=== PATIENT | female | born 1945 | race Caucasian/White ===

== ENCOUNTER 2019-12-30 08:58 | Outpatient (CLI) | payer MEDICARE, OTHER, SELFPAY ==
--- NOTE | 2019-12-30 09:04 | CT_ITS ---
WS: [id number] CT CHEST WITH INTRAVENOUS CONTRAST HISTORY: HEMOPTYSIS TECHNIQUE: Contiguous 5 mm axial imaging performed on the thorax. Coronal and sagittal reformats are submitted. All CT scans at [facility] use at least one of these dose optimization techniq ues: automated exposure control; mA and/or kV adjustment per patient size (includes targeted exams wh ere dose is matched to clinical indication); or iterative reconstruction. CONTRAST: Omnipaque 300; 95 mL IV. DLP: 759.74 mGycm COMPARISON: 06/29/2013 Lungs and central airway: Moderate pulmonary hyperinflation from emphysema. There are a few scattered micronodules (less than 2 mm) throughout each lung. No suspicious mass. Coarse benign calcification in the LEFT lower lobe adjacent to the fissure is stable measuring 1.6 cm. No pneumonia. Pleura: Normal. No pleural effusion. Heart and pericardium: Normal size heart. No pericardial effusion. Mediastinum and hima: Small mediastinal and hilar lymph nodes. Some of these are indeterminate and so me are enlarged. Largest is precarinal measuring 13 mm in diameter. As compared to prior studies no s ignificant progression. Vessels: Normal size aortic and pulmonary artery. No coronary artery calcifications. Chest wall and lower neck: No soft tissue masses. Upper abdomen: Abnormal liver surface. Lobulated surface of the liver consistent with cirrhosis. Port al vein as visualized are remains patent. The entire portal vein is not imaged. There are multiple in tensely enhancing lesions present within the RIGHT lobe of the liver. Please note that a prior dedica bryant liver CT was performed on 12/15/2019 from [facility]. Pancreas although incomple tely visualized doesn't appear to be enlarged. There are numerous lymph nodes in the mesentery of the upper abdomen which have been described on prior studies. Osseous structures: Thoracic spondylosis. CT/CT chest w con* [id number] IMPRESSION: 1. Chronic emphysema and prior granulomatous disease. No pneumonia or endobron chial lesions are identified. 2. Long-term stability of indeterminate and numerous mediastinal and hilar lym ph nodes and upper abdominal lymph nodes. 3. Cirrhosis. Abnormal liver. Dedicated liver CT was performed at [facility] on 12/15/2019. Please refer to that report for complete evaluat ion of the liver lesions.
[2019-12-30] MEDS: iohexol 300 mg/mL 100 mL Btl IV (09:45)
== END 2019-12-30 08:59 | disposition home or self-care (01) ==
LOC: RADWPI 09:03
PROVIDERS: Family Provider Family Medicine; PCP Internal Medicine Cardiovascular Disease; Visit Provider Family Medicine
DX: J43.9 Emphysema, unspecified (principal); K74.60 Unspecified cirrhosis of liver; R04.2 Hemoptysis
CPT/HCPCS: 71260; Q9967

== ENCOUNTER 2020-01-19 08:47 | Outpatient (CLI) | payer MEDICARE, OTHER, SELFPAY ==
--- NOTE | 2020-01-19 09:00 | CT_ITS ---
WS: [id number] CT ANGIOGRAPHY ABDOMEN AORTA HISTORY: Abdominal aortic aneurysm. TECHNIQUE: CT angiogram is performed during IV injection. MIP images reviewed. Reformation images rev iewed. All CT scans at [facility] use at least one of these dose optimization techniques: automated exposure control; mA and/or kV adjustment per patient size (includes targeted exams where d ose is matched to clinical indication); or iterative reconstruction. CONTRAST: Omnipaque 350; 95 mL IV. DLP: 590.68 mGycm COMPARISON: 12/15/2019, 01/09/2019 Chronic emphysema at the lung bases. Large calcification in the lingula. Cardiac chamber size is norm al. No significant hiatal hernia. Nodular appearance of the liver from cirrhosis. Variable enhancement throughout the liver. Dedicated hepatic CT is been performed on 12/15/2019 which demonstrated multiple nodules. On today's examination there are multiple ill-defined areas of increased enhancement in the periphery of the liver suspiciou s for metastatic lesions. Patient provided a history of liver cancer. Spleen is top normal size at 11 .2 cm. Numerous lymph nodes present in the upper abdomen surrounding the celiac axis, aortocaval and regino hepatis. Largest lymph nodes measure 16 mm. These lymph nodes were present on the prior examina tions and not significantly changed in size. Prior cholecystectomy. Pancreas and adrenal glands are n egative. Small cortical cysts in the LEFT kidney. Splenic varices. Abdominal aorta: Extensive atherosclerosis and dilatation of the abdominal aorta. Aortic aneurysm ext ends over a length of 7.5 cm. Maximum transverse diameter 4.1 cm. The lumen is patent. Near circumfer ential thrombus surrounding the lumen. Thrombus diameter measures up to 1.4 cm. Heavy calcification a t the origin of the celiac axis. Mild narrowing proximal SMA. Single LEFT renal artery with mild sten osis proximally. Suspect at least moderate stenosis involving the main RIGHT renal artery. There is a n accessory renal artery extending towards the lower pole. Bifurcation of aorta is intact. Moderate c alcification in the common iliac arteries but no aneurysm. No periaortic hematoma or rupture. L4 anterolisthesis by 2 mm. Degenerative spondylitic changes in the lumbar spine. No osteoblastic or osteolytic disease. CT/CT angio abdomen [id number] IMPRESSION: 1. Abdominal aortic aneurysm extends over a length of 7.5 cm. Maximum transver se diameter 4.1 cm. Intraluminal thrombus with no significant stenosis of the p atent lumen. 2. Mild proximal LEFT and moderate proximal RIGHT renal artery stenosis. There is an additional accessory renal artery on the RIGHT extending towards the low er pole. 3. Marked cirrhosis. There is abnormal enhancement throughout the liver. Patie nt provided a history of liver cancer. Prior outside liver protocol CT was rece ntly obtained. 4. Mesenteric adenopathy has been present over multiple prior years. 5. Prior cholecystectomy.
[2020-01-19] MEDS: iohexol 350 mg/mL 100 mL Btl IV (09:41)
== END 2020-01-19 08:48 | disposition home or self-care (01) ==
LOC: RADWPI 08:50
PROVIDERS: Family Provider Family Medicine; PCP Family Medicine; Visit Provider Thoracic Surgery (Cardiothoracic Vascular Surgery)
DX: I71.4 Abdominal aortic aneurysm, without rupture (principal); I70.1 Atherosclerosis of renal artery; Z90.49 Acquired absence of other specified parts of digestive tract
CPT/HCPCS: 74175; Q9967

== ENCOUNTER 2020-02-01 18:12 | Inpatient (IN) | payer MEDICARE, OTHER, SELFPAY ==
[2020-02-01] VITALS (49 sets, daily range): BP systolic 92–205; BP diastolic 64–127; PULSE 88–127; RESP 13–44; TEMP 37; O2SAT 83–98; BMI 28.3
--- NOTE | 2020-02-01 18:14 | ED_ITS ---
Entered by Nora Campuzano, acting as scribe for Trung Chaudhry MD HPI - SOB/Dyspnea General: Chief Complaint: Shortness of Breath/Dyspnea Stated Complaint: RESP DISTRESS Time Seen by Provider: 02/01/20 18:14 Source: patient Mode of arrival: wheelchair History of Present Illness: HPI Narrative: 74 yo female presents with resp distress. pt came to the ED having severe shortness of breath. pt is unable to answer questions due to her symptoms. per family stated this started this morning, she got short of breath with any movement. Patient denies any chest pain but is in severe distress here. She is only able answer me the 1 word answers. She denied any fevers but has had a slight cough. 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 ) Context: recent illness Timing: constant and progressively worsening Severity: severe Exacerbating factors: movement and coughing Associated symptoms: Reports chest congestion and cough; Deny abdominal pain, chest pain, fever(s), nausea or vomiting Treatment prior to arrival: none Review of Systems General: Reports: ROS unobtainable due to medical condition Const: Denies: fever, chills, body aches or change in appetite Eyes: Denies: blurry vision or eye discomfort ENMT: Denies: throat pain or dental pain Card: Denies: chest pain Resp: Reports: shortness of breath and chest congestion GI: Denies: abdominal pain, nausea, vomiting or diarrhea : Denies: painful urination Musc: Denies: neck pain or back pain Skin/Breast: Denies: rash Neuro: Denies: headache Psych: Denies: depression Melvin/Lymph: Denies: easy bruising All/Imm: Denies: hives [facility] ED PFSH: Medical History (Updated 01/26/20 @ 10:06 by Shaka Pratt MD) Abdominal aortic aneurysm (AAA) Bilateral carotid artery stenosis Cirrhosis Coronary artery disease CVA (cerebral vascular accident) May of 2019 Diabetes GERD (gastroesophageal reflux disease) Hypertension Mixed hyperlipidemia Peripheral artery disease Thrombocythemia Surgical History History of biopsy History of liver biopsy Social History Smoking and tobacco status: unknown if ever smoked Alcohol intake: never Physical Exam Resp: EFFORT & INSPECTION: Yes able to speak in complete sentences, Yes abnormal respiratory pattern, Yes respiratory distress and Yes decreased respiratory effort Course Vital Signs: Vital signs: Vital Signs Temperature 98.6 F 02/01/20 18:52 Pulse Rate 120 H 02/01/20 20:27 Respiratory Rate 16 02/01/20 18:52 Blood Pressure 142/80 02/01/20 20:40 Pulse Oximetry 95 02/01/20 20:27 MDM - SOB/Dyspnea MDM Narrative: Medical decision making narrative: Patient presents here with right lower lobe pneumonia was in severe distress when she arrived. Patient was intubated is doing improved after intubation. Patient given IV antibiotics here. We will also test for coronavirus. Patient EKG has no signs of ST elevation. Patient admitted to the ICU. Lab Data: Labs: Lab Results 02/01/20 02/01/20 02/01/20 Range/Units 18:25 18:30 19:01 WBC 11.5 H (4.0-10.0) 10^3/ uL RBC 4.89 (4.1-5.3) 10^6/u L Hgb 14.9 (11.5-15.3) g/dL Hct 49.0 H (37.0-47.0) % MCV 100.2 H (81-99) fL MCH 30.5 (28.0-34.0) pg MCHC 30.4 (30.0-36.0) g/dL RDW 13.4 (12.1-15.1) % Plt Count 220 (130-400) 10^3/c mm MPV 13.2 H (7.4-10.4) fL Neut % (Auto) 41.8 % Lymph % (Auto) 46.7 % [place] % (Auto) 6.7 % Eos % (Auto) 1.8 % Baso % (Auto) 1.0 % Neut # (Auto) 4.8 (1.8-7.7) 10^3/u L Lymph # (Auto) 5.4 H (0.8-4.8) 10^3/u L [place] # (Auto) 0.8 (0.2-0.9) 10^3/u L Eos # (Auto) 0.2 (0.0-0.8) 10^3/u L Baso # (Auto) 0.1 (0.0-0.1) 10^3/u L Nucleated RBC % (a uto) 0 % Nucleated RBCs # 0.0 /100WBC Specimen Type Arterial Sample Site Rr ABG pH 7.02 L* (7.35-7.45) ABG pCO2 67.5 H* (35-45) mmHg ABG pO2 58.3 L (80.0-100.0) mmH g ABG HCO3 17.4 L (22-26) mmol/L ABG O2 Saturation 76.6 ABG Base Excess -14.6 L (-2.0-2.0) mmol/ L Gabo Test Pos Hematocrit 45.8 (37-47) % Hgb O2 Saturation 73.5 L (95-100) % Carboxyhemoglobin 3.1 (0.4-20.1) %THgb Methemoglobin 1.0 (0.4-1.5) % Total Hemoglobin 14.9 (12-16) g/dL Sodium 143.0 (131-143) mmol/L Potassium 4.9 (3.5-5.0) mmol/L Glucose 231.0 H (70-115) mg/dL Ionized Calcium 1.3 (1.1-1.4) mmol/L O2 Delivery Device Nc O2 Liters/Min 10.0 % Specimen Drawn By Adrian Book Publisher ID Jmn Chloride (98-107) mmol/L Carbon Dioxide (22-29) mmol/L Anion Gap (5-19) BUN (8-23) mg/dL Creatinine (0.5-0.9) mg/dL Calculated Osmolal ity (285-295) mOsm/k g Calcium (8.5-10.5) mg/dL Total Bilirubin (0.15-1.2) mg/dL AST (0-32) U/L ALT (0-33) U/L Alkaline Phosphata se (35-105) IU/L Troponin T Baselin e (0-10) ng/mL NT-Pro-B Natriuret Pep (0-125) pg/mL Total Protein (6.6-8.7) g/dL Albumin (3.5-5.2) g/dL Globulin (1.3-4.6) g/dL Urine Color Yellow (Yellow) Urine Appearance Clear (CLEAR) Urine pH 5.0 (5-7) Ur Specific Gravit y 1.025 (1.005-1.030) Urine Protein 2+ H (Negative) Urine Glucose (UA) Norm (Normal) Urine Ketones Negative (Negative) Urine Blood 2+ H (Negative) Urine Nitrate Negative (Negative) Urine Bilirubin Neg (NEGATIVE) Urine Urobilinogen Norm (Negative) mg/dL Ur Leukocyte Bernarda ase Negative (Negative) Urine RBC 0-4 H (0-2) /hpf Urine WBC 0-4 H (0-5) /hpf Ur Squamous Epith Cells 5-10 H (0-5) Urine Bacteria 2+ H (NONE) Urine Mucus Trace 02/01/20 02/01/20 02/01/20 Range/Units 19:01 19:01 19:01 WBC (4.0-10.0) 10^3/ uL RBC (4.1-5.3) 10^6/u L Hgb (11.5-15.3) g/dL Hct (37.0-47.0) % MCV (81-99) fL MCH (28.0-34.0) pg MCHC (30.0-36.0) g/dL RDW (12.1-15.1) % Plt Count (130-400) 10^3/c mm MPV (7.4-10.4) fL Neut % (Auto) % Lymph % (Auto) % [place] % (Auto) % Eos % (Auto) % Baso % (Auto) % Neut # (Auto) (1.8-7.7) 10^3/u L Lymph # (Auto) (0.8-4.8) 10^3/u L [place] # (Auto) (0.2-0.9) 10^3/u L Eos # (Auto) (0.0-0.8) 10^3/u L Baso # (Auto) (0.0-0.1) 10^3/u L Nucleated RBC % (a uto) % Nucleated RBCs # /100WBC Specimen Type Sample Site ABG pH (7.35-7.45) ABG pCO2 (35-45) mmHg ABG pO2 (80.0-100.0) mmH g ABG HCO3 (22-26) mmol/L ABG O2 Saturation ABG Base Excess (-2.0-2.0) mmol/ L Gabo Test Hematocrit (37-47) % Hgb O2 Saturation (95-100) % Carboxyhemoglobin (0.4-20.1) %THgb Methemoglobin (0.4-1.5) % Total Hemoglobin (12-16) g/dL Sodium 136 (131-143) mmol/L Potassium 4.4 (3.5-5.0) mmol/L Glucose 326 H (70-115) mg/dL Ionized Calcium (1.1-1.4) mmol/L O2 Delivery Device O2 Liters/Min % Specimen Drawn By Book Publisher ID Chloride 100 (98-107) mmol/L Carbon Dioxide 16 L (22-29) mmol/L Anion Gap 24.4 H (5-19) BUN 14 (8-23) mg/dL Creatinine 1.1 H (0.5-0.9) mg/dL Calculated Osmolal ity 291 (285-295) mOsm/k g Calcium 9.3 (8.5-10.5) mg/dL Total Bilirubin 0.3 (0.15-1.2) mg/dL AST 29 (0-32) U/L ALT 18 (0-33) U/L Alkaline Phosphata se 142 H (35-105) IU/L Troponin T Baselin e 43 H (0-10) ng/mL NT-Pro-B Natriuret Pep 337 H (0-125) pg/mL Total Protein 7.7 (6.6-8.7) g/dL Albumin 4.2 (3.5-5.2) g/dL Globulin 3.5 (1.3-4.6) g/dL Urine Color (Yellow) Urine Appearance (CLEAR) Urine pH (5-7) Ur Specific Gravit y (1.005-1.030) Urine Protein (Negative) Urine Glucose (UA) (Normal) Urine Ketones (Negative) Urine Blood (Negative) Urine Nitrate (Negative) Urine Bilirubin (NEGATIVE) Urine Urobilinogen (Negative) mg/dL Ur Leukocyte Bernarda ase (Negative) Urine RBC (0-2) /hpf Urine WBC (0-5) /hpf Ur Squamous Epith Cells (0-5) Urine Bacteria (NONE) Urine Mucus Imaging Data^: CXR: Attestation: I personally reviewed and interpreted this imaging study as follows: My impression: rll pneumonia EKG Data^: EKG 1: Attestation: I personally reviewed and interpreted this EKG as follows: EKG Interpretation Date: 02/01/20 EKG interpretation time: 18:54 Interpretation: sinus tach hr [address] elevation qrs 88 qtc 375 Critical Care Time Critical Care Time: Critical Care Time: Yes Total Critical Care Time: 35 Attestation: This case had a high probability of a clinically significant, sudden, or life threatening deterioration of this patient's condition which required my full and direct attention, intervention and personal management. Discharge Plan Discharge Prescriptions: No Action metoprolol tartrate 25 mg tablet 25 mg PO BID RF: 0 clopidogrel 75 mg tablet 75 mg PO DAILY RF: 0 pantoprazole 40 mg tablet,delayed release (DR/EC) 40 mg PO DAILY RF: 0 ranitidine HCl 300 mg capsule 300 mg PO BEDTIME RF: 0 nitroglycerin [Nitrostat] 0.4 mg tablet, sublingual 0.4 mg SUBLINGUAL Q5M PRN (Reason: Chest Pain) RF: 0 aspirin 325 mg tablet 325 mg PO DAILY PRN (Reason: headache) RF: 0 isosorbide mononitrate 60 mg tablet extended release 24 hr 60 mg PO BID RF: 0 Coding Level of Care Code ED Senior Control Systems Engineer for Chg Fwd Exam Problem Focused The documentation recorded by the Justen henry Bridget Annette, accurately reflects the service I personally performed and the decisions made by me, Trung Chaudhry MD Feb 01, 2020 18:12
--- NOTE | 2020-02-01 18:14 | XR_ITS ---
WS: [id number] Portable AP upright chest, 02/01/2020, 1833 hours Clinical Data: RESP DISTRESS Comparison: PA and lateral chest, 02/18/2018. Findings: The endotracheal tube is above the damon. The nasogastric tube appears to be within the es ophagus and entering the stomach. The pulmonary vascularity is increased. The heart is normal. The ao rtic arch and descending aorta show calcification and tortuosity. No pneumonia or pneumothorax is see n. Monitor leads are on the chest wall. XR/XR chest 1V portable [id number] Impression: 1. Endotracheal tube and nasogastric tube in good position. 2. Pulmonary vascular congestion.
--- NOTE | 2020-02-01 18:16 | ECG_ITS ---
Measurements Intervals [place] Rate: 116 P: 71 NC: 130 QRS: 4 QRSD: 88 T: 88 QT: 306 QTc: 426 SINUS TACHYCARDIA POSSIBLE LEFT ATRIAL ENLARGEMENT [-0.1mV P WAVE IN V1/V2] POSSIBLE RIGHT VENTRICULAR CONDUCTION DELAY [RSR (QR) IN V1/V2] SEPTAL MYOCARDIAL INFARCTION , OF INDETERMINATE AGE [40+ ms Q WAVE IN V1/V2] MODERATE T-WAVE ABNORMALITY, CONSIDER LATERAL ISCHEMIA Compared to ECG 05/29/2019 14:42:01 Myocardial infarct finding now present T-wave abnormality now present Possible ischemia now present Sinus rhythm no longer present Electronically Signed On 02-02-2020 10:26:01 CDT by Alida Alaniz M.D. [id number] dada
--- NOTE | 2020-02-01 18:23 | ECG_ITS ---
Measurements Intervals [place] Rate: 113 P: 64 WI: 120 QRS: 7 QRSD: 74 T: 74 QT: 294 QTc: [address] ELEVATION, CONSIDER ANTERIOR INJURY INTERPRETATION LIMITED BY ARTIFACT Compared to ECG 05/29/2019 14:42:01 ST (T wave) deviation now present Myocardial infarct finding now present Sinus rhythm no longer present Electronically Signed On 02-02-2020 10:28:33 CDT by Alida Alaniz M.D. [email or web address] f
[2020-02-01] MEDS: succinylcholine 20 mg/mL SDV 10mL 150 MG IVP (18:25)
[2020-02-01 18:28] LABS: ABG PCO2 67.5 mmHg (35-45); ABG PH Result 7.02 (7.35-7.45); HCO3 ABG 17.4 mmol/L (22-26); PO2 ABG 58.3 mmHg (80.0-100.0)
[2020-02-01 18:29] LABS: Base Excess ABG -14.6 mmol/L (-2.0-2.0); Blood Gas Sample Site RR; Oxygen Device NC; Oxygen Saturation ABG 76.6; Potassium Level - ABG 4.9 mmol/L (3.5-5.0)
[2020-02-01 18:30] LABS: Arterial Blood Gas Hematocrit 45.8 % (37-47); Carboxyhemoglobin 3.1 %THgb (0.4-20.1); Ionized Calcium Level - ABG 1.3 mmol/L (1.1-1.4)
[2020-02-01 18:31] LABS: HGB O2 Sat 73.5 % (95-100); Total Hemoglobin 14.9 g/dL (12-16)
[2020-02-01] MEDS: vecuronium 10 mg SDV IVP (18:35)
[2020-02-01 19:02] LABS: Add Urine Microscopic? YES; Bilirubin Urine Neg (NEGATIVE); Blood Urine 2+ (Negative); Glucose Urine UA Norm (Normal); Ketones Urine Negative (Negative); Leukocyte Esterase Urine Negative (Negative); Nitrate Urine Negative (Negative); Protein Urine 2+ (Negative); Specific Gravity, Urine 1.025 (1.005-1.030); Urine Appearance Clear (CLEAR); Urine Color Yellow (Yellow); Urobilinogen Urine Norm (Negative)
[2020-02-01 19:11] LABS: Basophils # 0.1 10^3/uL (0.0-0.1); Eosinophils # 0.2 10^3/uL (0.0-0.8); Eosinophils % 1.8 %; Hemoglobin 14.9 g/dL (11.5-15.3); Lymphocytes # 5.4 10^3/uL (0.8-4.8); Lymphocytes % 46.7 %; Mean Corpuscular HGB Conc 30.4 g/dL (30.0-36.0); Mean Corpuscular Hemoglobin 30.5 pg (28.0-34.0); Mean Corpuscular Volume 100.2 fL (81-99); Mean Platelet Volume 13.2 fL (7.4-10.4); Monocytes # 0.8 10^3/uL (0.2-0.9); Monocytes % 6.7 %; Neutrophils # 4.8 10^3/uL (1.8-7.7); Neutrophils % 41.8 %; Nucleated Red Blood Cells % 0 %; Platelet Count 220 10^3/cmm (130-400); Red Blood Count 4.89 10^6/uL (4.1-5.3); Red Cell Distribution Width 13.4 % (12.1-15.1); White Blood Count 11.5 10^3/uL (4.0-10.0)
[2020-02-01] MEDS: levofloxacin-dextrose 5 % 750 MG/150 ML PREMIX 150 MG IV (19:26)
[2020-02-01 19:31] LABS: Add Urine Culture? No; Bacteria Urine 2+; Mucus Urine TRACE; RBC Urine 0-4 /hpf (0-2); WBC Urine 0-4 /hpf (0-5)
--- NOTE | 2020-02-01 19:31 | PC.NURSE ---
Report received from TRAM Marie and care transferred to TRAM Rodriguez
[2020-02-01 19:32] LABS: Alanine Aminotransferase 18 U/L (0-33); Albumin Level 4.2 g/dL (3.5-5.2); Alkaline Phosphatase 142 IU/L (35-105); Anion Gap 24.4 (5-19); Blood Urea Nitrogen 14 mg/dL (8-23); Calcium 9.3 mg/dL (8.5-10.5); Carbon Dioxide 16 mmol/L (22-29); Chloride 100 mmol/L (98-107); Creatinine Clr Calc Pharmacy 46.0731; Globulin 3.5 g/dL (1.3-4.6); Glucose 326 mg/dL (65-115); Osmolality Calculated 291 mOsm/kg (285-295); Potassium 4.4 mmol/L (3.5-5.1); Sodium 136 mmol/L (136-145); Total Bilirubin 0.3 mg/dL (0.15-1.2); Total Protein 7.7 g/dL (6.6-8.7)
[2020-02-01 19:33] LABS: Troponin(5th) Baseline 43 ng/mL (0-10)
[2020-02-01 19:48] LABS: Aspartate Amino Transferase 29 U/L (0-32)
[2020-02-01 19:54] LABS: Slide Review Slide Review Perform
--- NOTE | 2020-02-01 19:56 | PC.PHAR ---
could not verify meds with pt-pt was intubated-put in meds that were filled recently-called [facility] to see if plavix was filled and they stated that they never filled this medication but it was in the system from some med list before
[2020-02-01 20:26] LABS: NT Pro B Type Natriuretic Pept 337 pg/mL (0-125)
[2020-02-01 21:01] LABS: Alveolar-Arterial Oxygen Gradi 9.3 mmHg (5-10); Blood Gas Allen Test Pos; Blood Gas Sample Type Arterial
--- NOTE | 2020-02-01 21:03 | CTR_ITS ---
PROCEDURE INFORMATION: Exam: CT Angiography Chest With Contrast Exam date and time: 02/01/2020 9:08 PM Age: 74 years old Clinical indication: Shortness of breath; Additional info: Dyspnea TECHNIQUE: Imaging protocol: Computed tomographic angiography of the chest with intravenous contrast. 3D rendering: MIP and/or 3D reconstructed images were created by the technologist. Total DLP: 571.86 mGy-cm Radiation optimization: All CT scans at this facility use at least one of these dose optimization techniques: automated exposure control; mA and/or kV adjustment per patient size (includes targeted exams where dose is matched to clinical indication); or iterative reconstruction. Contrast material: VISI 320; Contrast volume: 82 ml; Contrast route: IV; COMPARISON: CT chest w con* [id number] 12/30/2019 9:43 AM FINDINGS: Tubes, catheters and devices: The nasogastric tube is positioned in the stomach, well beyond the diaphragmatic hiatus. The tip is not imaged. The endotracheal tube tip lies 15 mm above the damon. Pulmonary arteries: The pulmonary arteries are adequately opacified for evaluation to the subsegmental level. There is no filling defect to suggest embolism. Aorta: There is moderate aortic atherosclerotic disease. Lungs: Dependent consolidation in both lower lobes and right upper lobe to a lesser extent. There is an 18 mm calcified granuloma or hamartoma in the left lower lobe. Pleural space: Small bilateral pleural effusions. Heart: Heart size is normal. There is no pericardial effusion. Liver: The liver has a nodular surface and there is relative hypertrophy of the left and caudate lobe consistent with cirrhosis. Adrenals: The adrenal glands are hypertrophic bilaterally. Lymph nodes: Calcified subcarinal and left hilar lymph nodes. Diffusely mildly prominent mediastinal nodes are stable since the prior chest CT. Bones/joints: Unremarkable. No acute fracture. Soft tissues: The extrathoracic soft tissues are unremarkable. CT/CT angio chest PE protcl [id number] IMPRESSION: 1. No pulmonary embolism. 2. Satisfactory position of the endotracheal and nasogastric tubes. 3. Small bilateral pleural effusions. 4. Dependent consolidation in both lungs. There is at least some component of atelectasis. Superimposed infection may be present. 5. Cirrhosis. Radiation Dose CTDIVOL = (mGy): DLP = 571.86 (mGy-cm)
[2020-02-01] MEDS: vancomycin 1,000 MG in sodium chloride 0.9% 250 ML 250 MG IV (21:10)
--- NOTE | 2020-02-01 21:11 | PM.HP ---
Providers/Chief Complaint Admitting Physician: Dr Nicholson Primary Care Provider: Mykel Welch MD Chief Complaint: RESP DISTRESS History of Present Illness Sanjuana Rasmussen is a 74 year old female who presented to the emergency room with acute difficulty breathing. History is obtained from patient's daughter, Tiarra Pickering, who works here at [facility] [place] When the patient presented she was only able to answer 1 word at a time and was intubated shortly after arrival. According to the patient's daughter, she has not been feeling well for quite a few weeks. She has had maybe 4 with family describes as transient ischemic attacks with speech abnormalities lasting 20 to 30 minutes at most over the last 4 to 5 weeks. This past Thursday she had an episode that did not go away quite like the others. While her speech improved back to normal she does did not seem to get back to herself. On Thursday she felt bad. The family noted that when she was walking her blood pressure would go up pretty high to 200s over 100s. She also had right arm pain and some chest discomfort. If she rested the pain would go away. Today she was more short of breath than usual. She got up to go to the bathroom which is only a short distance away and again had right arm pain and a significant heaviness in her chest. Her daughter told her to take some nitroglycerin and came over to get her. The symptoms seemed to resolve but on the way and she started gasping for air again. She had an episode of vomiting after taking the nitroglycerin and it was after that that she maybe felt a little bit better. No reported fever. Her and her family have been following social isolation recommendations and social distancing. Patient does have a history of intermittent hemoptysis lately that has been worked up in [place] with evaluations of her stomach and her lungs. She had not had any hemoptysis for a bit of time but had an episode of hemoptysis today during a coughing spell in the car. She has hepatocellular carcinoma. She was last seen at [facility] in [place] at the end of December. She did not receive any chemotherapy at that time and plan was for her to follow-up in March with another scan. According to the daughter there is no metastases associated with the malignancy. Patient has had no known contacts with anybody with COVID 19. Other than today she is not had significant cough. Speech today seemed okay per the daughter. Evaluation in the emergency room showed significant respiratory acidosis. She was subsequently intubated. Chest x-ray showed right lower lobe infiltrate. She was covered with broad-spectrum antibiotics and is being admitted for further care. Patient normally follows with Dr. Welch. Given the critical care nature of patient's current condition, he requested hospitalist admission. Patient has had testing for COVID 19 sent. Review of Systems General: Reports: ROS unobtainable due to endotracheal tube ( Review of systems is as noted per HPI are otherwise unknown) and ROS unobtainable due to medical condition Medications/Allergies Home Medications Medication Instructions Recorded Confirmed Last Taken Type isosorbide mononitrate 60 mg PO BID 02/01/20 02/01/20 Unknown History Allergies Allergy/AdvReac Type Severity Reaction Status Date / Time acetaminophen Allergy UNKNOWN Verified 11/16/19 10:31 [From Tylenol Cold Multi-Symptom Day] dextromethorphan Allergy UNKNOWN Verified 11/16/19 10:31 [From Tylenol Cold Multi-Symptom Day] phenylephrine Allergy UNKNOWN Verified 11/16/19 10:31 [From Tylenol Cold Multi-Symptom Day] Additional Medication Information Additional Medication Information: Home Medications Medication Instructions Recorded Confirmed Type clopidogrel 75 mg tablet 75 mg PO DAILY tab 11/16/19 02/01/20 History metoprolol tartrate 25 mg tablet 25 mg PO BID 11/16/19 02/01/20 History nitroglycerin 0.4 mg sublingual 0.4 mg SUBLINGUAL Q5M PRN 11/16/19 02/01/20 History tablet pantoprazole 40 mg tablet,delayed 40 mg PO DAILY tab 11/16/19 02/01/20 History release ranitidine HCl 300 mg capsule 300 mg PO BEDTIME cap 11/16/19 02/01/20 History aspirin 325 mg tablet 325 mg PO DAILY PRN 01/26/20 02/01/20 History isosorbide mononitrate 60 mg PO BID 02/01/20 02/01/20 History PFSH Acute PFSH: Medical History (Updated 02/02/20 @ 00:34 by Pari Nicholson MD) Abdominal aortic aneurysm (AAA) stable at 4.1 cm on evaluation in 01/2020 Bilateral carotid artery stenosis Cholinesterase deficiency Cirrhosis Coronary artery disease asa, plavix, isosorbide, metoprolol; last cath appears to have been in 2015 with distal LAD and circ stents placed CVA (cerebral vascular accident) May of 2019. Several TIAs in 2020 with primarily speech deficit reported. Diabetes borderline, diet control, recently felt to no longer be diabetic per family GERD (gastroesophageal reflux disease) on protonix and ranitidine, follows with specialist in [place], vomits if does not get meds Hepatocellular carcinoma followed at [place], last visit end of December 2019, no chemo then Hypertension Mixed hyperlipidemia no statin due to liver disease Peripheral artery disease stent r leg Thrombocythemia Surgical History (Updated 02/01/20 @ 22:15 by Pari Nicholson MD) History of biopsy lung, throat - negative History of coronary artery stent placement mid and distal LAD, distal circ in 2013 and 2015. History of liver biopsy hepatocellular carcinoma History of surgery of liver 2 ablations to the liver mass reported by family S/P cholecystectomy S/P hysterectomy Status post arterial stent right SFA stents x 2 placed in 2017 Family History (Updated 02/01/20 @ 21:34 by Pari Nicholson MD) Brother CAD (coronary artery disease) Sister CAD (coronary artery disease) Father CAD (coronary artery disease) Daughter CAD (coronary artery disease) Social History (Updated 02/01/20 @ 22:02 by Pari Nicholson MD) Smoking and tobacco status: current every day smoker cigarettes [ Other cigarette details: still smoking as of cliinic visits in November and January ] Alcohol intake: never Lives independently: Yes Household members: other Details: family nearby and frequesntly stop by during day Female Reproductive History: : 3 Para: 4 Vitals/I&O/Wt Last Vital Signs Temp 98.6 F 02/01/20 18:52 Pulse 120 H 02/01/20 20:27 Resp 16 02/01/20 18:52 BP 142/80 02/01/20 20:40 Pulse Ox 95 02/01/20 20:27 02/01/20 02/01/20 02/01/20 06:59 14:59 22:59 Intake Total 150 / 150 Balance 150 / 150 Weight last 48 hrs Weight 77.111 kg Physical Exam Const: OTHER: intubated, paralyzed at moment HENMT: COMMON NORMALS: normocephalic and moist oral mucous membranes NOSE: nasal mucous membranes and turbinates normal; no nasal discharge OTHER: diaphoretic scalp Eye: COMMON NORMALS: conjunctivae normal and no scleral icterus OTHER: pupils nonreactive due to paralytic Neck/C-Spine: COMMON NORMALS: supple Resp: AUSCULTATION: wheezes right lower and right upper and other (clear left) OTHER: breathing at set vent rate Cardio: COMMON NORMALS: no gallops and no murmurs RATE: tachycardic RHYTHM: regular rhythm OTHER: 2+ radial pulses bilaterally, unable to palpate DP or PT, cap refill at toes 3 seconds GI: AUSCULTATION: Yes absent bowel sounds PALPATION: Yes soft and Yes pulsatile mass (just above and to left of umbilicus) OTHER: prominent liver on palpation but not necessarily enlarged, spleen does not appear enlarged. no ascites noted : BLADDER/KIDNEY EXAM: Yes catheter in place Catheter type (Female): urethral EXTERNAL FEMALE EXAM: Yes normal appearance of the urethra Extremity: NARRATIVE EXTREMITY EXAM: trace ankle edema, feet mottled and cool to touch, no mottling above the ankles, chronic hair loss noted, scattered vericose veins Neuro: OTHER: currently paralyzed Skin: NARRATIVE SKIN EXAM: no sores noted, no large ecchymoses Urinary Catheter Management^: Servin: Cath Placed During This Visit: yes Urethral Indwelling: Yes Reason for Continuing Indwelling Catheter: Accurate Measurement of Urinary Output in Critically Ill Patients Urinary Catheter Date of Insertion: 02/01/20 Urinary Catheter Time of Insertion: 18:35 Data : 02/01/20 19:01 02/01/20 19:01 Other Labs: Laboratory studies reviewed. ABG showed 7.0 2/67/58/17, 42% neutrophils and 46% lymphocytes, total bilirubin 0.3, AST 29, ALT 18, alkaline phosphatase 142, initial troponin 43 with second troponin at 300 for a delta of 257, proBNP was 337 on admission, albumin was 4.2, urine had 2+ protein and negative leukocyte esterase and nitrates, both influenza a and B were negative A&P Assessment and plan (1) Acute respiratory failure with hypoxia and hypercarbia: In a known smoker with some right lower lobe opacities on chest x-ray. She does not carry a diagnosis of COPD but certainly could have a component of this given longstanding tobacco use. With the elevation in cardiac enzymes acute cardio or other vascular event is also within the differential here. No known exposure to coronavirus and has been maintaining social distancing. No reported fevers. Nevertheless COVID 19 is a definitive consideration, and if that is what this ends up being the elevated cardiac markers are poor prognostic indicator. CTA of the chest has been ordered and is still pending. Status: Acute Code(s): J96.01 - Acute respiratory failure with hypoxia; J96.02 - Acute respiratory failure with hypercapnia (2) Right lower lobe pneumonia: Presumptive diagnosis on admission. Patient did have some vomiting earlier so could be due to aspiration. Cannot rule out a bacterial or viral pneumonia currently. Blood cultures and COVID testing have been sent, as well as sputum. Influenza negative. Status: Acute Qualifiers: Pneumonia type: due to unspecified organism Qualified Code(s): J18.9 - Pneumonia, unspecified organism Code(s): J18.9 - Pneumonia, unspecified organism (3) Non-ST elevation [place] (NSTEMI): May be a type II process secondary to respiratory distress but has significant risk factors for type I and recent history concerning for primary cardiac etiology. Status: Acute Code(s): I21.4 - Non-ST elevation (NSTEMI) myocardial infarction (4) Hepatocellular carcinoma: Has had 2 ablations according to the daughter. Last appointment was in December. Records were requested from the ED that we have not received anything yet. Patient did not receive any chemo in December according to the daughter. Plan was for her to be reevaluated in March with repeat imaging. The mass has been growing but there is been no evidence of metastatic disease. Status: Chronic Code(s): C22.0 - Liver cell carcinoma (5) Coronary artery disease: With several stents, last invasive evaluation was in 2015. Follows with Dr. Augustin douglas. Normally on aspirin, Plavix, nitrates and beta-blockers. Not on statin due to liver disease. Status: Chronic Qualifiers: Coronary Disease-Associated Artery/Lesion type: [place] artery [place] vs. transplanted heart: [place] heart Associated angina: with unspecified angina Qualified Code(s): I25.119 - Atherosclerotic heart disease of [place] coronary artery with unspecified angina pectoris Code(s): I25.10 - Atherosclerotic heart disease of [place] coronary artery without angina pectoris (6) Diabetes: Currently with significant hyperglycemia which may be secondary to acute situation. Had recently been told that she no longer had issues with diabetes Status: Chronic Qualifiers: Diabetes mellitus type: type 2 Diabetes mellitus residential insulin use: without intermission coordinator use Diabetes mellitus complication status: with hyperglycemia Qualified Code(s): E11.65 - Type 2 diabetes mellitus with hyperglycemia Code(s): E11.9 - Type 2 diabetes mellitus without complications (7) GERD (gastroesophageal reflux disease): Chronic issue on both H2 chase and PPI. Daughter reports that she vomits if she does not get her medications regularly. Status: Chronic Qualifiers: Esophagitis presence: esophagitis presence not specified Qualified Code(s): K21.9 - Gastro-esophageal reflux disease without esophagitis Code(s): K21.9 - Gastro-esophageal reflux disease without esophagitis (8) Cirrhosis: Imaging studies I have indicated some borderline splenomegaly, splenic varices. Daughter says there is not been any bleeding evidence that she knows of on stomach evaluations that have been done. Status: Chronic Qualifiers: Hepatic cirrhosis type: unspecified hepatic cirrhosis Ascites presence: unspecified Qualified Code(s): K74.60 - Unspecified cirrhosis of liver Code(s): K74.60 - Unspecified cirrhosis of liver (9) Nicotine dependence, cigarettes, with other nicotine-induced disorders: Has not expressed significant interest in quitting according to the daughter Status: Acute Code(s): F17.218 - Nicotine dependence, cigarettes, with other nicotine-induced disorders Additional A&P Information Inpatient admission ICU care Respiratory support Broad-spectrum antibiotics Follow-up CTA that has been ordered Follow-up pending blood culture Follow-up pending COVID testing Isolation in the interim Continue aspirin, Plavix, beta-blockade and add treatment dose Lovenox Low volume IV fluids, monitoring renal function closely I have held nitrates currently until we see what her blood pressure does Sliding scale insulin for diabetes Serial neuro exams I have ordered lactic acid, procalcitonin, LDH and coagulation studies Continue PPI and H2 chase for GI management Hold initiation of tube feeds as patient had large volume output from NG tube placement Treatment dose Lovenox will provide appropriate VTE prophylaxis, SCDs ordered Supportive care otherwise I reviewed current findings and plans of care with patient's daughter. This included the fact that with liver disease, medications may stick around a bit longer, plans for treatment of both potential primary cardiac etiology and pneumonia, including viral, testing for COVID and critical nature of current condition. Tiarra Pickering may be reached at [phone] (cell phone) or at extension [phone] when she is at work. Patient's other daughter Lena Ramirez can be reached at [phone]. I reviewed with Tiarra the current visitation policy. CODE STATUS was reviewed with patient's daughter Tiarra Pickering and they do desire full code Attestations Medical Necessity Statement*: Patient is currently in critical condition and will require greater than a two midnight stay Coding Level of Care Code Acute Principal Accounts Clerk for [facility] Fwd Exam Detailed Diagnoses Acute respiratory failure with hypoxia and hypercarbia J96.01; J96.02 Right lower lobe pneumonia J18.9 Pneumonia type: due to unspecified organism Non-ST elevation [place] (NSTEMI) I21.4 Hepatocellular carcinoma C22.0 Coronary artery disease I25.119 Coronary Disease-Associated Artery/Lesion type: [place] artery [place] vs. transplanted heart: [place] heart Associated angina: with unspecified angina Diabetes E11.65 Diabetes mellitus type: type 2 Diabetes mellitus residential insulin use: without intermission coordinator use Diabetes mellitus complication status: with hyperglycemia GERD (gastroesophageal reflux disease) K21.9 Esophagitis presence: esophagitis presence not specified Cirrhosis K74.60 Hepatic cirrhosis type: unspecified hepatic cirrhosis Ascites presence: unspecified Nicotine dependence, cigarettes, with other nicotine-induced disorders F17.218
[2020-02-01 21:14] LABS: Troponin 5 2HR 300.5 ng/mL (0-10)
[2020-02-01 21:15] LABS: Influenza A by IFA Negative (Negative); Influenza B by IFA Negative (Negative)
[2020-02-01 21:15] LABS: Troponin 5 2HR Delta 257.5 ABS# (0-10)
[2020-02-01] MEDS: vecuronium 10 mg SDV 8 MG IVP (21:27)
--- NOTE | 2020-02-01 21:46 | PC.NURSE ---
hospitalist in room wtih patient
[2020-02-01] MEDS: iodixanol 320 mg/mL 100mL Btl IV (22:17)
[2020-02-01] MEDS: piperacillin-tazobactam 4.5 GM in sodium chloride 0.9% (plus) 50 ML IV (22:57)
[2020-02-01] MEDS: propofol 1,000 MG/100 ML INJ 6.9 MG IV (23:17)
--- NOTE | 2020-02-01 23:18 | XR_ITS ---
WS: [id number] Portable AP supine chest, 02/01/2020, 2335 hours Clinical Data: intubated Comparison: Portable chest, 02/01/2020, 1833 hours. Findings: The endotracheal tube remains above the damon. The nasogastric tube is in the esophagus an d points toward the stomach. The pulmonary vascular congestion has improved. Monitor leads are on the chest wall. The heart is normal. XR/XR chest 1V portable [id number] Impression: 1. Improvement in pulmonary vascular congestion. 2. Satisfactory position of endotracheal tube and nasogastric tube.
[2020-02-01] MEDS: midazolam 1 mg/mL INJ 2 mL IVP (23:50)
[2020-02-02] VITALS (133 sets, daily range): BP systolic 67–128; BP diastolic 50–87; PULSE 46–125; RESP 13–32; TEMP 37.7–38.2; O2SAT 82–100; BMI 28.3
--- NOTE | 2020-02-02 00:16 | ECG_ITS ---
Measurements Intervals [place] Rate: 108 P: 70 IL: 126 QRS: 44 QRSD: 93 T: 85 QT: 329 QTc: 442 SINUS TACHYCARDIA SEPTAL MYOCARDIAL INFARCTION [40+ ms Q WAVE IN V1/V2], OF INDETERMINATE AGE Compared to ECG 05/29/2019 14:42:01 Myocardial infarct finding now present Sinus rhythm no longer present Electronically Signed On 02-02-2020 10:27:24 CDT by Alida Alaniz M.D. [email or web address]
[2020-02-02] MEDS: sodium chloride 0.9% 1,000 ML 75 ML IV ×3 (00:23→20:16)
[2020-02-02] MEDS: enoxaparin 100 mg/mL Syringe 80 MG SUBCUT ×2 (00:43→13:11)
[2020-02-02] MEDS: sodium chloride 0.9% 500 ML IV (01:10)
[2020-02-02 01:22] LABS: Lactic Sepsis W/Reflex 2.7 mmol/L (0.5-2.2)
[2020-02-02 01:27] LABS: Lactate Dehydrogenase 351 U/L (135-214)
[2020-02-02 01:30] LABS: Troponin 5 6HR 952.9 ng/mL (0-10); Troponin 5 6HR Delta 909.9 ng/L (0-12)
[2020-02-02 01:33] LABS: INR 1.04 (0.8-1.2); Partial Thromboplastin Time 26.7 SECONDS (23.9-36.7)
[2020-02-02 01:56] LABS: ABG PCO2 47.6 mmHg (35-45); ABG PH Result 7.26 (7.35-7.45); Arterial Blood Gas Hematocrit 44.6 % (37-47); Blood Gas Sample Site Brachial, right; Blood Gas Sample Type Arterial; Blood Gas Tidal Volume 0.5; HCO3 ABG 21.3 mmol/L (22-26); Oxygen Device VENT
--- NOTE | 2020-02-02 02:17 | PC.NURSE ---
2315 rcvd pt via bed from ed. pt intubated size 8 et tube secured 24 @ lip cmv 13/500/60/8.0 . soft wrist restraints placed at this time. vss per cm. diprivan started @ 10 mcg/min at this time. ns @ 75 . appiah to csd c cloudy yellow urine, pt skin intact, bilat feet noted to be purple, cool to touch > 5 sec cap refil and only pulse found with doppler is left posterior tibial . dr timmons aware. 0011 pt bp 67/[address] timmons order rcvd for levophed at this time, verified ok to give despite phenylephrine allergy. [address] at this time. dr. timmons in icu. Gi gerard.
--- NOTE | 2020-02-02 02:46 | PC.PHAR ---
RENAL DOSING FOR LEVAQUIN 750MG CHANGED TO Q48H DUE TO CRCL OF 46
[2020-02-02 02:53] LABS: Reflex Lactate Order REFLEX LACTIC ORDERD
[2020-02-02] MEDS: ipratropium-albuterol 3 mL Neb INHALATION ×4 (03:00→20:04)
[2020-02-02 03:33] LABS: Procalcitonin 1.19 ng/mL (0-0.5)
[2020-02-02 04:57] LABS: Lactic Acid level (Lactate) 3.3 mmol/L (0.5-2.2)
[2020-02-02 05:12] LABS: Alanine Aminotransferase 37 U/L (0-33); Albumin Level 3.7 g/dL (3.5-5.2); Alkaline Phosphatase 111 IU/L (35-105); Anion Gap 21.8 (5-19); Aspartate Amino Transferase 89 U/L (0-32); Blood Urea Nitrogen 20 mg/dL (8-23); Calcium 8.9 mg/dL (8.5-10.5); Carbon Dioxide 19 mmol/L (22-29); Chloride 105 mmol/L (98-107); Globulin 2.6 g/dL (1.3-4.6); Glucose 221 mg/dL (65-115); Osmolality Calculated 295 mOsm/kg (285-295); Phosphorus 6.1 mg/dL (2.5-4.5); Potassium 4.8 mmol/L (3.5-5.1); Sodium 141 mmol/L (136-145); Total Bilirubin 0.4 mg/dL (0.15-1.2); Total Protein 6.3 g/dL (6.6-8.7)
[2020-02-02 05:23] LABS: ABG PCO2 42.8 mmHg (35-45); ABG PH Result 7.29 (7.35-7.45); Arterial Blood Gas Hematocrit 41.4 % (37-47); Blood Gas Sample Site Brachial, right; Blood Gas Sample Type Arterial; Blood Gas Tidal Volume 0.5; HCO3 ABG 20.4 mmol/L (22-26); Oxygen Device VENT
[2020-02-02 05:27] LABS: Basophils # 0.1 10^3/uL (0.0-0.1); Basophils % 0.4 %; Hematocrit 61.4 % (37.0-47.0); Lymphocytes # 0.8 10^3/uL (0.8-4.8); Lymphocytes % 6.2 %; Mean Corpuscular HGB Conc 30.9 g/dL (30.0-36.0); Mean Corpuscular Hemoglobin 29.4 pg (28.0-34.0); Mean Platelet Volume 13.7 fL (7.4-10.4); Monocytes # 0.8 10^3/uL (0.2-0.9); Monocytes % 6.2 %; Neutrophils # 11.1 10^3/uL (1.8-7.7); Neutrophils % 86.7 %; Nucleated Red Blood Cells % 0 %; Platelet Count 78 10^3/cmm (130-400); Red Blood Count 6.46 10^6/uL (4.1-5.3); Red Cell Distribution Width 13.6 % (12.1-15.1); White Blood Count 12.8 10^3/uL (4.0-10.0)
[2020-02-02 05:33] LABS: Chol HDL Ratio 5.14 mg/dL (0.0-4.40); Cholesterol 185 mg/dL (0-200); HDL Cholesterol 36 mg/dL (60-100); LDL Cholesterol Calculated 115 mg/dL (50-129); LDL HDL Ratio 3.19 RATIO (0.00-3.22); Triglycerides 171 mg/dL (0-150)
[2020-02-02 05:51] LABS: Slide Review Slide Review Perform
--- NOTE | 2020-02-02 06:00 | XR_ITS ---
WS: [id number] Portable AP upright chest, 02/02/2020, 0437 hours. Clinical Data: PNEUMONIA Comparison: Portable chest, 02/01/2020, 2335 hours. Findings: The pulmonary vascular congestion shows only a small residual. The endotracheal tube and na sogastric tube remain in the same position. The aortic arch is again shows tortuosity with calcificat ion. Monitor leads on the chest wall. There is now patchy atelectasis in both lower lobes. XR/XR chest 1V portable [id number] Impression: 1. Almost total clearing of pulmonary vascular congestion. 2. Satisfactory position of nasogastric tube and endotracheal tube. 3. Mild patchy atelectasis at both lower lobes.
--- NOTE | 2020-02-02 06:00 | USCV_ITS ---
Sanjuana Rasmussen Age: 74 Gender: F : 1945 Exam Date: 02/02/2020 06:15 Ordering Phys: Pari Nicholson MD Technologist: Marlena Garnica Exam Location: [facility] [place] Indication: NSTEMI BP: 102 / 69 HR: Rhythm: Sinus Technical Quality: Adequate MEASUREMENTS (Male / Female) Normal Values 2D ECHO LV Diastolic Diameter PLAX 4.8 cm 4.2 - 5.9 / 3.9 - 5.3 cm LV Systolic Diameter PLAX 4.2 cm IVS Diastolic Thickness 1.1 cm 0.6 - 1.0 / 0.6 - 0.9 cm IVS Systolic Thickness 1.1 cm LVPW Diastolic Thickness 1.0 cm 0.6 - 1.0 / 0.6 - 0.9 cm LVPW Systolic Thickness 1.1 cm LVOT Diameter 2.0 cm LV Ejection Fraction 2D Teich 28.5 % LV Ejection Fraction MOD 2C 24.1 % LV Ejection Fraction 2C AL 25.2 % LA Diameter 3.4 cm LA Width 3.0 cm LA Height 4.6 cm RA Width 3.1 cm RA Height 3.9 cm Aorta at Sinotubular Diameter 2.6 cm M-MODE Aortic Annulus Diameter 2.9 cm LA Ao Ratio MM 1.2 MV E Point Septal Separation 0.4 cm DOPPLER AV Peak Velocity 171.0 cm/s LVOT Peak Velocity 89.0 cm/s AV Area Cont Eq vti 1.7 cm squared AV Area Cont Eq pk 1.7 cm squared MV Area PHT 4.6 cm squared Mitral E to A Ratio 0.7 MV E' Velocity 8.0 cm/s Mitral E to MV E' Ratio 11.5 Mitral E to LV E' Lateral Ratio 9.7 Mitral E to LV E' Septal Ratio 14.2 TR Peak Velocity 269.2 cm/s TR Peak Gradient 29.0 mmHg TR Mean Velocity 209.7 cm/s TR Mean Gradient 18.4 mmHg TR Velocity Time Integral 64.7 cm TV Peak E Velocity 40.0 cm/s Right Atrial Pressure 15.0 mmHg Pulmonary Artery Systolic Pressu 44.0 mmHg PV Peak Velocity 64.0 cm/s RV Acceleration Time 0.1 s RV Ejection Time 0.3 s RV AcT/ET 0.4 FINDINGS Left Ventricle Normal left ventricular cavity size. Severely decreased left ventricular systolic function. Left ventricular ejection fraction is estimated at 28 %. Global left ventricular hypokinesis. Grade I/IV diastolic dysfunction (abnormal relaxation filling pattern), normal to mildly elevated filling pressures. Right Ventricle The right ventricle is normal in size and function. Moderate pulmonary hypertension, RVSP 44 mmHg. Right Atrium The right atrium is normal in size. Left Atrium The left atrium is normal in size. Mitral Valve Mildly thickened mitral valve. No mitral valve stenosis. Mild mitral valve regurgitation. Aortic Valve Moderate aortic valve calcification. Moderate aortic valve stenosis, mean gradient 6.7 mmHg, SADIA 1.7 cm squared. Mild aortic valve regurgitation. Tricuspid Valve Moderate tricuspid valve regurgitation. Pulmonic Valve Mild pulmonary valve regurgitation. Pericardium Normal pericardium without effusion. Aorta Normal ascending aorta dimension. CONCLUSIONS 1-Normal left ventricular cavity size. Severely decreased left ventricular systolic function. Left ventricular ejection fraction is estimated at 28 %. Global left ventricular hypokinesis. Grade I/IV diastolic dysfunction (abnormal relaxation filling pattern), normal to mildly elevated filling pressures. 2-Moderate aortic valve calcification. Moderate aortic valve stenosis, mean gradient 6.7 mmHg, SADIA 1.7 cm squared. Mild aortic valve regurgitation. 3-Moderate tricuspid valve regurgitation. 4-The right ventricle is normal in size and function. Moderate pulmonary hypertension, RVSP 44 mmHg. 5-There is no pericardial effusion. 6-Right atrial pressure is around 10 mm of mercury. 7-when compared to the prior echocardiogram dated 06/28 there is worsening of left ventricular function from normal 65% to severely depressed 28 % now, There is moderate tricuspid and mild aortic valve regurgitation. There is moderate pulmonary hypertension Monica Olson MD (Electronically Signed) Final Date: 02 February 2020 20:20 S
[2020-02-02] MEDS: piperacillin-tazobactam 3.375 GM in sodium chloride 0.9% (plus) 50 ML IV ×2 (06:13→19:16)
--- NOTE | 2020-02-02 07:07 | P.CONIM_ITS ---
Providers/Reason For Consult Consulting Physican/Specialty*: Dr. Alaniz, Cardiology Reason for Consult*: NSTEMI Attending Physician: Pari Nicholson MD Primary Care Provider: Mykel Welch MD History of Present Illness History of Present Illness Sanjuana Rasmussen is a 74 year old female with past medical history of coronary artery disease with multiple prior stents, peripheral arterial disease, hypertension, hyperlipidemia, stable abdominal aortic aneurysm, chronic active smoker, history of hepatocellular carcinoma, history of CVA May 2019, diabetes mellitus and multiple other medical problems. She usually follows up with Dr. Ruffin and last saw him in November 2018. She presented to the ER with her daughter with acute onset difficulty breathing. The history was mostly obtained from the chart. She was intubated shortly after arrival to the ER given respiratory distress. It seems like for the last few weeks she has been having intermittent episodes of chest discomfort requiring nitroglycerin as well as significantly elevated blood pressure. Prior to arrival she was short of breath getting to the bathroom and had chest and right arm pain for which she received nitroglycerin but soon after started gasping for air. She also had an episode of vomiting. No reported fever. Chest x-ray showed right lower lobe infiltrate and CTA of chest showed no pulmonary embolism but bilateral atelectasis and possible infection. COVID 19 testing was sent out and I have been asked to evaluate the patient given elevated troponin with baseline troponin T as high as 300. EKG on arrival had a lot of artifact and there was concern for ST elevation in anterior leads. Follow-up EKG showed sinus tachycardia, possible left atrial enlargement. Possible septal LA of indeterminate age. Overnight urine output of 200 mL and FiO2 requirement has decreased to 35%. Frequent PVCs noted on telemetry. Review of Systems General: Reports: ROS unobtainable due to endotracheal tube Meds/Allergies Home Medications and Allergies Home Medications Medication Instructions Recorded Confirmed Type clopidogrel 75 mg tablet 75 mg PO DAILY tab 11/16/19 02/01/20 History metoprolol tartrate 25 mg tablet 25 mg PO BID 11/16/19 02/01/20 History nitroglycerin 0.4 mg sublingual 0.4 mg SUBLINGUAL Q5M PRN 11/16/19 02/01/20 History tablet pantoprazole 40 mg tablet,delayed 40 mg PO DAILY tab 11/16/19 02/01/20 History release ranitidine HCl 300 mg capsule 300 mg PO BEDTIME cap 11/16/19 02/01/20 History aspirin 325 mg tablet 325 mg PO DAILY PRN 01/26/20 02/01/20 History isosorbide mononitrate 60 mg PO BID 02/01/20 02/01/20 History Allergies Allergy/AdvReac Type Severity Reaction Status Date / Time acetaminophen Allergy UNKNOWN Verified 11/16/19 10:31 [From Tylenol Cold Multi-Symptom Day] dextromethorphan Allergy UNKNOWN Verified 11/16/19 10:31 [From Tylenol Cold Multi-Symptom Day] phenylephrine Allergy UNKNOWN Verified 11/16/19 10:31 [From Tylenol Cold Multi-Symptom Day] Current Medications Current Medications Generic Name Dose Route Start Last Admin Trade Name Freq PRN Reason Stop Dose Admin Albuterol/Ipratropium 3 ml 02/02/20 03:00 02/02/20 03:00 Duoneb INHALATION 3 ml Q6H.RESPIRATORY DIANE Administration Enoxaparin Sodium 80 mg 02/02/20 00:20 02/02/20 00:43 Lovenox 1 mg/kg (80 mg) 80 mg SUBCUT Administration Q12H DIANE Propofol 1,000 mg in 100 mls @ 0 mls/hr 02/01/20 22:45 02/01/20 23:17 Diprivan IV 15 mcg/kg/min .Q0M DIANE 6.9 mls/hr Administration Protocol Per Protocol Piperacillin Sod/Tazobactam 50 mls @ 12.5 mls/hr 02/02/20 07:00 02/02/20 06:13 Sod 3.375 gm/ Sodium Chloride IV 12.5 mls/hr Q8H DIANE Administration Protocol Norepinephrine Bitartrate 4 mg 254 mls @ 0 mls/hr 02/02/20 00:30 02/02/20 00:45 / Dextrose IV 2 mcg/min .Q0M DIANE 7.6 mls/hr Administration Protocol Per Protocol Sodium Chloride 1,000 mls @ 75 mls/hr 02/02/20 00:20 02/02/20 06:11 Sodium Chloride 0.9% IV 75 mls/hr .[id number] DIANE Administration Insulin Aspart 0 unit 02/02/20 00:20 02/02/20 00:43 Novolog SUBCUT 3 unit BEDTIME DIANE Administration Protocol Midazolam HCl 1 mg 02/01/20 22:34 02/01/20 23:50 Versed IVP 1 mg Q6H PRN Administration vaughn 3 Ranitidine HCl 300 mg 02/02/20 00:39 02/02/20 01:31 Zantac Syrup PO 300 mg BEDTIME DIANE Administration PFSH Acute PFSH: Medical History Abdominal aortic aneurysm (AAA) stable at 4.1 cm on evaluation in 01/2020 Bilateral carotid artery stenosis Cholinesterase deficiency Cirrhosis Coronary artery disease asa, plavix, isosorbide, metoprolol; last cath appears to have been in 2015 with distal LAD and circ stents placed CVA (cerebral vascular accident) May of 2019. Several TIAs in 2019 with primarily speech deficit reported. Diabetes borderline, diet control, recently felt to no longer be diabetic per family GERD (gastroesophageal reflux disease) on protonix and ranitidine, follows with specialist in [place], vomits if does not get meds Hepatocellular carcinoma followed at [place], last visit end of December 2019, no chemo then Hypertension Mixed hyperlipidemia no statin due to liver disease Peripheral artery disease stent r leg Thrombocythemia Surgical History History of biopsy lung, throat - negative History of coronary artery stent placement mid and distal LAD, distal circ in 2013 and 2015. History of liver biopsy hepatocellular carcinoma History of surgery of liver 2 ablations to the liver mass reported by family S/P cholecystectomy S/P hysterectomy Status post arterial stent right SFA stents x 2 placed in 2018 Family History (Updated 02/01/20 @ 21:34 by Pari Nicholson MD) Brother CAD (coronary artery disease) Sister CAD (coronary artery disease) Father CAD (coronary artery disease) Daughter CAD (coronary artery disease) Social History (Updated 02/01/20 @ 22:02 by Pari Nicholson MD) Smoking and tobacco status: current every day smoker cigarettes [ Other cigarette details: still smoking as of cliinic visits in November and January ] Alcohol intake: never Lives independently: Yes Household members: other Details: family nearby and frequesntly stop by during day Female Reproductive History: : 3 Para: 4 Vitals/I&O/Wt Last Vital Signs Temp 98.6 F 02/01/20 18:52 Pulse 110 H 03/26/20 05:00 Resp 17 02/02/20 05:50 BP 102/69 02/02/20 05:00 Pulse Ox 100 02/02/20 04:55 02/01/20 02/02/20 02/02/20 22:59 06:59 14:59 Intake Total 400 / 400 435 / 835 Output Total 200 / 200 Balance 400 / 400 235 / 635 Weight last 48 hrs Weight 170 lb Weight 170 lb Physical Exam Narrative: EXAM NARRATIVE: Physical exam not done. This was physician to physician consult, given suspected COVID-19 infection. Urinary Catheter Management^: Servin: Cath Placed During This Visit: yes Urethral Indwelling: Yes Reason for Continuing Indwelling Catheter: Accurate Measurement of Urinary Output in Critically Ill Patients Urinary Catheter Date of Insertion: 02/01/20 Urinary Catheter Time of Insertion: 18:35 Data Labs: Other Labs: Laboratory Tests 02/01/20 02/01/20 02/01/20 19:01 19:01 20:50 WBC Hgb Plt Count ABG pH ABG pCO2 ABG pO2 FiO2 PEEP Potassium Carbon Dioxide BUN Creatinine Magnesium AST ALT Alkaline Phosphata se Troponin I 6 Hour Troponin I Hi Sens Del Troponin T Baselin e 43 H Troponin T 120 Min [place] 300.5 H NT-Pro-B Natriuret Pep 337 H Triglycerides Cholesterol LDL Cholesterol, C alc HDL Cholesterol 02/02/20 02/02/20 02/02/20 01:00 04:15 04:15 WBC Hgb Plt Count ABG pH ABG pCO2 ABG pO2 FiO2 PEEP Potassium 4.8 Carbon Dioxide 19 L BUN 20 Creatinine 1.4 H Magnesium 2.0 AST 89 H ALT 37 H Alkaline Phosphata se 111 H Troponin I 6 Hour 952.9 H Troponin I Hi Sens Del 909.9 H* Troponin T Baselin e Troponin T 120 Min [place] NT-Pro-B Natriuret Pep Triglycerides 171 H Cholesterol 185 LDL Cholesterol, C alc 115 HDL Cholesterol 36 L 02/02/20 02/02/20 04:40 10:23 WBC 12.8 H Hgb 12.5 D Plt Count 134 ABG pH 7.29 L ABG pCO2 42.8 ABG pO2 175.0 H* FiO2 50.0 PEEP 8.0 Potassium Carbon Dioxide BUN Creatinine Magnesium AST ALT Alkaline Phosphata se Troponin I 6 Hour Troponin I Hi Sens Del Troponin T Baselin e Troponin T 120 Min [place] NT-Pro-B Natriuret Pep Triglycerides Cholesterol LDL Cholesterol, C alc HDL Cholesterol Micro: Micro: Microbiology 02/01/20 18:40 Gram Stain - Final Sputum - Endotrac heal Wash Imaging^: Coronary angiogram (03/2018): Radiologist's impression: Angiographic Findings Procedure Summary The procedure was performed from the left common femoral artery. First coronary angiography was performed. This revealed a ostial right coronary artery lesion that is at least 50-60% which caused dampening of the pressure waveform and poor flow into the aorta upon injection of the artery. The circumflex is a tiny vessel which contains a 99% stenosis in its midportion. There is a large ramus intermedius artery which contains a 90% in-stent restenosis at the distal and of the previously placed stent. LAD contains mild diffuse disease. 2 previously placed LAD stents are patent. The more distal one contains mild to moderate in-stent restenosis. Left main coronary artery is normal. No left ventriculogram was done due to the contrast material used. There is a saccular aneurysm noted in the distal aorta. The iliac and more proximal femoral arteries contain mild diffuse disease. On the right, superficial femoral artery was occluded area and it underwent angioplasty and stenting with a good result. The popliteal artery on the right is patent. There is three-vessel runoff below the right knee though the vessels below the knee are moderately to severely diffusely diseased. On the left, the pelvic and femoral vessels contain mild diffuse disease. The superficial femoral artery contains several lesions up to 40-50% stenosis. The popliteal is patent. There is two-vessel runoff below the left knee, the peroneal being chronically occluded. Recommendations For now medical treatment is appropriate. I chose not to intervene in the coronary circulation due to the contrast material used. If she remains symptomatic then the ramus intermedius artery would be the most likely culprit followed by the ostial right coronary artery and finally the small very tiny circumflex AV groove branch. Cardiac Arteries and Lesion Findings LMCA: Normal. LAD: Diffuse irregularity.Mild to moderate diffuse irregularity with no significant stenoses. Previously placed stent in the distal LAD contains a 40% in-stent restenosis. A previously placed stent in the proximal to mid LAD is widely patent. LCx: Single stenosis.Circumflex is a tiny AV groove branch which gives off even smaller marginal branches. In the midportion there is a 99% stenosis. RCA: Diffuse irregularity and Single stenosis.This is the dominant vessel contains no significant stenoses other than diffuse luminal irregularities along its course, however the pressure waveform dampens upon insertion of the 5 Dutch catheter with minimal flow into the aorta upon injection of the vessel. This probably represents a significant ostial right coronary artery lesion Ramus: Diffuse irregularity and Single stenosis.The previously placed stent in the distal ramus contains a 99% in-stent restenosis which extends just barely beyond the distal end of the stent. Echo: I personally reviewed and interpreted this imaging study as follows: My impression: (06/28/2019) CONCLUSIONS 1. Normal left ventricular cavity size, wall thickness and systolic function. Left ventricular ejection fraction is estimated at 79 %. No regional wall motion abnormalities. Normal diastolic function. 2. Normal right ventricular size and systolic function. 3. Normal pulmonary artery pressure estimated at 30 mmHg. 4. No left ventricular apical thrombus based on this study. However, left atrium and left atrial appendage not adequately visualized on this study. MARCUS is recommended if clinically indicated. 5. No significant change when compared to previous study dated 08/10/2014. Other Data: Other data: 08/29/2019 Carotid duplex results Atherosclerotic plaque causing:. 16 to 40% stenosis of the right internal carotid artery. 16 to 40% stenosis of the left internal carotid artery. LEFT HEARTH CATHETERIZATION (36462) 01/04/16 High-grade lesion in the distal LAD, around the LV apex 30% ostial narrowing in the left main 50% proximal was RCA lesion Patent stented segments in the LAD and obtuse marginal artery Mild diffuse disease in the other vessels Normal LV size and ejection fraction Normal LVEDP Distal LAD stented without incident. STRESS ECHO-EXERCISE (85982) 02/25/2018 Nonspecific EKG changes with the treadmill exercise 2. No exercise-induced chest pain or cardiac arrhythmia. Exercise-induced of bilateral calf pain and shortness of breath 3. Impaired exercise tolerance, attained a maximum of 4.6 METs Normal echocardiographic response to treadmill exercise. No significant coronary ischemia, based on the above findings CT angiogram of chest (02/01/20) IMPRESSION: 1. No pulmonary embolism. 2. Satisfactory position of the endotracheal and nasogastric tubes. 3. Small bilateral pleural effusions. 4. Dependent consolidation in both lungs. There is at least some component of atelectasis. Superimposed infection may be present. 5. Cirrhosis. Chest x-ray 02 February 2020: Improved pulmonary vascular congestion and mild patchy atelectasis at both lower lobes. A&P Assessment and plan (1) Coronary artery disease: Status: Chronic Qualifiers: Coronary Disease-Associated Artery/Lesion type: [place] artery [place] vs. transplanted heart: [place] heart Associated angina: with unspecified angina Qualified Code(s): I25.119 - Atherosclerotic heart disease of [place] coronary artery with unspecified angina pectoris Code(s): I25.10 - Atherosclerotic heart disease of [place] coronary artery without angina pectoris (2) Acute respiratory failure with hypoxia and hypercarbia: Improved oxygenation on ABG this morning and FiO2 requirement has decreased to 35%. Remains on PEEP of 8. Status: Acute Code(s): J96.01 - Acute respiratory failure with hypoxia; J96.02 - Acute respiratory failure with hypercapnia (3) Non-ST elevation LA (NSTEMI): She has known prior CAD with last LHC in 03/2018. It showed ostial right coronary artery lesion that is at least 50-60% which caused dampening of the waveform and poor flow into the aorta upon injection of the artery. The circumflex is a tiny vessel which contains a 99% stenosis in its midportion. There is a large ramus intermedius artery which contains a 90% in-stent restenosis at the distal and of the previously placed stent. LAD contains mild diffuse disease. 2 previously placed LAD stents are patent. The more distal one contains mild to moderate in-stent restenosis. Left main coronary artery is normal. -continue ASA, plavix and therapeutic lovenox. EKG showing possible anteroseptal infarct of indeterminate age and T wave inversion in lateral leads. -Echo showing severely decreased LV function with hypokinesis in , IS, inferior and apical [place]. -Renal function showing creatinine increase from 1.1 to 1.4 and CTA for PE protocol yesterday. -UO has been low overnight. Patient is hypotensive presently requiring pressors. It could be a mix of cardiogenic/septic shock. -Continue to treat medically for now. Once patient is more stable, will make the decision for coronary angiogram. Status: Acute Code(s): I21.4 - Non-ST elevation (NSTEMI) myocardial infarction (4) Right lower lobe pneumonia: There is was concern of aspiration given history of vomiting however she currently remains on broad-spectrum antibiotics. Status: Acute Qualifiers: Pneumonia type: due to unspecified organism Qualified Code(s): J18.9 - Pneumonia, unspecified organism Code(s): J18.9 - Pneumonia, unspecified organism (5) Peripheral artery disease: s/p right superficial femoral artery angioplasty and stenting in 03/2018. Status: Chronic Code(s): I73.9 - Peripheral vascular disease, unspecified (6) Hypertension: Patient has history of hypertension however currently is hypotensive post intubation and sedation Status: Chronic Qualifiers: Hypertension type: essential hypertension Qualified Code(s): I10 - Essential (primary) hypertension Code(s): I10 - Essential (primary) hypertension (7) Diabetes: Status: Chronic Qualifiers: Diabetes mellitus type: type 2 Diabetes mellitus group home insulin use: without rat exterminator use Diabetes mellitus complication status: with hyperglycemia Qualified Code(s): E11.65 - Type 2 diabetes mellitus with hyperglycemia Code(s): E11.9 - Type 2 diabetes mellitus without complications (8) Mixed hyperlipidemia: Status: Chronic Code(s): E78.2 - Mixed hyperlipidemia Additional A&P Information Chronic active smoker Bilateral carotid artery stenosis Stable infrarenal abdominal aortic aneurysm Gastroesophageal reflux disease History of liver cirrhosis History of thrombocytopenia Hepatocellular carcinoma being followed at [facility] Thank you for allowing me to participate in patient's care. Please feel free to call with questions or concerns. Consult Attestations Medical Necessity Statement: Patient remains critically ill. 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 transplanted heart: [place] heart Associated angina: with unspecified angina Acute respiratory failure with hypoxia and hypercarbia J96.01; J96.02 Non-ST elevation LA (NSTEMI) I21.4 Right lower lobe pneumonia J18.9 Pneumonia type: due to unspecified organism Peripheral artery disease I73.9 Hypertension I10 Hypertension type: essential hypertension Diabetes E11.65 Diabetes mellitus type: type 2 Diabetes mellitus group home insulin use: without rat exterminator use Diabetes mellitus complication status: with hyperglycemia Mixed hyperlipidemia E78.2
--- NOTE | 2020-02-02 08:52 | P.PN_ITS ---
Subjective Subjective: Interval history: Chart reviewed, discussed with Dr. Nicholson earlier this AM. Patient is intubated and on vent, repeat imaging looks improved particularly in terms of pulmonary vascular congestion. She is on FiO2-50%, improved respiratory acidosis and resolved hypoxia on ABG. AM labs noted, CBC seems quite different compared to previous labs so will repeat for accuracy; ani on gap closing, renal impairment persists. So far has had 200 mL urine output. Continues to require pressor support, currently on Levophed at 6 mcg/min, and on sedation with propofol at 35 mcg/kg/min. initially seen earlier this morning and midafternoon. COVID-19 testing negative, will discontinue isolation precautions. Medications: Reviewed: Yes Medication Review Details: Active Medications Generic Name Dose Route Start Last Admin Trade Name Freq PRN Reason Stop Dose Admin Acetaminophen 650 mg 02/02/20 00:20 Tylenol PO Q8H PRN temp > 101 Albuterol/Ipratrop ium 3 ml 02/02/20 03:00 02/02/20 08:56 Duoneb INHALATION 3 ml Q6H.RESPIRATORY S CH Administration Aspirin 325 mg 02/02/20 09:00 Aspirin NG-TUBE DAILY DIANE Clopidogrel Bisulf ate 75 mg 02/02/20 09:00 Plavix NG-TUBE DAILY [facility] Dextrose 25 ml 02/02/20 00:20 D50w IVP ONCE PRN hypoglycemia prot ocol Protocol Dextrose 50 ml 02/02/20 00:20 D50w IVP PRN PRN hypoglycemia prot ocol Protocol Enoxaparin Sodium 80 mg 02/02/20 00:20 02/02/20 00:43 Lovenox 1 mg/kg (80 mg) 80 mg SUBCUT Administration Q12H [facility] Glucagon 1 mg 02/02/20 00:20 Glucagen IM ONCE PRN Adult Acute Hypog lycemia Prot. Protocol Propofol 1,000 mg in 100 m ls @ 0 mls/hr 02/01/20 22:45 02/01/20 23:17 Diprivan IV 15 mcg/kg/min .Q0M DIANE 6.9 mls/hr Administration Protocol Per Protocol Piperacillin Sod/T azobactam 50 mls @ 12.5 mls /hr 02/02/20 07:00 02/02/20 06:13 Sod 3.375 gm/ So dium Chloride IV 12.5 mls/hr Q8H DIANE Administration Protocol Vancomycin HCl 1,2 50 mg/ 250 mls @ 250 mls /hr 02/02/20 21:00 Sodium Chloride IV Q24H DIANE Norepinephrine Bit artrate 4 mg 254 mls @ 0 mls/h r 02/02/20 00:30 02/02/20 00:45 / Dextrose IV 2 mcg/min .Q0M DIANE 7.6 mls/hr Administration Protocol Per Protocol Sodium Chloride 1,000 mls @ 75 ml s/hr 02/02/20 00:20 02/02/20 06:11 Sodium Chloride 0.9% IV 75 mls/hr .[id number] DIANE Administration Dextrose 500 mls @ 100 mls /hr 02/02/20 00:20 D5w IV ONCE PRN Adult Acute Hypog lycemia Prot Protocol Levofloxacin/Dextr ose 750 mg in 150 mls @ 150 mls/hr 02/03/20 20:00 Levaquin-D5w IV Q48H [facility] Protocol Insulin Aspart 0 unit 02/02/20 00:20 02/02/20 00:43 Novolog SUBCUT 3 unit BEDTIME DIANE Administration Protocol Insulin Aspart 0 unit 02/02/20 08:00 Novolog SUBCUT TIDWM [facility] Protocol Metoprolol Tartrat e 12.5 mg 02/02/20 09:00 Lopressor NG-TUBE BID DIANE Midazolam HCl 1 mg 02/01/20 22:34 02/01/20 23:50 Versed IVP 1 mg Q6H PRN Administration vaughn 3 Morphine Sulfate 4 mg 02/01/20 22:34 Morphine IVP Q4H PRN SEVERE PAIN Ondansetron HCl 4 mg 02/02/20 00:20 Zofran IVP Q12H PRN vomiting, or N/V if npo Pantoprazole Sodiu m 40 mg 02/02/20 09:00 Protonix IVP DAILY [facility] Ranitidine HCl 300 mg 02/02/20 00:39 02/02/20 01:31 Zantac Syrup PO 300 mg BEDTIME DIANE Administration acetaminophen [From Tylenol Cold Multi-Symptom Day] Allergy (Verified 11/16/19 10:31) UNKNOWN dextromethorphan [From Tylenol Cold Multi-Symptom Day] Allergy (Verified 11/16/19 10:31) UNKNOWN phenylephrine [From Tylenol Cold Multi-Symptom Day] Allergy (Verified 11/16/19 10:31) UNKNOWN Vitals/I&O/Wt Last Vital Signs Temp 98.6 F 02/01/20 18:52 Pulse 110 H 02/02/20 05:00 Resp 17 02/02/20 05:50 BP 102/69 02/02/20 05:00 Pulse Ox 100 02/02/20 04:55 02/01/20 02/02/20 02/02/20 22:59 06:59 14:59 Intake Total 400 / 400 435 / 835 Output Total 200 / 200 Balance 400 / 400 235 / 635 Weight last 48 hrs Weight 77.111 kg Weight 77.111 kg Physical Exam Const: COMMON NORMALS: no apparent distress GENERAL APPEARANCE: patient mechanically ventilated ORIENTATION/CONSCIOUSNESS: Yes other (sedated (Propofol @ 35 mcg/kg/min)) HENMT: COMMON NORMALS: normocephalic and head/scalp atraumatic HEAD & SCALP: normocephalic and atraumatic OTHER: -orally intubated, ETT-23 cm at lip Eye: COMMON NORMALS: PERRL, EOMs intact bilaterally and conjunctivae normal CONJUNCTIVA: Yes conjunctivae normal PUPIL: Yes PERRL Neck/C-Spine: COMMON NORMALS: full ROM GENERAL: Yes normal visual i nspection and Yes trachea midline Resp: COMMON NORMALS: normal respiratory effort, no retractions and no use of accessory muscles EFFORT & INSPECTION: Yes symmetric chest movement and No tachypneic AUSCULTATION: diminished lung sounds bilateral OTHER: -on mechanical ventilation (35%/500/8) Cardio: COMMON NORMALS: regular rhythm, S1 normal heart sound, S2 normal heart sound and no murmurs RATE: tachycardic RHYTHM: regular rhythm HEART SOUNDS: S1 normal and S2 normal GI: COMMON NORMALS: normal to inspection, nondistended, normoactive bowel sounds and soft to palpation PALPATION: Yes soft : BLADDER/KIDNEY EXAM: Yes catheter in place Catheter type (Female): urethral Extremity: COMMON NORMALS: normal to inspection, full ROM and no clubbing, cyanosis or edema; negative for no pedal edema Neuro: OTHER: -unable to assess as on mechanical ventilation and sedated Psych: OTHER: -Unable to assess as on mechanical ventilation and sedated Skin: COMMON NORMALS: no rashes or lesions noted, no jaundice, no petechiae and no mottling GENERAL SKIN EXAM: no rashes or lesions noted Urinary Catheter Management^: Servin: Cath Placed During This Visit: yes Urethral Indwelling: Yes Reason for Continuing Indwelling Catheter: Accurate Measurement of Urinary Output in Critically Ill Patients Urinary Catheter Date of Insertion: 02/01/20 Urinary Catheter Time of Insertion: 18:35 Data : 02/02/20 10:23 02/02/20 04:15 Micro: Microbiology 02/01/20 18:40 Gram Stain - Final Sputum - Endotracheal Wash A&P Assessment and plan (1) Acute respiratory failure with hypoxia and hypercarbia: -Patient arrived in significant respiratory distress and was intubated in the ER -Noted to have significant respiratory acidosis on initial ABG with pH of 7.02, significant hypercapnia with PCO2 of 67.5 and hypoxia with a PO2 of 58.3 -ABG this morning shows improvement following mechanical ventilation, she is down to FiO2 of 35% -Noted hypotension following sedation, on pressor support with Levophed to maintain MAP >65, wean off as tolerated -Continue to monitor respiratory status closely; noted tachypnea -Imaging shows significant improvement in pulmonary vascular congestion -Sedation while on vent, weaning as tolerated -Continued monitoring of hemodynamic status -Negative for PE on CTA Status: Acute Code(s): J96.01 - Acute respiratory failure with hypoxia; J96.02 - Acute respiratory failure with hypercapnia (2) Non-ST elevation [place] (NSTEMI): -found to have recurrent troponin elevation with delta of 900 -Has known history of CAD with prior stenting; last cardiac work-up done in 2019 with echo showing EF of 79%, cath done in 2018 -Continue therapeutic Lovenox, aspirin, Plavix, metoprolol; no statins due to history of hepatocellular carcinoma -Cardiology consult by Dr. Alaniz appreciated -f/u repeat Echo Status: Acute Code(s): I21.4 - Non-ST elevation (NSTEMI) myocardial infarction (3) Right lower lobe pneumonia: -reported episode of vomiting following intake of nitroglycerin as well as hemoptysis we will cannot exclude element of aspiration -Imaging reviewed as noted above, atelectasis in bilateral lower lobes -Noted leukocytosis with neutrophilic predominance, continue to trend WBC -Currently requiring mechanical ventilation secondary to significant respiratory distress, significant hypercapnia and hypoxia on presentation -On broad-spectrum IV antibiotics (Zosyn/Levaquin/Vanc) -negative for influenza; screening for COVID-19 -f/u blood cx, sputum cx, gram stain negative Status: Acute Qualifiers: Pneumonia type: due to unspecified organism Qualified Code(s): J18.9 - Pneumonia, unspecified organism Code(s): J18.9 - Pneumonia, unspecified organism (4) Hepatocellular carcinoma: -has known hepatocellular carcinoma, no known metastatic disease -f/u at [facility] -noted LFTs Status: Chronic Code(s): C22.0 - Liver cell carcinoma (5) Hypertension: -BP stable, currently requiring pressor support -hold antihypertensives other than BB -continue to monitor hemodynamic status Status: Chronic Qualifiers: Hypertension type: essential hypertension Qualified Code(s): I10 - Essential (primary) hypertension Code(s): I10 - Essential (primary) hypertension Additional A&P Information -PVD, s/p RLE stenting -Chronic smoker -NIDDM type II; accucheks, ISS, hypoglycemia precautions -bilateral carotid artery stenosis -known infrarenal AAA; stable per imaging (last done in 01/2020), follows up with Dr. Pratt -Chronic thrombocytopenia, likely secondary to liver pathology, continue to monitor platelet count -GERD, on PPI and H2 chase -Liver cirrhosis, secondary to non-alcoholic steatosis; spleen is upper level of normal size, mesenteric adenopathy (stable per last imaging) -GI ppx with PPI -DVT ppx not needed as on therapeutic lovenox -Dispo: pending clinical improvement -Code status: FULL code -continue ICU care due to vent and pressor support Attestations Medical Necessity Statement*: Patient requires hospitalization for continued management of acute respiratory failure on vent and pressor support, NSTEMI, currently on medical management, pending COVID-19 test results. Time Spent in Patient Care: Greater than 35 minutes (>than 50% of time spent in counselling and/or direct pt care on unit) . Critical Care Time: The high probability of a clinically significant, sudden or life threatening deterioration of the patient's [cardiovascular, respiratory] system(s) required my full and direct attention, intervention and personal management. The critical care time is as shown. This time is in addition to time spent performing any reported procedures but includes the following: [x] Data and vital sign review and interpretation [x] Patient assessment, examination and intervention [x] Documentation [x] Medication orders and management Critical Care Time (min): 25 Coding Level of Care Code Acute Leadership Development Consultant for g [facility] Exam Comprehensive Diagnoses Acute respiratory failure with hypoxia and hypercarbia J96.01; J96.02 Non-ST elevation [place] (NSTEMI) I21.4 Right lower lobe pneumonia J18.9 Pneumonia type: due to unspecified organism Hepatocellular carcinoma C22.0 Hypertension I10 Hypertension type: essential hypertension
[2020-02-02] MEDS: clopidogrel 75 mg Tablet NG-TUBE (09:47)
[2020-02-02] MEDS: aspirin 325 mg Tablet NG-TUBE (09:47)
[2020-02-02] MEDS: metoprolol tartrate 25 mg Tablet 12.5 MG NG-TUBE ×2 (09:47→19:21)
[2020-02-02] MEDS: pantoprazole 40 mg SDV IVP (09:48)
[2020-02-02 10:51] LABS: Basophils % 0.2 %; Hematocrit 40.2 % (37.0-47.0); Hemoglobin 12.5 g/dL (11.5-15.3); Lymphocytes # 0.9 10^3/uL (0.8-4.8); Lymphocytes % 6.8 %; Mean Corpuscular HGB Conc 31.1 g/dL (30.0-36.0); Mean Corpuscular Volume 96.6 fL (81-99); Mean Platelet Volume 13.4 fL (7.4-10.4); Monocytes # 1.1 10^3/uL (0.2-0.9); Monocytes % 8.9 %; Neutrophils # 10.6 10^3/uL (1.8-7.7); Neutrophils % 83.4 %; Nucleated Red Blood Cells % 0 %; Platelet Count 134 10^3/cmm (130-400); Red Blood Count 4.16 10^6/uL (4.1-5.3); Red Cell Distribution Width 13.9 % (12.1-15.1); White Blood Count 12.8 10^3/uL (4.0-10.0)
[2020-02-02] MEDS: propofol 1,000 MG/100 ML INJ 6.9 MG IV (11:00)
--- NOTE | 2020-02-02 11:37 | PC.RESP ---
Patient placed on Smoking Cessation Class notification for Summer 2019.
[2020-02-02 16:13] LABS: Coronavirus Lab Test PTC NOT DETECTED
[2020-02-02 21:43] LABS: Glucose Point of Care 218 mg/dL (70-110)
[2020-02-02 21:43] LABS: Glucose Point of Care 182 mg/dL (70-110)
[2020-02-02 21:43] LABS: Glucose Point of Care 217 mg/dL (70-110)
[2020-02-02 21:43] LABS: Glucose Point of Care 211 mg/dL (70-110)
[2020-02-02 21:43] LABS: Glucose Point of Care 228 mg/dL (70-110)
[2020-02-02] MEDS: propofol 1,000 MG/100 ML INJ 18.5 MG IV (21:49)
[2020-02-03] VITALS (147 sets, daily range): BP systolic 89–126; BP diastolic 48–84; PULSE 43–123; RESP 8–45; TEMP 36.8–38.2; O2SAT 86–100; BMI 28.3
[2020-02-03] MEDS: enoxaparin 100 mg/mL Syringe 80 MG SUBCUT ×2 (01:33→11:40)
[2020-02-03] MEDS: piperacillin-tazobactam 3.375 GM in sodium chloride 0.9% (plus) 50 ML IV ×3 (01:37→15:08)
[2020-02-03] MEDS: ipratropium-albuterol 3 mL Neb INHALATION ×4 (03:14→20:38)
[2020-02-03] MEDS: propofol 1,000 MG/100 ML INJ 18.5 MG IV ×2 (03:28→09:12)
--- NOTE | 2020-02-03 05:21 | PC.NURSE ---
update provided to pt family bradley gerard.
[2020-02-03 05:22] LABS: Basophils % 0.2 %; Hematocrit 36.9 % (37.0-47.0); Hemoglobin 11.5 g/dL (11.5-15.3); Lymphocytes # 1.8 10^3/uL (0.8-4.8); Lymphocytes % 17.4 %; Mean Corpuscular HGB Conc 31.2 g/dL (30.0-36.0); Mean Corpuscular Hemoglobin 30.3 pg (28.0-34.0); Mean Corpuscular Volume 97.1 fL (81-99); Mean Platelet Volume 13.2 fL (7.4-10.4); Monocytes # 1.3 10^3/uL (0.2-0.9); Monocytes % 12.8 %; Neutrophils # 7.1 10^3/uL (1.8-7.7); Neutrophils % 69.1 %; Nucleated Red Blood Cells % 0 %; Platelet Count 117 10^3/cmm (130-400); Red Cell Distribution Width 14.3 % (12.1-15.1); White Blood Count 10.3 10^3/uL (4.0-10.0)
[2020-02-03 05:37] LABS: Alanine Aminotransferase 68 U/L (0-33); Albumin Level 3.1 g/dL (3.5-5.2); Alkaline Phosphatase 80 IU/L (35-105); Anion Gap 15.9 (5-19); Aspartate Amino Transferase 99 U/L (0-32); Blood Urea Nitrogen 20 mg/dL (8-23); Calcium 9.2 mg/dL (8.5-10.5); Carbon Dioxide 21 mmol/L (22-29); Chloride 108 mmol/L (98-107); Globulin 3.2 g/dL (1.3-4.6); Glucose 178 mg/dL (65-115); Osmolality Calculated 293 mOsm/kg (285-295); Potassium 3.9 mmol/L (3.5-5.1); Sodium 141 mmol/L (136-145); Total Bilirubin 0.5 mg/dL (0.15-1.2); Total Protein 6.3 g/dL (6.6-8.7)
--- NOTE | 2020-02-03 06:00 | XR_ITS ---
WS: [id number] Portable AP supine chest, 02/03/2020 Clinical Data: on mechanical ventilation Comparison: Portable chest, 02/02/2020 Findings: The endotracheal tube is above the damon. The end of the nasogastric tube appears to end i n the mid esophagus. The pulmonary vascularity is normal. There is a calcified granuloma over the helga face of the left diaphragm. No pneumonia or pneumothorax is seen. Monitor leads are chest wall. XR/XR chest 1V portable [id number] Impression: 1. Endotracheal tube in good position. 2. Nasogastric tube appears to and in mid esophagus. 3. Pulmonary vascularity is normal.
[2020-02-03 06:04] LABS: ABG PCO2 36.1 mmHg (35-45); ABG PH Result 7.39 (7.35-7.45); Arterial Blood Gas Hematocrit 39.2 % (37-47); Base Excess ABG -2.7 mmol/L (-2.0-2.0); Blood Gas Allen Test Pos; Blood Gas Sample Site Brachial, right; Blood Gas Sample Type Arterial; Blood Gas Tidal Volume 0.5; HCO3 ABG 21.8 mmol/L (22-26); Oxygen Device VENT
[2020-02-03 07:38] LABS: Glucose Point of Care 174 mg/dL (70-110)
[2020-02-03] MEDS: clopidogrel 75 mg Tablet NG-TUBE (08:14)
[2020-02-03] MEDS: pantoprazole 40 mg SDV IVP (08:14)
[2020-02-03] MEDS: aspirin 325 mg Tablet NG-TUBE (08:15)
[2020-02-03] MEDS: metoprolol tartrate 25 mg Tablet 12.5 MG NG-TUBE (08:15)
--- NOTE | 2020-02-03 08:23 | PM.PN ---
Subjective Subjective: Interval history: Patient seen and examined earlier this morning, remains intubated and on vent with FiO2 of 35%. Also remains on pressor support with Levophed at 6 mcg/min and on sedation with propofol at 40 mcg/kg/hr. No documented overnight urine output but per nursing report she did have some. AM labs noted, with decreased leukocytosis. Noted mottling of both feet, cool to touch, unable to palpate peripheral pulses. CXR unremarkable per my review but pending report. Interestingly, has vital signs charted every 5 min. Febrile this AM with Tmax-100.8 F. Medications: Reviewed: Yes Medication Review Details: Active Medications Generic Name Dose Route Start Last Admin Trade Name Freq PRN Reason Stop Dose Admin Acetaminophen 650 mg 02/02/20 00:20 Tylenol PO Q8H PRN temp > 101 Albuterol/Ipratrop ium 3 ml 02/02/20 03:00 02/03/20 08:27 Duoneb INHALATION 3 ml Q6H.RESPIRATORY S CH Administration Aspirin 325 mg 02/02/20 09:00 02/03/20 08:15 Aspirin NG-TUBE 325 mg DAILY DIANE Administration Clopidogrel Bisulf ate 75 mg 02/02/20 09:00 02/03/20 08:14 Plavix NG-TUBE 75 mg DAILY DIANE Administration Dextrose 25 ml 02/02/20 00:20 D50w IVP ONCE PRN hypoglycemia prot ocol Protocol Dextrose 50 ml 02/02/20 00:20 D50w IVP PRN PRN hypoglycemia prot ocol Protocol Enoxaparin Sodium 80 mg 02/02/20 00:20 02/03/20 01:33 Lovenox 1 mg/kg (80 mg) 80 mg SUBCUT Administration Q12H DIANE Glucagon 1 mg 02/02/20 00:20 Glucagen IM ONCE PRN Adult Acute Hypog lycemia Prot. Protocol Propofol 1,000 mg in 100 m ls @ 0 mls/hr 02/01/20 22:45 02/03/20 03:28 Diprivan IV 40 mcg/kg/min .Q0M DIANE 18.5 mls/hr Administration Protocol Per Protocol Piperacillin Sod/T azobactam 50 mls @ 12.5 mls /hr 02/02/20 07:00 02/03/20 01:37 Sod 3.375 gm/ So dium Chloride IV 12.5 mls/hr Q8H DIANE Administration Protocol Vancomycin HCl 1,2 50 mg/ 250 mls @ 166.667 mls/hr 02/02/20 21:00 02/02/20 21:51 Sodium Chloride IV 166.7 mls/hr Q24H DIANE Administration Norepinephrine Bit artrate 4 mg 254 mls @ 0 mls/h r 02/02/20 00:30 02/02/20 22:49 / Dextrose IV 6 mcg/min .Q0M DIANE 22.9 mls/hr Administration Protocol Per Protocol Sodium Chloride 1,000 mls @ 75 ml s/hr 02/02/20 00:20 02/02/20 20:16 Sodium Chloride 0.9% IV 75 mls/hr .[id number] DIANE Administration Dextrose 500 mls @ 100 mls /hr 02/02/20 00:20 D5w IV ONCE PRN Adult Acute Hypog lycemia Prot Protocol Levofloxacin/Dextr ose 750 mg in 150 mls @ 150 mls/hr 02/03/20 20:00 Levaquin-D5w IV Q48H DIANE Protocol Insulin Aspart 0 unit 02/02/20 00:20 02/02/20 19:21 Novolog SUBCUT 4 unit BEDTIME DIANE Administration Protocol Insulin Aspart 0 unit 02/02/20 08:00 02/03/20 07:51 Novolog SUBCUT 1 unit TIDWM DIANE Administration Protocol Metoprolol Tartrat e 12.5 mg 02/02/20 09:00 02/03/20 08:15 Lopressor NG-TUBE 12.5 mg BID DIANE Administration Midazolam HCl 1 mg 02/01/20 22:34 02/01/20 23:50 Versed IVP 1 mg Q6H PRN Administration vaughn 3 Morphine Sulfate 4 mg 02/01/20 22:34 Morphine IVP Q4H PRN SEVERE PAIN Ondansetron HCl 4 mg 02/02/20 00:20 Zofran IVP Q12H PRN vomiting, or N/V if npo Pantoprazole Sodiu m 40 mg 02/02/20 09:00 02/03/20 08:14 Protonix IVP 40 mg DAILY DIANE Administration Ranitidine HCl 300 mg 02/02/20 00:39 02/02/20 21:53 Zantac Syrup PO 300 mg BEDTIME DIANE Administration acetaminophen [From Tylenol Cold Multi-Symptom Day] Allergy (Verified 11/16/19 10:31) UNKNOWN dextromethorphan [From Tylenol Cold Multi-Symptom Day] Allergy (Verified 11/16/19 10:31) UNKNOWN phenylephrine [From Tylenol Cold Multi-Symptom Day] Allergy (Verified 11/16/19 10:31) UNKNOWN Vitals/I&O/Wt Last Vital Signs Temp 100.3 F H 02/03/20 00:10 Pulse 94 02/03/20 08:00 Resp 25 H 02/03/20 08:00 BP 111/63 02/03/20 08:00 Pulse Ox 99 02/03/20 08:00 02/02/20 02/03/20 02/03/20 22:59 06:59 14:59 Intake Total 1338.495 / 1562.998 750 / 2312.998 Output Total 500 / 500 Balance 838.495 / 1062.998 750 / 1812.998 Weight last 48 hrs Weight 77.111 kg Weight 77.111 kg Weight 77.111 kg Physical Exam Const: COMMON NORMALS: no apparent distress GENERAL APPEARANCE: patient mechanically ventilated ORIENTATION/CONSCIOUSNESS: Yes other (sedated (Propofol @ 35 mcg/kg/min)) HENMT: COMMON NORMALS: normocephalic and head/scalp atraumatic HEAD & SCALP: normocephalic and atraumatic OTHER: -orally intubated, ETT-23 cm at lip Eye: COMMON NORMALS: PERRL, EOMs intact bilaterally and conjunctivae normal CONJUNCTIVA: Yes conjunctivae normal PUPIL: Yes PERRL Neck/C-Spine: COMMON NORMALS: full ROM GENERAL: Yes normal visual inspection and Yes trachea midline Resp: COMMON NORMALS: normal respiratory effort, no retractions and no use of accessory muscles EFFORT & INSPECTION: Yes symmetric chest movement and No tachypneic AUSCULTATION: diminished lung sounds bilateral OTHER: -on mechanical ventilation (35%/500/8) Cardio: COMMON NORMALS: regular rhythm, S1 normal heart sound, S2 normal heart sound and no murmurs RATE: bradycardic (intermittently, down to HR 40s) RHYTHM: regular rhythm HEART SOUNDS: S1 normal and S2 normal GI: COMMON NORMALS: normal to inspection, nondistended, normoactive bowel sounds and soft to palpation PALPATION: Yes soft : BLADDER/KIDNEY EXAM: Yes catheter in place Catheter type (Female): urethral Extremity: COMMON NORMALS: normal to inspection, full ROM and no clubbing, cyanosis or edema; negative for no pedal edema Neuro: OTHER: -unable to assess as on mechanical ventilation and sedated Psych: OTHER: -Unable to assess as on mechanical ventilation and sedated Skin: COMMON NORMALS: no rashes or lesions noted, no jaundice and no petechiae GENERAL SKIN EXAM: no rashes or lesions noted and mottling (of bilateral feet, cool to touch; scattered varicosities) Urinary Catheter Management^: Servin: Cath Placed During This Visit: yes Urethral Indwelling: Yes Reason for Continuing Indwelling Catheter: Accurate Measurement of Urinary Output in Critically Ill Patients Urinary Catheter Date of Insertion: 02/01/20 Urinary Catheter Time of Insertion: 18:35 Data : 02/03/20 04:48 02/03/20 04:48 Micro: Microbiology 02/02/20 10:29 Blood Culture - Preliminary Blood SPECIMEN COLLECTED 02/02/20 10:23 Blood Culture - Preliminary Blood SPECIMEN COLLECTED A&P Assessment and plan (1) Acute respiratory failure with hypoxia and hypercarbia: -Patient arrived in significant respiratory distress and was intubated in the ER -Noted to have significant respiratory acidosis on initial ABG with pH of 7.02, significant hypercapnia with PCO2 of 67.5 and hypoxia with a PO2 of 58.3 -daily ABGs while on vent, normal -remains on mechanical ventilation, she is down to FiO2 of 35%; weaning trial today -Noted hypotension following sedation, on pressor support with Levophed to maintain MAP >65, wean off as tolerated -Continue to monitor respiratory status closely; noted tachypnea -Imaging shows significant improvement in pulmonary vascular congestion -Sedation while on vent -Continued monitoring of hemodynamic status -Negative for PE on CTA Status: Acute Code(s): J96.01 - Acute respiratory failure with hypoxia; J96.02 - Acute respiratory failure with hypercapnia (2) Non-ST elevation [place] (NSTEMI): -found to have recurrent troponin elevation with delta of 900 -Has known history of CAD with prior stenting; last cardiac work-up done in 2019 with echo showing EF of 79%, cath done in 2018 -Continue therapeutic Lovenox, aspirin, Plavix, metoprolol; no statins due to history of hepatocellular carcinoma -Cardiology consult by Dr. Katty vaughan -repeat Echo: EF=28%, global LV hypokinesis, G1DD, moderate pulmonary HTN (44), mild MR, moderate , mild AR, moderate TR, mild NM Status: Acute Code(s): I21.4 - Non-ST elevation (NSTEMI) myocardial infarction (3) Right lower lobe pneumonia: -reported episode of vomiting following intake of nitroglycerin as well as hemoptysis we will cannot exclude element of aspiration -Imaging reviewed as noted above, atelectasis in bilateral lower lobes -Noted leukocytosis with neutrophilic predominance, decreasing, continue to trend WBC -Currently requiring mechanical ventilation secondary to significant respiratory distress, significant hypercapnia and hypoxia on presentation which has resolved -On broad-spectrum IV antibiotics (Zosyn/Levaquin/Vanc); will de-escalate abx today, continue Zosyn, d/c Levaquin and Vanc -negative for influenza; screening for COVID-19 negative -f/u blood cx -sputum cx-prelim mixed cheng, gram stain negative Status: Acute Qualifiers: Pneumonia type: due to unspecified organism Qualified Code(s): J18.9 - Pneumonia, unspecified organism Code(s): J18.9 - Pneumonia, unspecified organism (4) Hepatocellular carcinoma: -has known hepatocellular carcinoma, no known metastatic disease -f/u at [facility] -noted LFTs, coags Status: Chronic Code(s): C22.0 - Liver cell carcinoma (5) Hypertension: -BP stable, currently requiring pressor support -hold antihypertensives other than BB -continue to monitor hemodynamic status Status: Chronic Qualifiers: Hypertension type: essential hypertension Qualified Code(s): I10 - Essential (primary) hypertension Code(s): I10 - Essential (primary) hypertension Additional A&P Information -PVD, s/p RLE stenting -Chronic smoker -NIDDM type II; accucheks, ISS, hypoglycemia precautions -bilateral carotid artery stenosis -known infrarenal AAA; stable per imaging (last done in 01/2020), follows up with Dr. Pratt -Chronic thrombocytopenia, likely secondary to liver pathology, continue to monitor platelet count -GERD, on PPI and H2 chase -Liver cirrhosis, secondary to non-alcoholic steatosis; spleen is upper level of normal size, mesenteric adenopathy (stable per last imaging) -GI ppx with PPI -DVT ppx not needed as on therapeutic lovenox -Dispo: pending clinical improvement -Code status: FULL code -continue ICU care due to vent and pressor support Attestations Medical Necessity Statement*: Patient requires hospitalization for continued treatment of pneumonia, acute respiratory failure on vent support, and management of NSTEMI. Time Spent in Patient Care: Greater than 35 minutes (>than 50% of time spent in counselling and/or direct pt care on unit). Critical Care Time: The high probability of a clinically significant, sudden or life threatening deterioration of the patient's [respiratory] system(s) required my full and direct attention, intervention and personal management. The critical care time is as shown. This time is in addition to time spent performing any reported procedures but includes the following: [x] Data and vital sign review and interpretation [x] Patient assessment, examination and intervention [x] Documentation [x] Medication orders and management Critical Care Time (min): 20 Coding Level of Care Code Acute Invasive Cardiovascular Technologist for [facility] Diagnoses Acute respiratory failure with hypoxia and hypercarbia J96.01; J96.02 Non-ST elevation [place] (NSTEMI) I21.4 Right lower lobe pneumonia J18.9 Pneumonia type: due to unspecified organism Hepatocellular carcinoma C22.0 Hypertension I10 Hypertension type: essential hypertension
--- NOTE | 2020-02-03 09:06 | PC.NURSE ---
weaning off levophed at this time
[2020-02-03] MEDS: sodium chloride 0.9% 1,000 ML 75 ML IV (09:09)
[2020-02-03 11:38] LABS: Glucose Point of Care 175 mg/dL (70-110)
--- NOTE | 2020-02-03 11:57 | PC.NURSE ---
extubated placed on nc
[2020-02-03] MEDS: morphine 4 mg/mL SDV 1 mL IVP ×2 (14:20→23:03)
[2020-02-03] MEDS: ALPRAZolam 0.5 mg Tablet PO (16:15)
[2020-02-03] MEDS: FUROsemide 10 mg/mL SDV 4mL 40 MG IVP (17:16)
--- NOTE | 2020-02-03 17:33 | P.PN_ITS ---
Subjective Subjective: Interval history: Patient was seen this morning. She was still intubated and on low dose levophed. Telemetry showing frequent PVC's and supraventricular tachycardia. Medications: Reviewed: Yes Vitals/I&O/Wt Last Vital Signs Temp 100.3 F H 02/03/20 00:10 Pulse 108 H 02/03/20 17:19 Resp 24 H 02/03/20 16:00 BP 104/62 02/03/20 16:00 Pulse Ox 94 02/03/20 17:19 02/03/20 02/03/20 02/03/20 06:59 14:59 22:59 Intake Total 800 / 2362.998 1716.25 / 1716.25 Output Total 500 / 500 Balance 800 / 6125.632 4975.25 / 1216.25 Weight last 48 hrs Weight 170 lb Weight 170 lb Weight 170 lb Physical Exam Narrative: EXAM NARRATIVE: Const COMMON NORMALS: no apparent distress GENERAL APPEARANCE: patient mechanically ventilated ORIENTATION/CONSCIOUSNESS: sedated HENMT COMMON NORMALS: normocephalic and head/scalp atraumatic HEAD & SCALP: normocephalic and atraumatic Eye COMMON NORMALS: PERRL, EOMs intact bilaterally and conjunctivae normal CONJUNCTIVA: Yes conjunctivae normal PUPIL: Yes PERRL Resp EFFORT & INSPECTION: Yes symmetric chest movement and No tachypneic AUSCULTATION: diminished lung sounds bilateral OTHER: -on mechanical ventilation (35%/500/8) Cardio COMMON NORMALS: tachycardia+, S1 normal heart sound, S2 normal heart sound and no murmurs RATE: tachycardic RHYTHM: regular rhythm HEART SOUNDS: S1 normal and S2 normal GI COMMON NORMALS: normal to inspection, nondistended, normoactive bowel sounds and soft to palpation PALPATION: Yes soft Extremity COMMON NORMALS: normal to inspection, full ROM and no clubbing, cyanosis or edema; negative for no pedal edema Neuro mechanical ventilation and sedated Urinary Catheter Management^: Servin: Cath Placed During This Visit: yes Urethral Indwelling: Yes Reason for Continuing Indwelling Catheter: Accurate Measurement of Urinary Output in Critically Ill Patients Urinary Catheter Date of Insertion: 02/01/20 Urinary Catheter Time of Insertion: 18:35 Data : 02/03/20 04:48 02/03/20 04:48 Micro: Microbiology 02/02/20 10:29 Blood Culture - Preliminary Blood NEGATIVE TO DATE 02/02/20 10:23 Blood Culture - Preliminary Blood NEGATIVE TO DATE 02/01/20 18:40 Gram Stain - Final Sputum - Endotracheal Wash Sputum Culture - Preliminary A&P Assessment and plan (1) Acute respiratory failure with hypoxia and hypercarbia: Improved oxygenation on ABG this morning and FiO2 requirement has decreased to 35%. Remains on PEEP of 8. -Plan to extubate later today Status: Acute Code(s): J96.01 - Acute respiratory failure with hypoxia; J96.02 - Acute respiratory failure with hypercapnia (2) Non-ST elevation ME (NSTEMI): She has known prior CAD with last LHC in 03/2018. It showed ostial right coronary artery lesion that is at least 50-60% which caused dampening of the waveform and poor flow into the aorta upon injection of the artery. The circumflex is a tiny vessel which contains a 99% stenosis in its midportion. There is a large ramus intermedius artery which contains a 90% in-stent restenosis at the distal and of the previously placed stent. LAD contains mild d iffuse disease. 2 previously placed LAD stents are patent. The more distal one contains mild to moderate in-stent restenosis. Left main coronary artery is normal. -continue ASA, plavix and therapeutic lovenox. EKG showing possible anteroseptal infarct of indeterminate age and T wave inversion in lateral leads. -Echo showing severely decreased LV function with hypokinesis in , IS, inferior and apical huerta. -Renal function showing improved creatinine and CTA for PE protocol normal. -Continue to treat medically for now. Once patient is more stable, will make the decision for coronary angiogram. Status: Acute Code(s): I21.4 - Non-ST elevation (NSTEMI) myocardial infarction (3) Coronary artery disease: Status: Chronic Qualifiers: Coronary Disease-Associated Artery/Lesion type: [place] artery [place] vs. transplanted heart: [place] heart Associated angina: with unspecified angina Qualified Code(s): I25.119 - Atherosclerotic heart disease of [place] coronary artery with unspecified angina pectoris Code(s): I25.10 - Atherosclerotic heart disease of [place] coronary artery without angina pectoris (4) Right lower lobe pneumonia: There is was concern of aspiration given history of vomiting however she currently remains on broad-spectrum antibiotics. Status: Acute Qualifiers: Pneumonia type: due to unspecified organism Qualified Code(s): J18.9 - Pneumonia, unspecified organism Code(s): J18.9 - Pneumonia, unspecified organism (5) Peripheral artery disease: s/p right superficial femoral artery angioplasty and stenting in 03/2018. Status: Chronic Code(s): I73.9 - Peripheral vascular disease, unspecified (6) Hypertension: Patient has history of hypertension however currently is hypotensive post intubation and sedation Status: Chronic Qualifiers: Hypertension type: essential hypertension Qualified Code(s): I10 - Essential (primary) hypertension Code(s): I10 - Essential (primary) hypertension (7) Diabetes: Status: Chronic Qualifiers: Diabetes mellitus type: type 2 Diabetes mellitus intermediate designer insulin use: without intermediate designer use Diabetes mellitus complication status: with hyperglycemia Qualified Code(s): E11.65 - Type 2 diabetes mellitus with hyperglycemia Code(s): E11.9 - Type 2 diabetes mellitus without complications (8) Mixed hyperlipidemia: Status: Chronic Code(s): E78.2 - Mixed hyperlipidemia Additional A&P Information Chronic active smoker Bilateral carotid artery stenosis Stable infrarenal abdominal aortic aneurysm Gastroesophageal reflux disease History of liver cirrhosis History of thrombocytopenia Hepatocellular carcinoma being followed at [facility] Thank you for allowing me to participate in patient's care. Please feel free to call with questions or concerns. Attestations Medical Necessity Statement*: Remains in ICU. 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 transplanted heart: [place] heart Associated angina: with unspecified angina Right lower lobe pneumonia J18.9 Pneumonia type: due to unspecified organism Peripheral artery disease I73.9 Hypertension I10 Hypertension type: essential hypertension Diabetes E11.65 Diabetes mellitus type: type 2 Diabetes mellitus intermediate designer insulin use: without intermediate designer use Diabetes mellitus complication status: with hyperglycemia Mixed hyperlipidemia E78.2
[2020-02-03 20:40] LABS: Glucose Point of Care 187 mg/dL (70-110)
[2020-02-03] MEDS: metoprolol tartrate 1 mg/1 mL SDV 5 mL 5 MG IV (23:51)
[2020-02-03] MEDS: LORazepam 2 mg/mL INJ 1 mL 0.5 MG IVP (23:51)
--- NOTE | 2020-02-03 23:58 | XRR_ITS ---
PROCEDURE INFORMATION: Exam: XR Chest, 1 View Exam date and time: 02/04/2020 12:03 AM Age: 74 years old Clinical indication: Tachypnea; Additional info: Tachycardia after extubation TECHNIQUE: Imaging protocol: XR of the chest Views: 1 view. COMPARISON: CR XR chest 1V portable [id number] 02/03/2020 4:51 AM FINDINGS: Tubes, catheters and devices: Endotracheal tube and esophageal tube have been removed. Lungs: New bibasilar pulmonary opacities are suspected to represent combination of pleural fluid and basilar parenchymal abnormalities. Pulmonary vasculature has increased in caliber and is congested. Pulmonary interstitial edema noted. Pleural space: No pneumothorax. Heart/Mediastinum: Heart borderline prominent and slightly increased. Bones/joints: No acute findings. XR/XR chest 1V portable [id number] IMPRESSION: Findings most suspicious for congestive heart failure or volume loading.
[2020-02-04] VITALS (54 sets, daily range): BP systolic 83–116; BP diastolic 42–83; PULSE 76–168; RESP 16–31; TEMP 36.9; O2SAT 84–100
[2020-02-04 00:15] LABS: ABG PCO2 34.8 mmHg (35-45); ABG PH Result 7.38 (7.35-7.45); Arterial Blood Gas Hematocrit 33.5 % (37-47); Base Excess ABG -3.9 mmol/L (-2.0-2.0); Blood Gas Sample Site Brachial, right; Blood Gas Sample Type Arterial; HCO3 ABG 20.6 mmol/L (22-26); Oxygen Device NC; PO2 ABG 55.2 mmHg (80.0-100.0)
[2020-02-04] MEDS: enoxaparin 100 mg/mL Syringe 80 MG SUBCUT ×3 (00:29→22:56)
--- NOTE | 2020-02-04 00:39 | P.EN_ITS ---
Event Note Event Note: Called with patient becoming much more tachycardic. She has been running 100s to 120s but had an episode in which her heart rate went up to 160s. I gave an order at that moment in time for 5 of IV metoprolol as well as 0.5 of IV Ativan. Patient was quite restless and was not keeping her BiPAP on consistently. Frequently waking up after a short period of time of resting. Remains confused. Within 5 to 10 minutes, patient's heart rate went as high as 200s. Systolic pressure registered as 70s at the time. I arrived emergently at bedside. Patient's heart rate was quite variable with intermittent runs of beats that would correlate with a heart rate around 200. It was generally ranging 140s to 160s and irregular. Patient received small bolus of fluids and an ABG and chest x-ray were done. ABG showed 7.38/30 4/55 on 6 L by nasal cannula. Chest x-ray showed effusion in the right base and some atelectasis. I gave patient 40 mg of IV Lasix and stopped IV fluids. She remained quite tachycardic with an irregular rhythm. Eventually I gave her a dose of 250 mcg of digoxin. She received a second dose of digoxin an hour later for a total of 500 mcg dose this evening. Additionally I have given her another 2.5 mg of IV metoprolol. Intermittently she has had low blood pressures but most of the time if we simply recheck the blood pressures it will come back up to 90-100 systolic. Morning labs were drawn early. Potassium was 4.0 and magnesium was 2.0. BUN and creatinine were about the same as yesterday. She has had about 500 cc of urine output from the Lasix that was administered. She has been much more calm with the Ativan. We were able to place her back on BiPAP. Right at 5:00 this morning, she converted back to sinus rhythm. I have not ordered for further oral digoxin as I think this acute event was probably in part from missing metoprolol but also due to re spiratory issues after coming off of the vent yesterday. If we do not have to add another medicine long-term I think that would probably be in her best interest. I did order for a one-time extra dose of 1 mg of IV magnesium and 25 mg of potassium citrate (this was chosen as something that patient would take by mouth more easily rather than oral potassium chloride). Intention was to try to push m agnesium to 2.5 and potassium to 4.5 in the setting of persistent arrhythmia. Printed out strips of various rhythms to the night will be in patient's paper chart until such time as they can be scanned into the medical record.
[2020-02-04] MEDS: FUROsemide 10 mg/mL SDV 4mL 40 MG IVP (00:43)
[2020-02-04] MEDS: digoxin 250 mcg/ml INJ 2 mL IVP ×2 (00:43→02:00)
--- NOTE | 2020-02-04 01:28 | PC.NURSE ---
2338 patient heart rate noted to be 177bpm. patient noted to be in afib with RVR. bipap taken off patient and placed on NC at 6L/min by RT. vagal maneuvers attempted with no success. called and informed of patient condition. verbal order for 0.5 ativan IV once and 5mg metoprolol IV once given. 2345 medications were given at this time. patient states that she is having pain in her shoulder that radiates to her back. patient is noted to be very diaphoretic at this time. EKG performed at bedside by RT. 2349 attempted to call x2 with no answer. patient continued to have shoulder and back pain. diaphoretic at this time. blood pressure 70/42 at this time. attempted to call dr again with answer. in room assessing patient. order for ABG and stat chest XRAY obtained. orders for 40mg lasix IV and 250mcg Digoxin ordered and given by this nurse. patient is currently resting with bipap. current vital signs HR:158 o2:100% RR:22 BP: 111/67. continuing to monitor at this time.
[2020-02-04] MEDS: piperacillin-tazobactam 3.375 GM in sodium chloride 0.9% (plus) 50 ML IV ×3 (01:56→18:27)
[2020-02-04 02:53] LABS: Basophils % 0.4 %; Hematocrit 35.8 % (37.0-47.0); Lymphocytes # 1.1 10^3/uL (0.8-4.8); Lymphocytes % 16.4 %; Mean Corpuscular HGB Conc 30.7 g/dL (30.0-36.0); Mean Corpuscular Hemoglobin 30.1 pg (28.0-34.0); Mean Corpuscular Volume 97.8 fL (81-99); Mean Platelet Volume 12.5 fL (7.4-10.4); Monocytes # 0.5 10^3/uL (0.2-0.9); Monocytes % 7.2 %; Neutrophils # 5.2 10^3/uL (1.8-7.7); Neutrophils % 75.7 %; Nucleated Red Blood Cells % 0 %; Platelet Count 90 10^3/cmm (130-400); Red Blood Count 3.66 10^6/uL (4.1-5.3); Red Cell Distribution Width 14.3 % (12.1-15.1); White Blood Count 6.8 10^3/uL (4.0-10.0)
[2020-02-04] MEDS: metoprolol tartrate 1 mg/1 mL SDV 5 mL 2.5 MG IV (02:53)
[2020-02-04] MEDS: ipratropium-albuterol 3 mL Neb INHALATION ×4 (03:19→20:14)
[2020-02-04] MEDS: ALPRAZolam 0.5 mg Tablet PO ×2 (03:22→22:56)
[2020-02-04 03:32] LABS: Alanine Aminotransferase 97 U/L (0-33); Alkaline Phosphatase 92 IU/L (35-105); Aspartate Amino Transferase 105 U/L (0-32); Blood Urea Nitrogen 18 mg/dL (8-23); Calcium 9.4 mg/dL (8.5-10.5); Carbon Dioxide 24 mmol/L (22-29); Chloride 104 mmol/L (98-107); Creatinine Clr Calc Pharmacy 46.0731; Globulin 2.8 g/dL (1.3-4.6); Glucose 175 mg/dL (65-115); Osmolality Calculated 293 mOsm/kg (285-295); Sodium 141 mmol/L (136-145); Total Bilirubin 0.9 mg/dL (0.15-1.2); Total Protein 6.8 g/dL (6.6-8.7)
[2020-02-04 03:33] LABS: Lactic Acid level (Lactate) 1.8 mmol/L (0.5-2.2); Magnesium 2.1 mg/dL (1.7-2.3)
[2020-02-04] MEDS: potassium bicarb 25 mEq Tablet PO (04:35)
--- NOTE | 2020-02-04 07:07 | PC.NURSE ---
late entry: Dr Nettles was asked yesterday when pt Metoprolol was due to change her medications to tablets as the route at that time was NG and liquid medication. She stated to hold all medications for the evening and let her rest.
--- NOTE | 2020-02-04 08:23 | PM.PN ---
Subjective Subjective: Interval history: Overnight patient was noted to have tachycardia with associated arrhythmia, received a total of 500 mcg of digoxin and 7.5 mg of IV metoprolol as well as 40 mg of IV Lasix. Currently in normal sinus rhythm. Remains on BiPAP with repeat ABG done this morning, looks appropriate. Repeat imaging showing evidence of fluid overload. Had a total of 1050 mL urine output overnight. Morning labs noted. Required additional Ativan 0.5 mg IV secondary to restlessness and inability to keep BiPAP mask on. Seen earlier this AM, sitting in chair by bedside, on 4 L NC, seems to be in better spirits, breathing easier, able to drink better. Medications: Reviewed: Yes Medication Review Details: Active Medications Generic Name Dose Route Start Last Admin Trade Name Freq PRN Reason Stop Dose Admin Acetaminophen 650 mg 02/02/20 00:20 Tylenol PO Q8H PRN temp > 101 Albuterol/Ipratrop ium 3 ml 02/02/20 03:00 02/04/20 03:19 Duoneb INHALATION 3 ml Q6H.RESPIRATORY S CH Administration Alprazolam 0.5 mg 02/03/20 15:57 02/04/20 03:22 Xanax PO 0.5 mg TID PRN Administration ANXIETY Aspirin 325 mg 02/02/20 09:00 02/03/20 08:15 Aspirin NG-TUBE 325 mg DAILY DIANE Administration Clopidogrel Bisulf ate 75 mg 02/02/20 09:00 02/03/20 08:14 Plavix NG-TUBE 75 mg DAILY DIANE Administration Dextrose 25 ml 02/02/20 00:20 D50w IVP ONCE PRN hypoglycemia prot ocol Protocol Dextrose 50 ml 02/02/20 00:20 D50w IVP PRN PRN hypoglycemia prot ocol Protocol Enoxaparin Sodium 80 mg 02/02/20 00:20 02/04/20 00:29 Lovenox 1 mg/kg (80 mg) 80 mg SUBCUT Administration Q12H DIANE Glucagon 1 mg 02/02/20 00:20 Glucagen IM ONCE PRN Adult Acute Hypog lycemia Prot. Protocol Piperacillin Sod/T azobactam 50 mls @ 12.5 mls /hr 02/02/20 07:00 02/04/20 06:16 Sod 3.375 gm/ So dium Chloride IV Infused Q8H DIANE Infusion Protocol Norepinephrine Bit artrate 4 mg 254 mls @ 0 mls/h r 02/02/20 00:30 02/02/20 22:49 / Dextrose IV 6 mcg/min .Q0M DIANE 22.9 mls/hr Administration Protocol Per Protocol Dextrose 500 mls @ 100 mls /hr 02/02/20 00:20 D5w IV ONCE PRN Adult Acute Hypog lycemia Prot Protocol Insulin Aspart 0 unit 02/02/20 00:20 02/03/20 21:34 Novolog SUBCUT 2 unit BEDTIME DIANE Administration Protocol Insulin Aspart 0 unit 02/02/20 08:00 02/03/20 18:42 Novolog SUBCUT 4 unit TIDWM DIANE Administration Protocol Metoprolol Tartrat e 12.5 mg 02/02/20 09:00 02/03/20 18:02 Lopressor NG-TUBE Not Given BID DIANE Midazolam HCl 1 mg 02/01/20 22:34 02/01/20 23:50 Versed IVP 1 mg Q6H PRN Administration vaughn 3 Morphine Sulfate 4 mg 02/01/20 22:34 02/03/20 23:03 Morphine IVP 4 mg Q4H PRN Administration SEVERE PAIN Ondansetron HCl 4 mg 02/02/20 00:20 Zofran IVP Q12H PRN vomiting, or N/V if npo Pantoprazole Sodiu m 40 mg 02/02/20 09:00 02/03/20 08:14 Protonix IVP 40 mg DAILY DIANE Administration Ranitidine HCl 300 mg 02/02/20 00:39 02/03/20 21:34 Zantac Syrup PO 300 mg BEDTIME DIANE Administration acetaminophen [From Tylenol Cold Multi-Symptom Day] Allergy (Verified 11/16/19 10:31) UNKNOWN dextromethorphan [From Tylenol Cold Multi-Symptom Day] Allergy (Verified 11/16/19 10:31) UNKNOWN phenylephrine [From Tylenol Cold Multi-Symptom Day] Allergy (Verified 11/16/19 10:31) UNKNOWN Vitals/I&O/Wt Last Vital Signs Temp 98.2 F 02/03/20 20:00 Pulse 86 02/04/20 07:41 Resp 22 H 02/04/20 04:00 BP 92/71 02/04/20 04:00 Pulse Ox 98 02/04/20 07:41 02/03/20 02/04/20 02/04/20 22:59 06:59 14:59 Intake Total 250 / 1965.25 50 2015. Output Total 1500 / 1999 500 / 2500 Balance -1250 / -33.75 -450 / -483.75 Weight last 48 hrs Weight 73.255 kg Weight 77.111 kg Physical Exam Const: COMMON NORMALS: no apparent distress, oriented x3 and alert ORIENTATION/CONSCIOUSNESS: Yes awake HENMT: COMMON NORMALS: normocephalic and head/scalp atraumatic HEAD & SCALP: normocephalic and atraumatic Eye: COMMON NORMALS: PERRL, EOMs intact bilaterally and conjunctivae normal CONJUNCTIVA: Yes conjunctivae normal PUPIL: Yes PERRL Neck/C-Spine: COMMON NORMALS: full ROM GENERAL: Yes normal visual inspection and Yes trachea midline Chest: COMMONS NORMALS: inspection of chest normal Resp: COMMON NORMALS: normal respiratory effort, no retractions and no use of accessory muscles EFFORT & INSPECTION: Yes symmetric chest movement and Yes tachypneic AUSCULTATION: crackles and diminished lung sounds bilateral OTHER: -on 4 L NC Cardio: COMMON NORMALS: regular rate, regular rhythm, S1 normal heart sound and S2 normal heart sound RATE: regular rate RHYTHM: regular rhythm HEART SOUNDS: S1 normal, S2 normal and murmur systolic GI: COMMON NORMALS: normal to inspection, nondistended, normoactive bowel sounds and soft to palpation PALPATION: Yes soft : BLADDER/KIDNEY EXAM: Yes catheter in place Catheter type (Female): urethral Extremity: COMMON NORMALS: normal to inspection, full ROM and no clubbing, cyanosis or edema; negative for no pedal edema Neuro: COMMON NORMALS: oriented x3, moves all extremities, no focal motor deficits and no sensory deficits noted SENSORIUM/ORIENTATION: Yes alert Psych: COMMON NORMALS: mental status grossly normal, thought process normal, cooperative, affect normal and speech normal SPEECH: Yes normal speech THOUGHT PROCESS: normal thought process Skin: COMMON NORMALS: no rashes or lesions noted, no jaundice and no petechiae GENERAL SKIN EXAM: no rashes or lesions noted OTHER: -scattered varicosities Urinary Catheter Management^: Servin: Cath Placed During This Visit: yes Urethral Indwelling: Yes Reason for Continuing Indwelling Catheter: Accurate Measurement of Urinary Output in Critically Ill Patients Urinary Catheter Date of Insertion: 02/01/20 Urinary Catheter Time of Insertion: 18:35 Data : 02/04/20 02:47 02/04/20 02:47 Micro: Microbiology 02/02/20 10:29 Blood Culture - Preliminary Blood NEGATIVE TO DATE 02/02/20 10:23 Blood Culture - Preliminary Blood NEGATIVE TO DATE 02/01/20 18:40 Gram Stain - Final Sputum - Endotracheal Wash Sputum Culture - Preliminary A&P Assessment and plan (1) Acute respiratory failure with hypoxia and hypercarbia: -Patient arrived in significant respiratory distress and was intubated in the ER; extubated on 02/02 -now on BiPAP -Continue to monitor respiratory status closely; noted tachypnea -repeat imaging shows evidence of fluid overload -AM ABG noted, appropriate -Continued monitoring of hemodynamic status -Negative for PE on CTA Status: Acute Code(s): J96.01 - Acute respiratory failure with hypoxia; J96.02 - Acute respiratory failure with hypercapnia (2) Non-ST elevation ME (NSTEMI): -found to have recurrent troponin elevation with delta of 900 -Has known history of CAD with prior stenting; last cardiac work-up done in 2019 with echo showing EF of 79%, cath done in 2018 -Continue therapeutic Lovenox, aspirin, Plavix, metoprolol; no statins due to history of hepatocellular carcinoma -Cardiology consult by Dr. Alaniz appreciated; once medically stable, will decide on cath -repeat Echo: EF=28%, global LV hypokinesis, G1DD, moderate pulmonary HTN (44), mild MR, moderate , mild AR, moderate TR, mild KS Status: Acute Code(s): I21.4 - Non-ST elevation (NSTEMI) myocardial infarction (3) Right lower lobe pneumonia: -reported episode of vomiting following intake of nitroglycerin as well as hemoptysis we will cannot exclude element of aspiration -Noted leukocytosis with neutrophilic predominance, now resolved -off vent support -On broad-spectrum IV antibiotics (Zosyn/Levaquin/Vanc); continue Zosyn, d/c Levaquin and Vanc -negative for influenza; screening for COVID-19 negative -blood cx: prelim negative -sputum cx-prelim mixed cheng, gram stain negative Status: Suspected Qualifiers: Pneumonia type: due to unspecified organism Qualified Code(s): J18.9 - Pneumonia, unspecified organism Code(s): J18.9 - Pneumonia, unspecified organism (4) Hepatocellular carcinoma: -has known hepatocellular carcinoma, no known metastatic disease -f/u at [facility] -noted LFTs, coags Status: Chronic Code(s): C22.0 - Liver cell carcinoma (5) Hypertension: -BP stable, off pressor support -hold antihypertensives other than BB -continue to monitor hemodynamic status Status: Chronic Qualifiers: Hypertension type: essential hypertension Qualified Code(s): I10 - Essential (primary) hypertension Code(s): I10 - Essential (primary) hypertension Additional A&P Information -PVD, s/p RLE stenting -Chronic smoker -NIDDM type II; accucheks, ISS, hypoglycemia precautions -bilateral carotid artery stenosis -known infrarenal AAA; stable per imaging (last done in 01/2020), follows up with Dr. Pratt -Chronic thrombocytopenia, likely secondary to liver pathology, continue to monitor platelet count -GERD, on PPI and H2 chase -Liver cirrhosis, secondary to non-alcoholic steatosis; spleen is upper level of normal size, mesenteric adenopathy (stable per last imaging) -GI ppx with PPI -DVT ppx not needed as on therapeutic lovenox -has Servin catheter in place, assess daily for removal -Dispo: pending clinical improvement -Code status: FULL code -continue ICU care due to low threshold for decompensation Attestations Medical Necessity Statement*: Patient requires hospitalization for continued management of acute respiratory failure, off vent support but requiring continuous BiPAP and close monitoring of hemodynamic and respiratory status. Time Spent in Patient Care: Greater than 35 minutes (>than 50% of time spent in counselling and/or direct pt care on unit). 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
--- NOTE | 2020-02-04 09:24 | PC.SOCIAL ---
IM explained, pt put an x unable to sign due to weakness. She verbalized understanding with no questions. Copy provided.
[2020-02-04] MEDS: aspirin 325 mg Tablet NG-TUBE (11:08)
[2020-02-04] MEDS: clopidogrel 75 mg Tablet NG-TUBE (11:09)
[2020-02-04] MEDS: pantoprazole 40 mg SDV IVP (11:09)
[2020-02-04] MEDS: metoprolol tartrate 25 mg Tablet 12.5 MG NG-TUBE ×2 (11:09→18:27)
--- NOTE | 2020-02-04 13:56 | PM.PN ---
Subjective Subjective: Interval history: She was seen sitting in chair. Overnight she went into atrial fibrillation with RVR with intermittent rate related BBB. She received digoxin and IV lopressor. She also remained anxious on BiPaP and received ativan. CXR showed fluid overload and IV fluids stopped. -Currently, she is in NSR. She denies any CP and is currently on NC. Medications: Reviewed: Yes Medication Review Details: Current Medications Acetaminophen (Tylenol) 650 mg PO Q8H PRN PRN Reason: temp > 101 Albuterol/Ipratropium (Duoneb) 3 ml INHALATION Q6H.RESPIRATORY DIANE Last Admin: 02/04/20 14:02 Dose: 3 ml Documented by: Alprazolam (Xanax) 0.5 mg PO TID PRN PRN Reason: ANXIETY Last Admin: 02/04/20 03:22 Dose: 0.5 mg Documented by: Aspirin (Aspirin) 325 mg NG-TUBE DAILY DIANE Last Admin: 02/04/20 11:08 Dose: 325 mg Documented by: Clopidogrel Bisulfate (Plavix) 75 mg NG-TUBE DAILY DIANE Last Admin: 02/04/20 11:09 Dose: 75 mg Documented by: Dextrose (D50w) 25 ml IVP ONCE PRN; Protocol PRN Reason: hypoglycemia protocol Dextrose (D50w) 50 ml IVP PRN PRN; Protocol PRN Reason: hypoglycemia protocol Enoxaparin Sodium (Lovenox) 80 mg 1 mg/kg (80 mg) SUBCUT Q12H DIANE Last Admin: 02/04/20 11:25 Dose: 80 mg Documented by: Glucagon (Glucagen) 1 mg IM ONCE PRN; Protocol PRN Reason: Adult Acute Hypoglycemia Prot. Piperacillin Sod/Tazobactam (Sod 3.375 gm/ Sodium Chloride) 50 mls @ 12.5 mls/hr IV Q8H DIANE; Protocol Last Admin: 02/04/20 11:25 Dose: 12.5 mls/hr Documented by: Norepinephrine Bitartrate 4 mg (/ Dextrose) 254 mls @ 0 mls/hr IV .Q0M DIANE; Protocol Last Admin: 02/02/20 22:49 Dose: 6 mcg/min, 22.9 mls/hr Documented by: Dextrose (D5w) 500 mls @ 100 mls/hr IV ONCE PRN; Protocol PRN Reason: Adult Acute Hypoglycemia Prot Insulin Aspart (Novolog) 0 unit SUBCUT BEDTIME [facility]; Protocol Last Admin: 02/03/20 21:34 Dose: 2 unit Documented by: Insulin Aspart (Novolog) 0 unit SUBCUT TIDWM [facility]; Protocol Last Admin: 02/04/20 11:09 Dose: 1 unit Documented by: Metoprolol Tartrate (Lopressor) 12.5 mg NG-TUBE BID [facility] Last Admin: 02/04/20 11:09 Dose: 12.5 mg Documented by: Midazolam HCl (Versed) 1 mg IVP Q6H PRN PRN Reason: vaughn 3 Last Admin: 02/01/20 23:50 Dose: 1 mg Documented by: Morphine Sulfate (Morphine) 4 mg IVP Q4H PRN PRN Reason: SEVERE PAIN Last Admin: 02/03/20 23:03 Dose: 4 mg Documented by: Ondansetron HCl (Zofran) 4 mg IVP Q12H PRN PRN Reason: vomiting, or N/V if npo Pantoprazole Sodium (Protonix) 40 mg IVP DAILY [facility] Last Admin: 02/04/20 11:09 Dose: 40 mg Documented by: Ranitidine HCl (Zantac Syrup) 300 mg PO BEDTIME [facility] Last Admin: 02/03/20 21:34 Dose: 300 mg Documented by: Vitals/I&O/Wt Last Vital Signs Temp 98.4 F 02/04/20 06:00 Pulse 90 02/04/20 13:30 Resp 19 H 02/04/20 13:30 BP 96/58 02/04/20 13:30 Pulse Ox 100 02/04/20 13:30 02/03/20 02/04/20 02/04/20 22:59 06:59 14:59 Intake Total 250 / 1966.25 50 2015. 420 / 420 Output Total 1500 / 2000 500 / 2500 Balance -1250 / -33.75 -450 / -483.75 420 / 420 Weight last 48 hrs Weight 161 lb 8 oz Weight 170 lb Physical Exam Narrative: EXAM NARRATIVE: Gen: NAD, sitting in chair. HEENT:PERRL, No pallor or icterus RS: Decreased bilateral breath sounds in mid to basal lung verdugo. CVS: S1,S2, regular; No murmur, rub or gallop. SALESPERSON SHOES: AAOx 3 Ext: No edema or cyanosis. Urinary Catheter Management^: Servin: Cath Placed During This Visit: yes Urethral Indwelling: Yes Reason for Continuing Indwelling Catheter: Accurate Measurement of Urinary Output in Critically Ill Patients Urinary Catheter Date of Insertion: 02/01/20 Urinary Catheter Time of Insertion: 18:35 Data : 02/04/20 02:47 02/04/20 02:47 Micro: Microbiology 02/01/20 18:40 Gram Stain - Final Sputum - Endotracheal Wash Sputum Culture - Final 02/02/20 10:29 Blood Culture - Preliminary Blood NEGATIVE TO DATE 02/02/20 10:23 Blood Culture - Preliminary Blood NEGATIVE TO DATE A&P Assessment and plan (1) Acute respiratory failure with hypoxia and hypercarbia: She was extubated yesterday. received lasix 40 mg IV x 1 and has UO of 2000 ml. Status: Acute Code(s): J96.01 - Acute respiratory failure with hypoxia; J96.02 - Acute respiratory failure with hypercapnia (2) Non-ST elevation NE (NSTEMI): She has known prior CAD with last LHC in 03/2018. It showed ostial right coronary artery lesion that is at least 50-60% which caused dampening of the waveform and poor flow into the aorta upon injection of the artery. The circumflex is a tiny vessel which contains a 99% stenosis in its midportion. There is a large ramus intermedius artery which contains a 90% in-stent restenosis at the distal and of the previously placed stent. LAD contains mild diffuse disease. 2 previously placed LAD stents are patent. The more distal one contains mild to moderate in-stent restenosis. Left main coronary artery is normal. -continue ASA, plavix and therapeutic lovenox. EKG showing possible anteroseptal infarct of indeterminate age and T wave inversion in lateral leads. -Echo showing severely decreased LV function with hypokinesis in , IS, inferior and apical huerta. -Renal function showing improved creatinine and CTA for PE protocol normal. -Continue to treat medically for now. Once patient is more stable, will make the decision for coronary angiogram. Status: Acute Code(s): I21.4 - Non-ST elevation (NSTEMI) myocardial infarction (3) Right lower lobe pneumonia: -currently on zosyn. -Blood Cx negative. Status: Suspected Qualifiers: Pneumonia type: due to unspecified organism Qualified Code(s): J18.9 - Pneumonia, unspecified organism Code(s): J18.9 - Pneumonia, unspecified organism (4) Coronary artery disease: Status: Chronic Qualifiers: Coronary Disease-Associated Artery/Lesion type: [place] artery [place] vs. transplanted heart: [place] heart Associated angina: with unspecified angina Qualified Code(s): I25.119 - Atherosclerotic heart disease of [place] coronary artery with unspecified angina pectoris Code(s): I25.10 - Atherosclerotic heart disease of [place] coronary artery without angina pectoris (5) Peripheral artery disease: s/p right superficial femoral artery angioplasty and stenting in 03/2018. Status: Chronic Code(s): I73.9 - Peripheral vascular disease, unspecified (6) Mixed hyperlipidemia: Status: Chronic Code(s): E78.2 - Mixed hyperlipidemia (7) Diabetes: Status: Chronic Qualifiers: Diabetes mellitus type: type 2 Diabetes mellitus snf insulin use: without snf use Diabetes mellitus complication status: with hyperglycemia Qualified Code(s): E11.65 - Type 2 diabetes mellitus with hyperglycemia Code(s): E11.9 - Type 2 diabetes mellitus without complications Additional A&P Information SVT/ Frequent PVC's Atrial fibrillation: Now back in SR, currently on lovenox and low dose metoprolol. Bilateral carotid artery stenosis Stable infrarenal abdominal aortic aneurysm Normocytic Anemia Chronic active smoker Gastroesophageal reflux disease History of liver cirrhosis History of thrombocytopenia Hepatocellular carcinoma being followed at [facility] Thank you for allowing me to participate in patient's care. Please feel free to call with questions or concerns. Attestations Medical Necessity Statement*: remains in ICU. Coding Level of Care Code Acute Machine Erector for [facility] Diagnoses Acute respiratory failure with hypoxia and hypercarbia J96.01; J96.02 Non-ST elevation NE (NSTEMI) I21.4 Right lower lobe pneumonia J18.9 Pneumonia type: due to unspecified organism Coronary artery disease I25.119 Coronary Disease-Associated Artery/Lesion type: [place] artery [place] vs. transplanted heart: [place] heart Associated angina: with unspecified angina Peripheral artery disease I73.9 Mixed hyperlipidemia E78.2 Diabetes E11.65 Diabetes mellitus type: type 2 Diabetes mellitus snf insulin use: without terminal make up operator use Diabetes mellitus complication status: with hyperglycemia
--- NOTE | 2020-02-04 17:01 | PC.NURSE ---
Called Dr. Nettles regarding pt heart rate dropping down to 40's with frequent PVC's. No new orders, states that she aware of the medications given last night and to continue to monitor.
[2020-02-04 18:15] LABS: Glucose Point of Care 130 mg/dL (70-110)
[2020-02-04] MEDS: morphine 4 mg/mL SDV 1 mL IVP ×2 (19:38→22:59)
[2020-02-04 20:59] LABS: Glucose Point of Care 155 mg/dL (70-110)
[2020-02-05] VITALS (31 sets, daily range): BP systolic 86–121; BP diastolic 40–71; PULSE 43–99; RESP 12–34; TEMP 36.7; O2SAT 88–100; BMI 27.9
[2020-02-05] MEDS: piperacillin-tazobactam 3.375 GM in sodium chloride 0.9% (plus) 50 ML IV ×2 (01:53→08:48)
[2020-02-05] MEDS: ipratropium-albuterol 3 mL Neb INHALATION ×4 (02:09→20:51)
--- NOTE | 2020-02-05 03:36 | PC.NURSE ---
Pt continues to c/o pain. She is grimacing even while sleeping. I asked where her pain was and she said, All over. Pt was unable to rate her pain on 0-10 scale; however, she is oriented to person, place, and date. Pt was offered more morphine. She said she would consider it. I will go check again in a bit.
[2020-02-05] MEDS: morphine 4 mg/mL SDV 1 mL IVP (04:11)
[2020-02-05 04:59] LABS: Basophils % 0.4 %; Eosinophils % 0.4 %; Hematocrit 32.4 % (37.0-47.0); Hemoglobin 9.8 g/dL (11.5-15.3); Lymphocytes # 1.2 10^3/uL (0.8-4.8); Lymphocytes % 24.6 %; Mean Corpuscular HGB Conc 30.2 g/dL (30.0-36.0); Mean Corpuscular Hemoglobin 29.8 pg (28.0-34.0); Mean Corpuscular Volume 98.5 fL (81-99); Mean Platelet Volume 13.3 fL (7.4-10.4); Monocytes # 0.5 10^3/uL (0.2-0.9); Monocytes % 9.6 %; Neutrophils % 64.6 %; Nucleated Red Blood Cells % 0 %; Platelet Count 83 10^3/cmm (130-400); Red Blood Count 3.29 10^6/uL (4.1-5.3); Red Cell Distribution Width 13.9 % (12.1-15.1); White Blood Count 4.7 10^3/uL (4.0-10.0)
[2020-02-05 05:05] LABS: Alanine Aminotransferase 60 U/L (0-33); Albumin Level 3.3 g/dL (3.5-5.2); Alkaline Phosphatase 70 IU/L (35-105); Anion Gap 14.8 (5-19); Aspartate Amino Transferase 58 U/L (0-32); Blood Urea Nitrogen 25 mg/dL (8-23); Carbon Dioxide 25 mmol/L (22-29); Chloride 102 mmol/L (98-107); Creatinine Clr Calc Pharmacy 54.9763; Globulin 3.3 g/dL (1.3-4.6); Glucose 139 mg/dL (65-115); Osmolality Calculated 285 mOsm/kg (285-295); Potassium 3.8 mmol/L (3.5-5.1); Sodium 138 mmol/L (136-145); Total Bilirubin 0.8 mg/dL (0.15-1.2); Total Protein 6.6 g/dL (6.6-8.7)
[2020-02-05] MEDS: pantoprazole 40 mg SDV IVP (08:46)
[2020-02-05] MEDS: aspirin 325 mg Tablet NG-TUBE (08:46)
[2020-02-05] MEDS: clopidogrel 75 mg Tablet NG-TUBE (08:46)
[2020-02-05] MEDS: metoprolol tartrate 25 mg Tablet 12.5 MG NG-TUBE (08:47)
[2020-02-05 08:52] LABS: Glucose Point of Care 146 mg/dL (70-110)
--- NOTE | 2020-02-05 09:13 | P.PN_ITS ---
Subjective Subjective: Interval history: Noted to have brief periods of intermittent bradycardia, not sustained, HR in the 40s during these epsiodes. Hemodynamically stable, on 5 L NC. Had 250 mL urine output overnight. AM labs noted, increased BUN but normal Cr. Hg dropped to 9.8 from 11, platelet count stable (83). Complained of pain overnight, primarily back pain and received a total of 12 mg IV morphine. She seems slow to respond this AM, laying in bed, noted increased oxygen requirement. Case discussed with Dr. Alaniz, will give oral Lasix and prep for cath tomorrow. Will transfer to CSU. Medications: Reviewed: Yes Medication Review Details: Active Medications Generic Name Dose Route Start Last Admin Trade Name Freq PRN Reason Stop Dose Admin Acetaminophen 650 mg 02/02/20 00:20 Tylenol PO Q8H PRN temp > 101 Albuterol/Ipratrop ium 3 ml 02/02/20 03:00 02/05/20 08:09 Duoneb INHALATION 3 ml Q6H.RESPIRATORY S CH Administration Alprazolam 0.5 mg 02/03/20 15:57 02/04/20 22:56 Xanax PO 0.5 mg TID PRN Administration ANXIETY Aspirin 325 mg 02/02/20 09:00 02/05/20 08:46 Aspirin NG-TUBE 325 mg DAILY DIANE Administration Clopidogrel Bisulf ate 75 mg 02/02/20 09:00 02/05/20 08:46 Plavix NG-TUBE 75 mg DAILY DIANE Administration Dextrose 25 ml 02/02/20 00:20 D50w IVP ONCE PRN hypoglycemia prot ocol Protocol Dextrose 50 ml 02/02/20 00:20 D50w IVP PRN PRN hypoglycemia prot ocol Protocol Enoxaparin Sodium 80 mg 02/02/20 00:20 02/04/20 22:56 Lovenox 1 mg/kg (80 mg) 80 mg SUBCUT Administration Q12H DIANE Glucagon 1 mg 02/02/20 00:20 Glucagen IM ONCE PRN Adult Acute Hypog lycemia Prot. Protocol Piperacillin Sod/T azobactam 50 mls @ 12.5 mls /hr 02/02/20 07:00 02/05/20 08:48 Sod 3.375 gm/ So dium Chloride IV 12.5 mls/hr Q8H DIANE Administration Protocol Norepinephrine Bit artrate 4 mg 254 mls @ 0 mls/h r 02/02/20 00:30 02/04/20 19:39 / Dextrose IV Infused .Q0M DIANE Titration Protocol Per Protocol Dextrose 500 mls @ 100 mls /hr 02/02/20 00:20 D5w IV ONCE PRN Adult Acute Hypog lycemia Prot Protocol Insulin Aspart 0 unit 02/02/20 00:20 02/04/20 20:58 Novolog SUBCUT 1 unit BEDTIME DIANE Administration Protocol Insulin Aspart 0 unit 02/02/20 08:00 02/05/20 08:47 Novolog SUBCUT 2 unit TIDWM DIANE Administration Protocol Metoprolol Tartrat e 12.5 mg 02/02/20 09:00 02/05/20 08:47 Lopressor NG-TUBE 12.5 mg BID DIANE Administration Midazolam HCl 1 mg 02/01/20 22:34 02/01/20 23:50 Versed IVP 1 mg Q6H PRN Administration vaughn 3 Morphine Sulfate 4 mg 02/01/20 22:34 02/05/20 04:11 Morphine IVP 4 mg Q4H PRN Administration SEVERE PAIN Ondansetron HCl 4 mg 02/02/20 00:20 Zofran IVP Q12H PRN vomiting, or N/V if npo Pantoprazole Sodiu m 40 mg 02/02/20 09:00 02/05/20 08:46 Protonix IVP 40 mg DAILY DIANE Administration Ranitidine HCl 300 mg 02/02/20 00:39 02/04/20 21:34 Zantac Syrup PO 300 mg BEDTIME DIANE Administration acetaminophen [From Tylenol Cold Multi-Symptom Day] Allergy (Verified 11/16/19 10:31) UNKNOWN dextromethorphan [From Tylenol Cold Multi-Symptom Day] Allergy (Verified 11/16/19 10:31) UNKNOWN phenylephrine [From Tylenol Cold Multi-Symptom Day] Allergy (Verified 11/16/19 10:31) UNKNOWN Vitals/I&O/Wt Last Vital Signs Temp 98.4 F 02/04/20 06:00 Pulse 91 02/05/20 08:14 Resp 20 H 02/05/20 08:13 BP 110/71 02/05/20 08:00 Pulse Ox 94 02/05/20 08:13 02/04/20 02/05/20 02/05/20 22:59 06:59 14:59 Intake Total 2055 / 6 272 / 2748 100 / 100 Output Total 460 / 460 250 / 710 Balance 1595 100 / 100 Weight last 48 hrs Weight 76.249 kg Weight 73.255 kg Physical Exam Const: COMMON NORMALS: no apparent distress, oriented x3 and alert ORIENTATION/CONSCIOUSNESS: Yes awake OTHER: -slow to respond but does answer questions appropriately HENMT: COMMON NORMALS: normocephalic and head/scalp atraumatic HEAD & SCALP: normocephalic and atraumatic Eye: COMMON NORMALS: PERRL, EOMs intact bilaterally and conjunctivae normal CONJUNCTIVA: Yes conjunctivae normal PUPIL: Yes PERRL Neck/C-Spine: COMMON NORMALS: full ROM GENERAL: Yes normal visual inspection and Yes trachea midline Chest: COMMONS NORMALS: inspection of chest normal Resp: COMMON NORMALS: normal respiratory effort, no retractions and no use of accessory muscles EFFORT & INSPECTION: Yes symmetric chest movement AU SCULTATION: crackles and diminished lung sounds bilateral OTHER: -on 5 L NC Cardio: COMMON NORMALS: regular rate, regular rhythm, S1 normal heart sound and S2 normal heart sound RATE: regular rate RHYTHM: regular rhythm HEART SOUNDS: S1 normal, S2 normal and murmur systolic GI: COMMON NORMALS: normal to inspection, nondistended, normoactive bowel s ounds and soft to palpation PALPATION: Yes soft Extremity: COMMON NORMALS: normal to inspection, full ROM and no clubbing, cyanosis or edema; negative for no pedal edema Neuro: COMMON NORMALS: oriented x3, moves all extremities, no focal motor deficits and no sensory deficits noted SENSORIUM/ORIENTATION: Yes alert Psych: COMMON NORMALS: mental status grossly normal, thought process normal, cooperative, affect normal and speech normal SPEECH: Yes normal speech THOUGHT PROCESS: normal thought process Skin: COMMON NORMALS: no rashes or lesions noted, no jaundice and no petechiae GENERAL SKIN EXAM: no rashes or lesions noted OTHER: -scattered varicosities, bilateral feet appear mottled and are cool to touch Urinary Catheter Management^: Servin: Cath Placed During This Visit: yes Urethral Indwelling: Yes Reason for Continuing Indwelling Catheter: Accurate Measurement of Urinary Output in Critically Ill Patients Urinary Catheter Date of Insertion: 02/01/20 Urinary Catheter Time of Insertion: 18:35 Data : 02/05/20 04:25 02/05/20 04:25 Micro: Microbiology 02/01/20 18:40 Gram Stain - Final Sputum - Endotracheal Wash Sputum Culture - Final A&P Assessment and plan (1) Acute respiratory failure with hypoxia and hypercarbia: -Patient arrived in significant respiratory distress and was intubated in the ER; extubated on 02/02 -on BiPAP vs. NC; noted increased oxygen requirement today -Continue to monitor respiratory status closely; noted tachypnea -repeat imaging shows evidence of fluid overload, improved today -AM ABG noted, appropriate -Continued monitoring of hemodynamic status -Negative for PE on CTA -dose of 20 mg oral Lasix today Status: Acute Code(s): J96.01 - Acute respiratory failure with hypoxia; J96.02 - Acute respiratory failure with hypercapnia (2) Non-ST elevation LA (NSTEMI): -found to have recurrent troponin elevation with delta of 900 -Has known history of CAD with prior stenting; last cardiac work-up done in 2019 with echo showing EF of 79%, cath done in 2018 -Continue therapeutic Lovenox, aspirin, Plavix, metoprolol; no statins due to history of hepatocellular carcinoma -Cardiology consult by Dr. Alaniz appreciated; plan for cath tomorrow -repeat Echo: EF=28%, global LV hypokinesis, G1DD, moderate pulmonary HTN (44), mild MR, moderate , mild AR, moderate TR, mild MI Status: Acute Code(s): I21.4 - Non-ST elevation (NSTEMI) myocardial infarction (3) Right lower lobe pneumonia: -reported episode of vomiting following intake of nitroglycerin as well as hemoptysis we will cannot exclude element of aspiration -Noted leukocytosis with neutrophilic predominance, now resolved -off vent support -On broad-spectrum IV antibiotics (Zosyn/Levaquin/Vanc); will d/c as no leukoc ytosis, afebrile x > 48 hrs -negative for influenza; screening for COVID-19 negative -blood cx: negative -sputum cx-prelim mixed cheng, gram stain negative Status: Suspected Qualifiers: Pneumonia type: due to unspecified organism Qualified Code(s): J18.9 - Pneumonia, unspecified organism Code(s): J18.9 - Pneumonia, unspecified organism (4) Hepatocellular carcinoma: -has known hepatocellular carcinoma, no known metastatic disease -f/u at [facility] -noted LFTs which are decreasing, coags Status: Chronic Code(s): C22.0 - Liver cell carcinoma (5) Hypertension: -BP stable, off pressor support -hold antihypertensives other than BB -continue to monitor hemodynamic status Status: Chronic Qualifiers: Hypertension type: essential hypertension Qualified Code(s): I10 - E ssential (primary) hypertension Code(s): I10 - Essential (primary) hypertension Additional A&P Information -PVD, s/p RLE stenting -Chronic smoker -NIDDM type II; accucheks, ISS, hypoglycemia precautions -bilateral carotid artery stenosis -known infrarenal AAA; stable per imaging (last done in 01/2020), follows up with Dr. Pratt -Chronic thrombocytopenia, likely secondary to liver pathology, continue to monitor platelet count; baseline is around 80-100 -GERD, on PPI and H2 chase -Liver cirrhosis, secondary to non-alcoholic steatosis; spleen is upper level of normal size, mesenteric adenopathy (stable per last imaging) -Normocytic anemia; appears to be intermittent as baseline Hg wnl; continue to monitor H/H, has been gradually trending down -GI ppx with PPI -DVT ppx not needed as on therapeutic lovenox -has Servin catheter in place, d/c today -PT/OT evaluations -decrease pain med doses as likely contributing to lethargy particularly in combination with anxiolytics -Dispo: was living at home independently; may need HH vs. SNF -Code status: FULL code -transfer to CSU for continued care Attestations Medical Necessity Statement*: Patient requires hospitalization for continued management of NSTEMI, acute respiratory failure pending optimization for coronary angiogram. Time Spent in Patient Care: 16 - 35 minutes (>than 50% of time spent in counselling and/or direct pt care on unit) . Coding Level of Care Code Acute Health Care Analyst for [facility] Fwd Exam Comprehensive Diagnoses Acute respiratory failure with hypoxia and hypercarbia J96.01; J96.02 Non-ST elevation LA (NSTEMI) I21.4 Right lower lobe pneumonia J18.9 Pneumonia type: due to unspecified organism Hepatocellular carcinoma C22.0 Hypertension I10 Hypertension type: essential hypertension
--- NOTE | 2020-02-05 10:59 | ECG_ITS ---
Measurements Intervals [place] Rate: 92 P: 59 [place]: 127 QRS: -1 QRSD: 84 T: 209 QT: 368 QTc: 456 SINUS RHYTHM WITH FREQUENT VENTRICULAR PREMATURE COMPLEXES IN A BIGEMINAL PATTERN POSSIBLE LEFT ATRIAL ENLARGEMENT ANTEROSEPTAL MYOCARDIAL INFARCTION , OF INDETERMINATE AGE ST DEVIATION AND MODERATE T-WAVE ABNORMALITY, CONSIDER LATERAL ISCHEMIA ST DEVIATION AND MODERATE T-WAVE ABNORMALITY, CONSIDER INFERIOR ISCHEMIA Compared to ECG 02/02/2020 01:32:53 Ventricular premature complex(es) now present T-wave abnormality now present Possible ischemia now present Sinus tachycardia no longer present Myocardial infarct finding still present Electronically Signed On 02-05-2020 12:52:35 CDT by Alida Alaniz M.D. [email or web address]
--- NOTE | 2020-02-05 11:03 | XRR_ITS ---
PROCEDURE INFORMATION: Exam: XR Chest, 1 View Exam date and time: 02/05/2020 11:04 AM Age: 74 years old Clinical indication: Shortness of breath; Additional info: Fluid overload TECHNIQUE: Imaging protocol: XR of the chest Views: 1 view. COMPARISON: CR XR chest 1V portable [id number] 02/04/2020 12:06 AM FINDINGS: Lungs: Unremarkable. No consolidation. Pleural space: Minimal bilateral costophrenic angle blunting. Heart/Mediastinum: Congestive heart failure decreased. Bones/joints: No acute findings. XR/XR chest 1V portable [id number] IMPRESSION: Congestive heart failure and small bilateral pleural effusions decreased since 02/04/2020.
[2020-02-05 11:07] LABS: Glucose Point of Care 148 mg/dL (70-110)
[2020-02-05] MEDS: enoxaparin 100 mg/mL Syringe 80 MG SUBCUT (11:40)
[2020-02-05] MEDS: magnesium sulfate premix 2 GM/50 ML PIGGYBACK IV (12:02)
[2020-02-05] MEDS: FUROsemide 20 mg Tablet PO (12:02)
--- NOTE | 2020-02-05 12:57 | PM.PN ---
Subjective Subjective: Interval history: She was seen sitting in chair. Overnight she had bradycardia with ventricular bigeminy. CXR today showed improved pulmonary congestion and bilateral pleural effusion. -She continued to have back pain and received morphine overnight. Urine output 710 mL and she is net +1.7 L. Her oxygen requirement has increased. She is currently on 5 L/min of oxygen. Medications: Reviewed: Yes Medication Review Details: Current Medications Acetaminophen (Tylenol) 650 mg PO Q8H PRN PRN Reason: temp > 101 Albuterol/Ipratropium (Duoneb) 3 ml INHALATION Q6H.RESPIRATORY DIANE Last Admin: 02/05/20 08:09 Dose: 3 ml Documented by: Alprazolam (Xanax) 0.5 mg PO TID PRN PRN Reason: ANXIETY Last Admin: 02/04/20 22:56 Dose: 0.5 mg Documented by: Aspirin (Aspirin) 325 mg NG-TUBE DAILY DIANE Last Admin: 02/05/20 08:46 Dose: 325 mg Documented by: Clopidogrel Bisulfate (Plavix) 75 mg NG-TUBE DAILY DIANE Last Admin: 02/05/20 08:46 Dose: 75 mg Documented by: Dextrose (D50w) 25 ml IVP ONCE PRN; Protocol PRN Reason: hypoglycemia protocol Dextrose (D50w) 50 ml IVP PRN PRN; Protocol PRN Reason: hypoglycemia protocol Enoxaparin Sodium (Lovenox) 80 mg 1 mg/kg (80 mg) SUBCUT Q12H DIANE Glucagon (Glucagen) 1 mg IM ONCE PRN; Protocol PRN Reason: Adult Acute Hypoglycemia Prot. Norepinephrine Bitartrate 4 mg (/ Dextrose) 254 mls @ 0 mls/hr IV .Q0M DIANE; Protocol Last Titration: 02/04/20 19:39 Dose: Infused Documented by: Dextrose (D5w) 500 mls @ 100 mls/hr IV ONCE PRN; Protocol PRN Reason: Adult Acute Hypoglycemia Prot Insulin Aspart (Novolog) 0 unit SUBCUT BEDTIME DIANE; Protocol Last Admin: 02/04/20 20:58 Dose: 1 unit Documented by: Insulin Aspart (Novolog) 0 unit SUBCUT TIDWM DIANE; Protocol Last Admin: 02/05/20 11:40 Dose: 2 unit Documented by: Metoprolol Tartrate (Lopressor) 12.5 mg NG-TUBE BID DIANE Last Admin: 02/05/20 08:47 Dose: 12.5 mg Documented by: Morphine Sulfate (Morphine) 4 mg IVP Q4H PRN PRN Reason: SEVERE PAIN Last Admin: 02/05/20 04:11 Dose: 4 mg Documented by: Ondansetron HCl (Zofran) 4 mg IVP Q12H PRN PRN Reason: vomiting, or N/V if npo Pantoprazole Sodium (Protonix) 40 mg IVP DAILY [facility] Last Admin: 02/05/20 08:46 Dose: 40 mg Documented by: Ranitidine HCl (Zantac Syrup) 300 mg PO BEDTIME [facility] Last Admin: 02/04/20 21:34 Dose: 300 mg Documented by: Vitals/I&O/Wt Last Vital Signs Temp 98.4 F 02/04/20 06:00 Pulse 94 02/05/20 12:00 Resp 27 H 02/05/20 12:00 BP 109/55 02/05/20 12:00 Pulse Ox 89 L 02/05/20 11:00 02/04/20 02/05/20 02/05/20 22:59 06:59 14:59 Intake Total 2056 / 2476 272 / 2748 100 / 100 Output Total 460 / 460 250 / 710 Balance 1595 100 / 100 Weight last 48 hrs Weight 168 lb 1.6 oz Weight 161 lb 8 oz Physical Exam Narrative: EXAM NARRATIVE: EXAM NARRATIVE: Gen: NAD, sitting in chair. HEENT:PERRL, No pallor or icterus RS: Decreased bilateral breath sounds in basal lung verdugo. CVS: S1,S2, regular; No murmur, rub or gallop. 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 Urinary Catheter Management^: Servin: Cath Placed During This Visit: yes Urethral Indwelling: Yes Reason for Continuing Indwelling Catheter: Accurate Measurement of Urinary Output in Critically Ill Patients Urinary Catheter Date of Insertion: 02/01/20 Urinary Catheter Time of Insertion: 18:35 Data : 02/05/20 04:25 02/05/20 04:25 Micro: Microbiology 02/01/20 18:40 Gram Stain - Final Sputum - Endotracheal Wash Sputum Culture - Final A&P Assessment and plan (1) Acute respiratory failure with hypoxia and hypercarbia: She was extubated Saturday. received lasix 40 mg IV x 1 and has UO of 2000 ml yesterday. -I will give her Lasix 20 mg p.o. x1 today. Status: Acute Code(s): J96.01 - Acute respiratory failure with hypoxia; J96.02 - Acute respiratory failure with hypercapnia (2) Non-ST elevation [place] (NSTEMI): She has known prior CAD with last LHC in 03/2018. It showed ostial right coronary artery lesion that is at least 50-60% which caused dampening of the waveform and poor flow into the aorta upon injection of the artery. The circumflex is a tiny vessel which contains a 99% stenosis in its midportion. There is a large ramus intermedius artery which contains a 90% in-stent restenosis at the distal and of the previously placed stent. LAD contains mild diffuse disease. 2 previously placed LAD stents are patent. The more distal one contains mild to moderate in-stent restenosis. Left main coronary artery is normal. -continue ASA, plavix and therapeutic lovenox. EKG showing possible anteroseptal infarct of indeterminate age and T wave inversion in lateral leads. -Echo showing severely decreased LV function with hypokinesis in , IS, inferior and apical huerta. -Renal function showing improved creatinine and CTA for PE protocol normal. -Continue to treat medically. In case patient hemoglobin and platelets remained stable, will plan for procedure tomorrow. Status: Acute Code(s): I21.4 - Non-ST elevation (NSTEMI) myocardial infarction (3) Right lower lobe pneumonia: -currently on zosyn. -Blood Cx negative. Status: Suspected Qualifiers: Pneumonia type: due to unspecified organism Qualified Code(s): J18.9 - Pneumonia, unspecified organism Code(s): J18.9 - Pneumonia, unspecified organism (4) Coronary artery disease: Status: Chronic Qualifiers: Coronary Disease-Associated Artery/Lesion type: [place] artery [place] vs. transplanted heart: [place] heart Associated angina: with unspecified angina Qualified Code(s): I25.119 - Atherosclerotic heart disease of [place] coronary artery with unspecified angina pectoris Code(s): I25.10 - Atherosclerotic heart disease of [place] coronary artery without angina pectoris (5) Peripheral artery disease: s/p right superficial femoral artery angioplasty and stenting in 03/2018. Status: Chronic Code(s): I73.9 - Peripheral vascular disease, unspecified (6) Mixed hyperlipidemia: Status: Chronic Code(s): E78.2 - Mixed hyperlipidemia (7) Diabetes: Status: Chronic Qualifiers: Diabetes mellitus type: type 2 Diabetes mellitus skilled nursing insulin use: without skilled nursing use Diabetes mellitus complication status: with hyperglycemia Qualified Code(s): E11.65 - Type 2 diabetes mellitus with hyperglycemia Code(s): E11.9 - Type 2 diabetes mellitus without complications Additional A&P Information SVT/ Frequent PVC's Atrial fibrillation: Now back in SR, currently on lovenox and low dose metoprolol. I will plan for long-term anticoagulation based on recurrence of atrial fibrillation. Bilateral carotid artery stenosis Stable infrarenal abdominal aortic aneurysm Normocytic Anemia : Hemoglobin and platelets has dropped. follow-up on repeat CBC Chronic active smoker Gastroesophageal reflux disease History of liver cirrhosis History of thrombocytopenia Hepatocellular carcinoma being followed at [facility] Thank you for allowing me to participate in patient's care. Please feel free to call with questions or concerns. 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
--- NOTE | 2020-02-05 13:33 | PC.NURSE ---
transfer to floor at this time to csu
[2020-02-05 16:47] LABS: Glucose Point of Care 135 mg/dL (70-110)
[2020-02-05] MEDS: metoprolol tartrate 25 mg Tablet 12.5 MG PO (17:45)
--- NOTE | 2020-02-05 19:45 | PC.NURSE ---
Dr. Leos notified of patient complaining of shortness of breath. Patient is on four liters nasal cannula with oxygen saturation of 100 percent. Lung sounds are clear. Ordered to decline oxygen to 3 L NC due to oxygen saturation of 100 percent.
--- NOTE | 2020-02-05 20:14 | PC.NURSE ---
Doctor Deric ordered to keep patient's oxygen saturation between 89 to 93 percent. Patient is currently on 2 L NC at 91 percent. Will continue to monitor.
[2020-02-05 20:41] LABS: Glucose Point of Care 126 mg/dL (70-110)
[2020-02-05] MEDS: enoxaparin 80 mg/0.8 mL Syringe SUBCUT (21:11)
--- NOTE | 2020-02-05 21:18 | ECG_ITS ---
Measurements Intervals [place] Rate: 96 P: 77 DE: 134 QRS: -2 QRSD: 86 T: 240 QT: 374 QTc: 473 SINUS RHYTHM WITH FREQUENT VENTRICULAR PREMATURE COMPLEXES ANTEROSEPTAL MYOCARDIAL INFARCTION [40+ ms Q WAVE IN V1-V4], PROBABLY OLD ST DEVIATION AND MODERATE T-WAVE ABNORMALITY, CONSIDER LATERAL ISCHEMIA [-0.1+ mV T WAVE IN I/aVL/V5/V6] Compared to ECG 02/05/2020 12:08:35 No significant changes Electronically Signed On 02-06-2020 18:16:35 CDT by Alida Alaniz M.D. [email or web address]
--- NOTE | 2020-02-05 21:33 | PC.NURSE ---
Dr. Leos notified of patient complaining of chest pain. EKG taken. Blood pressure is 86/62.
--- NOTE | 2020-02-05 21:41 | PC.NURSE ---
Dr. Leos in room to see patient. Ordered to give 2 mg of PRN Morphine now.
[2020-02-05] MEDS: aspirin 325 mg EC Tablet PO (21:52)
--- NOTE | 2020-02-05 22:01 | PC.NURSE ---
Ordered to give patient 325 mg of aspirin now and if pain continues to then give PRN Morphine.
--- NOTE | 2020-02-05 22:15 | PC.NURSE ---
DR. VICTORIA NOTIFIED THAT PATIENT IS STILL COMPLAINING OF CHEST PAIN BUT IS REFUSING MORPHINE STATING I JUST DON'T CARE FOR MORPHINE.
--- NOTE | 2020-02-05 22:22 | PC.NURSE ---
DR. MESA NOTIFIED OF PATIENT COMPLAINING OF CHEST PAIN AND SHORTNESS OF BREATH AND THAT PATIENT IS REFUSING MORPHINE. PATIENT IS ON 2 L NC AT 93 PERCENT. HR 94 BIGEMINEY. ORDERED TO KEEP PATIENT NPO.
--- NOTE | 2020-02-05 22:50 | PC.NURSE ---
PATIENT IS REFUSING XANAX AND MORPHINE. PATIENT WAS EDUCATED THAT SHE RECEIVED XANAX LAST NIGHT AND THEY WILL HELP WITH PAIN AND ANXIETY PATIENT STATES THEY WILL JUST MAKE IT WORSE.
--- NOTE | 2020-02-05 23:33 | PC.NURSE ---
PATIENT STATES THAT MY PAIN IS BETTER LONG I LAY STILL. PATIENT SAYS HER PAIN IS WORSE WITH INSPIRATION.
[2020-02-06] VITALS (18 sets, daily range): BP systolic 102–130; BP diastolic 65–78; PULSE 82–97; RESP 18–32; TEMP 35.8–36.6; O2SAT 90–99
--- NOTE | 2020-02-06 00:30 | PC.NURSE ---
Patient is now complaining of chest namita 9/10 and asking for morphine.
[2020-02-06] MEDS: morphine 4 mg/mL SDV 1 mL 2 MG IVP ×3 (00:31→13:16)
--- NOTE | 2020-02-06 01:28 | PC.NURSE ---
Patient states that her pain is better now.
[2020-02-06] MEDS: ipratropium-albuterol 3 mL Neb INHALATION ×4 (03:23→20:42)
[2020-02-06 05:24] LABS: Basophils % 0.8 %; Eosinophils % 0.3 %; Hematocrit 32.5 % (37.0-47.0); Lymphocytes % 27.2 %; Mean Corpuscular HGB Conc 30.8 g/dL (30.0-36.0); Mean Corpuscular Hemoglobin 29.7 pg (28.0-34.0); Mean Corpuscular Volume 96.4 fL (81-99); Mean Platelet Volume 13.1 fL (7.4-10.4); Monocytes # 0.4 10^3/uL (0.2-0.9); Monocytes % 9.3 %; Neutrophils # 2.3 10^3/uL (1.8-7.7); Neutrophils % 62.1 %; Nucleated Red Blood Cells % 0 %; Platelet Count 84 10^3/cmm (130-400); Red Blood Count 3.37 10^6/uL (4.1-5.3); Red Cell Distribution Width 13.9 % (12.1-15.1); White Blood Count 3.8 10^3/uL (4.0-10.0)
[2020-02-06 05:45] LABS: Anion Gap 16.4 (5-19); Blood Urea Nitrogen 21 mg/dL (8-23); Carbon Dioxide 25 mmol/L (22-29); Chloride 98 mmol/L (98-107); Creatinine Clr Calc Pharmacy 55.2904; Glucose 157 mg/dL (65-115); Osmolality Calculated 282 mOsm/kg (285-295); Potassium 3.4 mmol/L (3.5-5.1); Sodium 136 mmol/L (136-145)
--- NOTE | 2020-02-06 06:00 | XR_ITS ---
WS: [id number] CHEST XRAY TECHNIQUE: Portable chest. CLINICAL INFORMATION: increased oxygen requirement COMPARISON: February 05, 2020 FINDINGS: Heart: Cardiomegaly. Lungs: Chronic emphysematous changes with interstitial thickening. Mild pulmonary vascular congestion . No acute pulmonary infiltrates. Calcified granuloma left lower lobe. Bones: Normal visualized bony structures. XR/XR chest 1V portable [id number] IMPRESSION: 1. Cardiomegaly with mild pulmonary vascular congestion. 2. No focal pneumonia. 3. Improved tiny pleural effusions. Improved aeration right lower lobe.
--- NOTE | 2020-02-06 06:11 | PC.NURSE ---
Patient was asked if she is in pain. Patient states a little bit. patient was asked if she needed pain medication and stated yes, it helped me last time you gave it.
[2020-02-06 06:18] LABS: Glucose Point of Care 137 mg/dL (70-110)
[2020-02-06 08:12] LABS: Magnesium 2.4 mg/dL (1.7-2.3)
[2020-02-06] MEDS: lidocaine 1% INJ 20 mL 5 ML IV (08:24)
[2020-02-06] MEDS: pantoprazole 40 mg SDV IVP (08:25)
[2020-02-06] MEDS: aspirin 325 mg Tablet PO (08:27)
[2020-02-06] MEDS: clopidogrel 75 mg Tablet PO (08:27)
[2020-02-06] MEDS: metoprolol tartrate 25 mg Tablet 12.5 MG PO ×2 (08:27→17:34)
[2020-02-06] MEDS: enoxaparin 80 mg/0.8 mL Syringe SUBCUT ×2 (09:15→20:23)
--- NOTE | 2020-02-06 11:12 | PM.PN ---
Subjective Subjective: Interval history: She was laying down comfortably in bed. CXR today showed improved pulmonary congestion and bilateral pleural effusion. Overnight she did have episode of anxiety as well as back and chest pain. She is currently on oxygen 2 L via nasal cannula. Medications: Reviewed: Yes Medication Review Details: Current Medications Acetaminophen (Tylenol) 650 mg PO Q8H PRN PRN Reason: temp > 101 Albuterol/Ipratropium (Duoneb) 3 ml INHALATION Q6H.RESPIRATORY DIANE Last Admin: 02/05/20 08:09 Dose: 3 ml Documented by: Alprazolam (Xanax) 0.5 mg PO TID PRN PRN Reason: ANXIETY Last Admin: 02/04/20 22:56 Dose: 0.5 mg Documented by: Aspirin (Aspirin) 325 mg NG-TUBE DAILY DIANE Last Admin: 02/05/20 08:46 Dose: 325 mg Documented by: Clopidogrel Bisulfate (Plavix) 75 mg NG-TUBE DAILY DIANE Last Admin: 02/05/20 08:46 Dose: 75 mg Documented by: Dextrose (D50w) 25 ml IVP ONCE PRN; Protocol PRN Reason: hypoglycemia protocol Dextrose (D50w) 50 ml IVP PRN PRN; Protocol PRN Reason: hypoglycemia protocol Enoxaparin Sodium (Lovenox) 80 mg 1 mg/kg (80 mg) SUBCUT Q12H DIANE Glucagon (Glucagen) 1 mg IM ONCE PRN; Protocol PRN Reason: Adult Acute Hypoglycemia Prot. Norepinephrine Bitartrate 4 mg (/ Dextrose) 254 mls @ 0 mls/hr IV .Q0M DIANE; Protocol Last Titration: 02/04/20 19:39 Dose: Infused Documented by: Dextrose (D5w) 500 mls @ 100 mls/hr IV ONCE PRN; Protocol PRN Reason: Adult Acute Hypoglycemia Prot Insulin Aspart (Novolog) 0 unit SUBCUT BEDTIME DIANE; Protocol Last Admin: 02/04/20 20:58 Dose: 1 unit Documented by: Insulin Aspart (Novolog) 0 unit SUBCUT TIDWM DIANE; Protocol Last Admin: 02/05/20 11:40 Dose: 2 unit Documented by: Metoprolol Tartrate (Lopressor) 12.5 mg NG-TUBE BID DIANE Last Admin: 02/05/20 08:47 Dose: 12.5 mg Documented by: Morphine Sulfate (Morphine) 4 mg IVP Q4H PRN PRN Reason: SEVERE PAIN Last Admin: 02/05/20 04:11 Dose: 4 mg Documented by: Ondansetron HCl (Zofran) 4 mg IVP Q12H PRN PRN Reason: vomiting, or N/V if npo Pantoprazole Sodium (Protonix) 40 mg IVP DAILY [facility] Last Admin: 02/05/20 08:46 Dose: 40 mg Documented by: Ranitidine HCl (Zantac Syrup) 300 mg PO BEDTIME [facility] Last Admin: 02/04/20 21:34 Dose: 300 mg Documented by: Vitals/I&O/Wt Last Vital Signs Temp 97.8 F 02/06/20 08:00 Pulse 89 02/06/20 09:13 Resp 18 02/06/20 09:13 BP 119/68 02/06/20 08:00 Pulse Ox 98 02/06/20 09:13 02/05/20 02/06/20 02/06/20 22:59 06:59 14:59 Intake Total 240 / 340 150 / 490 100 / 100 Output Total 450 / 450 175 / 625 Balance -210 / -110 -25 / -135 100 / 100 Weight last 48 hrs Weight 163 lb 8 oz Weight 168 lb 1.6 oz Physical Exam Narrative: EXAM NARRATIVE: Gen: NAD, sitting in chair. HEENT:PERRL, No pallor or icterus RS: Decreased bilateral breath sounds in basal lung verdugo.coarse crakles. CVS: S1,S2, regular; No murmur, rub or gallop. FISHER LAMPARA NET: AAOx 3 Ext: No edema or cyanosis. Urinary Catheter Management^: Servin: Cath Placed During This Visit: yes Urethral Indwelling: Yes Reason for Continuing Indwelling Catheter: Accurate Measurement of Urinary Output in Critically Ill Patients Urinary Catheter Date of Insertion: 02/01/20 Urinary Catheter Time of Insertion: 18:35 Data : 02/06/20 04:40 02/06/20 04:40 Micro: Microbiology 02/05/20 22:40 C.difficile Toxin B Gene (PCR) - Final Stool A&P Assessment and plan (1) Acute respiratory failure with hypoxia and hypercarbia: She was extubated Thursday. received lasix 20 mg POx 1 and has UO of 625 ml yesterday. Urine looks concentrated. -I will hold off on Lasix. Status: Acute Code(s): J96.01 - Acute respiratory failure with hypoxia; J96.02 - Acute respiratory failure with hypercapnia (2) Non-ST elevation [place] (NSTEMI): She has known prior CAD with last LHC in 03/2018. It showed ostial right coronary artery lesion that is at least 50-60% which caused dampening of the waveform and poor flow into the aorta upon injection of the artery. The circumflex is a tiny vessel which contains a 99% stenosis in its midportion. There is a large ramus intermedius artery which contains a 90% in-stent restenosis at the distal and of the previously placed stent. LAD contains mild diffuse disease. 2 previously placed LAD stents are patent. The more distal one contains mild to moderate in-stent restenosis. Left main coronary artery is normal. -continue ASA, plavix and therapeutic lovenox. EKG showing possible anteroseptal infarct of indeterminate age and T wave inversion in lateral leads. -Echo showing severely decreased LV function with hypokinesis in , IS, inferior and apical huerta. -Renal function showing improved creatinine and CTA for PE protocol normal. -Continue to treat medically. -Patient's hemoglobin is 10 today and platelets and 80s without any significant change from yesterday. No active bleeding. -Case was discussed with Dr. Olson and plan is to proceed with coronary angiogram this afternoon. Status: Acute Code(s): I21.4 - Non-ST elevation (NSTEMI) myocardial infarction (3) Right lower lobe pneumonia: -Zosyn was discontinued. Management as per primary team. -Blood Cx negative. Status: Suspected Qualifiers: Pneumonia type: due to unspecified organism Qualified Code(s): J18.9 - Pneumonia, unspecified organism Code(s): J18.9 - Pneumonia, unspecified organism (4) Coronary artery disease: Status: Chronic Qualifiers: Coronary Disease-Associated Artery/Lesion type: [place] artery [place] vs. transplanted heart: [place] heart Associated angina: with unspecified angina Qualified Code(s): I25.119 - Atherosclerotic heart disease of [place] coronary artery with unspecified angina pectoris Code(s): I25.10 - Atherosclerotic heart disease of [place] coronary artery without angina pectoris (5) Peripheral artery disease: s/p right superficial femoral artery angioplasty and stenting in 03/2018. Status: Chronic Code(s): I73.9 - Peripheral vascular disease, unspecified (6) Mixed hyperlipidemia: Status: Chronic Code(s): E78.2 - Mixed hyperlipidemia (7) Diabetes: Status: Chronic Qualifiers: Diabetes mellitus type: type 2 Diabetes mellitus halfway insulin use: without manager intermediate use Diabetes mellitus complication status: with hyperglycemia Qualified Code(s): E11.65 - Type 2 diabetes mellitus with hyperglycemia Code(s): E11.9 - Type 2 diabetes mellitus without complications Additional A&P Information SVT/ Frequent PVC's Atrial fibrillation: Now back in SR, currently on lovenox and low dose metoprolol. I will plan for long-term anticoagulation based on recurrence of atrial fibrillation. Bilateral carotid artery stenosis Stable infrarenal abdominal aortic aneurysm Normocytic Anemia : Hemoglobin and platelets has been stable. Chronic active smoker Gastroesophageal reflux disease History of liver cirrhosis History of thrombocytopenia Hepatocellular carcinoma being followed at [facility] Thank you for allowing me to participate in patient's care. Please feel free to call with questions or concerns. 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 transplanted heart: [place] heart Associated angina: with unspecified angina Peripheral artery disease I73.9 Mixed hyperlipidemia E78.2 Diabetes E11.65 Diabetes mellitus type: type 2 Diabetes mellitus manager intermediate insulin use: without manager intermediate use Diabetes mellitus complication status: with hyperglycemia
[2020-02-06] MEDS: lanolin oint 7 gm 1 APPLIC TOPICAL (11:41)
--- NOTE | 2020-02-06 12:10 | PC.SOCIAL ---
IMM Updated Page 2 of IMM updated and given to patient. Initialed, dated, and timed and placed in chart.
--- NOTE | 2020-02-06 12:18 | ECG_ITS ---
Measurements Intervals [place] Rate: 91 P: 77 HI: 137 QRS: -5 QRSD: 84 T: 240 QT: 373 QTc: 461 SINUS RHYTHM WITH FREQUENT VENTRICULAR PREMATURE COMPLEXES ANTEROSEPTAL MYOCARDIAL INFARCTION, OF INDETERMINATE AGE MARKED ST DEPRESSION, CONSIDER SUBENDOCARDIAL INJURY Compared to ECG 02/05/2020 12:08:35 ST (T wave) deviation now present T-wave abnormality no longer present Possible ischemia no longer present Myocardial infarct finding still present Electronically Signed On 02-06-2020 18:14:47 CDT by Alida Alaniz M.D. [id number]
--- NOTE | 2020-02-06 12:32 | PC.NURSE ---
patient HR noted drop down to 20's while patient resting in bed with eyes closed upon arousing patient reports chest pain rated 5/10 and HR went back up to 90's; no distress noted at this time attempted to contact Dr long and Dr moran at this time with no answer; EKG performed will continue to monitor and attempt to contact providers
[2020-02-06] MEDS: FUROsemide 10 mg/mL SDV 4mL 40 MG IVP ×2 (13:09→13:35)
--- NOTE | 2020-02-06 13:20 | PC.NURSE ---
Dr rico at bedside for assessment verbal orders given to give 40mg IVP lasix BID and 20meq of potassium PO now
--- NOTE | 2020-02-06 13:42 | PC.NURSE ---
Patient sitting on side of bed with nausea and chest pain rated 10/10 2 mg morphine given IVP Dr moran notified of discomfort Dr arrived at bedside verbal orders to given 40mg more of lasix IVP now and start nitro drip given and contact Dr rico if any further events
[2020-02-06] MEDS: nitroglycerin drip 50 MG/250 ML PREMIX IV (13:47)
--- NOTE | 2020-02-06 14:15 | PC.NURSE ---
Dr soto at bedside verbal orders given to start bi pap
--- NOTE | 2020-02-06 15:33 | PC.RESP ---
Patient given information on Smoking Cessation and a list of classes.
--- NOTE | 2020-02-06 16:53 | P.PN_ITS ---
Subjective Subjective: Interval history: Patient developed substernal chest pain radiating to her right arm and associated with shortness of breath. Patient reports that she cannot take deep breath in but denies really hurting with deep inspiration. She is a poor historian and does not provide much specifics. She was seen prior to my evaluation by Dr. Queen and was noted to be in heart failur e. She was given Lasix and during my evaluation already urinated 200 mL. She denied any alleviating or aggravating factors of her pain. Sitting up improved her breathing slightly. BiPAP was initiated and her respiratory distress significantly improved. Her respirations during my evaluation where in the high 30s to low 40s and this much improved with BiPAP treatment. Dr. Olson was planning to perform coronary angiogram tomorrow. She has cirrhosis and hepatocellular carcinoma following with physician in [facility]. Discussed with patient's daughter Tiarra over the phone. Patient does have underlying anxiety disorder. Medications: Reviewed: Yes Medication Review Details: Current Medications Acetaminophen (Tylenol) 650 mg PO Q8H PRN PRN Reason: temp > 101 Albuterol/Ipratropium (Duoneb) 3 ml INHALATION Q6H.RESPIRATORY [facility] Last Admin: 02/05/20 08:09 Dose: 3 ml Documented by: Alprazolam (Xanax) 0.5 mg PO TID PRN PRN Reason: ANXIETY Last Admin: 02/04/20 22:56 Dose: 0.5 mg Documented by: Aspirin (Aspirin) 325 mg NG-TUBE DAILY [facility] Last Admin: 02/05/20 08:46 Dose: 325 mg Documented by: Clopidogrel Bisulfate (Plavix) 75 mg NG-TUBE DAILY [facility] Last Admin: 02/05/20 08:46 Dose: 75 mg Documented by: Dextrose (D50w) 25 ml IVP ONCE PRN; Protocol PRN Reason: hypoglycemia protocol Dextrose (D50w) 50 ml IVP PRN PRN; Protocol PRN Reason: hypoglycemia protocol Enoxaparin Sodium (Lovenox) 80 mg 1 mg/kg (80 mg) SUBCUT Q12H [facility] Glucagon (Glucagen) 1 mg IM ONCE PRN; Protocol PRN Reason: Adult Acute Hypoglycemia Prot. Norepinephrine Bitartrate 4 mg (/ Dextrose) 254 mls @ 0 mls/hr IV .Q0M DIANE; Protocol Last Titration: 02/04/20 19:39 Dose: Infused Documented by: Dextrose (D5w) 500 mls @ 100 mls/hr IV ONCE PRN; Protocol PRN Reason: Adult Acute Hypoglycemia Prot Insulin Aspart (Novolog) 0 unit SUBCUT BEDTIME DIANE; Protocol Last Admin: 02/04/20 20:58 Dose: 1 unit Documented by: Insulin Aspart (Novolog) 0 unit SUBCUT TIDWM DIANE; Protocol Last Admin: 02/05/20 11:40 Dose: 2 unit Documented by: Metoprolol Tartrate (Lopressor) 12.5 mg NG-TUBE BID [facility] Last Admin: 02/05/20 08:47 Dose: 12.5 mg Documented by: Morphine Sulfate (Morphine) 4 mg IVP Q4H PRN PRN Reason: SEVERE PAIN Last Admin: 02/05/20 04:11 Dose: 4 mg Documented by: Ondansetron HCl (Zofran) 4 mg IVP Q12H PRN PRN Reason: vomiting, or N/V if npo Pantoprazole Sodium (Protonix) 40 mg IVP DAILY [facility] Last Admin: 02/05/20 08:46 Dose: 40 mg Documented by: Ranitidine HCl (Zantac Syrup) 300 mg PO BEDTIME [facility] Last Admin: 02/04/20 21:34 Dose: 300 mg Documented by: Vitals/I&O/Wt Last Vital Signs Temp 96.5 F L 02/06/20 15:58 Pulse 90 02/06/20 16:12 Resp 21 H 02/06/20 15:58 BP 114/67 02/06/20 16:12 Pulse Ox 90 02/06/20 12:00 02/06/20 02/06/20 02/06/20 06:59 14:59 22:59 Intake Total 150 / 490 100 / 100 3.85 / 103.85 Output Total 175 / 625 400 / 400 700 / 1100 Balance -25 / -135 -300 / -300 -696.15 / -996.15 Weight last 48 hrs Weight 74.162 kg Weight 76.249 kg Physical Exam Const: COMMON NORMALS: no apparent distress and oriented x3 Resp: EFFORT & INSPECTION: Yes respiratory distress (Patient's breathing is shallow and fast.) OTHER: Minimal right basilar Rales. Left side is clear Cardio: COMMON NORMALS: regular rate, regular rhythm and S2 normal heart sound RATE: regular rate RHYTHM: regular rhythm HEART SOUNDS: S2 normal OTHER: No lower extremity edema. Her feet are purple and cold which patient reports being chronic. GI: COMMON NORMALS: normal to inspection, nondistended, normoactive bowel soun ds, soft to palpation and non-tender PALPATION: Yes soft Neuro: COMMON NORMALS: oriented x3 and no focal motor deficits Urinary Catheter Management^: Servin: Cath Placed During This Visit: yes Urethral Indwelling: Yes Reason for Continuing Indwelling Catheter: Accurate Measurement of Urinary Output in Critically Ill Patients Urinary Catheter Date of Insertion: 02/01/20 Urinary Catheter Time of Insertion: 18:35 Data : 02/06/20 04:40 02/06/20 04:40 Micro: Microbiology 02/05/20 22:40 C.difficile Toxin B Gene (PCR) - Final Stool A&P Assessment and plan (1) Acute respiratory failure with hypoxia and hypercarbia: -Patient arrived in significant respiratory distress and was intubated in the ER; extubated on 02/02 -on BiPAP vs. NC; noted increased oxygen requirement today -Continue to monitor respiratory status closely; noted tachypnea -repeat imaging shows evidence of fluid overload, improved today -AM ABG noted, appropriate -Continued monitoring of hemodynamic status -Negative for PE on CTA -dose of 20 mg oral Lasix today Status: Acute (2) Non-ST elevation NV (NSTEMI): -found to have recurrent troponin elevation with delta of 900 -Has known history of CAD with prior stenting; last cardiac work-up done in 2019 with echo showing EF of 79%, cath done in 2018 -Continue therapeutic Lovenox, aspirin, Plavix, metoprolol; no statins due to history of hepatocellular carcinoma -Cardiology consult by Dr. Alaniz appreciated; plan for cath tomorrow -repeat Echo: EF=28%, global LV hypokinesis, G1DD, moderate pulmonary HTN (44), mild MR, moderate , mild AR, moderate TR, mild NC Status: Acute (3) Right lower lobe pneumonia: -reported episode of vomiting following intake of nitroglycerin as well as hemoptysis we will cannot exclude element of aspiration -Noted leukocytosis with neutrophilic predominance, now resolved -off vent support -On broad-spectrum IV antibiotics (Zosyn/Levaquin/Vanc); will d/c as no leukocytosis, afebrile x > 48 hrs -negative for influenza; screening for COVID-19 negative -blood cx: negative -sputum cx-prelim mixed cheng, gram stain negative Status: Suspected Qualifiers: Pneumonia type: due to unspecified organism Qualified Code(s): J18.9 - Pneumonia, unspecified organism (4) Hepatocellular carcinoma: -has known hepatocellular carcinoma, no known metastatic disease -f/u at [facility] -noted LFTs which are decreasing, coags Status: Chronic (5) Hypertension: -BP stable, off pressor support -hold antihypertensives other than BB -continue to monitor hemodynamic status Status: Chronic Qualifiers: Hypertension type: essential hypertension Qualified Code(s): I10 - Essential (primary) hypertension Additional A&P Information -PVD, s/p RLE stenting -Chronic smoker -NIDDM type II; accucheks, ISS, hypoglycemia precautions -bilateral carotid artery stenosis -known infrarenal AAA; stable per imaging (last done in 01/2020), follows up with Dr. Pratt -Chronic thrombocytopenia, likely secondary to liver pathology, continue to monitor platelet count; baseline is around 80-100 -GERD, on PPI and H2 chase -Liver cirrhosis, secondary to non-alcoholic steatosis; spleen is upper level of normal size, mesenteric adenopathy (stable per last imaging) -Normocytic anemia; appears to be intermittent as baseline Hg wnl; continue to monitor H/H, has been gradually trending down -GI ppx with PPI -DVT ppx not needed as on therapeutic lovenox -PT/OT/ST evaluations -decrease pain med doses as likely contributing to lethargy particularly in combination with anxiolytics PLAN: Discussed with patient and Tiarra regarding potential risk for bleeding given cirrhosis and related thrombocytopenia which potentially may require discontinuation of Plavix which may result in stent thrombosis. Patient and Tiarra were okay to proceed with treatment. Patient was on Plavix for long period of time and so far was tolerating okay. She did have some minimal hemoptysis which felt to be related to cough and dry mucosa. Patient had previous history of stroke and appears to have right basilar pneumonitis. Pneumonia cannot be completely ruled out and given degree of patient's distress I will initiate Zosyn. Will request speech therapy evaluation. Continue BiPAP support. Discussed with Dr. Olson. Coronary angiogram planned for tomorrow. Replete potassium. -Dispo: was living at home independently; may need HH vs. SNF -Code status: FULL code -transfer to CSU for continued care Attestations Medical Necessity Statement*: Patient with severe respiratory distress and myocardial infarction requires close inpatient monitoring and treatment Coding Level of Care Code Acute Environmental Programs Specialist for Chg Fwd Diagnoses Acute respiratory failure with hypoxia and hypercarbia J96.01; J96.02 Non-ST elevation NV (NSTEMI) I21.4 Right lower lobe pneumonia J18.9 Pneumonia type: due to unspecified organism Hepatocellular carcinoma C22.0 Hypertension I10 Hypertension type: essential hypertension
[2020-02-06] MEDS: piperacillin-tazobactam 3.375 GM in sodium chloride 0.9% (plus) 50 ML IV (17:29)
[2020-02-06] MEDS: nitroglycerin 1 gm/inch oint Pkt 0.5 INCH TOPICAL (20:50)
[2020-02-06 20:55] LABS: Glucose Point of Care 175 mg/dL (70-110)
[2020-02-06 20:56] LABS: Glucose Point of Care 121 mg/dL (70-110)
[2020-02-06 20:56] LABS: Glucose Point of Care 139 mg/dL (70-110)
--- NOTE | 2020-02-06 21:14 | PC.NURSE ---
Patients lungs sound alot better than earlier today from day shift report. no crackles just some slight coarseness but clear. patient breathing better until she takes her bipap off and uses the cannula then seems to require more effort , deeper breathing to pull o2 in. Bp is a bit soft, will keep an eye on it d/t nitro paste and later lasix
[2020-02-06 21:24] LABS: Glucose Point of Care 142 mg/dL (70-110)
--- NOTE | 2020-02-06 23:50 | PC.NURSE ---
Pstient keeps moving, up and down flip f;loppin in the bed, the side of the bed, taking bipap off and on interchangeably with nc and sats drop everytime. this flip flopping is also pulling cords partially out of the tele machine and causes the readings to disappear and act up. got her temporarily settled with a new oxy mask as i noticed she was mouthbreathing. sats now are at 100 on the oxymask, hr and bp are stable
[2020-02-07] VITALS (25 sets, daily range): BP systolic 88–122; BP diastolic 49–65; PULSE 79–92; RESP 16–40; TEMP 36.4–36.6; O2SAT 93–100; BMI 27.1
[2020-02-07] MEDS: FUROsemide 10 mg/mL SDV 4mL 40 MG IVP ×3 (01:10→11:15)
[2020-02-07] MEDS: piperacillin-tazobactam 3.375 GM in sodium chloride 0.9% (plus) 50 ML IV ×3 (01:10→17:10)
[2020-02-07 02:14] LABS: Alanine Aminotransferase 34 U/L (0-33); Albumin Level 3.7 g/dL (3.5-5.2); Alkaline Phosphatase 74 IU/L (35-105); Anion Gap 17.5 (5-19); Aspartate Amino Transferase 23 U/L (0-32); Blood Urea Nitrogen 25 mg/dL (8-23); Calcium 9.4 mg/dL (8.5-10.5); Carbon Dioxide 24 mmol/L (22-29); Chloride 98 mmol/L (98-107); Creatinine Clr Calc Pharmacy 55.2904; Globulin 3.6 g/dL (1.3-4.6); Glucose 159 mg/dL (65-115); Osmolality Calculated 280 mOsm/kg (285-295); Potassium 4.5 mmol/L (3.5-5.1); Sodium 135 mmol/L (136-145); Total Bilirubin 0.7 mg/dL (0.15-1.2); Total Protein 7.3 g/dL (6.6-8.7)
[2020-02-07 02:24] LABS: Magnesium 2.3 mg/dL (1.7-2.3)
[2020-02-07] MEDS: ipratropium-albuterol 3 mL Neb INHALATION ×4 (02:41→21:16)
[2020-02-07 05:15] LABS: Basophils % 0.9 %; Eosinophils % 0.7 %; Hematocrit 33.6 % (37.0-47.0); Hemoglobin 10.3 g/dL (11.5-15.3); Lymphocytes # 0.9 10^3/uL (0.8-4.8); Lymphocytes % 20.4 %; Mean Corpuscular HGB Conc 30.7 g/dL (30.0-36.0); Mean Corpuscular Hemoglobin 29.9 pg (28.0-34.0); Mean Corpuscular Volume 97.7 fL (81-99); Mean Platelet Volume 14.2 fL (7.4-10.4); Monocytes # 0.5 10^3/uL (0.2-0.9); Neutrophils # 3.1 10^3/uL (1.8-7.7); Neutrophils % 67.3 %; Nucleated Red Blood Cells % 0 %; Platelet Count 94 10^3/cmm (130-400); Red Blood Count 3.44 10^6/uL (4.1-5.3); Red Cell Distribution Width 14.3 % (12.1-15.1); White Blood Count 4.6 10^3/uL (4.0-10.0)
[2020-02-07] MEDS: sodium chloride 0.9% 1,000 ML 50 ML IV (06:03)
[2020-02-07 06:22] LABS: Glucose Point of Care 130 mg/dL (70-110)
[2020-02-07] MEDS: diphenhydrAMINE 50 mg Capsule PO (07:15)
--- NOTE | 2020-02-07 08:36 | PM.PN ---
Subjective Subjective: Interval history: Patient reports feeling better this morning. She had to use BiPAP throughout the night off-and-on. She denies chest pain or abdominal pain this morning. CBC and CMP without significant change. Patient was noted to be on gentle IV hydration this morning. Vitals/I&O/Wt Last Vital Signs Temp 97.6 F 02/07/20 07:28 Pulse 89 02/07/20 08:15 Resp 18 02/07/20 08:15 BP 122/61 02/07/20 07:28 Pulse Ox 99 02/07/20 08:15 02/06/20 02/07/20 02/07/20 22:59 06:59 14:59 Intake Total 773.85 / 873.85 110 / 983.85 Output Total 700 / 1100 1250 / 2350 Balance 73.85 / -226.15 -1140 / -1366.15 Weight last 48 hrs Weight 74.162 kg Weight 74.162 kg Physical Exam Const: COMMON NORMALS: no apparent distress and oriented x3 Resp: EFFORT & INSPECTION: Yes respiratory distress (Patient's breathing is shallow and fast.) OTHER: Minimal right basilar Rales. Left side is clear Cardio: COMMON NORMALS: regular rate, regular rhythm and S2 normal heart sound RATE: regular rate RHYTHM: regular rhythm HEART SOUNDS: S2 normal OTHER: No lower extremity edema. Her feet are purple and cold which patient reports being chronic. GI: COMMON NORMALS: normal to inspection, nondistended, normoactive bowel sounds, soft to palpation and non-tender PALPATION: Yes soft Neuro: COMMON NORMALS: oriented x3 and no focal motor deficits Urinary Catheter Management^: Servin: Cath Placed During This Visit: yes Urethral Indwelling: Yes Reason for Continuing Indwelling Catheter: Accurate Measurement of Urinary Output in Critically Ill Patients Urinary Catheter Date of Insertion: 02/01/20 Urinary Catheter Time of Insertion: 18:35 Data : 02/07/20 01:50 02/07/20 01:50 Micro: Microbiology 02/05/20 22:40 C.difficile Toxin B Gene (PCR) - Final Stool A&P Assessment and plan (1) Acute respiratory failure with hypoxia and hypercarbia: -Patient arrived in significant respiratory distress and was intubated in the ER; extubated on 02/02 -on BiPAP vs. NC; noted increased oxygen requirement today -Continue to monitor respiratory status closely; noted tachypnea -repeat imaging shows evidence of fluid overload, improved today -AM ABG noted, appropriate -Continued monitoring of hemodynamic status -Negative for PE on CTA -dose of 20 mg oral Lasix today Status: Acute (2) Non-ST elevation [place] (NSTEMI): -found to have recurrent troponin elevation with delta of 900 -Has known history of CAD with prior stenting; last cardiac work-up done in 2019 with echo showing EF of 79%, cath done in 2018 -Continue therapeutic Lovenox, aspirin, Plavix, metoprolol; no statins due to history of hepatocellular carcinoma -Cardiology consult by Dr. Alaniz appreciated; plan for cath tomorrow -repeat Echo: EF=28%, global LV hypokinesis, G1DD, moderate pulmonary HTN (44), mild MR, moderate , mild AR, moderate TR, mild AL Status: Acute (3) Right lower lobe pneumonia: -reported episode of vomiting following intake of nitroglycerin as well as hemoptysis we will cannot exclude element of aspiration -Noted leukocytosis with neutrophilic predominance, now resolved -off vent support -On broad-spectrum IV antibiotics (Zosyn/Levaquin/Vanc); will d/c as no leukocytosis, afebrile x > 48 hrs -negative for influenza; screening for COVID-19 negative -blood cx: negative -sputum cx-prelim mixed cheng, gram stain negative Status: Suspected Qualifiers: Pneumonia type: due to unspecified organism Qualified Code(s): J18.9 - Pneumonia, unspecified organism (4) Hepatocellular carcinoma: -has known hepatocellular carcinoma, no known metastatic disease -f/u at [facility] -noted LFTs which are decreasing, coags Status: Chronic (5) Hypertension: -BP stable, off pressor support -hold antihypertensives other than BB -continue to monitor hemodynamic status Status: Chronic Qualifiers: Hypertension type: essential hypertension Qualified Code(s): I10 - Essential (primary) hypertension Additional A&P Information -PVD, s/p RLE stenting -Chronic smoker -NIDDM type II; accucheks, ISS, hypoglycemia precautions -bilateral carotid artery stenosis -known infrarenal AAA; stable per imaging (last done in 01/2020), follows up with Dr. Pratt -Chronic thrombocytopenia, likely secondary to liver pathology, continue to monitor platelet count; baseline is around 80-100 -GERD, on PPI and H2 chase -Liver cirrhosis, secondary to non-alcoholic steatosis; spleen is upper level of normal size, mesenteric adenopathy (stable per last imaging) -Normocytic anemia; appears to be intermittent as baseline Hg wnl; continue to monitor H/H, has been gradually trending down -GI ppx with PPI -DVT ppx not needed as on therapeutic lovenox -PT/OT/ST evaluations -decrease pain med doses as likely contributing to lethargy particularly in combination with anxiolytics PLAN: Continue current monitoring and treatment including Zosyn. Plan to proceed with coronary angiogram later today. -Dispo: was living at home independently; may need HH vs. SNF -Code status: FULL code -transfer to CSU for continued care Attestations Medical Necessity Statement*: Patient with respiratory failure requires close inpatient monitoring and treatment Coding Level of Care Code Acute Liberal Arts Dean for g Fwd Diagnoses Acute respiratory failure with hypoxia and hypercarbia J96.01; J96.02 Non-ST elevation [place] (NSTEMI) I21.4 Right lower lobe pneumonia J18.9 Pneumonia type: due to unspecified organism Hepatocellular carcinoma C22.0 Hypertension I10 Hypertension type: essential hypertension
[2020-02-07] MEDS: aspirin 81 mg EC Tablet PO (09:58)
[2020-02-07] MEDS: clopidogrel 75 mg Tablet PO (09:58)
[2020-02-07] MEDS: pantoprazole 40 mg SDV IVP (09:58)
[2020-02-07] MEDS: metoprolol tartrate 1 mg/1 mL SDV 5 mL 5 MG IV (11:15)
--- NOTE | 2020-02-07 11:15 | PC.NURSE ---
pt return from [employer] via bed. pt complaining of being short of breath and in distress. nurses at bedside. Gee, RN, Amparo RN, Maryse Whitaker RN, Barbra, RN. Dr Stroud at bedside. ordered 5 mg metoprolol tartrate IVP now, 40 mg lasix IVP now, 0.5 mg Ativan IVP now. pt placed on BIPAP. vitals taking Q15 minutes. pt labored breathing decreased with the BIPAP on. will continue to monitor pt.
[2020-02-07] MEDS: LORazepam 2 mg/mL INJ 1 mL 0.5 MG IVP (11:16)
[2020-02-07 11:27] LABS: Glucose Point of Care 265 mg/dL (70-110)
--- NOTE | 2020-02-07 12:33 | PC.OT ---
OT NOTE: OT TREATMENT HELD TODAY DUE TO PATIENT SCHEDULED FOR STENT PLACEMENT TODAY.
--- NOTE | 2020-02-07 13:30 | PM.PN ---
Subjective Subjective: Interval history: Last 24 hours: Initially the plan was to do coronary angiogram yesterday but patient developed pulmonary congestion and around noon yesterday was briefly placed on nitroglycerin drip and received Lasix 80 mg IV. She had good urine output and her work of breathing improved on BiPAP. Overnight she received Lasix 40 mg IVx 1 and another dose of 40 mg IVx 1 this morning. I had seen the patient earlier this morning. After detailed discussion between Dr. Pratt, Dr. Olson as well as patient's 2 daughters Tiarra and Ashley, decision was made to proceed with coronary angiogram earlier today. Unfortunately even though patient clinically appeared fairly euvolemic she became really anxious, tachypneic and tachycardic on moving to the cath table. Patient was unable to lay down and the procedure was aborted. I saw the patient while in the [employer] and later on on the floor as well. She was placed on BiPAP received another Lasix 40 mg IV, sublingual nitroglycerin spray, Ativan 0.5 mg IV as well as Lopressor 5 mg IV. Her rhythm at the time was sinus tachycardia. Medications: Reviewed: Yes Medication Review Details: Current Medications Acetaminophen (Tylenol) 650 mg PO Q8H PRN PRN Reason: temp > 101 Albuterol/Ipratropium (Duoneb) 3 ml INHALATION Q6H.RESPIRATORY COUNT INCLUDES THE [facility] Last Admin: 02/07/20 08:23 Dose: 3 ml Documented by: Alprazolam (Xanax) 0.5 mg PO TID PRN PRN Reason: ANXIETY Last Admin: 02/04/20 22:56 Dose: 0.5 mg Documented by: Aspirin (Aspirin Ec) 81 mg PO DAILY COUNT INCLUDES THE [facility] Last Admin: 02/07/20 09:58 Dose: 81 mg Documented by: Clopidogrel Bisulfate (Plavix) 75 mg PO DAILY COUNT INCLUDES THE [facility] Last Admin: 02/07/20 09:58 Dose: 75 mg Documented by: Dextrose (D50w) 25 ml IVP ONCE PRN; Protocol PRN Reason: hypoglycemia protocol Dextrose (D50w) 50 ml IVP PRN PRN; Protocol PRN Reason: hypoglycemia protocol Enoxaparin Sodium (Lovenox) 80 mg 1 mg/kg (80 mg) SUBCUT Q12H COUNT INCLUDES THE [facility] Last Admin: 02/07/20 09:58 Dose: Not Given Documented by: Furosemide (Lasix) 40 mg IVP Q12H [facility] Last Admin: 02/07/20 01:10 Dose: 40 mg Documented by: Glucagon (Glucagen) 1 mg IM ONCE PRN; Protocol PRN Reason: Adult Acute Hypoglycemia Prot. Dextrose (D5w) 500 mls @ 100 mls/hr IV ONCE PRN; Protocol PRN Reason: Adult Acute Hypoglycemia Prot Piperacillin Sod/Tazobactam (Sod 3.375 gm/ Sodium Chloride) 50 mls @ 12.5 mls/hr IV Q8H COUNT INCLUDES THE [facility] Last Admin: 02/07/20 12:40 Dose: 12.5 mls/hr Documented by: Potassium Chloride (K-Sb Premix) 20 meq in 100 mls @ 50 mls/hr IV ONCE ONE Stop: 02/07/20 15:17 Magnesium Sulfate 1 gm/ Sodium (Chloride) 52 mls @ 104 mls/hr IV ONCE ONE Stop: 02/07/20 13:51 Insulin Aspart (Novolog) 0 unit SUBCUT BEDTIME COUNT INCLUDES THE [facility]; Protocol Last Admin: 02/06/20 20:23 Dose: Not Given Documented by: Insulin Aspart (Novolog) 0 unit SUBCUT TIDWM DIANE; Protocol Last Admin: 02/07/20 12:40 Dose: 8 unit Documented by: Lanolin (Lanolin Oint) 1 applic TOPICAL PRN PRN PRN Reason: DRYNESS Last Admin: 02/06/20 11:41 Dose: 1 each Documented by: Lidocaine HCl (Lidocaine 1%) 5 ml IV ONCE ONE Stop: 02/07/20 13:34 Metoprolol Tartrate (Lopressor) 12.5 mg PO BID COUNT INCLUDES THE [facility] Last Admin: 02/07/20 09:58 Dose: Not Given Documented by: Morphine Sulfate (Morphine) 2 mg IVP Q4H PRN PRN Reason: SEVERE PAIN Last Admin: 02/06/20 13:16 Dose: 2 mg Documented by: Ondansetron HCl (Zofran) 4 mg IVP Q12H PRN PRN Reason: vomiting, or N/V if npo Pantoprazole Sodium (Protonix) 40 mg IVP DAILY COUNT INCLUDES THE [facility] Last Admin: 02/07/20 09:58 Dose: 40 mg Documented by: Potassium Chloride (Klor-Con 10) 20 meq PO DAILY COUNT INCLUDES THE [facility] Last Admin: 02/07/20 09:58 Dose: 20 meq Documented by: Ranitidine HCl (Zantac Syrup) 300 mg PO BEDTIME [facility] Last Admin: 02/06/20 20:23 Dose: 300 mg Documented by: Vitals/I&O/Wt Last Vital Signs Temp 97.6 F 02/07/20 07:28 Pulse 89 02/07/20 11:50 Resp 40 H 02/07/20 11:34 BP 91/64 02/07/20 11:34 Pulse Ox 98 02/07/20 11:50 02/06/20 02/07/20 02/07/20 22:59 06:59 14:59 Intake Total 773.85 / 873.85 110 / 983.85 Output Total 700 / 1100 1250 / 2350 750 / 750 Balance 73.85 / -226.15 -1140 / -1366.15 -750 / -750 Weight last 48 hrs Weight 163 lb 8 oz Weight 163 lb 8 oz Physical Exam Narrative: EXAM NARRATIVE: Gen: At the time of examination, patient was really tachypneic, tachycardic with heart rate in 120s to 130s with increased work of breathing. She is currently on BiPAP HEENT:PERRL, No pallor or icterus RS: Decreased bilateral air entry; no wheezes rhonchi or rales CVS: S1,S2, regular; tachycardia+; No murmur, rub or gallop. DAIRY NUTRITION CONSULTANT: AAOx 3, No FND Ext: No edema or cyanosis. Urinary Catheter Management^: Servin: Cath Placed During This Visit: yes Urethral Indwelling: Yes Reason for Continuing Indwelling Catheter: Accurate Measurement of Urinary Output in Critically Ill Patients Urinary Catheter Date of Insertion: 02/01/20 Urinary Catheter Time of Insertion: 18:35 Data : 02/07/20 01:50 02/07/20 01:50 Micro: Microbiology 02/02/20 10:29 Blood Culture - Final Blood NO GROWTH AFTER 5 DAYS 02/02/20 10:23 Blood Culture - Final Blood NO GROWTH AFTER 5 DAYS A&P Assessment and plan (1) Acute respiratory failure with hypoxia and hypercarbia: She was extubated Thursday. Urine output of 3.1 L. She is net -2.2 L. -Currently on BiPAP. Status: Acute (2) Non-ST elevation [place] (NSTEMI): She has known prior CAD with last LHC in 03/2018. It showed ostial right coronary artery lesion that is at least 50-60% which caused dampening of the waveform and poor flow into the aorta upon injection of the artery. The circumflex is a tiny vessel which contains a 99% stenosis in its midportion. There is a large ramus intermedius artery which contains a 90% in-stent restenosis at the distal and of the previously placed stent. LAD contains mild diffuse disease. 2 previously placed LAD stents are patent. The more distal one contains mild to moderate in-stent restenosis. Left main coronary artery is normal. -continue ASA, plavix and therapeutic lovenox. EKG showing possible anteroseptal infarct of indeterminate age and T wave inversion in lateral leads. -Echo showing severely decreased LV function with hypokinesis in , IS, inferior and apical huerta. -Renal function showing improved creatinine and CTA for PE protocol normal. -Continue to treat medically. -Patient's hemoglobin is 10.4 today and platelets in 90's without any significant change from yesterday. No active bleeding. -I have had detailed discussion with patient's daughter Carola Riley on several occasions. She has chronically been on aspirin 325 mg and Plavix 75 mg without any significant bleeding problems. She has had anemia as well as thrombocytopenia. The risk of proceeding with the procedure has been discussed in detail with her previously and she has been agreeable for the procedure. -I will plan for coronary angiogram in the next 1 to 2 days after diuresing and pre-medicating her. Status: Acute (3) Ischemic cardiomyopathy: -I will continue to diurese the patient with Lasix 40 mg IV every 12 hr and follow-up on labs in morning. -Intake/output charting; continue with Servin catheter for close output monitoring. -Follow-up labs in morning. Status: Acute (4) Right lower lobe pneumonia: -Zosyn was restarted. Agree with antibiotic coverage. -Blood Cx negative. Status: Suspected Qualifiers: Pneumonia type: due to unspecified organism Qualified Code(s): J18.9 - Pneumonia, unspecified organism (5) Coronary artery disease: Status: Chronic Qualifiers: Coronary Disease-Associated Artery/Lesion type: [place] artery [place] vs. transplanted heart: [place] heart Associated angina: with unspecified angina Qualified Code(s): I25.119 - Atherosclerotic heart disease of [place] coronary artery with unspecified angina pectoris (6) Peripheral artery disease: s/p right superficial femoral artery angioplasty and stenting in 03/2018. Status: Chronic (7) Mixed hyperlipidemia: Status: Chronic (8) Diabetes: Status: Chronic Qualifiers: Diabetes mellitus type: type 2 Diabetes mellitus shelter insulin use: without termite renewal inspector use Diabetes mellitus complication status: with hyperglycemia Qualified Code(s): E11.65 - Type 2 diabetes mellitus with hyperglycemia Additional A&P Information SVT/ Frequent PVC's: Replace electrolytes to keep potassium more than 4 and magnesium more than 2. Atrial fibrillation: Now back in SR, currently on lovenox and low dose metoprolol. I will plan for long-term anticoagulation based on recurrence of atrial fibrillation. Bilateral carotid artery stenosis Stable infrarenal abdominal aortic aneurysm Normocytic Anemia : Hemoglobin and platelets has been stable. Thrombocytopenia Anxiety Chronic active smoker Gastroesophageal reflux disease History of liver cirrhosis History of thrombocytopenia Hepatocellular carcinoma being followed at [facility] Thank you for allowing me to participate in patient's care. Please feel free to call with questions or concerns. Attestations Medical Necessity Statement*: Needs hospital stay for non-ST elevation [place] and pneumonia. Coding Level of Care Code Acute Art Teacher for [facility] F[facility] Diagnoses Acute respiratory failure with hypoxia and hypercarbia J96.01; J96.02 Non-ST elevation [place] (NSTEMI) I21.4 Ischemic cardiomyopathy I25.5 Right lower lobe pneumonia J18.9 Pneumonia type: due to unspecified organism Coronary artery disease I25.119 Coronary Disease-Associated Artery/Lesion type: [place] artery [place] vs. transplanted heart: [place] heart Associated angina: with unspecified angina Peripheral artery disease I73.9 Mixed hyperlipidemia E78.2 Diabetes E11.65 Diabetes mellitus type: type 2 Diabetes mellitus termite renewal inspector insulin use: without termite renewal inspector use Diabetes mellitus complication status: with hyperglycemia
[2020-02-07] MEDS: lidocaine 1% INJ 20 mL 5 ML IV (14:34)
[2020-02-07] MEDS: nitroglycerin 1 gm/inch oint Pkt 0.5 INCH TOPICAL ×2 (15:13→21:09)
[2020-02-07 16:49] LABS: Glucose Point of Care 126 mg/dL (70-110)
[2020-02-07] MEDS: metoprolol tartrate 25 mg Tablet 12.5 MG PO (17:10)
--- NOTE | 2020-02-07 19:39 | PC.NURSE ---
Patient coming out of the bed. Anxious. Up to BSC with maximum assist of 1. Back to bed also with maximum assist of 1. Bilateral feet very cyanotic. Pedal pulses faint with doppler. Oxygen on via mask. Will monitor.
[2020-02-07 20:27] LABS: Glucose Point of Care 254 mg/dL (70-110)
[2020-02-07] MEDS: enoxaparin 80 mg/0.8 mL Syringe SUBCUT (21:07)
--- NOTE | 2020-02-07 21:30 | PC.NURSE ---
Patient refusing to take liquid Zantac. I believe that's why my stomach is cramping. This nurse attempted to explain the reasoning for the Zantac;however, patient still refuses to take it. Patient requesting bi-pap be put on. RT at bedside. Bi-pap on. Will monitor.
--- NOTE | 2020-02-07 22:00 | PC.NURSE ---
Patient took bi-pap off. Oxygen masked placed on patient. Patient attempted to pull IV out. This nurse was able to float catheter back in. Blood return noted. Flushed without difficulty. Will monitor.
[2020-02-08] VITALS (17 sets, daily range): BP systolic 95–108; BP diastolic 49–68; PULSE 75–87; RESP 18–26; TEMP 36.1–36.5; O2SAT 95–100
--- NOTE | 2020-02-08 00:33 | PC.NURSE ---
IV out with catheter intact. Unsure of how it came out. Pressure dressing applied. Restarted with 22 gauge x2 attempts in right AC. Good blood return. Flushed with 10ml's of NS. Tolerated fair. Will monitor.
[2020-02-08] MEDS: piperacillin-tazobactam 3.375 GM in sodium chloride 0.9% (plus) 50 ML IV ×3 (01:16→17:21)
[2020-02-08] MEDS: FUROsemide 10 mg/mL SDV 4mL 40 MG IVP ×2 (01:16→15:51)
--- NOTE | 2020-02-08 01:30 | PC.NURSE ---
Patient requesting bi-pap be placed on her. RT at bedside. Bi-pap placed on patient as requested. Will monitor
--- NOTE | 2020-02-08 01:45 | PC.NURSE ---
Patient took bi-pap off. Mask reapplied. Will monitor.
--- NOTE | 2020-02-08 01:53 | PC.NURSE ---
Inspiratory wheezing heard bilateral lower lobes. Non productive, loose cough noted. Will monitor.
--- NOTE | 2020-02-08 02:20 | PC.NURSE ---
Monitor showing SR with frequent PVC's/[place]. Patient resting with eyes closed. Oxygen saturation 98% on mask. Will monitor.
[2020-02-08] MEDS: ipratropium-albuterol 3 mL Neb INHALATION ×4 (02:37→20:39)
--- NOTE | 2020-02-08 02:49 | PC.NURSE ---
Patient now back on bi-pap. Will monitor.
[2020-02-08] MEDS: nitroglycerin 1 gm/inch oint Pkt 0.5 INCH TOPICAL ×4 (02:50→20:39)
--- NOTE | 2020-02-08 03:49 | PC.NURSE ---
Patient continues to be restless at times. Will monitor.
--- NOTE | 2020-02-08 04:20 | PC.NURSE ---
Sitting up on side of bed. Bi-pap removed per patient. Mask on at this time. Bilateral feet cyanotic and more so when patient sitting up. Unable to palpate pedal pulses. Pulses faint even with doppler. Denies complaints at this time. Will monitor.
--- NOTE | 2020-02-08 04:28 | PC.NURSE ---
Bi-pap back in place. This nurse assisted patient to lie down. Denies complaints at this time. Patient pulled lab pressure dressing off from left arm. Small of amount of blood noted on sheet. Will monitor.
[2020-02-08 04:51] LABS: Basophils % 0.5 %; Eosinophils % 0.2 %; Hematocrit 31.7 % (37.0-47.0); Hemoglobin 9.8 g/dL (11.5-15.3); Lymphocytes # 0.9 10^3/uL (0.8-4.8); Lymphocytes % 15.9 %; Mean Corpuscular HGB Conc 30.9 g/dL (30.0-36.0); Mean Corpuscular Hemoglobin 30.6 pg (28.0-34.0); Mean Corpuscular Volume 99.1 fL (81-99); Mean Platelet Volume 14.3 fL (7.4-10.4); Monocytes # 0.6 10^3/uL (0.2-0.9); Monocytes % 9.7 %; Neutrophils # 4.3 10^3/uL (1.8-7.7); Neutrophils % 72.9 %; Nucleated Red Blood Cells % 0 %; Platelet Count 96 10^3/cmm (130-400); Red Cell Distribution Width 15.1 % (12.1-15.1); White Blood Count 5.9 10^3/uL (4.0-10.0)
[2020-02-08 05:15] LABS: Alanine Aminotransferase 25 U/L (0-33); Albumin Level 3.4 g/dL (3.5-5.2); Alkaline Phosphatase 70 IU/L (35-105); Anion Gap 19.2 (5-19); Aspartate Amino Transferase 24 U/L (0-32); Blood Urea Nitrogen 26 mg/dL (8-23); Carbon Dioxide 23 mmol/L (22-29); Chloride 99 mmol/L (98-107); Globulin 3.3 g/dL (1.3-4.6); Glucose 142 mg/dL (65-115); Magnesium 2.4 mg/dL (1.7-2.3); Osmolality Calculated 283 mOsm/kg (285-295); Potassium 4.2 mmol/L (3.5-5.1); Sodium 137 mmol/L (136-145); Total Bilirubin 0.8 mg/dL (0.15-1.2); Total Protein 6.7 g/dL (6.6-8.7)
--- NOTE | 2020-02-08 06:00 | XR_ITS ---
WS: [id number] PORTABLE CHEST HISTORY: SOB, pulmonary congestion COMPARISON: 02/06/2020 Moderate pulmonary hyperexpansion with emphysematous changes. Interstitial thickening. The pulmonary congestion has improved. Benign calcification at the LEFT lung base. No pleural effusion or pneumotho rax. Cardiac size: Normal. Mediastinum/Aorta: Partially calcified aorta. No osseous abnormality seen. XR/XR chest 1V portable [id number] IMPRESSION: 1. Chronic emphysema with improving pulmonary venous congestion. 2. Benign LEFT lower lobe calcification.
[2020-02-08 06:34] LABS: Glucose Point of Care 132 mg/dL (70-110)
--- NOTE | 2020-02-08 09:09 | PC.SOCIAL ---
IMM Updated Updated pt on Pg 2 IMM via phone d/t taking precautions b/c of COVID . No questions voiced. Signed, dated, & timed, copy in chart.
[2020-02-08] MEDS: enoxaparin 80 mg/0.8 mL Syringe SUBCUT (09:12)
[2020-02-08] MEDS: pantoprazole 40 mg SDV IVP (09:14)
[2020-02-08] MEDS: metoprolol tartrate 25 mg Tablet 12.5 MG PO ×2 (09:14→17:21)
[2020-02-08] MEDS: clopidogrel 75 mg Tablet PO (09:15)
[2020-02-08] MEDS: aspirin 81 mg EC Tablet PO (09:15)
--- NOTE | 2020-02-08 09:30 | P.PN_ITS ---
Subjective Subjective: Interval history: Last 24 hours: Patient has no acute events overnight. She remained on BiPAP intermittently. Denies having any episodes of chest pain this morning. Medications: Reviewed: Yes Medication Review Details: Current Medications Acetaminophen (Tylenol) 650 mg PO Q8H PRN PRN Reason: temp > 101 Albuterol/Ipratropium (Duoneb) 3 ml INHALATION Q6H.RESPIRATORY [facility] Last Admin: 02/08/20 08:06 Dose: 3 ml Documented by: Aspirin (Aspirin Ec) 81 mg PO DAILY [facility] Last Admin: 02/07/20 09:58 Dose: 81 mg Documented by: Clopidogrel Bisulfate (Plavix) 75 mg PO DAILY [facility] Last Admin: 02/07/20 09:58 Dose: 75 mg Documented by: Dextrose (D50w) 25 ml IVP ONCE PRN; Protocol PRN Reason: hypoglycemia protocol Dextrose (D50w) 50 ml IVP PRN PRN; Protocol PRN Reason: hypoglycemia protocol Enoxaparin Sodium (Lovenox) 80 mg 1 mg/kg (80 mg) SUBCUT Q12H [facility] Last Admin: 02/07/20 21:07 Dose: 80 mg Documented by: Furosemide (Lasix) 40 mg IVP Q12H [facility] Last Admin: 02/08/20 01:16 Dose: 40 mg Documented by: Glucagon (Glucagen) 1 mg IM ONCE PRN; Protocol PRN Reason: Adult Acute Hypoglycemia Prot. Dextrose (D5w) 500 mls @ 100 mls/hr IV ONCE PRN; Protocol PRN Reason: Adult Acute Hypoglycemia Prot Piperacillin Sod/Tazobactam (Sod 3.375 gm/ Sodium Chloride) 50 mls @ 12.5 mls/hr IV Q8H [facility] Last Admin: 02/08/20 01:16 Dose: 12.5 mls/hr Documented by: Insulin Aspart (Novolog) 0 unit SUBCUT BEDTIME [facility]; Protocol Last Admin: 02/07/20 21:08 Dose: 3 unit Documented by: Insulin Aspart (Novolog) 0 unit SUBCUT TIDWM [facility]; Protocol Last Admin: 02/08/20 09:11 Dose: Not Given Documented by: Lanolin (Lanolin Oint) 1 applic TOPICAL PRN PRN PRN Reason: DRYNESS Last Admin: 02/06/20 11:41 Dose: 1 each Documented by: Metoprolol Tartrate (Lopressor) 12.5 mg PO BID [facility] Last Admin: 02/07/20 17:10 Dose: 12.5 mg Documented by: Morphine Sulfate (Morphine) 2 mg IVP Q4H PRN PRN Reason: SEVERE PAIN Last Admin: 02/06/20 13:16 Dose: 2 mg Documented by: Nitroglycerin (Nitro-Bid) 0.5 inch TOPICAL Q6H [facility] Last Admin: 02/08/20 02:50 Dose: 0.5 inch Documented by: Ondansetron HCl (Zofran) 4 mg IVP Q12H PRN PRN Reason: vomiting, or N/V if npo Pantoprazole Sodium (Protonix) 40 mg IVP DAILY [facility] Last Admin: 02/07/20 09:58 Dose: 40 mg Documented by: Potassium Chloride (Klor-Con 10) 20 meq PO DAILY [facility] Last Admin: 02/07/20 09:58 Dose: 20 meq Documented by: Ranitidine HCl (Zantac Syrup) 300 mg PO BEDTIME [facility] Last Admin: 02/07/20 21:09 Dose: Not Given Documented by: Vitals/I&O/Wt Last Vital Signs Temp 97.7 F 02/08/20 03:05 Pulse 76 02/08/20 08:16 Resp 24 H 02/08/20 08:07 BP 95/49 02/08/20 07:53 Pulse Ox 100 02/08/20 08:07 02/07/20 02/08/20 02/08/20 22:59 06:59 14:59 Intake Total 100 / 100 60 / 160 Output Total 250 / 1000 400 / 1400 350 / 350 Balance -150 / -900 -340 / -1240 -350 / -350 Weight last 48 hrs Weight 144 lb 14.4 oz Weight 163 lb 8 oz Physical Exam Narrative: EXAM NARRATIVE: Gen: Patient seen sitting at the side of the bed. +Increased work of breathing and tachypneic. She is currently on oxygen via facemask. HEENT: PERRL, No pallor or icterus RS: Decreased bilateral air entry at bases; no wheezes rhonchi or rales CVS: S1,S2, regular; No murmur, rub or gallop. CIRCUIT CLERK: AAOx 3, No FND Ext: No edema or cyanosis. Faint DP bilateral, Dopplerable DP and PT. cool digits, warm foot and legs. Urinary Catheter Management^: Servin: Cath Placed During This Visit: yes Urethral Indwelling: Yes Reason for Continuing Indwelling Catheter: Accurate Measurement of Urinary Output in Critically Ill Patients Urinary Catheter Date of Insertion: 02/01/20 Urinary Catheter Time of Insertion: 18:35 Data : 02/08/20 03:57 02/08/20 03:57 Micro: Microbiology 02/02/20 10:29 Blood Culture - Final Blood NO GROWTH AFTER 5 DAYS 02/02/20 10:23 Blood Culture - Final Blood NO GROWTH AFTER 5 DAYS A&P Assessment and plan (1) Acute respiratory failure with hypoxia and hypercarbia: She was extubated Thursday. Urine output of 1.7 L. She is net -1.5 L. -Currently on BiPAP on and off. Status: Acute (2) Non-ST elevation [place] (NSTEMI): She has known prior CAD with last LHC in 03/2018. It showed ostial right coronary artery lesion that is at least 50-60% which caused dampening of the w aveform and poor flow into the aorta upon injection of the artery. The circumflex is a tiny vessel which contains a 99% stenosis in its midportion. There is a large ramus intermedius artery which contains a 90% in-stent restenosis at the distal and of the previously placed stent. LAD contains mild diffuse disease. 2 previously placed LAD stents are patent. The more distal one contains mild to moderate in-stent restenosis. Left main coronary artery is normal. -continue ASA, plavix and therapeutic lovenox. EKG showing possible anteroseptal infarct of indeterminate age and T wave inversion in lateral leads. -Echo showing severely decreased LV function with hypokinesis in , IS, inferior and apical huerta. -Renal function showing improved creatinine and CTA for PE protocol normal. -Continue to treat medically. -Patient's hemoglobin is 9.8 today and platelets in 96 without any significant change from yesterday. No active bleeding. -I have had detailed discussion with patient's daughter Carola Riley on several occasions. She has chronically been on aspirin 325 mg and Plavix 75 mg without any significant bleeding problems. She has had chronic anemia as well as thrombocytopenia. The risk of proceeding with the procedure has been discussed in detail with her previously and she has been agreeable for the procedure. -I will plan for coronary angiogram in the next 1 to 2 days after diuresing and pre-medicating her. Status: Acute (3) Ischemic cardiomyopathy: -I will continue to diurese the patient. Lasix to 40 mg IVx 1 and follow-up on labs in morning. -Intake/output charting; continue with Servin catheter for close output monitoring. -Follow-up labs in morning. Status: Acute (4) Right lower lobe pneumonia: -Zosyn was restarted. Agree with antibiotic coverage. -Blood Cx negative. Status: Suspected Qualifiers: Pneumonia type: due to unspecified organism Qualified Code(s): J18.9 - Pneumonia, unspecified organism (5) Coronary artery disease: Status: Chronic Qualifiers: Coronary Disease-Associated Artery/Lesion type: [place] artery [place] vs. transplanted heart: [place] heart Associated angina: with unspecified angina Qualified Code(s): I25.119 - Atherosclerotic heart disease of [place] coronary artery with unspecified angina pectoris (6) Peripheral artery disease: s/p right superficial femoral artery angioplasty and stenting in 03/2018. Status: Chronic (7) Mixed hyperlipidemia: Status: Chronic (8) Diabetes: Status: Chronic Qualifiers: Diabetes mellitus type: type 2 Diabetes mellitus prize fighter insulin use: without prize fighter use Diabetes mellitus complication status: with hyperglycemia Qualified Code(s): E11.65 - Type 2 diabetes mellitus with hyperglycemia Additional A&P Information SVT/ Frequent PVC's: Replace electrolytes to keep potassium more than 4 and magnesium more than 2. Atrial fibrillation: Now back in SR, currently on lovenox and low dose metoprolol. I will plan for long-term anticoagulation based on recurrence of atrial fibrillation. Bilateral carotid artery stenosis Stable infrarenal abdominal aortic aneurysm Normocytic Anemia : Hemoglobin and platelets has been stable. Thrombocytopenia Anxiety Chronic active smoker Gastroesophageal reflux disease History of liver cirrhosis History of thrombocytopenia Hepatocellular carcinoma being followed at [facility] Thank you for allowing me to participate in patient's care. Please feel free to call with questions or concerns. Attestations Medical Necessity Statement*: Patient remains ill with NSTEMI and CHF. Coding Level of Care Code Acute Home Health Manager for [facility] Diagnoses Acute respiratory failure with hypoxia and hypercarbia J96.01; J96.02 Non-ST elevation [place] (NSTEMI) I21.4 Ischemic cardiomyopathy I25.5 Right lower lobe pneumonia J18.9 Pneumonia type: due to unspecified organism Coronary artery disease I25.119 Coronary Disease-Associated Artery/Lesion type: [place] artery [place] vs. transplanted heart: [place] heart Associated angina: with unspecified angina Peripheral artery disease I73.9 Mixed hyperlipidemia E78.2 Diabetes E11.65 Diabetes mellitus type: type 2 Diabetes mellitus mcfp insulin use: without prize fighter use Diabetes mellitus complication status: with hyperglycemia
--- NOTE | 2020-02-08 10:29 | PM.PN ---
Subjective Subjective: Interval history: Patient had anxiety episodes during procedure which was aborted. Her creatinine increased and fluids were discontinued and patient was given Lasix this morning. This morning patient reports feeling short of breath while using mask and shortly after she was taken off BiPAP. Reports that she frequently needs to get back on BiPAP. Reports that every time she gets Lovenox injection shortly after she develops bilateral shoulder and chest discomfort for short period of time. Blood pressure this morning during my evaluation is 100/60 Medications: Reviewed: Yes Medication Review Details: Current Medications Acetaminophen (Tylenol) 650 mg PO Q8H PRN PRN Reason: temp > 101 Albuterol/Ipratropium (Duoneb) 3 ml INHALATION Q6H.RESPIRATORY DIANE Last Admin: 02/05/20 08:09 Dose: 3 ml Documented by: Alprazolam (Xanax) 0.5 mg PO TID PRN PRN Reason: ANXIETY Last Admin: 02/04/20 22:56 Dose: 0.5 mg Documented by: Aspirin (Aspirin) 325 mg NG-TUBE DAILY DIANE Last Admin: 02/05/20 08:46 Dose: 325 mg Documented by: Clopidogrel Bisulfate (Plavix) 75 mg NG-TUBE DAILY DIANE Last Admin: 02/05/20 08:46 Dose: 75 mg Documented by: Dextrose (D50w) 25 ml IVP ONCE PRN; Protocol PRN Reason: hypoglycemia protocol Dextrose (D50w) 50 ml IVP PRN PRN; Protocol PRN Reason: hypoglycemia protocol Enoxaparin Sodium (Lovenox) 80 mg 1 mg/kg (80 mg) SUBCUT Q12H DIANE Glucagon (Glucagen) 1 mg IM ONCE PRN; Protocol PRN Reason: Adult Acute Hypoglycemia Prot. Norepinephrine Bitartrate 4 mg (/ Dextrose) 254 mls @ 0 mls/hr IV .Q0M DIANE; Protocol Last Titration: 02/04/20 19:39 Dose: Infused Documented by: Dextrose (D5w) 500 mls @ 100 mls/hr IV ONCE PRN; Protocol PRN Reason: Adult Acute Hypoglycemia Prot Insulin Aspart (Novolog) 0 unit SUBCUT BEDTIME DIANE; Protocol Last Admin: 02/04/20 20:58 Dose: 1 unit Documented by: Insulin Aspart (Novolog) 0 unit SUBCUT TIDWM DIANE; Protocol Last Admin: 02/05/20 11:40 Dose: 2 unit Documented by: Metoprolol Tartrate (Lopressor) 12.5 mg NG-TUBE BID [facility], [facility] Last Admin: 02/05/20 08:47 Dose: 12.5 mg Documented by: Morphine Sulfate (Morphine) 4 mg IVP Q4H PRN PRN Reason: SEVERE PAIN Last Admin: 02/05/20 04:11 Dose: 4 mg Documented by: Ondansetron HCl (Zofran) 4 mg IVP Q12H PRN PRN Reason: vomiting, or N/V if npo Pantoprazole Sodium (Protonix) 40 mg IVP DAILY [facility], [facility] Last Admin: 02/05/20 08:46 Dose: 40 mg Documented by: Ranitidine HCl (Zantac Syrup) 300 mg PO BEDTIME [facility] Last Admin: 02/04/20 21:34 Dose: 300 mg Documented by: Vitals/I&O/Wt Last Vital Signs Temp 97.7 F 02/08/20 03:05 Pulse 76 02/08/20 08:16 Resp 24 H 02/08/20 08:07 BP 95/49 02/08/20 07:53 Pulse Ox 100 02/08/20 08:07 02/07/20 02/08/20 02/08/20 22:59 06:59 14:59 Intake Total 100 / 100 110 / 210 Output Total 250 / 1000 400 / 1400 350 / 350 Balance -150 / -900 -290 / -1190 -350 / -350 Weight last 48 hrs Weight 65.726 kg Weight 74.162 kg Physical Exam Const: COMMON NORMALS: no apparent distress and oriented x3 Resp: EFFORT & INSPECTION: Yes respiratory distress (Appears in very minimal distress when talks.) OTHER: Bibasilar Rales. Cardio: COMMON NORMALS: regular rate, regular rhythm and S2 normal heart sound RATE: regular rate RHYTHM: regular rhythm HEART SOUNDS: S2 normal OTHER: No lower extremity edema. Her feet are purple and cold which patient reports being chronic. GI: COMMON NORMALS: normal to inspection, nondistended, normoactive bowel sounds, soft to palpation and non-tender PALPATION: Yes soft Neuro: COMMON NORMALS: oriented x3 and no focal motor deficits Urinary Catheter Management^: Servin: Cath Placed During This Visit: yes Urethral Indwelling: Yes Reason for Continuing Indwelling Catheter: Accurate Measurement of Urinary Output in Critically Ill Patients Urinary Catheter Date of Insertion: 02/01/20 Urinary Catheter Time of Insertion: 18:35 Data : 02/08/20 03:57 02/08/20 03:57 Micro: Microbiology 02/02/20 10:29 Blood Culture - Final Blood NO GROWTH AFTER 5 DAYS 02/02/20 10:23 Blood Culture - Final Blood NO GROWTH AFTER 5 DAYS A&P Assessment and plan (1) Acute respiratory failure with hypoxia and hypercarbia: -Patient arrived in significant respiratory distress and was intubated in the ER; extubated on 02/02 -on BiPAP vs. NC; noted increased oxygen requirement today -Continue to monitor respiratory status closely; noted tachypnea -repeat imaging shows evidence of fluid overload, improved today -AM ABG noted, appropriate -Continued monitoring of hemodynamic status -Negative for PE on CTA -dose of 20 mg oral Lasix today Status: Acute (2) Non-ST elevation [place] (NSTEMI): -found to have recurrent troponin elevation with delta of 900 -Has known history of CAD with prior stenting; last cardiac work-up done in 2019 with echo showing EF of 79%, cath done in 2018 -Continue therapeutic Lovenox, aspirin, Plavix, metoprolol; no statins due to history of hepatocellular carcinoma -Cardiology consult by Dr. Alaniz appreciated; plan for cath tomorrow -repeat Echo: EF=28%, global LV hypokinesis, G1DD, moderate pulmonary HTN (44), mild MR, moderate , mild AR, moderate TR, mild SD Status: Acute (3) Right lower lobe pneumonia: -reported episode of vomiting following intake of nitroglycerin as well as hemoptysis we will cannot exclude element of aspiration -Noted leukocytosis with neutrophilic predominance, now resolved -off vent support -On broad-spectrum IV antibiotics (Zosyn/Levaquin/Vanc); will d/c as no leukocytosis, afebrile x > 48 hrs -negative for influenza; screening for COVID-19 negative -blood cx: negative -sputum cx-prelim mixed cheng, gram stain negative Status: Suspected Qualifiers: Pneumonia type: due to unspecified organism Qualified Code(s): J18.9 - Pneumonia, unspecified organism (4) Hepatocellular carcinoma: -has known hepatocellular carcinoma, no known metastatic disease -f/u at [facility] -noted LFTs which are decreasing, coags Status: Chronic (5) Hypertension: -BP stable, off pressor support -hold antihypertensives other than BB -continue to monitor hemodynamic status Status: Chronic Qualifiers: Hypertension type: essential hypertension Qualified Code(s): I10 - Essential (primary) hypertension Additional A&P Information -Acute kidney injury. This appears to be prerenal secondary to heart failure. -Acute systolic CHF exacerbation. -PVD, s/p RLE stenting -Chronic smoker -NIDDM type II; accucheks, ISS, hypoglycemia precautions -bilateral carotid artery stenosis -known infrarenal AAA; stable per imaging (last done in 01/2020), follows up with Dr. Pratt -Chronic thrombocytopenia, likely secondary to liver pathology, continue to monitor platelet count; baseline is around 80-100 -GERD, on PPI and H2 chase -Liver cirrhosis, secondary to non-alcoholic steatosis; spleen is upper level of normal size, mesenteric adenopathy (stable per last imaging) -Normocytic anemia; appears to be intermittent as baseline Hg wnl; continue to monitor H/H, has been gradually trending down -GI ppx with PPI -DVT ppx not needed as on therapeutic lovenox -PT/OT/ST evaluations -decrease pain med doses as likely contributing to lethargy particularly in combination with anxiolytics PLAN: Continue Zosyn for now. Change Lovenox to prophylactic dose and continue monitoring hemoglobin and platelets. Continue with frequent evaluations and diuresis as needed. Hopefully in a day or 2 we will be able to perform coronary angiogram since patient is frequently has chest discomfort Discussed with patient regarding importance of smoking cessation. Patient does not appear to be very receptive and reports that she can keep up with her grandson using incentive spirometry at home. -Dispo: was living at home independently; may need HH vs. SNF -Code status: FULL code -transfer to CSU for continued care Attestations Medical Necessity Statement*: Patient with acute CHF exacerbation and acute kidney injury requires close inpatient monitoring and treatment. Coding Level of Care Code Acute Seasonal Warehouse Associate for Stephanie Mora Diagnoses Acute respiratory failure with hypoxia and hypercarbia J96.01; J96.02 Non-ST elevation [place] (NSTEMI) I21.4 Right lower lobe pneumonia J18.9 Pneumonia type: due to unspecified organism Hepatocellular carcinoma C22.0 Hypertension I10 Hypertension type: essential hypertension
[2020-02-08] MEDS: FUROsemide 10 mg/mL SDV 4mL 20 MG IVP (10:57)
[2020-02-08 11:15] LABS: Glucose Point of Care 138 mg/dL (70-110)
[2020-02-08] MEDS: LORazepam 0.5 mg Tablet 0.25 MG PO (16:34)
[2020-02-08 17:05] LABS: Glucose Point of Care 123 mg/dL (70-110)
[2020-02-08] MEDS: LORazepam 2 mg/mL INJ 1 mL 0.25 MG IVP (19:51)
[2020-02-08 20:34] LABS: Glucose Point of Care 142 mg/dL (70-110)
[2020-02-09] VITALS (15 sets, daily range): BP systolic 94–111; BP diastolic 48–90; PULSE 74–94; RESP 19–29; TEMP 36.3–37; O2SAT 90–100
[2020-02-09] MEDS: morphine 4 mg/mL SDV 1 mL 2 MG IVP (00:28)
[2020-02-09] MEDS: piperacillin-tazobactam 3.375 GM in sodium chloride 0.9% (plus) 50 ML IV ×3 (00:31→19:11)
--- NOTE | 2020-02-09 00:46 | PC.NURSE ---
Patient was complaining of chest pain 07/19. PRN Morphine given. Patient states that her chest pain is gone. Will continue to monitor.
[2020-02-09] MEDS: LORazepam 0.5 mg Tablet 0.25 MG PO ×4 (01:43→19:10)
--- NOTE | 2020-02-09 01:44 | PC.NURSE ---
Addendum entered by Lisa Torres RN 02/09/20 01:51: Oxygen saturation dropped to 70 percent for a short period of time and came back up to 90s right before patient was placed on Bipap. Patient stated that she feels better after Bipap was placed back on. Oxygen saturation maintaining 95 percent. Will continue to monitor. Original Note: Bipap was taken off patient per patient request. Patient hit her call light stating she was having chest pain and that it started after the Bipap was taken off. Bipap was placed back on. Will continue to monitor.
[2020-02-09] MEDS: nitroglycerin 1 gm/inch oint Pkt 0.5 INCH TOPICAL ×4 (03:23→21:36)
[2020-02-09] MEDS: ipratropium-albuterol 3 mL Neb INHALATION ×4 (03:55→20:37)
--- NOTE | 2020-02-09 04:57 | PC.NURSE ---
Patient's Bipap was taken off for a short period per patient request. Within two minutes, patient's oxygen saturation dropped to the 80s. Nurse went in room to check on patient and patient was working very hard to breath. Patient was placed back on Bipap. Oxygen saturation is currently 96 percent. Will continue to monitor.
[2020-02-09 05:19] LABS: Basophils # 0.1 10^3/uL (0.0-0.1); Basophils % 0.9 %; Eosinophils % 0.7 %; Hematocrit 32.6 % (37.0-47.0); Hemoglobin 9.7 g/dL (11.5-15.3); Lymphocytes # 0.8 10^3/uL (0.8-4.8); Lymphocytes % 14.6 %; Mean Corpuscular HGB Conc 29.8 g/dL (30.0-36.0); Mean Corpuscular Volume 100.9 fL (81-99); Mean Platelet Volume 14.2 fL (7.4-10.4); Monocytes # 0.6 10^3/uL (0.2-0.9); Monocytes % 9.7 %; Neutrophils # 4.2 10^3/uL (1.8-7.7); Neutrophils % 73.6 %; Nucleated Red Blood Cells % 0 %; Platelet Count 103 10^3/cmm (130-400); Red Blood Count 3.23 10^6/uL (4.1-5.3); Red Cell Distribution Width 15.5 % (12.1-15.1); White Blood Count 5.7 10^3/uL (4.0-10.0)
[2020-02-09 05:44] LABS: Alanine Aminotransferase 21 U/L (0-33); Albumin Level 3.4 g/dL (3.5-5.2); Alkaline Phosphatase 66 IU/L (35-105); Aspartate Amino Transferase 19 U/L (0-32); Blood Urea Nitrogen 29 mg/dL (8-23); Calcium 8.8 mg/dL (8.5-10.5); Carbon Dioxide 23 mmol/L (22-29); Chloride 98 mmol/L (98-107); Globulin 3.8 g/dL (1.3-4.6); Glucose 158 mg/dL (65-115); Magnesium 2.5 mg/dL (1.7-2.3); Osmolality Calculated 282 mOsm/kg (285-295); Sodium 136 mmol/L (136-145); Total Bilirubin 0.7 mg/dL (0.15-1.2); Total Protein 7.2 g/dL (6.6-8.7)
[2020-02-09 06:29] LABS: Glucose Point of Care 174 mg/dL (70-110)
--- NOTE | 2020-02-09 08:14 | PC.OT ---
OT NOTE: OT TREATMENT ATTEMPTED. PATIENT ON BIPAP AND REPORTS THAT SHE IS SOB AND WOULD LIKE TO REST. WILL ATTEMPT AGAIN IN P.M.
[2020-02-09] MEDS: metoprolol tartrate 25 mg Tablet 12.5 MG PO ×2 (08:17→19:11)
[2020-02-09] MEDS: aspirin 81 mg EC Tablet PO (08:17)
[2020-02-09] MEDS: clopidogrel 75 mg Tablet PO (08:17)
[2020-02-09] MEDS: enoxaparin 40 mg/0.4 mL Syringe SUBCUT (08:19)
[2020-02-09] MEDS: pantoprazole 40 mg SDV IVP (08:19)
--- NOTE | 2020-02-09 08:48 | PC.NURSE ---
Spoke with Dr. Alaniz who asked about pt and her lung sounds and anxiety and decided to not do the cath this morning, to give her 60 mg lasix once and when able to tolerate it let her eat. Also spoke to her elder daughter to let her know how she is and what is going on with her and her care at this time.
[2020-02-09] MEDS: FUROsemide 10 mg/mL SDV 10mL 60 MG IVP (10:56)
[2020-02-09 11:27] LABS: Glucose Point of Care 85 mg/dL (70-110)
--- NOTE | 2020-02-09 13:58 | PC.OT ---
OT NOTE: PATIENT DECLINED THERAPY SERVICES THIS P.M. WILL ATTEMPT AGAIN IN A.M.
--- NOTE | 2020-02-09 15:55 | PM.PN ---
Subjective Subjective: Interval history: Patient reports that she tried Ativan yesterday with significant improvement of her breathing. This morning she is again appears anxious and short of breath especially whenever she removes BiPAP. Denies chest pain or cough. Vitals/I&O/Wt Last Vital Signs Temp 97.9 F 02/09/20 14:49 Pulse 78 02/09/20 14:49 Resp 25 H 02/09/20 14:49 BP 99/54 02/09/20 14:49 Pulse Ox 96 02/09/20 14:49 02/09/20 02/09/20 02/09/20 06:59 14:59 22:59 Intake Total 400 / 570 360 / 360 Output Total 350 / 1900 500 / 500 Balance 50 / -1330 -140 / -140 Weight last 48 hrs Weight 66.043 kg Weight 65.726 kg Physical Exam Const: COMMON NORMALS: no apparent distress and oriented x3 Resp: EFFORT & INSPECTION: Yes respiratory distress (Appears in very minimal distress when talks.) OTHER: Bibasilar Rales. Cardio: COMMON NORMALS: regular rate, regular rhythm and S2 normal heart sound RATE: regular rate RHYTHM: regular rhythm HEART SOUNDS: S2 normal OTHER: No lower extremity edema. Her feet are purple and cold which patient reports being chronic. GI: COMMON NORMALS: normal to inspection, nondistended, normoactive bowel sounds, soft to palpation and non-tender PALPATION: Yes soft Neuro: COMMON NORMALS: oriented x3 and no focal motor deficits Urinary Catheter Management^: Servin: Cath Placed During This Visit: yes Urethral Indwelling: Yes Reason for Continuing Indwelling Catheter: Accurate Measurement of Urinary Output in Critically Ill Patients Urinary Catheter Date of Insertion: 02/01/20 Urinary Catheter Time of Insertion: 18:35 Data : 02/09/20 04:10 02/09/20 04:10 A&P Assessment and plan (1) Acute respiratory failure with hypoxia and hypercarbia: -Patient arrived in significant respiratory distress and was intubated in the ER; extubated on 02/02 -on BiPAP vs. NC; noted increased oxygen requirement today -Continue to monitor respiratory status closely; noted tachypnea -repeat imaging shows evidence of fluid overload, improved today -AM ABG noted, appropriate -Continued monitoring of hemodynamic status -Negative for PE on CTA -dose of 20 mg oral Lasix today Status: Acute (2) Non-ST elevation [place] (NSTEMI): -found to have recurrent troponin elevation with delta of 900 -Has known history of CAD with prior stenting; last cardiac work-up done in 2019 with echo showing EF of 79%, cath done in 2018 -Continue therapeutic Lovenox, aspirin, Plavix, metoprolol; no statins due to history of hepatocellular carcinoma -Cardiology consult by Dr. Alaniz appreciated; plan for cath tomorrow -repeat Echo: EF=28%, global LV hypokinesis, G1DD, moderate pulmonary HTN (44), mild MR, moderate , mild AR, moderate TR, mild IA Status: Acute (3) Right lower lobe pneumonia: -reported episode of vomiting following intake of nitroglycerin as well as hemoptysis we will cannot exclude element of aspiration -Noted leukocytosis with neutrophilic predominance, now resolved -off vent support -On broad-spectrum IV antibiotics (Zosyn/Levaquin/Vanc); will d/c as no leukocytosis, afebrile x > 48 hrs -negative for influenza; screening for COVID-19 negative -blood cx: negative -sputum cx-prelim mixed cheng, gram stain negative Status: Suspected Qualifiers: Pneumonia type: due to unspecified organism Qualified Code(s): J18.9 - Pneumonia, unspecified organism (4) Hepatocellular carcinoma: -has known hepatocellular carcinoma, no known metastatic disease -f/u at [facility] -noted LFTs which are decreasing, coags Status: Chronic (5) Hypertension: -BP stable, off pressor support -hold antihypertensives other than BB -continue to monitor hemodynamic status Status: Chronic Qualifiers: Hypertension type: essential hypertension Qualified Code(s): I10 - Essential (primary) hypertension Additional A&P Information -Acute kidney injury. This appears to be prerenal secondary to heart failure. -Acute systolic CHF exacerbation. -PVD, s/p RLE stenting -Chronic smoker -NIDDM type II; accucheks, ISS, hypoglycemia precautions -bilateral carotid artery stenosis -known infrarenal AAA; stable per imaging (last done in 01/2020), follows up with Dr. Pratt -Chronic thrombocytopenia, likely secondary to liver pathology, continue to monitor platelet count; baseline is around 80-100 -GERD, on PPI and H2 chase -Liver cirrhosis, secondary to non-alcoholic steatosis; spleen is upper level of normal size, mesenteric adenopathy (stable per last imaging) -Normocytic anemia; appears to be intermittent as baseline Hg wnl; continue to monitor H/H, has been gradually trending down -GI ppx with PPI -DVT ppx not needed as on therapeutic lovenox -PT/OT/ST evaluations -decrease pain med doses as likely contributing to lethargy particularly in combination with anxiolytics PLAN: We will try Ativan standing dose and continue rest of the treatment including antibiotic and diuretic. Once improves we may proceed with coronary angiogram. -Dispo: was living at home independently; may need vs. SNF -Code status: FULL code -transfer to CSU for continued care Attestations Medical Necessity Statement*: Patient with respiratory failure requires close inpatient monitoring and treatment until deemed safe for discharge Coding Level of Care Code Acute Fourdrinier Operator for g Fwd Diagnoses Acute respiratory failure with hypoxia and hypercarbia J96.01; J96.02 Non-ST elevation [place] (NSTEMI) I21.4 Right lower lobe pneumonia J18.9 Pneumonia type: due to unspecified organism Hepatocellular carcinoma C22.0 Hypertension I10 Hypertension type: essential hypertension
[2020-02-09 17:38] LABS: Glucose Point of Care 183 mg/dL (70-110)
--- NOTE | 2020-02-09 18:12 | PM.PN ---
Subjective Subjective: Interval history: Last 24 hrs: Patient had another episode of anxiety this morning. She has been using BiPaP a lot. Medications: Reviewed: Yes Vitals/I&O/Wt Last Vital Signs Temp 97.9 F 02/09/20 14:49 Pulse 75 02/09/20 16:04 Resp 19 H 02/09/20 16:04 BP 99/54 02/09/20 14:49 Pulse Ox 91 02/09/20 16:04 02/09/20 02/09/20 02/09/20 06:59 14:59 22:59 Intake Total 400 / 570 360 / 360 Output Total 350 / 1900 500 / 500 Balance 50 / -1330 -140 / -140 Weight last 48 hrs Weight 145 lb 9.6 oz Weight 144 lb 14.4 oz Physical Exam Narrative: EXAM NARRATIVE: Gen: Patient seen lying down in bed. shallow breaths and tachypneic. She is currently on BiPaP HEENT: PERRL, No pallor or icterus RS: CTAB/L; no wheezes rhonchi or rales CVS: S1,S2, regular; No murmur, rub or gallop. MIXER DIAMOND POWDER: AAOx 3, No FND Ext: No edema or cyanosis. Faint DP bilateral, Dopplerable DP and PT. cool digits and anetrior parm of zimmerman feet, warm legs. bruising noted+ Urinary Catheter Management^: Servin: Cath Placed During This Visit: yes Urethral Indwelling: Yes Reason for Continuing Indwelling Catheter: Accurate Measurement of Urinary Output in Critically Ill Patients Urinary Catheter Date of Insertion: 02/01/20 Urinary Catheter Time of Insertion: 18:35 Data : 02/09/20 04:10 02/09/20 04:10 A&P Assessment and plan (1) Acute respiratory failure with hypoxia and hypercarbia: She was extubated Thursday. -Currently on BiPAP on and off. Status: Acute (2) Non-ST elevation [place] (NSTEMI): She has known prior CAD with last [facility] in 03/2018. It showed ostial right coronary artery lesion that is at least 50-60% which caused dampening of the waveform and poor flow into the aorta upon injection of the artery. The circumflex is a tiny vessel which contains a 99% stenosis in its midportion. There is a large ramus intermedius artery which contains a 90% in-stent restenosis at the distal and of the previously placed stent. LAD contains mild diffuse disease. 2 previously placed LAD stents are patent. The more distal one contains mild to moderate in-stent restenosis. Left main coronary artery is normal. -continue ASA, plavix. EKG showing possible anteroseptal infarct of indeterminate age and T wave inversion in lateral leads. -Echo showing severely decreased LV function with hypokinesis in , IS, inferior and apical huerta. -Renal function showing improved creatinine and CTA for PE protocol normal. -Continue to treat medically. -Patient's hemoglobin and platelets more or less stable. No active bleeding. -I have had detailed discussion with patient's daughter Ashley Riley on several occasions. She has chronically been on aspirin 325 mg and Plavix 75 mg without any significant bleeding problems. She has had chronic anemia as well as thrombocytopenia. The risk of proceeding with the procedure has been discussed in detail with her previously and she has been agreeable for the procedure. -I will plan for coronary angiogram in the next 1 to 2 days after diuresing and pre-medicating her. Status: Acute (3) Ischemic cardiomyopathy: -I will continue to diurese the patient. Lasix 60 mg IVx 1 and follow-up on labs in morning. -Intake/output charting; continue with Servin catheter for close output monitoring. -Follow-up labs in morning. Status: Acute (4) Right lower lobe pneumonia: -Zosyn was restarted. Agree with antibiotic coverage. -Blood Cx negative. Status: Suspected Qualifiers: Pneumonia type: due to unspecified organism Qualified Code(s): J18.9 - Pneumonia, unspecified organism (5) Coronary artery disease: Status: Chronic Qualifiers: Coronary Disease-Associated Artery/Lesion type: [place] artery [place] vs. transplanted heart: [place] heart Associated angina: with unspecified angina Qualified Code(s): I25.119 - Atherosclerotic heart disease of [place] coronary artery with unspecified angina pectoris (6) Peripheral artery disease: s/p right superficial femoral artery angioplasty and stenting in 03/2018. Status: Chronic (7) Mixed hyperlipidemia: Status: Chronic (8) Diabetes: Status: Chronic Qualifiers: Diabetes mellitus type: type 2 Diabetes mellitus dewaterer operator insulin use: without [place] use Diabetes mellitus complication status: with hyperglycemia Qualified Code(s): E11.65 - Type 2 diabetes mellitus with hyperglycemia Additional A&P Information SVT/ Frequent PVC's: Replace electrolytes to keep potassium more than 4 and magnesium more than 2. Atrial fibrillation: Now back in SR, currently on lovenox and low dose metoprolol. I will plan for long-term anticoagulation based on recurrence of atrial fibrillation. BALBIR Bilateral carotid artery stenosis Stable infrarenal abdominal aortic aneurysm Normocytic Anemia : Hemoglobin and platelets has been stable. Thrombocytopenia Anxiety: I think her anxiety has been really a problem here. Hopefully, changing from ativan as needed to round the clock will help. Chronic active smoker Gastroesophageal reflux disease History of liver cirrhosis History of thrombocytopenia Hepatocellular carcinoma being followed at [facility] Thank you for allowing me to participate in patient's care. Please feel free to call with questions or concerns. Attestations Medical Necessity Statement*: Needs hospital stay for NSTEMI, CHF and BALBIR. Coding Level of Care Code Acute Dual Rate Dealer for [facility] Fwd Diagnoses Acute respiratory failure with hypoxia and hypercarbia J96.01; J96.02 Non-ST elevation [place] (NSTEMI) I21.4 Ischemic cardiomyopathy I25.5 Right lower lobe pneumonia J18.9 Pneumonia type: due to unspecified organism Coronary artery disease I25.119 Coronary Disease-Associated Artery/Lesion type: [place] artery [place] vs. transplanted heart: [place] heart Associated angina: with unspecified angina Peripheral artery disease I73.9 Mixed hyperlipidemia E78.2 Diabetes E11.65 Diabetes mellitus type: type 2 Diabetes mellitus dewaterer operator insulin use: without [place] use Diabetes mellitus complication status: with hyperglycemia
[2020-02-09] MEDS: FUROsemide 10 mg/mL SDV 4mL 40 MG IVP (19:12)
[2020-02-09 21:25] LABS: Glucose Point of Care 88 mg/dL (70-110)
[2020-02-09] MEDS: OLANZapine 10 mg VIAL IM (22:31)
[2020-02-10] VITALS (17 sets, daily range): BP systolic 100–144; BP diastolic 58–75; PULSE 71–88; RESP 18–27; TEMP 36.5–37.1; O2SAT 91–100
--- NOTE | 2020-02-10 01:24 | PC.NURSE ---
At 2156, patient c/o increased SOB and anxiety. RT in with patient. Bipap in place. Bilateral lower extremities from mid-[place] to feet are dark blue. Patient stated, they are always like that. Observed from knees to groin has mottling to bilateral legs. Also observed mottling to upper arms and shoulders. Notified Dr Leos and received an order for Zyprexa 10mg IM which was given as ordered. Patient is currently resting with bipap in place and continuous pulse ox placed by RT to monitor SpO2 changes. Color to upper body has improved. When patient has bipap removed, her SpO2 % decreases to low 60s and patient gets very anxious with color changes to body. Patient removed IV when moving in bed. TRAM Pino placed new IV to left lower forearm. Patient tolerated well.
[2020-02-10] MEDS: piperacillin-tazobactam 3.375 GM in sodium chloride 0.9% (plus) 50 ML IV ×3 (02:05→17:43)
[2020-02-10] MEDS: nitroglycerin 1 gm/inch oint Pkt 0.5 INCH TOPICAL ×2 (02:05→09:00)
--- NOTE | 2020-02-10 02:35 | PC.NURSE ---
Patient removed bipap. Patient SpO2 decreased to 63% in ~3-5min without the use of bipap and generalized skin color became bluish. Provided patient drink of water. Replaced bipap. Repositioned patient for comfort. Remained with patient until SpO2 increased to 90% and resting comfortably. Will continue to monitor.
[2020-02-10] MEDS: ondansetron 2 mg/ML SDV 2 mL 4 MG IVP (03:08)
--- NOTE | 2020-02-10 03:18 | PC.NURSE ---
Patient pulled off bipap. C/O nausea. Appears very anxious as well. SpO2 decreased to low 60s off bipap. Currently on 4L NC. unable to maintain O2. Patient stating, i am just ready to and get this over with. Informed Dr Leos who placed an order. Waiting for pharmacy to verify.
[2020-02-10] MEDS: LORazepam 2 mg/mL INJ 1 mL 1 MG IVP (03:24)
[2020-02-10] MEDS: ipratropium-albuterol 3 mL Neb INHALATION ×4 (03:49→20:55)
[2020-02-10 05:48] LABS: Basophils % 0.4 %; Eosinophils % 0.4 %; Hematocrit 32.7 % (37.0-47.0); Hemoglobin 9.8 g/dL (11.5-15.3); Lymphocytes # 0.7 10^3/uL (0.8-4.8); Lymphocytes % 9.1 %; Mean Corpuscular Hemoglobin 29.9 pg (28.0-34.0); Mean Corpuscular Volume 99.7 fL (81-99); Mean Platelet Volume 14.2 fL (7.4-10.4); Monocytes # 0.8 10^3/uL (0.2-0.9); Neutrophils # 5.6 10^3/uL (1.8-7.7); Neutrophils % 78.3 %; Nucleated Red Blood Cells % 0 %; Platelet Count 113 10^3/cmm (130-400); Red Blood Count 3.28 10^6/uL (4.1-5.3); Red Cell Distribution Width 15.9 % (12.1-15.1); White Blood Count 7.2 10^3/uL (4.0-10.0)
[2020-02-10 06:12] LABS: Alanine Aminotransferase 18 U/L (0-33); Albumin Level 3.5 g/dL (3.5-5.2); Alkaline Phosphatase 70 IU/L (35-105); Anion Gap 19.3 (5-19); Aspartate Amino Transferase 16 U/L (0-32); Blood Urea Nitrogen 27 mg/dL (8-23); Calcium 9.1 mg/dL (8.5-10.5); Carbon Dioxide 26 mmol/L (22-29); Chloride 98 mmol/L (98-107); Globulin 3.2 g/dL (1.3-4.6); Glucose 169 mg/dL (65-115); Magnesium 2.3 mg/dL (1.7-2.3); Osmolality Calculated 289 mOsm/kg (285-295); Potassium 4.3 mmol/L (3.5-5.1); Sodium 139 mmol/L (136-145); Total Bilirubin 0.8 mg/dL (0.15-1.2); Total Protein 6.7 g/dL (6.6-8.7)
[2020-02-10 06:58] LABS: Glucose Point of Care 82 mg/dL (70-110)
[2020-02-10] MEDS: enoxaparin 40 mg/0.4 mL Syringe SUBCUT (08:59)
[2020-02-10] MEDS: metoprolol tartrate 25 mg Tablet 12.5 MG PO ×2 (08:59→17:43)
[2020-02-10] MEDS: clopidogrel 75 mg Tablet PO (08:59)
[2020-02-10] MEDS: aspirin 81 mg EC Tablet PO (08:59)
[2020-02-10] MEDS: LORazepam 0.5 mg Tablet 0.25 MG PO ×3 (09:00→21:17)
[2020-02-10] MEDS: pantoprazole 40 mg SDV IVP (09:01)
--- NOTE | 2020-02-10 10:45 | PC.OT ---
OT NOTE: OT TREATMENT ATTEMPTED. PATIENT IS SLEEPING SOUNDLY AND DOES NOT AWAKEN TO VOICE. WILL ATTEMPT AGAIN IN P.M.
[2020-02-10 11:12] LABS: Glucose Point of Care 129 mg/dL (70-110)
--- NOTE | 2020-02-10 11:49 | P.PN_ITS ---
Subjective Subjective: Interval history: Patient received Ativan this morning and sleeping. She is not in any distress. Hemoglobin is stable. Platelets continue to improve. Creatinine increased to 1.5. Vitals/I&O/Wt Last Vital Signs Temp 98.7 F 02/10/20 07:24 Pulse 75 02/10/20 08:15 Resp 27 H 02/10/20 08:03 BP 108/75 02/10/20 07:24 Pulse Ox 98 02/10/20 08:03 02/09/20 02/10/20 02/10/20 22:59 06:59 14:59 Intake Total 332.708 / 692.708 7.292 / 700.000 50 / 50 Output Total 750 / 1250 Balance 332.708 / 192.708 -742.708 / -550.000 50 / 50 Weight last 48 hrs Weight 72.938 kg Weight 66.043 kg Physical Exam Const: COMMON NORMALS: no apparent distress and oriented x3 Resp: COMMON NORMALS: normal respiratory effort OTHER: Bibasilar Rales. Cardio: COMMON NORMALS: regular rate, regular rhythm and S2 normal heart sound RATE: regular rate RHYTHM: regular rhythm HEART SOUNDS: S2 normal OTHER: No lower extremity edema. GI: COMMON NORMALS: normal to inspection, nondistended, normoactive bowel sounds, soft to palpation and non-tender PALPATION: Yes soft Neuro: COMMON NORMALS: oriented x3 and no focal motor deficits Urinary Catheter Management^: Servin: Cath Placed During This Visit: yes Urethral Indwelling: Yes Reason for Continuing Indwelling Catheter: Accurate Measurement of Urinary Output in Critically Ill Patients Urinary Catheter Date of Insertion: 02/01/20 Urinary Catheter Time of Insertion: 18:35 Data : 02/10/20 05:03 02/10/20 05:03 A&P Assessment and plan (1) Acute respiratory failure with hypoxia and hypercarbia: -Patient arrived in significant respiratory distress and was intubated in the ER; extubated on 02/02 -on BiPAP vs. NC; noted increased oxygen requirement today -Continue to monitor respiratory status closely; noted tachypnea -repeat imaging shows evidence of fluid overload, improved today -AM ABG noted, appropriate -Continued monitoring of hemodynamic status -Negative for PE on CTA -dose of 20 mg oral Lasix today Status: Acute (2) Non-ST elevation [place] (NSTEMI): -found to have recurrent troponin elevation with delta of 900 -Has known history of CAD with prior stenting; last cardiac work-up done in 2019 with echo showing EF of 79%, cath done in 2018 -Continue therapeutic Lovenox, aspirin, Plavix, metoprolol; no statins due to history of hepatocellular carcinoma -Cardiology consult by Dr. Alaniz appreciated; plan for cath tomorrow -repeat Echo: EF=28%, global LV hypokinesis, G1DD, moderate pulmonary HTN (44), mild MR, moderate , mild AR, moderate TR, mild HI Status: Acute (3) Right lower lobe pneumonia: -reported episode of vomiting following intake of nitroglycerin as well as hemoptysis we will cannot exclude element of aspiration -Noted leukocytosis with neutrophilic predominance, now resolved -off vent support -On broad-spectrum IV antibiotics (Zosyn/Levaquin/Vanc); will d/c as no leukocytosis, afebrile x > 48 hrs -negative for influenza; screening for COVID-19 negative -blood cx: negative -sputum cx-prelim mixed cheng, gram stain negative Status: Suspected Qualifiers: Pneumonia type: due to unspecified organism Qualified Code(s): J18.9 - Pneumonia, unspecified organism (4) Hepatocellular carcinoma: -has known hepatocellular carcinoma, no known metastatic disease -f/u at [facility] -noted LFTs which are decreasing, coags Status: Chronic (5) Hypertension: -BP stable, off pressor support -hold antihypertensives other than BB -continue to monitor hemodynamic status Status: Chronic Qualifiers: Hypertension type: essential hypertension Qualified Code(s): I10 - Essential (primary) hypertension Additional A&P Information -Acute kidney injury. This appears to be prerenal secondary to heart failure. -Acute systolic CHF exacerbation. -PVD, s/p RLE stenting -Chronic smoker -NIDDM type II; accucheks, ISS, hypoglycemia precautions -bilateral carotid artery stenosis -known infrarenal AAA; stable per imaging (last done in 01/2020), follows up with Dr. Pratt -Chronic thrombocytopenia, likely secondary to liver pathology, continue to monitor platelet count; baseline is around 80-100 -GERD, on PPI and H2 chase -Liver cirrhosis, secondary to non-alcoholic steatosis; spleen is upper level of normal size, mesenteric adenopathy (stable per last imaging) -Normocytic anemia; appears to be intermittent as baseline Hg wnl; continue to monitor H/H, has been gradually trending down -GI ppx with PPI -DVT ppx not needed as on therapeutic lovenox -PT/OT/ST evaluations -decrease pain med doses as likely contributing to lethargy particularly in combination with anxiolytics PLAN: Continue current monitoring and treatment. Discussed with Dr. Alaniz and we will try to perform coronary angiogram in the near future. Will reevaluate later this afternoon. -Dispo: was living at home independently; may need HH vs. SNF -Code status: FULL code -transfer to CSU for continued care Attestations Medical Necessity Statement*: Patient with significant heart disease requires close inpatient monitoring and treatment as well as evaluation. Coding Level of Care Code Acute Food Technologist for Stephanie Mora Diagnoses Acute respiratory failure with hypoxia and hypercarbia J96.01; J96.02 Non-ST elevation [place] (NSTEMI) I21.4 Right lower lobe pneumonia J18.9 Pneumonia type: due to unspecified organism Hepatocellular carcinoma C22.0 Hypertension I10 Hypertension type: essential hypertension
--- NOTE | 2020-02-10 11:58 | P.PN_ITS ---
Subjective Subjective: Interval history: Last 24 hours: Seems like patient was confused, anxious and agitated last night and ended up receiving Zyprexa. She received a total of Lasix 100 mg IV yesterday and urine output of 1250 mL with net negative of 620 mL. Weight is not reliable. She still complains of intermittent episodes of chest discomfort. She was on BiPAP with FiO2 of 30%. I switched her to oxygen via nasal cannula during the examination and she was maintaining her sats in low 90s. Medications: Reviewed: Yes Medication Review Details: Current Medications Acetaminophen (Tylenol) 650 mg PO Q8H PRN PRN Reason: temp > 101 Albuterol/Ipratropium (Duoneb) 3 ml INHALATION Q6H.RESPIRATORY [facility] Last Admin: 02/10/20 08:03 Dose: 3 ml Documented by: Aspirin (Aspirin Ec) 81 mg PO DAILY [facility] Last Admin: 02/10/20 08:59 Dose: 81 mg Documented by: Clopidogrel Bisulfate (Plavix) 75 mg PO DAILY [facility] Last Admin: 02/10/20 08:59 Dose: 75 mg Documented by: Dextrose (D50w) 25 ml IVP ONCE PRN; Protocol PRN Reason: hypoglycemia protocol Dextrose (D50w) 50 ml IVP PRN PRN; Protocol PRN Reason: hypoglycemia protocol Enoxaparin Sodium (Lovenox) 40 mg SUBCUT Q24H [facility] Last Admin: 02/10/20 08:59 Dose: 40 mg Documented by: Glucagon (Glucagen) 1 mg IM ONCE PRN; Protocol PRN Reason: Adult Acute Hypoglycemia Prot. Dextrose (D5w) 500 mls @ 100 mls/hr IV ONCE PRN; Protocol PRN Reason: Adult Acute Hypoglycemia Prot Piperacillin Sod/Tazobactam (Sod 3.375 gm/ Sodium Chloride) 50 mls @ 12.5 mls/hr IV Q8H [facility] Last Admin: 02/10/20 10:30 Dose: 12.5 mls/hr Documented by: Insulin Aspart (Novolog) 0 unit SUBCUT BEDTIME [facility]; Protocol Last Admin: 02/09/20 21:31 Dose: Not Given Documented by: Insulin Aspart (Novolog) 0 unit SUBCUT TIDWM [facility]; Protocol Last Admin: 02/10/20 11:57 Dose: Not Given Documented by: Lanolin (Lanolin Oint) 1 applic TOPICAL PRN PRN PRN Reason: DRYNESS Last Admin: 02/06/20 11:41 Dose: 1 each Documented by: Lorazepam (Ativan) 0.25 mg PO TID [facility] Last Admin: 02/10/20 09:00 Dose: 0.25 mg Documented by: Metoprolol Tartrate (Lopressor) 12.5 mg PO BID [facility] Last Admin: 02/10/20 08:59 Dose: 12.5 mg Documented by: Nitroglycerin (Nitro-Bid) 0.5 inch TOPICAL Q6H [facility] Last Admin: 02/10/20 09:00 Dose: 0.5 inch Documented by: Ondansetron HCl (Zofran) 4 mg IVP Q12H PRN PRN Reason: vomiting, or N/V if npo Last Admin: 02/10/20 03:08 Dose: 4 mg Documented by: Pantoprazole Sodium (Protonix) 40 mg IVP DAILY [facility] Last Admin: 02/10/20 09:01 Dose: 40 mg Documented by: Potassium Chloride (Klor-Con 10) 20 meq PO DAILY [facility] Last Admin: 02/10/20 09:01 Dose: 20 meq Documented by: Ranitidine HCl (Zantac Syrup) 300 mg PO BEDTIME [facility] Last Admin: 02/09/20 21:36 Dose: Not Given Documented by: Vitals/I&O/Wt Last Vital Signs Temp 98.7 F 02/10/20 07:24 Pulse 75 02/10/20 08:15 Resp 27 H 02/10/20 08:03 BP 108/75 02/10/20 07:24 Pulse Ox 98 02/10/20 08:03 02/09/20 02/10/20 02/10/20 22:59 06:59 14:59 Intake Total 332.708 / 692.708 7.292 / 700.000 50 / 50 Output Total 750 / 1250 Balance 332.708 / 192.708 -742.708 / -550.000 50 / 50 Weight last 48 hrs Weight 160 lb 12.8 oz Weight 145 lb 9.6 oz Physical Exam Narrative: EXAM NARRATIVE: EXAM NARRATIVE: Gen: Patient seen lying down in bed. shallow breaths. HEENT: PERRL, No pallor or icterus RS: CTAB/L; no wheezes rhonchi or rales CVS: S1,S2, regular; No murmur, rub or gallop. PLASTIC PRESS OPERATOR: AAOx 3, No FND Ext: No edema or cyanosis. Faint DP bilateral, Dopplerable DP and PT. warm foot and legs. bruising noted+ Urinary Catheter Management^: Servin: Cath Placed During This Visit: yes Urethral Indwelling: Yes Reason for Continuing Indwelling Catheter: Accurate Measurement of Urinary Output in Critically Ill Patients Urinary Catheter Date of Insertion: 02/01/20 Urinary Catheter Time of Insertion: 18:35 Data : 02/10/20 05:03 02/10/20 05:03 A&P Assessment and plan (1) Acute respiratory failure with hypoxia and hypercarbia: She was extubated Thursday. -Currently on BiPAP on and off. Status: Acute (2) Non-ST elevation [place] (NSTEMI): She has known prior CAD with last LHC in 03/2018. It showed ostial right coronary artery lesion that is at least 50-60% which caused dampening of the waveform and poor flow into the aorta upon injection of the artery. The circumflex is a tiny vessel which contains a 99% stenosis in its midportion. There is a large ramus intermedius artery which contains a 90% in-stent restenosis at the distal and of the previously placed stent. LAD contains mild diffuse disease. 2 previously placed LAD stents are patent. The more distal one contains mild to moderate in-stent restenosis. Left main coronary artery is normal. -continue ASA, plavix and lovenox. EKG showing possible anteroseptal infarct of indeterminate age and T wave inversion in lateral leads. -Echo showing severely decreased LV function with hypokinesis in , IS, inferior and apical huerta. -Renal function showing improved creatinine and CTA for PE protocol normal. -Continue to treat medically. -Patient's hemoglobin and platelets more or less stable. No active bleeding. -I have had detailed discussion with patient's daughter Ashley Riley on several occasions. She has chronically been on aspirin 325 mg and Plavix 75 mg without any significant bleeding problems. She has had chronic anemia as well as thrombocytopenia. The risk of proceeding with the procedure has been discussed in detail with her previously and she has been agreeable for the procedure. -I will plan for coronary angiogram depending on how she does later this afternoon/tomorrow. She would need to be premedicated with Ativan prior to the procedure. Status: Acute (3) Ischemic cardiomyopathy: -Hold off on any further diuresis today. -Intake/output charting; continue with Servin catheter for close output mo nitoring. -Follow-up labs in morning. Status: Acute (4) Right lower lobe pneumonia: -Zosyn was restarted. Agree with antibiotic coverage. -Blood Cx negative. Status: Suspected Qualifiers: Pneumonia type: due to unspecified organism Qualified Code(s): J18.9 - Pneumonia, unspecified organism (5) Coronary artery disease: Status: Chronic Qualifiers: Coronary Disease-Associated Artery/Lesion type: [place] artery [place] vs. transplanted heart: [place] heart Associated angina: with unspecified angina Qualified Code(s): I25.119 - Atherosclerotic heart disease of [place] coronary artery with unspecified angina pectoris (6) Peripheral artery disease: s/p right superficial femoral artery angioplasty and stenting in 03/2018. Status: Chronic (7) Mixed hyperlipidemia: Status: Chronic (8) Diabetes: Status: Chronic Qualifiers: Diabetes mellitus type: type 2 Diabetes mellitus vermin exterminator insulin use: without mcc use Diabetes mellitus complication status: with hyperglycemia Qualified Code(s): E11.65 - Type 2 diabetes mellitus with hyperglycemia Additional A&P Information SVT/ Frequent PVC's: Replace electrolytes to keep potassium more than 4 and ma gnesium more than 2. Atrial fibrillation: Now back in SR, currently on lovenox and low dose metoprolol. I will plan for long-term anticoagulation based on recurrence of atrial fibrillation. BALBIR: Cr has increased from 1.3-1.5 and BUN has decreased. Bilateral carotid artery stenosis Stable infrarenal abdominal aortic aneurysm Normocytic Anemia : Hemoglobin and platelets has been stable. Thrombocytopenia Anxiety: I think her anxiety has been really a problem here. Hopefully, changing from ativan as needed to round the clock will help. Chronic active smoker Gastroesophageal reflux disease History of liver cirrhosis History of thrombocytopenia Hepatocellular carcinoma being followed at [facility] Thank you for allowing me to participate in patient's care. Please feel free to call with questions or concerns. Attestations Medical Necessity Statement*: Requires hospital stay for management of non-ST elevation PA and CHF. Coding Level of Care Code Acute Nurse Clinical for [facility] Diagnoses Acute respiratory failure with hypoxia and hypercarbia J96.01; J96.02 Non-ST elevation [place] (NSTEMI) I21.4 Ischemic cardiomyopathy I25.5 Right lower lobe pneumonia J18.9 Pneumonia type: due to unspecified organism Coronary artery disease I25.119 Coronary Disease-Associated Artery/Lesion type: [place] artery [place] vs. transplanted heart: [place] heart Associated angina: with unspecified angina Peripheral artery disease I73.9 Mixed hyperlipidemia E78.2 Diabetes E11.65 Diabetes mellitus type: type 2 Diabetes mellitus vermin exterminator insulin use: without mcc use Diabetes mellitus complication status: with hyperglycemia
--- NOTE | 2020-02-10 12:18 | PC.OT ---
OT NOTE: OT TREATMENT ATTEMPTED AGAIN THIS P.M. PATIENT CONTINUES TO SLEEP AND NOT AWAKEN FOR SKILLED OT TREATMENT. WILL ATTEMPT AGAIN TOMORROW.
[2020-02-10 17:10] LABS: Glucose Point of Care 121 mg/dL (70-110)
[2020-02-10] MEDS: isosorbide dinitrate 20 mg Tablet 5 MG PO (17:45)
[2020-02-10 21:00] LABS: Glucose Point of Care 202 mg/dL (70-110)
[2020-02-11] VITALS (16 sets, daily range): BP systolic 102–124; BP diastolic 57–71; PULSE 73–86; RESP 17–31; TEMP 36.4; O2SAT 92–100
[2020-02-11] MEDS: piperacillin-tazobactam 3.375 GM in sodium chloride 0.9% (plus) 50 ML IV ×3 (02:45→17:33)
[2020-02-11] MEDS: ipratropium-albuterol 3 mL Neb INHALATION ×4 (02:45→20:08)
--- NOTE | 2020-02-11 04:51 | PC.NURSE ---
Patient sitting up on side of bed. Requested to have bipap removed to have a drink of water also c/o pain to face. Observed redness to face along line of mask. NC at 3L placed on patient. Patient SpO2 drops to upper 50s to low 60s during exertion. RN remained at bedside during entire time patient off of bipap. Patient repostioned and bipap replaced. SpO2 slow to recover when sats drop low. Stacy and Daron RT arrived to room. Temporarily increased bipap settings to aid in recovery. Repostioned Oxygen monitor on forehead to obtain greater skin contact. SpO2 increased to low to mid 80s. RT reduced bipap settings to patient settings. Patient alert and oriented talking with staff. RT to try different bipap mask for comfort. Patient agreeable to try the change. Spoke with patient's daughter Tiarra provided update with patient's permission.
[2020-02-11 06:18] LABS: Glucose Point of Care 108 mg/dL (70-110)
--- NOTE | 2020-02-11 08:00 | PC.NURSE ---
BIPAP on going Asleep as of this time.
[2020-02-11] MEDS: LORazepam 0.5 mg Tablet 0.25 MG PO ×3 (09:42→21:30)
[2020-02-11] MEDS: metoprolol tartrate 25 mg Tablet 12.5 MG PO ×2 (09:42→17:31)
[2020-02-11] MEDS: enoxaparin 40 mg/0.4 mL Syringe SUBCUT (09:43)
[2020-02-11] MEDS: pantoprazole 40 mg SDV IVP (09:43)
[2020-02-11] MEDS: clopidogrel 75 mg Tablet PO (09:43)
[2020-02-11] MEDS: isosorbide dinitrate 20 mg Tablet 5 MG PO ×2 (09:44→17:31)
[2020-02-11] MEDS: aspirin 81 mg EC Tablet PO (09:46)
--- NOTE | 2020-02-11 10:13 | XRR_ITS ---
PROCEDURE INFORMATION: Exam: XR Chest, 1 View Exam date and time: 02/11/2020 10:14 AM Age: 74 years old Clinical indication: Shortness of breath; Additional info: SOB, pulmonary congestion TECHNIQUE: Imaging protocol: XR of the chest Views: 1 view. COMPARISON: CR XR chest 1V portable [id number] 02/08/2020 5:26 AM FINDINGS: Lungs: COPD , interstitial prominence, chronic granulomatous disease. Newly developed asymmetric bibasilar airspace disease, right greater than left. Pleural space: New small bilateral pleural effusions. Heart/Mediastinum: Cardiac silhouette upper limits of normal in size. Vasculature: Calcification of the thoracic aorta. Bones/joints: Osteopenia and degenerative change. XR/XR chest 1V portable [id number] IMPRESSION: 1. Newly developed asymmetric bibasilar airspace disease, right greater than left. 2. New small bilateral pleural effusions.
[2020-02-11 11:04] LABS: Basophils # 0.1 10^3/uL (0.0-0.1); Basophils % 0.7 %; Eosinophils % 0.3 %; Hematocrit 36.3 % (37.0-47.0); Hemoglobin 10.9 g/dL (11.5-15.3); Monocytes # 0.4 10^3/uL (0.2-0.9); Neutrophils # 5.8 10^3/uL (1.8-7.7); Neutrophils % 79.3 %; Nucleated Red Blood Cells % 0 %; Platelet Count 149 10^3/cmm (130-400); Red Blood Count 3.63 10^6/uL (4.1-5.3); White Blood Count 7.4 10^3/uL (4.0-10.0)
[2020-02-11 11:13] LABS: Anion Gap 18.2 (5-19); Blood Urea Nitrogen 37 mg/dL (8-23); Calcium 9.8 mg/dL (8.5-10.5); Carbon Dioxide 25 mmol/L (22-29); Chloride 95 mmol/L (98-107); Glucose 185 mg/dL (65-115); Magnesium 2.7 mg/dL (1.7-2.3); Osmolality Calculated 280 mOsm/kg (285-295); Potassium 4.2 mmol/L (3.5-5.1); Sodium 134 mmol/L (136-145)
[2020-02-11 11:41] LABS: Glucose Point of Care 183 mg/dL (70-110)
--- NOTE | 2020-02-11 11:49 | PM.PN ---
Subjective Subjective: Interval history: Denies chest pain sitting by the bedside breathing somewhat better however cannot lay flat. Creatinine today is 1.5. Medications: Reviewed: Yes Medication Review Details: Current Medications Acetaminophen (Tylenol) 650 mg PO Q8H PRN PRN Reason: temp > 101 Albuterol/Ipratropium (Duoneb) 3 ml INHALATION Q6H.RESPIRATORY [facility] Last Admin: 02/10/20 08:03 Dose: 3 ml Documented by: Aspirin (Aspirin Ec) 81 mg PO DAILY [facility] Last Admin: 02/10/20 08:59 Dose: 81 mg Documented by: Clopidogrel Bisulfate (Plavix) 75 mg PO DAILY [facility] Last Admin: 02/10/20 08:59 Dose: 75 mg Documented by: Dextrose (D50w) 25 ml IVP ONCE PRN; Protocol PRN Reason: hypoglycemia protocol Dextrose (D50w) 50 ml IVP PRN PRN; Protocol PRN Reason: hypoglycemia protocol Enoxaparin Sodium (Lovenox) 40 mg SUBCUT Q24H [facility] Last Admin: 02/10/20 08:59 Dose: 40 mg Documented by: Glucagon (Glucagen) 1 mg IM ONCE PRN; Protocol PRN Reason: Adult Acute Hypoglycemia Prot. Dextrose (D5w) 500 mls @ 100 mls/hr IV ONCE PRN; Protocol PRN Reason: Adult Acute Hypoglycemia Prot Piperacillin Sod/Tazobactam (Sod 3.375 gm/ Sodium Chloride) 50 mls @ 12.5 mls/hr IV Q8H [facility] Last Admin: 02/10/20 10:30 Dose: 12.5 mls/hr Documented by: Insulin Aspart (Novolog) 0 unit SUBCUT BEDTIME [facility]; Protocol Last Admin: 02/09/20 21:31 Dose: Not Given Documented by: Insulin Aspart (Novolog) 0 unit SUBCUT TIDWM [facility]; Protocol Last Admin: 02/10/20 11:57 Dose: Not Given Documented by: Lanolin (Lanolin Oint) 1 applic TOPICAL PRN PRN PRN Reason: DRYNESS Last Admin: 02/06/20 11:41 Dose: 1 each Documented by: Lorazepam (Ativan) 0.25 mg PO TID [facility] Last Admin: 02/10/20 09:00 Dose: 0.25 mg Documented by: Metoprolol Tartrate (Lopressor) 12.5 mg PO BID [facility] Last Admin: 02/10/20 08:59 Dose: 12.5 mg Documented by: Nitroglycerin (Nitro-Bid) 0.5 inch TOPICAL Q6H [facility] Last Admin: 02/10/20 09:00 Dose: 0.5 inch Documented by: Ondansetron HCl (Zofran) 4 mg IVP Q12H PRN PRN Reason: vomiting, or N/V if npo Last Admin: 02/10/20 03:08 Dose: 4 mg Documented by: Pantoprazole Sodium (Protonix) 40 mg IVP DAILY [facility] Last Admin: 02/10/20 09:01 Dose: 40 mg Documented by: Potassium Chloride (Klor-Con 10) 20 meq PO DAILY [facility] Last Admin: 02/10/20 09:01 Dose: 20 meq Documented by: Ranitidine HCl (Zantac Syrup) 300 mg PO BEDTIME [facility] Last Admin: 02/09/20 21:36 Dose: Not Given Documented by: Vitals/I&O/Wt Last Vital Signs Temp 97.6 F 02/11/20 04:00 Pulse 82 02/11/20 08:39 Resp 31 H 02/11/20 08:38 BP 102/57 02/11/20 08:00 Pulse Ox 94 02/11/20 08:39 02/10/20 02/11/20 02/11/20 22:59 06:59 14:59 Intake Total 340 / 390 50 / 440 100 / 100 Output Total 100 / 100 550 / 650 Balance 240 / 290 -500 / -210 100 / 100 Weight last 48 hrs Weight 159 lb Weight 160 lb 12.8 oz Physical Exam Narrative: EXAM NARRATIVE: GENERAL: Patient is awake and oriented x3. Not in distress [] NECK: No jugular vein distension. [] HEENT: No cyanosis. No icterus. No pallor. [] HEART: Regular S1 and S2. No murmur, rub or gallop. [] LUNGS: Reduced breath sound with mild crackles on inspiration bilaterally. [] ABDOMEN: Deferred CENTRAL NERVOUS SYSTEM: Grossly nonfocal. [] EXTREMITIES: Lower extremities without edema bilaterally. Mottle appearance, denies any pain in the leg and feet Urinary Catheter Management^: Servin: Cath Placed During This Visit: yes Urethral Indwelling: Yes Reason for Continuing Indwelling Catheter: Accurate Measurement of Urinary Output in Critically Ill Patients Urinary Catheter Date of Insertion: 02/01/20 Urinary Catheter Time of Insertion: 18:35 Data : 02/11/20 10:33 02/11/20 10:33 A&P Assessment and plan (1) Acute respiratory failure with hypoxia and hypercarbia: She was extubated Thursday. -Currently on BiPAP on and off. Status: Acute (2) Non-ST elevation [place] (NSTEMI): Patient has a lot of comorbidities, she was not able to lay flat on the bed. I am afraid if we have to take her to the [facility] House Engineer she needs to be intubated and sedated. Patient is not willing to do that. Her creatinine is 1.5 I will also fear that she will most likely end up with contrast-induced nephropathy. For now we will treat her medically, once she is euvolemic and able to lay flat reconsideration of lab intern procedure will be discussed again. Continue aspirin beta-chase isosorbide mononitrate and Plavix. Continue anticoagulation. Status: Acute (3) Ischemic cardiomyopathy: I will continue to diurese her gently Status: Acute (4) Right lower lobe pneumonia: As per medicine Status: Suspected Qualifiers: Pneumonia type: due to unspecified organism Qualified Code(s): J18.9 - Pneumonia, unspecified organism (5) Coronary artery disease: Status: Chronic Qualifiers: Coronary Disease-Associated Artery/Lesion type: [place] artery [place] vs. transplanted heart: [place] heart Associated angina: with unspecified angina Qualified Code(s): I25.119 - Atherosclerotic heart disease of [place] coronary artery with unspecified angina pectoris (6) Peripheral artery disease: s/p right superficial femoral artery angioplasty and stenting in 03/2018. Status: Chronic (7) Mixed hyperlipidemia: Status: Chronic (8) Diabetes: As per medicine Status: Chronic Qualifiers: Diabetes mellitus type: type 2 Diabetes mellitus mcfp insulin use: without ferry terminal agent use Diabetes mellitus complication status: with hyperglycemia Qualified Code(s): E11.65 - Type 2 diabetes mellitus with hyperglycemia Additional A&P Information SVT/ Frequent PVC's: Replace electrolytes to keep potassium more than 4 and magnesium more than 2. Atrial fibrillation: Now back in SR, currently on lovenox and low dose metoprolol. I will plan for long-term anticoagulation based on recurrence of atrial fibrillation. BALBIR: Cr has increased from 1.3-1.5 and BUN has decreased. Bilateral carotid artery stenosis Stable infrarenal abdominal aortic aneurysm Normocytic Anemia : Hemoglobin and platelets has been stable. Thrombocytopenia Anxiety: I think her anxiety has been really a problem here. Hopefully, changing from ativan as needed to round the clock will help. Chronic active smoker Gastroesophageal reflux disease History of liver cirrhosis History of thrombocytopenia Hepatocellular carcinoma being followed at [facility] Thank you for allowing me to participate in patient's care. Please feel free to call with questions or concerns. Attestations Medical Necessity Statement*: Patient require continuation hospitalization for above defined care. Coding Level of Care Code Established Pt Acute Clock Maker for Chg Fwd Patient Type Established History Expanded Problem Focused Exam Expanded Problem Focused Medical Decision Making Moderate Complexity Diagnoses Acute respiratory failure with hypoxia and hypercarbia J96.01; J96.02 Non-ST elevation [place] (NSTEMI) I21.4 Ischemic cardiomyopathy I25.5 Right lower lobe pneumonia J18.9 Pneumonia type: due to unspecified organism Coronary artery disease I25.119 Coronary Disease-Associated Artery/Lesion type: [place] artery [place] vs. transplanted heart: [place] heart Associated angina: with unspecified angina Peripheral artery disease I73.9 Mixed hyperlipidemia E78.2 Diabetes E11.65 Diabetes mellitus type: type 2 Diabetes mellitus ferry terminal agent insulin use: without mcfp use Diabetes mellitus complication status: with hyperglycemia
--- NOTE | 2020-02-11 12:13 | PC.OT ---
Upon entering room, patient informs therapist that she is feeling fatigued and was just about to take a nap. Offer patient option to participate in exercise at bed-level due to her fatigue, however patient declines skilled occupational therapy treatment at this time. Will attempt skilled treatment again tomorrow in the A.M.
--- NOTE | 2020-02-11 13:56 | P.PN_ITS ---
Subjective Subjective: Interval history: Patient appears doing better and reports that she was able to be without Bipap for 2 hours and did well. Denies chest pain or abdominal pain. She is not sure today if Ativan helps her a lot. Medications: Reviewed: Yes Medication Review Details: Current Medications Acetaminophen (Tylenol) 650 mg PO Q8H PRN PRN Reason: temp > 101 Albuterol/Ipratropium (Duoneb) 3 ml INHALATION Q6H.RESPIRATORY DIANE Last Admin: 02/05/20 08:09 Dose: 3 ml Documented by: Alprazolam (Xanax) 0.5 mg PO TID PRN PRN Reason: ANXIETY Last Admin: 02/04/20 22:56 Dose: 0.5 mg Documented by: Aspirin (Aspirin) 325 mg NG-TUBE DAILY DIANE Last Admin: 02/05/20 08:46 Dose: 325 mg Documented by: Clopidogrel Bisulfate (Plavix) 75 mg NG-TUBE DAILY DIANE Last Admin: 02/05/20 08:46 Dose: 75 mg Documented by: Dextrose (D50w) 25 ml IVP ONCE PRN; Protocol PRN Reason: hypoglycemia protocol Dextrose (D50w) 50 ml IVP PRN PRN; Protocol PRN Reason: hypoglycemia protocol Enoxaparin Sodium (Lovenox) 80 mg 1 mg/kg (80 mg) SUBCUT Q12H DIANE Glucagon (Glucagen) 1 mg IM ONCE PRN; Protocol PRN Reason: Adult Acute Hypoglycemia Prot. Norepinephrine Bitartrate 4 mg (/ Dextrose) 254 mls @ 0 mls/hr IV .Q0M DIANE; Protocol Last Titration: 02/04/20 19:39 Dose: Infused Documented by: Dextrose (D5w) 500 mls @ 100 mls/hr IV ONCE PRN; Protocol PRN Reason: Adult Acute Hypoglycemia Prot Insulin Aspart (Novolog) 0 unit SUBCUT BEDTIME DIANE; Protocol Last Admin: 02/04/20 20:58 Dose: 1 unit Documented by: Insulin Aspart (Novolog) 0 unit SUBCUT TIDWM DIANE; Protocol Last Admin: 02/05/20 11:40 Dose: 2 unit Documented by: Metoprolol Tartrate (Lopressor) 12.5 mg NG-TUBE BID DIANE Last Admin: 02/05/20 08:47 Dose: 12.5 mg Documented by: Morphine Sulfate (Morphine) 4 mg IVP Q4H PRN PRN Reason: SEVERE PAIN Last Admin: 02/05/20 04:11 Dose: 4 mg Documented by: Ondansetron HCl (Zofran) 4 mg IVP Q12H PRN PRN Reason: vomiting, or N/V if npo Pantoprazole Sodium (Protonix) 40 mg IVP DAILY [facility] Last Admin: 02/05/20 08:46 Dose: 40 mg Documented by: Ranitidine HCl (Zantac Syrup) 300 mg PO BEDTIME [facility] Last Admin: 02/04/20 21:34 Dose: 300 mg Documented by: Vitals/I&O/Wt Last Vital Signs Temp 97.6 F 02/11/20 04:00 Pulse 76 02/11/20 12:00 Resp 26 H 02/11/20 12:00 BP 106/57 02/11/20 12:00 Pulse Ox 93 02/11/20 12:00 02/10/20 02/11/20 02/11/20 22:59 06:59 14:59 Intake Total 340 / 390 50 / 440 100 / 100 Output Total 100 / 100 550 / 650 Balance 240 / 290 -500 / -210 100 / 100 Weight last 48 hrs Weight 72.121 kg Weight 72.938 kg Physical Exam Const: COMMON NORMALS: no apparent distress and oriented x3 Resp: COMMON NORMALS: normal respiratory effort OTHER: Bibasilar Rales. On Bipap. Cardio: COMMON NORMALS: regular rate, regular rhythm and S2 normal heart sound RATE: regular rate RHYTHM: regular rhythm HEART SOUNDS: S2 normal OTHER: No lower extremity edema. GI: COMMON NORMALS: normal to inspection, nondistended, normoactive bowel sounds, soft to palpation and non-tender PALPATION: Yes soft Neuro: COMMON NORMALS: oriented x3 and no focal motor deficits Urinary Catheter Management^: Servin: Cath Placed During This Visit: yes Urethral Indwelling: Yes Reason for Continuing Indwelling Catheter: Accurate Measurement of Urinary Output in Critically Ill Patients Urinary Catheter Date of Insertion: 02/01/20 Urinary Catheter Time of Insertion: 18:35 Data : 02/11/20 10:33 02/11/20 10:33 A&P Assessment and plan (1) Acute respiratory failure with hypoxia and hypercarbia: -Patient arrived in significant respiratory distress and was intubated in the ER; extubated on 02/02 -on BiPAP vs. NC; noted increased oxygen requirement today -Continue to monitor respiratory status closely; noted tachypnea -repeat imaging shows evidence of fluid overload, improved today -AM ABG noted, appropriate -Continued monitoring of hemodynamic status -Negative for PE on CTA -dose of 20 mg oral Lasix today Status: Acute (2) Non-ST elevation [place] (NSTEMI): -found to have recurrent troponin elevation with delta of 900 -Has known history of CAD with prior stenting; last cardiac work-up done in 2019 with echo showing EF of 79%, cath done in 2018 -Continue therapeutic Lovenox, aspirin, Plavix, metoprolol; no statins due to history of hepatocellular carcinoma -Cardiology consult by Dr. Alaniz appreciated; plan for cath tomorrow -repeat Echo: EF=28%, global LV hypokinesis, G1DD, moderate pulmonary HTN (44), mild MR, moderate , mild AR, moderate TR, mild DC Status: Acute (3) Right lower lobe pneumonia: -reported episode of vomiting following intake of nitroglycerin as well as hemoptysis we will cannot exclude element of aspiration -Noted leukocytosis with neutrophilic predominance, now resolved -off vent support -On broad-spectrum IV antibiotics (Zosyn/Levaquin/Vanc); will d/c as no leukocytosis, afebrile x > 48 hrs -negative for influenza; screening for COVID-19 negative -blood cx: negative -sputum cx-prelim mixed cheng, gram stain negative Status: Suspected Qualifiers: Pneumonia type: due to unspecified organism Qualified Code(s): J18.9 - Pneumonia, unspecified organism (4) Hepatocellular carcinoma: -has known hepatocellular carcinoma, no known metastatic disease -f/u at [facility] -noted LFTs which are decreasing, coags Status: Chronic (5) Hypertension: -BP stable, off pressor support -hold antihypertensives other than BB -continue to monitor hemodynamic status Status: Chronic Qualifiers: Hypertension type: essential hypertension Qualified Code(s): I10 - Essential (primary) hypertension Additional A&P Information -Acute kidney injury. This appears to be prerenal secondary to heart failure. -Acute systolic CHF exacerbation. -PVD, s/p RLE stenting -Chronic smoker -NIDDM type II; accucheks, ISS, hypoglycemia precautions -bilateral carotid artery stenosis -known infrarenal AAA; stable per imaging (last done in 01/2020), follows up with Dr. Pratt -Chronic thrombocytopenia, likely secondary to liver pathology, continue to monitor platelet count; baseline is around 80-100 -GERD, on PPI and H2 chase -Liver cirrhosis, secondary to non-alcoholic steatosis; spleen is upper level of normal size, mesenteric adenopathy (stable per last imaging) -Normocytic anemia; appears to be intermittent as baseline Hg wnl; continue to monitor H/H, has been gradually trending down -GI ppx with PPI -DVT ppx not needed as on therapeutic lovenox -PT/OT/ST evaluations -decrease pain med doses as likely contributing to lethargy particularly in combination with anxiolytics PLAN: Continue current monitoring and treatment as per Dr. Olson. Patient to have angiogram in the future if able to be in supine position. Will change Ativan to as needed. -Dispo: was living at home independently; may need HH vs. SNF -Code status: FULL code -transfer to CSU for continued care Attestations Medical Necessity Statement*: Patient with heart failure requires inpatient monitoring and treatment. Coding Level of Care Code Acute Open Hearth Melter for g Fwd Diagnoses Acute respiratory failure with hypoxia and hypercarbia J96.01; J96.02 Non-ST elevation [place] (NSTEMI) I21.4 Right lower lobe pneumonia J18.9 Pneumonia type: due to unspecified organism Hepatocellular carcinoma C22.0 Hypertension I10 Hypertension type: essential hypertension
[2020-02-11] MEDS: FUROsemide 10 mg/mL SDV 10mL 60 MG IVP (14:37)
[2020-02-11 16:38] LABS: Glucose Point of Care 201 mg/dL (70-110)
--- NOTE | 2020-02-11 18:49 | PC.NURSE ---
BIPAP Tolerating well. When up and exerts herself, she complains of chest pain when she sits up on the edge of bed.
[2020-02-11 20:15] LABS: Glucose Point of Care 124 mg/dL (70-110)
--- NOTE | 2020-02-11 21:37 | PC.NURSE ---
Patient requests ativan to help her relax. 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
[2020-02-12] VITALS (18 sets, daily range): BP systolic 94–109; BP diastolic 46–65; PULSE 67–140; RESP 16–28; TEMP 36.4–36.6; O2SAT 92–100; BMI 26.9
[2020-02-12] MEDS: morphine 4 mg/mL SDV 1 mL 1 MG IVP (00:45)
[2020-02-12] MEDS: enoxaparin 80 mg/0.8 mL Syringe 70 MG SUBCUT (01:18)
[2020-02-12] MEDS: piperacillin-tazobactam 3.375 GM in sodium chloride 0.9% (plus) 50 ML IV ×3 (01:44→17:39)
--- NOTE | 2020-02-12 02:14 | PC.NURSE ---
12:20 Patient HR elevated and irreg. VS and symptoms as noted in Physician notification. Dr discussed code status with patient and she does not want compressions, shocking, or vent, should her condition worsen. Refusing Bipap because she states cant breathe Orders received and noted, Morphine administered as orderd with almost immediate relief of stated shortness of breath. Bipap reapplied. Amiodarone drip started per protocol. 01:30 Patient resting quietly HR 73 SBP 99/61 SPO2 98 IvFluids infusing without difficulty.
[2020-02-12] MEDS: ipratropium-albuterol 3 mL Neb INHALATION ×4 (03:24→20:01)
--- NOTE | 2020-02-12 03:31 | PC.NURSE ---
0110 Patient Converted to SR 80s Doctor aware and instructed to give loading dose and proceed with amiodarone drip.
--- NOTE | 2020-02-12 05:15 | PC.NURSE ---
0515 Spoke with daughter Tiarra regarding patient's night and changes. Daughter expressed disagreement with patients request for A.N.D. and A.N.D. status. States that her mother doesn't understand. Daughter Tiarra requests that physician call her after seeing patient this morning.
[2020-02-12 05:20] LABS: Blood Urea Nitrogen 38 mg/dL (8-23); Calcium 9.3 mg/dL (8.5-10.5); Carbon Dioxide 24 mmol/L (22-29); Chloride 94 mmol/L (98-107); Glucose 187 mg/dL (65-115); Magnesium 2.6 mg/dL (1.7-2.3); Osmolality Calculated 280 mOsm/kg (285-295); Sodium 134 mmol/L (136-145)
[2020-02-12 05:40] LABS: Basophils # 0.1 10^3/uL (0.0-0.1); Eosinophils % 0.3 %; Hematocrit 34.7 % (37.0-47.0); Hemoglobin 10.4 g/dL (11.5-15.3); Lymphocytes # 0.8 10^3/uL (0.8-4.8); Lymphocytes % 13.7 %; Mean Corpuscular Hemoglobin 29.7 pg (28.0-34.0); Mean Corpuscular Volume 99.1 fL (81-99); Mean Platelet Volume 14.4 fL (7.4-10.4); Monocytes # 0.5 10^3/uL (0.2-0.9); Monocytes % 8.2 %; Neutrophils # 4.7 10^3/uL (1.8-7.7); Neutrophils % 76.3 %; Nucleated Red Blood Cells % 0 %; Platelet Count 146 10^3/cmm (130-400); White Blood Count 6.1 10^3/uL (4.0-10.0)
[2020-02-12 05:42] LABS: Glucose Point of Care 168 mg/dL (70-110)
[2020-02-12] MEDS: levofloxacin-dextrose 5 % 750 MG/150 ML PREMIX 150 MG IV (08:01)
[2020-02-12] MEDS: metoprolol tartrate 25 mg Tablet 12.5 MG PO ×2 (08:02→17:38)
[2020-02-12] MEDS: clopidogrel 75 mg Tablet PO (08:02)
[2020-02-12] MEDS: aspirin 81 mg EC Tablet PO (08:02)
[2020-02-12] MEDS: isosorbide dinitrate 20 mg Tablet 5 MG PO ×2 (08:02→17:39)
[2020-02-12] MEDS: pantoprazole 40 mg SDV IVP (08:03)
--- NOTE | 2020-02-12 09:14 | PM.PN ---
Subjective Subjective: Interval history: Patient started having chest pain and shortness of breath last night. She went into atrial fibrillation with rapid ventricular response and was started on amiodarone. She was given morphine with resolution of her pain. Shortly after she converted to normal sinus rate and this morning she denies chest pain or shortness of breath. She has been off BiPAP for the last 2 hours and doing well. She is on 6 L by nasal cannula saturating in the high 90s. Her chest x-ray was suggestive of pneumonia and patient was started on Levaquin and vancomycin in addition to Zosyn at this point. She voiced to Dr. Leos last night that she wants to allow natural and does not want to be resuscitated or intubated. Her CODE STATUS was changed to reflect that. She reports drinking fluids but does not eat solid meal. Reports that every time she eats she gets nauseous. I have discussed with RN last night to remove Servin catheter. As I was told Dr. Queen requested Servin to stay for now for close I's and O's. She has dark concentrated urine in Servin bag. She urinated slightly more than 2 L since yesterday after she was given dose of Lasix. Her blood pressure is 97/50 this morning. Her white blood cell count and platelet count appear to plateau. Hemoglobin is stable. Creatinine slightly increased to 1.7. Vitals/I&O/Wt Last Vital Signs Temp 97.6 F 02/12/20 04:00 Pulse 73 02/12/20 08:30 Resp 26 H 02/12/20 08:30 BP 103/65 02/12/20 08:00 Pulse Ox 97 02/12/20 08:30 02/11/20 02/12/20 02/12/20 22:59 06:59 14:59 Intake Total 400 / 668 343 / 1011 217.925 / 217.925 Output Total 1660 / 1660 450 / 2110 Balance -1260 / -992 -107 / -1099 217.925 / 217.925 Weight last 48 hrs Weight 73.482 kg Weight 72.121 kg Physical Exam Const: COMMON NORMALS: no apparent distress and oriented x3 Resp: COMMON NORMALS: normal respiratory effort EFFORT & INSPECTION: No respiratory distress OTHER: Bibasilar Rales. Cardio: COMMON NORMALS: regular rate, regular rhythm and S2 normal heart sound RATE: regular rate RHYTHM: regular rhythm HEART SOUNDS: S2 normal OTHER: No lower extremity edema. GI: COMMON NORMALS: normal to inspection, nondistended, normoactive bowel sounds, soft to palpation and non-tender PALPATION: Yes soft Neuro: COMMON NORMALS: oriented x3 and no focal motor deficits Urinary Catheter Management^: Servin: Cath Placed During This Visit: yes Urethral Indwelling: Yes Reason for Continuing Indwelling Catheter: Accurate Measurement of Urinary Output in Critically Ill Patients Urinary Catheter Date of Insertion: 02/01/20 Urinary Catheter Time of Insertion: 18:35 Data : 02/12/20 04:28 02/12/20 04:28 A&P Assessment and plan (1) Acute respiratory failure with hypoxia and hypercarbia: -Patient arrived in significant respiratory distress and was intubated in the ER; extubated on 02/02 -on BiPAP vs. NC; noted increased oxygen requirement today -Continue to monitor respiratory status closely; noted tachypnea -repeat imaging shows evidence of fluid overload, improved today -AM ABG noted, appropriate -Continued monitoring of hemodynamic status -Negative for PE on CTA -dose of 20 mg oral Lasix today Status: Acute (2) Non-ST elevation [place] (NSTEMI): -found to have recurrent troponin elevation with delta of 900 -Has known history of CAD with prior stenting; last cardiac work-up done in 2019 with echo showing EF of 79%, cath done in 2018 -Continue therapeutic Lovenox, aspirin, Plavix, metoprolol; no statins due to history of hepatocellular carcinoma -Cardiology consult by Dr. Alaniz appreciated; plan for cath tomorrow -repeat Echo: EF=28%, global LV hypokinesis, G1DD, moderate pulmonary HTN (44), mild MR, moderate , mild AR, moderate TR, mild FL Status: Acute (3) Right lower lobe pneumonia: -reported episode of vomiting following intake of nitroglycerin as well as hemoptysis we will cannot exclude element of aspiration -Noted leukocytosis with neutrophilic predominance, now resolved -off vent support -On broad-spectrum IV antibiotics (Zosyn/Levaquin/Vanc); will d/c as no leukocytosis, afebrile x > 48 hrs -negative for influenza; screening for COVID-19 negative -blood cx: negative -sputum cx-prelim mixed cheng, gram stain negative Status: Suspected Qualifiers: Pneumonia type: due to unspecified organism Qualified Code(s): J18.9 - Pneumonia, unspecified organism (4) Hepatocellular carcinoma: -has known hepatocellular carcinoma, no known metastatic disease -f/u at [facility] -noted LFTs which are decreasing, coags Status: Chronic (5) Hypertension: -BP stable, off pressor support -hold antihypertensives other than BB -continue to monitor hemodynamic status Status: Chronic Qualifiers: Hypertension type: essential hypertension Qualified Code(s): I10 - Essential (primary) hypertension Additional A&P Information -Acute kidney injury. This appears to be prerenal secondary to heart failure. -Acute systolic CHF exacerbation. -PVD, s/p RLE stenting -Chronic smoker -NIDDM type II; accucheks, ISS, hypoglycemia precautions -bilateral carotid artery stenosis -known infrarenal AAA; stable per imaging (last done in 01/2020), follows up with Dr. Pratt -Chronic thrombocytopenia, likely secondary to liver pathology, continue to monitor platelet count; baseline is around 80-100 -GERD, on PPI and H2 chase -Liver cirrhosis, secondary to non-alcoholic steatosis; spleen is upper level of normal size, mesenteric adenopathy (stable per last imaging) -Normocytic anemia; appears to be intermittent as baseline Hg wnl; continue to monitor H/H, has been gradually trending down Bibasilar pneumonia. Most likely present on admission. -GI ppx with PPI -DVT ppx not needed as on therapeutic lovenox -PT/OT/ST evaluations -decrease pain med doses as likely contributing to lethargy particularly in combination with anxiolytics PLAN: Amiodarone drip discontinued as patient is converted to normal sinus rhythm and has slight diastolic hypotension. Discussed with brock RN and we will remove Servin catheter Continue current antibiotics for treatment of pneumonia. Consider switching Zosyn to Flagyl as aspiration still of concern. She appears to be well compensated from CHF standpoint. Continue Lasix use as needed. Will discuss with Dr. Olson later today after his evaluation. Currently patient being treated medically for underlying coronary artery disease. Continue physical therapy. Discussed CODE STATUS with patient and she confirmed her decision to allow natural . She denies being depressed or having suicidal ideations. -Dispo: was living at home independently; may need HH vs. SNF -Code status: FULL code -transfer to CSU for continued care Attestations Medical Necessity Statement*: Patient with pneumonia requires close inpatient monitoring and treatment. Coding Level of Care Code Acute Carton Waxing Machine Operator for Chg Fwd Diagnoses Acute respiratory failure with hypoxia and hypercarbia J96.01; J96.02 Non-ST elevation NE (NSTEMI) I21.4 Right lower lobe pneumonia J18.9 Pneumonia type: due to unspecified organism Hepatocellular carcinoma C22.0 Hypertension I10 Hypertension type: essential hypertension
[2020-02-12] MEDS: vancomycin 1,000 MG in sodium chloride 0.9% 250 ML 250 MG IV (09:59)
--- NOTE | 2020-02-12 10:15 | PC.SOCIAL ---
IMM Updated Updated pt on Pg 2 IMM via phone. Pt verbally understands. No questions voiced. Signed, dated, & timed copy in chart.
[2020-02-12 10:56] LABS: Glucose Point of Care 172 mg/dL (70-110)
[2020-02-12] MEDS: LORazepam 0.5 mg Tablet 0.25 MG PO ×2 (13:36→19:33)
[2020-02-12 16:45] LABS: Glucose Point of Care 133 mg/dL (70-110)
--- NOTE | 2020-02-12 18:52 | PM.PN ---
Subjective Subjective: Interval history: Patients is she is feeling better she is breathing better today she is able to lay flat. Medications: Reviewed: Yes Medication Review Details: Current Medications Acetaminophen (Tylenol) 650 mg PO Q8H PRN PRN Reason: temp > 101 Albuterol/Ipratropium (Duoneb) 3 ml INHALATION Q6H.RESPIRATORY DIANE Last Admin: 02/05/20 08:09 Dose: 3 ml Documented by: Alprazolam (Xanax) 0.5 mg PO TID PRN PRN Reason: ANXIETY Last Admin: 02/04/20 22:56 Dose: 0.5 mg Documented by: Aspirin (Aspirin) 325 mg NG-TUBE DAILY DIANE Last Admin: 02/05/20 08:46 Dose: 325 mg Documented by: Clopidogrel Bisulfate (Plavix) 75 mg NG-TUBE DAILY DIANE Last Admin: 02/05/20 08:46 Dose: 75 mg Documented by: Dextrose (D50w) 25 ml IVP ONCE PRN; Protocol PRN Reason: hypoglycemia protocol Dextrose (D50w) 50 ml IVP PRN PRN; Protocol PRN Reason: hypoglycemia protocol Enoxaparin Sodium (Lovenox) 80 mg 1 mg/kg (80 mg) SUBCUT Q12H DIANE Glucagon (Glucagen) 1 mg IM ONCE PRN; Protocol PRN Reason: Adult Acute Hypoglycemia Prot. Norepinephrine Bitartrate 4 mg (/ Dextrose) 254 mls @ 0 mls/hr IV .Q0M DIANE; Protocol Last Titration: 02/04/20 19:39 Dose: Infused Documented by: Dextrose (D5w) 500 mls @ 100 mls/hr IV ONCE PRN; Protocol PRN Reason: Adult Acute Hypoglycemia Prot Insulin Aspart (Novolog) 0 unit SUBCUT BEDTIME DIANE; Protocol Last Admin: 02/04/20 20:58 Dose: 1 unit Documented by: Insulin Aspart (Novolog) 0 unit SUBCUT TIDWM DIANE; Protocol Last Admin: 02/05/20 11:40 Dose: 2 unit Documented by: Metoprolol Tartrate (Lopressor) 12.5 mg NG-TUBE BID DIANE Last Admin: 02/05/20 08:47 Dose: 12.5 mg Documented by: Morphine Sulfate (Morphine) 4 mg IVP Q4H PRN PRN Reason: SEVERE PAIN Last Admin: 02/05/20 04:11 Dose: 4 mg Documented by: Ondansetron HCl (Zofran) 4 mg IVP Q12H PRN PRN Reason: vomiting, or N/V if npo Pantoprazole Sodium (Protonix) 40 mg IVP DAILY [facility] Last Admin: 02/05/20 08:46 Dose: 40 mg Documented by: Ranitidine HCl (Zantac Syrup) 300 mg PO BEDTIME [facility] Last Admin: 02/04/20 21:34 Dose: 300 mg Documented by: Vitals/I&O/Wt Last Vital Signs Temp 97.7 F 02/12/20 16:00 Pulse 69 02/12/20 17:49 Resp 22 H 02/12/20 16:00 BP 107/63 02/12/20 17:49 Pulse Ox 92 02/12/20 16:00 02/12/20 02/12/20 02/12/20 06:59 14:59 22:59 Intake Total 393 / 1061 485.925 / 485.925 240 / 725.925 Output Total 450 / 2110 300 / 300 Balance -57 / -1049 185.925 / 185.925 240 / 425.925 Weight last 48 hrs Weight 162 lb Weight 159 lb Physical Exam Narrative: EXAM NARRATIVE: GENERAL: Patient is awake and oriented x3. Not in distress NECK: No jugular vein distension. HEENT: No cyanosis. No icterus. No pallor. HEART: Regular S1 and S2. No murmur, rub or gallop. LUNGS: Reduced breath sound with mild crackles on inspiration On the right side. ABDOMEN: Deferred CENTRAL NERVOUS SYSTEM: Grossly nonfocal. EXTREMITIES: Lower extremities without edema bilaterally. Mottle appearance, denies any pain in the leg and feet Urinary Catheter Management^: Servin: Cath Placed During This Visit: yes Urethral Indwelling: Yes Reason for Continuing Indwelling Catheter: Accurate Measurement of Urinary Output in Critically Ill Patients Urinary Catheter Date of Insertion: 02/01/20 Urinary Catheter Time of Insertion: 18:35 Data : 02/12/20 04:28 02/12/20 04:28 A&P Assessment and plan (1) Acute respiratory failure with hypoxia and hypercarbia: Better today and improving Status: Acute (2) Non-ST elevation [place] (NSTEMI): Patient has a lot of comorbidities, she was not able to lay flat on the bed. I am afraid if we have to take her to the Fiscal Assistant she needs to be intubated and sedated. Patient is not willing to do that. Her creatinine is 1.5 I will also fear that she will most likely end up with contrast-induced nephropathy. For now we will treat her medically, once she is euvolemic and able to lay flat reconsideration of rn lab procedure will be discussed again. Continue aspirin beta-chase isosorbide mononitrate and Plavix. Continue anticoagulation. Patient denies any chest pain. Shortness of breath is also better. Creatinine is 1.7. Continue to treat medically Status: Acute (3) Ischemic cardiomyopathy: Getting improved and compensated. Continue diuresis. Status: Acute (4) Right lower lobe pneumonia: As per medicine Status: Suspected Qualifiers: Pneumonia type: due to unspecified organism Qualified Code(s): J18.9 - Pneumonia, unspecified organism (5) Coronary artery disease: Stable denies any chest pain Status: Chronic Qualifiers: Coronary Disease-Associated Artery/Lesion type: [place] artery [place] vs. transplanted heart: [place] heart Associated angina: with unspecified angina Qualified Code(s): I25.119 - Atherosclerotic heart disease of [place] coronary artery with unspecified angina pectoris (6) Peripheral artery disease: s/p right superficial femoral artery angioplasty and stenting in 03/2018.Denies any complain Status: Chronic (7) Mixed hyperlipidemia: Status: Chronic (8) Diabetes: As per medicine Status: Chronic Qualifiers: Diabetes mellitus type: type 2 Diabetes mellitus retirement insulin use: without retirement use Diabetes mellitus complication status: with hyperglycemia Qualified Code(s): E11.65 - Type 2 diabetes mellitus with hyperglycemia Additional A&P Information SVT/ Frequent PVC's: Replace electrolytes to keep potassium more than 4 and magnesium more than 2. Atrial fibrillation: Now back in SR, currently on lovenox and low dose metoprolol. I will plan for long-term anticoagulation based on recurrence of atrial fibrillation. BALBIR: Cr has increased from 1.3-1.5 and BUN has decreased. Bilateral carotid artery stenosis Stable infrarenal abdominal aortic aneurysm Normocytic Anemia : Hemoglobin and platelets has been stable. Thrombocytopenia Anxiety: I think her anxiety has been really a problem here. Hopefully, changing from ativan as needed to round the clock will help. Chronic active smoker Gastroesophageal reflux disease History of liver cirrhosis History of thrombocytopenia Hepatocellular carcinoma being followed at [facility] Thank you for allowing me to participate in patient's care. Please feel free to call with questions or concerns. Attestations Medical Necessity Statement*: Patient requires continuation of hospitalization for above defined care Coding Level of Care Code Established Pt Acute Backend Python Developer for Chg Fwd Patient Type Established History Expanded Problem Focused Exam Expanded Problem Focused Medical Decision Making Moderate Complexity Diagnoses Acute respiratory failure with hypoxia and hypercarbia J96.01; J96.02 Non-ST elevation [place] (NSTEMI) I21.4 Ischemic cardiomyopathy I25.5 Right lower lobe pneumonia J18.9 Pneumonia type: due to unspecified organism Coronary artery disease I25.119 Coronary Disease-Associated Artery/Lesion type: [place] artery [place] vs. transplanted heart: [place] heart Associated angina: with unspecified angina Peripheral artery disease I73.9 Mixed hyperlipidemia E78.2 Diabetes E11.65 Diabetes mellitus type: type 2 Diabetes mellitus retirement insulin use: without terminal system operator use Diabetes mellitus complication status: with hyperglycemia
--- NOTE | 2020-02-12 19:02 | PC.NURSE ---
Family update Updated dgtr Andre on how her mother has been doing this shift. She was requesting that pt needs anxiety medicine tonight. I told her the order is PRN TID now compared to scheduled TID. She thought that the scheduled medication help her just by talking to the pt through phone. I told her she can still have TID but only when pt asked for it. She understands. She would like the doctors tomorrow to update her tomorrow's plan. Informed night nurse.
[2020-02-12 20:44] LABS: Glucose Point of Care 257 mg/dL (70-110)
[2020-02-13] VITALS (13 sets, daily range): BP systolic 92–122; BP diastolic 55–74; PULSE 40–85; RESP 20–32; TEMP 36.3–36.7; O2SAT 91–100
[2020-02-13] MEDS: piperacillin-tazobactam 3.375 GM in sodium chloride 0.9% (plus) 50 ML IV (02:14)
[2020-02-13] MEDS: ipratropium-albuterol 3 mL Neb INHALATION ×4 (02:25→20:27)
[2020-02-13] MEDS: LORazepam 0.5 mg Tablet 0.25 MG PO ×3 (03:19→20:09)
[2020-02-13] MEDS: acetaminophen 325 mg Tablet 650 MG PO ×2 (03:28→16:02)
[2020-02-13 05:53] LABS: Anion Gap 20.3 (5-19); Blood Urea Nitrogen 33 mg/dL (8-23); Calcium 9.1 mg/dL (8.5-10.5); Carbon Dioxide 21 mmol/L (22-29); Chloride 95 mmol/L (98-107); Glucose 216 mg/dL (65-115); Magnesium 2.3 mg/dL (1.7-2.3); Osmolality Calculated 278 mOsm/kg (285-295); Potassium 4.3 mmol/L (3.5-5.1); Sodium 132 mmol/L (136-145)
[2020-02-13 06:37] LABS: Glucose Point of Care 194 mg/dL (70-110)
[2020-02-13 07:15] LABS: Basophils % 0.7 %; Eosinophils % 0.5 %; Hematocrit 33.7 % (37.0-47.0); Hemoglobin 10.2 g/dL (11.5-15.3); Lymphocytes # 0.8 10^3/uL (0.8-4.8); Lymphocytes % 13.9 %; Mean Corpuscular HGB Conc 30.3 g/dL (30.0-36.0); Mean Corpuscular Hemoglobin 29.6 pg (28.0-34.0); Mean Corpuscular Volume 97.7 fL (81-99); Mean Platelet Volume 14.2 fL (7.4-10.4); Monocytes # 0.5 10^3/uL (0.2-0.9); Monocytes % 7.8 %; Neutrophils # 4.5 10^3/uL (1.8-7.7); Neutrophils % 76.4 %; Nucleated Red Blood Cells % 0 %; Platelet Count 131 10^3/cmm (130-400); Red Blood Count 3.45 10^6/uL (4.1-5.3); Red Cell Distribution Width 16.1 % (12.1-15.1); White Blood Count 5.9 10^3/uL (4.0-10.0)
[2020-02-13] MEDS: aspirin 81 mg EC Tablet PO (08:41)
[2020-02-13] MEDS: clopidogrel 75 mg Tablet PO (08:41)
[2020-02-13] MEDS: pantoprazole 40 mg SDV IVP (08:41)
[2020-02-13] MEDS: vancomycin 1,000 MG in sodium chloride 0.9% 250 ML 250 MG IV (09:59)
--- NOTE | 2020-02-13 10:13 | PM.PN ---
Subjective Subjective: Interval history: Patient had episode of shortness of breath last night requiring BiPAP. She is breathing much more comfortably this morning and was several hours off BiPAP. She reports having brownish productive cough since this morning. She reports today that she gets short of breath while her oxygen in the mid 90s and she starts somewhat shaking and every time she gets short of breath her right arm starts hurting. Today patient reports that anxiety pills appear to be helping. She told me that she knows she is going to but waiting when is hard on her. She became slightly tearful when she was talking about it. She is familiar with hospice as her was under hospice care but no discussion was previously initiated with patient. She has loose bowel movement earlier this morning without evidence of hematochezia or melena. Isosorbide dinitrate was held today because of low blood pressure. She ate 25% of her breakfast this morning. Reports overall poor appetite. Reports minimal movement with physical therapy takes her breath away. Medications: Reviewed: Yes Medication Review Details: Current Medications Acetaminophen (Tylenol) 650 mg PO Q8H PRN PRN Reason: temp > 101 Albuterol/Ipratropium (Duoneb) 3 ml INHALATION Q6H.RESPIRATORY [facility] Last Admin: 02/05/20 08:09 Dose: 3 ml Documented by: Alprazolam (Xanax) 0.5 mg PO TID PRN PRN Reason: ANXIETY Last Admin: 02/04/20 22:56 Dose: 0.5 mg Documented by: Aspirin (Aspirin) 325 mg NG-TUBE DAILY [facility] Last Admin: 02/05/20 08:46 Dose: 325 mg Documented by: Clopidogrel Bisulfate (Plavix) 75 mg NG-TUBE DAILY [facility] Last Admin: 02/05/20 08:46 Dose: 75 mg Documented by: Dextrose (D50w) 25 ml IVP ONCE PRN; Protocol PRN Reason: hypoglycemia protocol Dextrose (D50w) 50 ml IVP PRN PRN; Protocol PRN Reason: hypoglycemia protocol Enoxaparin Sodium (Lovenox) 80 mg 1 mg/kg (80 mg) SUBCUT Q12H [facility] Glucagon (Glucagen) 1 mg IM ONCE PRN; Protocol PRN Reason: Adult Acute Hypoglycemia Prot. Norepinephrine Bitartrate 4 mg (/ Dextrose) 254 mls @ 0 mls/hr IV .Q0M [facility]; Protocol Last Titration: 02/04/20 19:39 Dose: Infused Documented by: Dextrose (D5w) 500 mls @ 100 mls/hr IV ONCE PRN; Protocol PRN Reason: Adult Acute Hypoglycemia Prot Insulin Aspart (Novolog) 0 unit SUBCUT BEDTIME [facility]; Protocol Last Admin: 02/04/20 20:58 Dose: 1 unit Documented by: Insulin Aspart (Novolog) 0 unit SUBCUT TIDWM [facility]; Protocol Last Admin: 02/05/20 11:40 Dose: 2 unit Documented by: Metoprolol Tartrate (Lopressor) 12.5 mg NG-TUBE BID [facility] Last Admin: 02/05/20 08:47 Dose: 12.5 mg Documented by: Morphine Sulfate (Morphine) 4 mg IVP Q4H PRN PRN Reason: SEVERE PAIN Last Admin: 02/05/20 04:11 Dose: 4 mg Documented by: Ondansetron HCl (Zofran) 4 mg IVP Q12H PRN PRN Reason: vomiting, or N/V if npo Pantoprazole Sodium (Protonix) 40 mg IVP DAILY [facility] Last Admin: 02/05/20 08:46 Dose: 40 mg Documented by: Ranitidine HCl (Zantac Syrup) 300 mg PO BEDTIME [facility] Last Admin: 02/04/20 21:34 Dose: 300 mg Documented by: Vitals/I&O/Wt Last Vital Signs Temp 97.9 F 02/13/20 07:40 Pulse 71 02/13/20 08:01 Resp 24 H 02/13/20 08:01 BP 97/55 02/13/20 07:40 Pulse Ox 96 02/13/20 08:01 02/12/20 02/13/20 02/13/20 22:59 06:59 14:59 Intake Total 315 / 1050.925 50 / 1100.925 Output Total 170 / 470 Balance 315 / 750.925 -120 / 630.925 Weight last 48 hrs Weight 73.085 kg Weight 73.482 kg Physical Exam Const: COMMON NORMALS: no apparent distress and oriented x3 Resp: COMMON NORMALS: normal respiratory effort EFFORT & INSPECTION: No respiratory distress OTHER: Clear lungs and overall much improved air movement. Cardio: COMMON NORMALS: regular rate, regular rhythm and S2 normal heart sound RATE: regular rate RHYTHM: regular rhythm HEART SOUNDS: S2 normal OTHER: No lower extremity edema. GI: COMMON NORMALS: normal to inspection, nondistended, normoactive bowel sounds, soft to palpation and non-tender PALPATION: Yes soft Neuro: COMMON NORMALS: oriented x3 and no focal motor deficits Urinary Catheter Management^: Servin: Cath Placed During This Visit: yes Urethral Indwelling: Yes Reason for Continuing Indwelling Catheter: Accurate Measurement of Urinary Output in Critically Ill Patients Urinary Catheter Date of Insertion: 02/01/20 Urinary Catheter Time of Insertion: 18:35 Data : 02/13/20 06:56 02/13/20 05:12 A&P Assessment and plan (1) Acute respiratory failure with hypoxia and hypercarbia: -Patient arrived in significant respiratory distress and was intubated in the ER; extubated on 02/02 -on BiPAP vs. NC; noted increased oxygen requirement today -Continue to monitor respiratory status closely; noted tachypnea -repeat imaging shows evidence of fluid overload, improved today -AM ABG noted, appropriate -Continued monitoring of hemodynamic status -Negative for PE on CTA -dose of 20 mg oral Lasix today Status: Acute (2) Non-ST elevation MA (NSTEMI): -found to have recurrent troponin elevation with delta of 900 -Has known history of CAD with prior stenting; last cardiac work-up done in 2019 with echo showing EF of 79%, cath done in 2018 -Continue therapeutic Lovenox, aspirin, Plavix, metoprolol; no statins due to history of hepatocellular carcinoma -Cardiology consult by Dr. Alaniz appreciated; plan for cath tomorrow -repeat Echo: EF=28%, global LV hypokinesis, G1DD, moderate pulmonary HTN (44), mild MR, moderate , mild AR, moderate TR, mild KS Status: Acute (3) Right lower lobe pneumonia: -reported episode of vomiting following intake of nitroglycerin as well as hemoptysis we will cannot exclude element of aspiration -Noted leukocytosis with neutrophilic predominance, now resolved -off vent support -On broad-spectrum IV antibiotics (Zosyn/Levaquin/Vanc); will d/c as no leukocytosis, afebrile x > 48 hrs -negative for influenza; screening for COVID-19 negative -blood cx: negative -sputum cx-prelim mixed cheng, gram stain negative Status: Suspected Qualifiers: Pneumonia type: due to unspecified organism Qualified Code(s): J18.9 - Pneumonia, unspecified organism (4) Hepatocellular carcinoma: -has known hepatocellular carcinoma, no known metastatic disease -f/u at [facility] -noted LFTs which are decreasing, coags Status: Chronic (5) Hypertension: -BP stable, off pressor support -hold antihypertensives other than BB -continue to monitor hemodynamic status Status: Chronic Qualifiers: Hypertension type: essential hypertension Qualified Code(s): I10 - Essential (primary) hypertension Additional A&P Information -Acute kidney injury. This appears to be prerenal secondary to heart failure. -Acute systolic CHF exacerbation. -PVD, s/p RLE stenting -Chronic smoker -NIDDM type II; accucheks, ISS, hypoglycemia precautions -bilateral carotid artery stenosis -known infrarenal AAA; stable per imaging (last done in 01/2020), follows up with Dr. Pratt -Chronic thrombocytopenia, likely secondary to liver pathology, continue to monitor platelet count; baseline is around 80-100 -GERD, on PPI and H2 chase -Liver cirrhosis, secondary to non-alcoholic steatosis; spleen is upper level of normal size, mesenteric adenopathy (stable per last imaging) -Normocytic anemia; appears to be intermittent as baseline Hg wnl; continue to monitor H/H, has been gradually trending down Bibasilar pneumonia. Most likely present on admission. -GI ppx with PPI -DVT ppx not needed as on therapeutic lovenox -PT/OT/ST evaluations -decrease pain med doses as likely contributing to lethargy particularly in combination with anxiolytics PLAN: Continue current monitoring and treatment as per cardiology. Will DC Zosyn and continue with Levaquin and vancomycin for now. Obtain sputum for culture and Gram stain. Continue with physical therapy. We will start patient on hydroxyzine for treatment of anxiety and continue as needed Ativan. Cardiology to make decision regarding intervention. We will request chest x-ray in a.m. -Dispo: was living at home independently; may need HH vs. SNF -Code status: FULL code -transfer to [facility] for continued care Attestations Medical Necessity Statement*: Patient with respiratory failure and pneumonia requires close inpatient monitoring and treatment. Coding Level of Care Code Acute Wrapping Machine Tender for Stephanie Mora Diagnoses Acute respiratory failure with hypoxia and hypercarbia J96.01; J96.02 Non-ST elevation MA (NSTEMI) I21.4 Right lower lobe pneumonia J18.9 Pneumonia type: due to unspecified organism Hepatocellular carcinoma C22.0 Hypertension I10 Hypertension type: essential hypertension
[2020-02-13] MEDS: metoprolol tartrate 25 mg Tablet 12.5 MG PO ×2 (10:46→19:40)
[2020-02-13 11:12] LABS: Glucose Point of Care 124 mg/dL (70-110)
--- NOTE | 2020-02-13 13:42 | PC.PT ---
Therapy attempted to see patient at 13:35 but she was sleeping and on Bi-PAP. Pt refused OT this morning as well. Nurse reports it is typically best to see patient in the morning due to likelihood of increased mood and participation. Will check back tomorrow.
[2020-02-13] MEDS: hyDROXYzine 25 mg Capsule PO ×2 (14:45→20:44)
[2020-02-13 16:39] LABS: Glucose Point of Care 154 mg/dL (70-110)
--- NOTE | 2020-02-13 17:41 | PM.PN ---
Subjective Subjective: Interval history: Patient is feeling better today sitting by the side. Creatinine stable is 1.5. Medications: Reviewed: Yes Medication Review Details: Current Medications Acetaminophen (Tylenol) 650 mg PO Q8H PRN PRN Reason: temp > 101 Albuterol/Ipratropium (Duoneb) 3 ml INHALATION Q6H.RESPIRATORY [facility] Last Admin: 02/05/20 08:09 Dose: 3 ml Documented by: Alprazolam (Xanax) 0.5 mg PO TID PRN PRN Reason: ANXIETY Last Admin: 02/04/20 22:56 Dose: 0.5 mg Documented by: Aspirin (Aspirin) 325 mg NG-TUBE DAILY [facility] Last Admin: 02/05/20 08:46 Dose: 325 mg Documented by: Clopidogrel Bisulfate (Plavix) 75 mg NG-TUBE DAILY [facility] Last Admin: 02/05/20 08:46 Dose: 75 mg Documented by: Dextrose (D50w) 25 ml IVP ONCE PRN; Protocol PRN Reason: hypoglycemia protocol Dextrose (D50w) 50 ml IVP PRN PRN; Protocol PRN Reason: hypoglycemia protocol Enoxaparin Sodium (Lovenox) 80 mg 1 mg/kg (80 mg) SUBCUT Q12H [facility] Glucagon (Glucagen) 1 mg IM ONCE PRN; Protocol PRN Reason: Adult Acute Hypoglycemia Prot. Norepinephrine Bitartrate 4 mg (/ Dextrose) 254 mls @ 0 mls/hr IV .Q0M [facility]; Protocol Last Titration: 02/04/20 19:39 Dose: Infused Documented by: Dextrose (D5w) 500 mls @ 100 mls/hr IV ONCE PRN; Protocol PRN Reason: Adult Acute Hypoglycemia Prot Insulin Aspart (Novolog) 0 unit SUBCUT BEDTIME [facility]; Protocol Last Admin: 02/04/20 20:58 Dose: 1 unit Documented by: Insulin Aspart (Novolog) 0 unit SUBCUT TIDWM [facility]; Protocol Last Admin: 02/05/20 11:40 Dose: 2 unit Documented by: Metoprolol Tartrate (Lopressor) 12.5 mg NG-TUBE BID [facility] Last Admin: 02/05/20 08:47 Dose: 12.5 mg Documented by: Morphine Sulfate (Morphine) 4 mg IVP Q4H PRN PRN Reason: SEVERE PAIN Last Admin: 02/05/20 04:11 Dose: 4 mg Documented by: Ondansetron HCl (Zofran) 4 mg IVP Q12H PRN PRN Reason: vomiting, or N/V if npo Pantoprazole Sodium (Protonix) 40 mg IVP DAILY [facility] Last Admin: 02/05/20 08:46 Dose: 40 mg Documented by: Ranitidine HCl (Zantac Syrup) 300 mg PO BEDTIME [facility] Last Admin: 02/04/20 21:34 Dose: 300 mg Documented by: Vitals/I&O/Wt Last Vital Signs Temp 97.6 F 02/13/20 15:07 Pulse 70 02/13/20 15:07 Resp 22 H 02/13/20 15:07 BP 122/74 02/13/20 15:07 Pulse Ox 91 02/13/20 15:07 02/13/20 02/13/20 02/13/20 06:59 14:59 22:59 Intake Total 100 / 1300.925 360 / 360 Output Total 170 / 470 Balance -70 / 830.925 360 / 360 Weight last 48 hrs Weight 161 lb 2 oz Weight 162 lb Physical Exam Narrative: EXAM NARRATIVE: GENERAL: Patient is awake and oriented x3. HEENT: No cyanosis. No icterus. No pallor. HEART: Regular S1 and S2. No murmur, rub or gallop. LUNGS: Decrease breath sound bilaterally ABDOMEN: Deferred CENTRAL NERVOUS SYSTEM: Grossly nonfocal. EXTREMITIES: Lower extremities without edema bilaterally. Mottle appearance, denies any pain in the leg and feet Urinary Catheter Management^: Servin: Cath Placed During This Visit: yes, but has since been removed by the nurse Urethral Indwelling: Yes Reason for Continuing Indwelling Catheter: Accurate Measurement of Urinary Output in Critically Ill Patients Urinary Catheter Date of Insertion: 02/01/20 Urinary Catheter Time of Insertion: 18:35 Date Urinary Catheter Removed: 02/12/20 Time Urinary Catheter Discontinued: 09:45 Data : 02/13/20 06:56 02/13/20 05:12 A&P Assessment and plan (1) Acute respiratory failure with hypoxia and hypercarbia: Stable and improved Status: Acute (2) Non-ST elevation NM (NSTEMI): Patient has a lot of comorbidities, she was not able to lay flat on the bed. I am afraid if we have to take her to the [facility] she needs to be intubated and sedated. Patient is not willing to do that. Her creatinine is 1.5 I will also fear that she will most likely end up with contrast-induced nephropathy. For now we will treat her medically, once she is euvolemic and able to lay flat reconsideration of construction or leak gang laborer procedure will be discussed again. Continue aspirin beta-chase isosorbide mononitrate and Plavix. Continue anticoagulation. Patient continues to deny chest pain now. She is less short of breath. Creatinine remained at 1.7. She is high risk for contrast induced nephropathy. We will continue to manage her medically for now once Improve renal function sloan will reconsider angiogram. Status: Acute (3) Ischemic cardiomyopathy: Well compensated continue to hold diuresiss. Status: Acute (4) Right lower lobe pneumonia: Improving. Continue medicine Status: Suspected Qualifiers: Pneumonia type: due to unspecified organism Qualified Code(s): J18.9 - Pneumonia, unspecified organism (5) Coronary artery disease: Stable denies any chest pain Status: Chronic Qualifiers: Coronary Disease-Associated Artery/Lesion type: [place] artery [place] vs. transplanted heart: [place] heart Associated angina: with unspecified angina Qualified Code(s): I25.119 - Atherosclerotic heart disease of [place] coronary artery with unspecified angina pectoris (6) Peripheral artery disease: s/p right superficial femoral artery angioplasty and stenting in 03/2018.Denies any complain Status: Chronic (7) Mixed hyperlipidemia: Status: Chronic (8) Diabetes: As per medicine Status: Chronic Qualifiers: Diabetes mellitus type: type 2 Diabetes mellitus continuous churn buttermaker insulin use: without continuous churn buttermaker use Diabetes mellitus complication status: with hyperglycemia Qualified Code(s): E11.65 - Type 2 diabetes mellitus with hyperglycemia Additional A&P Information SVT/ Frequent PVC's: Replace electrolytes to keep potassium more than 4 and magnesium more than 2. Atrial fibrillation: Now back in SR, currently on lovenox and low dose metoprolol. I will plan for long-term anticoagulation based on recurrence of atrial fibrillation. [place]: Cr has increased from 1.3-1.5 and BUN has decreased. Bilateral carotid artery stenosis Stable infrarenal abdominal aortic aneurysm Normocytic Anemia : Hemoglobin and platelets has been stable. Thrombocytopenia Anxiety: I think her anxiety has been really a problem here. Hopefully, changing from ativan as needed to round the clock will help. Chronic active smoker Gastroesophageal reflux disease History of liver cirrhosis History of thrombocytopenia Hepatocellular carcinoma being followed at [facility] Thank you for allowing me to participate in patient's care. Please feel free to call with questions or concerns. Attestations Medical Necessity Statement*: Patient Requires continuation of hospitalization for above defined Care. Coding Level of Care Code Established Pt Acute Historic Site Administrator for Stephanie Fwloren Patient Type Established History Expanded Problem Focused Exam Expanded Problem Focused Medical Decision Making Moderate Complexity Diagnoses Acute respiratory failure with hypoxia and hypercarbia J96.01; J96.02 Non-ST elevation NM (NSTEMI) I21.4 Ischemic cardiomyopathy I25.5 Right lower lobe pneumonia J18.9 Pneumonia type: due to unspecified organism Coronary artery disease I25.119 Coronary Disease-Associated Artery/Lesion type: [place] artery [place] vs. transplanted heart: [place] heart Associated angina: with unspecified angina Peripheral artery disease I73.9 Mixed hyperlipidemia E78.2 Diabetes E11.65 Diabetes mellitus type: type 2 Diabetes mellitus continuous churn buttermaker insulin use: without continuous churn buttermaker use Diabetes mellitus complication status: with hyperglycemia
[2020-02-13] MEDS: isosorbide dinitrate 20 mg Tablet 5 MG PO (19:42)
[2020-02-13 21:45] LABS: Glucose Point of Care 198 mg/dL (70-110)
[2020-02-14] VITALS (15 sets, daily range): BP systolic 100–124; BP diastolic 61–73; PULSE 69–102; RESP 18–31; TEMP 36.4–37; O2SAT 90–99
[2020-02-14] MEDS: LORazepam 0.5 mg Tablet 0.25 MG PO ×2 (01:20→18:10)
[2020-02-14] MEDS: ipratropium-albuterol 3 mL Neb INHALATION ×4 (02:00→22:12)
[2020-02-14 05:56] LABS: Basophils % 0.3 %; Eosinophils % 0.3 %; Hematocrit 33.9 % (37.0-47.0); Hemoglobin 10.3 g/dL (11.5-15.3); Lymphocytes # 0.7 10^3/uL (0.8-4.8); Lymphocytes % 11.1 %; Mean Corpuscular HGB Conc 30.4 g/dL (30.0-36.0); Mean Corpuscular Hemoglobin 29.7 pg (28.0-34.0); Mean Corpuscular Volume 97.7 fL (81-99); Mean Platelet Volume 14.1 fL (7.4-10.4); Monocytes # 0.4 10^3/uL (0.2-0.9); Monocytes % 6.6 %; Neutrophils # 5.2 10^3/uL (1.8-7.7); Neutrophils % 81.1 %; Nucleated Red Blood Cells % 0 %; Platelet Count 130 10^3/cmm (130-400); Red Blood Count 3.47 10^6/uL (4.1-5.3); White Blood Count 6.4 10^3/uL (4.0-10.0)
[2020-02-14 06:12] LABS: Anion Gap 19.4 (5-19); Blood Urea Nitrogen 30 mg/dL (8-23); Calcium 9.4 mg/dL (8.5-10.5); Carbon Dioxide 22 mmol/L (22-29); Chloride 96 mmol/L (98-107); Glucose 170 mg/dL (65-115); Magnesium 2.6 mg/dL (1.7-2.3); Osmolality Calculated 277 mOsm/kg (285-295); Potassium 4.4 mmol/L (3.5-5.1); Sodium 133 mmol/L (136-145)
[2020-02-14 06:44] LABS: Glucose Point of Care 169 mg/dL (70-110)
--- NOTE | 2020-02-14 07:00 | XR_ITS ---
WS: [id number] CHEST XRAY TECHNIQUE: Portable chest. CLINICAL INFORMATION: Pneumonia COMPARISON: February 11, 2020 FINDINGS: Heart: Cardiomegaly. Lungs: Advanced chronic emphysematous changes. Patchy infiltrates with subsegmental atelectasis right lower lobe. Small bilateral pleural effusions are stable. Bones: Osteopenia. XR/XR chest 1V portable 19073 IMPRESSION: 1. Right lower lobe infiltrate is stable since February 11, 2020. 2. Small bilateral pleural effusions appear unchanged. 3. Subsegmental atelectasis in the lung bases. 4. Advanced chronic emphysematous changes.
[2020-02-14] MEDS: levofloxacin-dextrose 5 % 750 MG/150 ML PREMIX 150 MG IV (07:20)
[2020-02-14 08:33] LABS: Vancomycin Trough 10.1 ug/mL (10-15)
[2020-02-14] MEDS: clopidogrel 75 mg Tablet PO (08:52)
[2020-02-14] MEDS: metoprolol tartrate 25 mg Tablet 12.5 MG PO ×2 (08:52→18:03)
[2020-02-14] MEDS: hyDROXYzine 25 mg Capsule PO ×3 (08:52→22:01)
[2020-02-14] MEDS: isosorbide dinitrate 20 mg Tablet 5 MG PO ×2 (08:52→18:03)
[2020-02-14] MEDS: aspirin 81 mg EC Tablet PO (08:52)
[2020-02-14] MEDS: pantoprazole 40 mg SDV IVP (08:53)
[2020-02-14] MEDS: vancomycin 1,000 MG in sodium chloride 0.9% 250 ML 250 MG IV (09:15)
--- NOTE | 2020-02-14 09:35 | PC.SOCIAL ---
IMM Updated Page 2 of IMM updated and given to patient. Initialed, dated, and timed and placed back in chart.
--- NOTE | 2020-02-14 10:52 | PM.PN ---
Subjective Subjective: Interval history: Patient continues to have frequent episodes of shortness of breath and chest and right arm pain. Denies significant cough. Today she is not sure if Ativan helps her. Daughter is discussed with patient yesterday regarding her CODE STATUS and she agreed to have CPR but did not want to have intubation. I have discussed with patient's daughter Tiarra this morning and explained that in case of cardiac arrest requiring CPR her chances of surviving is very low but she may suffer from CPR related pain. Discussed with Dr. Olson this morning who reports that Dr. Ruffin is taking over patient's case today. Dr. Ruffin is patient's regular cook helper meat and I will discuss with him after his evaluation. Vitals/I&O/Wt Last Vital Signs Temp 97.5 F L 02/14/20 07:54 Pulse 77 02/14/20 08:14 Resp 24 H 02/14/20 08:14 BP 124/73 02/14/20 07:54 Pulse Ox 97 02/14/20 08:14 02/13/20 02/14/20 02/14/20 22:59 06:59 14:59 Intake Total 250 / 610 200 / 810 Output Total 360 / 360 Balance -110 / 250 200 / 450 Weight last 48 hrs Weight 73.618 kg Weight 73.085 kg Physical Exam Const: COMMON NORMALS: no apparent distress and oriented x3 Resp: COMMON NORMALS: normal respiratory effort EFFORT & INSPECTION: No respiratory distress OTHER: Clear lungs. Patient is on BiPAP. Cardio: COMMON NORMALS: regular rate, regular rhythm and S2 normal heart sound RATE: regular rate RHYTHM: regular rhythm HEART SOUNDS: S2 normal OTHER: No lower extremity edema. GI: COMMON NORMALS: normal to inspection, nondistended, normoactive bowel sounds, soft to palpation and non-tender PALPATION: Yes soft Neuro: COMMON NORMALS: oriented x3 and no focal motor deficits Urinary Catheter Management^: Servin: Cath Placed During This Visit: yes, but has since been removed by the nurse Urethral Indwelling: Yes Reason for Continuing Indwelling Catheter: Accurate Measurement of Urinary Output in Critically Ill Patients Urinary Catheter Date of Insertion: 02/01/20 Urinary Catheter Time of Insertion: 18:35 Date Urinary Catheter Removed: 02/12/20 Time Urinary Catheter Discontinued: 09:45 Data : 02/14/20 05:34 04/07/20 05:34 Micro: Microbiology 02/13/20 20:50 Gram Stain - Final Sputum - Expectorated Sputum A&P Assessment and plan (1) Acute respiratory failure with hypoxia and hypercarbia: -Patient arrived in significant respiratory distress and was intubated in the ER; extubated on 02/02 -on BiPAP vs. NC; noted increased oxygen requirement today -Continue to monitor respiratory status closely; noted tachypnea -repeat imaging shows evidence of fluid overload, improved today -AM ABG noted, appropriate -Continued monitoring of hemodynamic status -Negative for PE on CTA -dose of 20 mg oral Lasix today Status: Acute (2) Non-ST elevation CO (NSTEMI): -found to have recurrent troponin elevation with delta of 900 -Has known history of CAD with prior stenting; last cardiac work-up done in 2019 with echo showing EF of 79%, cath done in 2018 -Continue therapeutic Lovenox, aspirin, Plavix, metoprolol; no statins due to history of hepatocellular carcinoma -Cardiology consult by Dr. Alaniz appreciated; plan for cath tomorrow -repeat Echo: EF=28%, global LV hypokinesis, G1DD, moderate pulmonary HTN (44), mild MR, moderate , mild AR, moderate TR, mild [place] Status: Acute (3) Right lower lobe pneumonia: -reported episode of vomiting following intake of nitroglycerin as well as hemoptysis we will cannot exclude element of aspiration -Noted leukocytosis with neutrophilic predominance, now resolved -off vent support -On broad-spectrum IV antibiotics (Zosyn/Levaquin/Vanc); will d/c as no leukocytosis, afebrile x > 48 hrs -negative for influenza; screening for COVID-19 negative -blood cx: negative -sputum cx-prelim mixed cheng, gram stain negative Status: Suspected Qualifiers: Pneumonia type: due to unspecified organism Qualified Code(s): J18.9 - Pneumonia, unspecified organism (4) Hepatocellular carcinoma: -has known hepatocellular carcinoma, no known metastatic disease -f/u at [facility] -noted LFTs which are decreasing, coags Status: Chronic (5) Hypertension: -BP stable, off pressor support -hold antihypertensives other than BB -continue to monitor hemodynamic status Status: Chronic Qualifiers: Hypertension type: essential hypertension Qualified Code(s): I10 - Essential (primary) hypertension Additional A&P Information -Acute kidney injury. This appears to be prerenal secondary to heart failure. -Acute systolic CHF exacerbation. -PVD, s/p RLE stenting -Chronic smoker -NIDDM type II; accucheks, ISS, hypoglycemia precautions -bilateral carotid artery stenosis -known infrarenal AAA; stable per imaging (last done in 01/2020), follows up with Dr. Pratt -Chronic thrombocytopenia, likely secondary to liver pathology, continue to monitor platelet count; baseline is around 80-100 -GERD, on PPI and H2 chase -Liver cirrhosis, secondary to non-alcoholic steatosis; spleen is upper level of normal size, mesenteric adenopathy (stable per last imaging) -Normocytic anemia; appears to be intermittent as baseline Hg wnl; continue to monitor H/H, has been gradually trending down Bibasilar pneumonia. Most likely present on admission. -GI ppx with PPI -DVT ppx not needed as on therapeutic lovenox -PT/OT/ST evaluations -decrease pain med doses as likely contributing to lethargy particularly in combination with anxiolytics PLAN: Continue current monitoring and treatment including antibiotics. Patient is definitely high risk for clinically significant underlying coronary disease in view of diabetes and smoking as well as echo findings. Once kidney function improves patient may have coronary angiogram as I think her current cardiac condition plays major role in patient's symptoms. Overall patient appears to have poor long-term prognosis. -Dispo: was living at home independently; may need vs. SNF -Code status: FULL code -transfer to [facility] for continued care Attestations Medical Necessity Statement*: Patient with acute coronary syndrome requires close inpatient monitoring, evaluation and treatment. Coding Level of Care Code Acute Mid Level Project Manager for [facility] Diagnoses Acute respiratory failure with hypoxia and hypercarbia J96.01; J96.02 Non-ST elevation CO (NSTEMI) I21.4 Right lower lobe pneumonia J18.9 Pneumonia type: due to unspecified organism Hepatocellular carcinoma C22.0 Hypertension I10 Hypertension type: essential hypertension
[2020-02-14 12:07] LABS: Glucose Point of Care 138 mg/dL (70-110)
--- NOTE | 2020-02-14 13:50 | PM.PN ---
Subjective Subjective: Interval history: Patient continues to have chest pain and shortness of breath. She is unable to lie flat in the bed. She also seems to be extremely anxious. Her kidney function seems to be fairly stable. Medications: Reviewed: Yes Medication Review Details: Current Medications Acetaminophen (Tylenol) 650 mg PO Q8H PRN PRN Reason: temp > 101 Last Admin: 02/13/20 16:02 Dose: 650 mg Documented by: Albuterol/Ipratropium (Duoneb) 3 ml INHALATION Q6H.RESPIRATORY DIANE Last Admin: 02/14/20 08:18 Dose: 3 ml Documented by: Aspirin (Aspirin Ec) 81 mg PO DAILY DIANE Last Admin: 02/14/20 08:52 Dose: 81 mg Documented by: Clopidogrel Bisulfate (Plavix) 75 mg PO DAILY [facility] Last Admin: 02/14/20 08:52 Dose: 75 mg Documented by: Enoxaparin Sodium (Lovenox) 40 mg SUBCUT Q24H DIANE Last Admin: 02/11/20 09:43 Dose: 40 mg Documented by: Hydroxyzine Pamoate (Vistaril) 25 mg PO TID DIANE Last Admin: 02/14/20 08:52 Dose: 25 mg Documented by: Levofloxacin/Dextrose (Levaquin-D5w) 750 mg in 150 mls @ 150 mls/hr IV Q48H DIANE; Protocol Last Admin: 02/14/20 07:20 Dose: 150 mls/hr Documented by: Vancomycin HCl 1,000 mg/ (Sodium Chloride) 250 mls @ 250 mls/hr IV Q18H DIANE; Protocol Insulin Aspart (Novolog) 0 unit SUBCUT BEDTIME DIANE; Protocol Last Admin: 02/13/20 21:44 Dose: Not Given Documented by: Insulin Aspart (Novolog) 0 unit SUBCUT TIDWM DIANE; Protocol Last Admin: 02/14/20 12:12 Dose: Not Given Documented by: Isosorbide Dinitrate (Isordil) 5 mg PO BID [facility] Last Admin: 02/14/20 08:52 Dose: 5 mg Documented by: Lanolin (Lanolin Oint) 1 applic TOPICAL PRN PRN PRN Reason: DRYNESS Last Admin: 02/06/20 11:41 Dose: 1 each Documented by: Lorazepam (Ativan) 0.25 mg PO TID PRN PRN Reason: anxiety Last Admin: 02/14/20 01:20 Dose: 0.25 mg Documented by: Metoprolol Tartrate (Lopressor) 12.5 mg PO BID [facility] Last Admin: 02/14/20 08:52 Dose: 12.5 mg Documented by: Ondansetron HCl (Zofran) 4 mg IVP Q12H PRN PRN Reason: vomiting, or N/V if npo Last Admin: 02/10/20 03:08 Dose: 4 mg Documented by: Pantoprazole Sodium (Protonix) 40 mg IVP DAILY [facility] Last Admin: 02/14/20 08:53 Dose: 40 mg Documented by: Potassium Chloride (Klor-Con 10) 20 meq PO DAILY [facility] Last Admin: 02/14/20 08:52 Dose: 20 meq Documented by: Vitals/I&O/Wt Last Vital Signs Temp 97.7 F 02/14/20 11:42 Pulse 76 02/14/20 11:42 Resp 30 H 02/14/20 11:42 BP 100/62 02/14/20 11:42 Pulse Ox 95 02/14/20 11:42 02/13/20 02/14/20 02/14/20 22:59 06:59 14:59 Intake Total 250 / 610 200 / 810 Output Total 360 / 360 Balance -110 / 250 200 / 450 Weight last 48 hrs Weight 162 lb 4.8 oz Weight 161 lb 2 oz Physical Exam Narrative: EXAM NARRATIVE: GENERAL: The patient is alert and oriented times three. She has moderate shortness of breath and is very anxious. HEENT: Minimal pallor. No icterus or lymphadenopathy.Oral cavity: There are no mucous membrane lesions. NECK: Trachea appears to be central. No masses noted. No JVD or thyromegaly appreciated. RESPIRATORY: Chest is symmetrical. No intercostals muscle retraction or any accessory muscle activation. There is no chest wall tenderness. Breath sounds are heard bilaterally with scattered expiratory wheezing and some coarse crackles. Diminished intensity of breath sounds in the bases. BREASTS: Deferred. HEART: The heart sounds are normal. No S3 but there is an S4. Short systolic murmur in the left sternal border. No diastolic murmurs. No pericardial rub. ABDOMEN: No vessel pulsations or distention. No tenderness. No organomegaly appreciated. Bowel sounds are normally heard. : Deferred. RECTAL: Deferred. LYMPHATIC: No lymphadenopathy noted in the neck . EXTREMITIES: 1+ edema of both lower extremities. No cyanosis. Peripheral pulses are extremely weak bilaterally. MUSCULOSKELETAL: No acute joint deformities or swelling SKIN: There are no significant scars or skin rash noted. NEUROPSYCHIATRIC: The patient is alert and oriented x3. No focal motor deficits. Urinary Catheter Management^: Servin: Cath Placed During This Visit: yes, but has since been removed by the nurse Urethral Indwelling: Yes Reason for Continuing Indwelling Catheter: Accurate Measurement of Urinary Output in Critically Ill Patients Urinary Catheter Date of Insertion: 02/01/20 Urinary Catheter Time of Insertion: 18:35 Date Urinary Catheter Removed: 02/12/20 Time Urinary Catheter Discontinued: 09:45 Data : 02/14/20 05:34 02/14/20 05:34 Other Labs: Laboratory Results - last 24 hr 02/13/20 02/13/20 02/14/20 16:34 21:31 05:34 WBC 6.4 RBC 3.47 L Hgb 10.3 L Hct 33.9 L MCV 97.7 MCH 29.7 MCHC 30.4 RDW 16.0 H Plt Count 130 MPV 14.1 H Neut % (Auto) 81.1 Lymph % (Auto) 11.1 Early % (Auto) 6.6 Eos % (Auto) 0.3 Baso % (Auto) 0.3 Neut # (Auto) 5.2 Lymph # (Auto) 0.7 L Early # (Auto) 0.4 Eos # (Auto) 0.0 Baso # (Auto) 0.0 Nucleated RBC % (auto) 0 Nucleated RBCs # 0.0 Sodium Potassium Chloride Carbon Dioxide Anion Gap BUN Creatinine Glucose POC Glucose 154 198 Calculated Osmolality Calcium Magnesium Vancomycin Trough 02/14/20 02/14/20 02/14/20 05:34 06:21 08:00 WBC RBC Hgb Hct MCV MCH MCHC RDW Plt Count MPV Neut % (Auto) Lymph % (Auto) Early % (Auto) Eos % (Auto) Baso % (Auto) Neut # (Auto) Lymph # (Auto) Early # (Auto) Eos # (Auto) Baso # (Auto) Nucleated RBC % (auto) Nucleated RBCs # Sodium 133 L Potassium 4.4 Chloride 96 L Carbon Dioxide 22 Anion Gap 19.4 H BUN 30 H Creatinine 1.3 H Glucose 170 H POC Glucose 169 Calculated Osmolality 277 L Calcium 9.4 Magnesium 2.6 H Vancomycin Trough 10.1 Micro: Microbiology 02/13/20 20:50 Gram Stain - Final Sputum - Expectorated Sputum A&P Assessment and plan (1) 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 Hemodynamically she seems to be stable. In view of her ongoing chest pain, she requires a cardiac authorization. However because of the respiratory status, without supporting the ventilatory status, it will be difficult to do the angiogram and possible intervention. This was once again discussed with the patient. She is wanting me to discuss this with the rest of the family. We will make a decision on this after the discussion. In view of the patient's multiple comorbid conditions including the chronic kidney disease, she carries a high risk for interventions. I was wanting to give her Ranexa for the angina. However because of the cirrhosis of the liver, we may hold off on that medicine. Status: Acute Qualifiers: [place] vs. transplanted heart: nondalton heart Qualified Code(s): I25.110 - Atherosclerotic heart disease of nondal[place] coronary artery with unstable angina pectoris (2) Right lower lobe pneumonia: This seems to be resolving based on the clinical findings. Her chest x-ray shows persistent right lower lobe infiltrate. Status: Suspected Qualifiers: Pneumonia type: due to unspecified organism Qualified Code(s): J18.9 - Pneumonia, unspecified organism (3) Acute respiratory failure with hypoxia and hypercarbia: She is still on a BiPAP. This is being used intermittently. Her COPD, pneumonia and intermittent heart failure are the complicating factors. Status: Acute (4) Ischemic cardiomyopathy: Patient has a markedly decreased LV ejection fraction compared to the previous study. Most likely she may have a lot of hibernating myocardium. Status: Acute (5) Non-ST elevation GA (NSTEMI): She has not had a repeat troponin test. I may go ahead and do one to follow-up on the trend. In the meanwhile, she may continue on the current medications. Apparently she was taken off the anticoagulation because of the drop in the hematocrit and thrombocytopenia. For this reason, it may be appropriate to continue on the current medications Status: Acute Additional A&P Information Other problems are High BUN/creatinine, possible related to low output state COPD exacerbation, clinically improving Dyslipidemia-in view of her liver problems, the statin drugs were discontinued. History of TIA with no recent recurrence. Severe peripheral arterial disease, status post peripheral artery intervention. Bilateral carotid artery disease. Chronic anemia. Elevated liver enzymes, currently back to normal. History of nonalcoholic liver cirrhosis History of thrombocytopenia History of GERD Multiple electrolyte abnormalities, seems to be getting stabilized. Anxiety disorder I had a long discussion with the patient's family-her daughter, about her current condition and further treatment option. In view of her unstable respiratory status, cardiac catheterization would be difficult without ventilatory support. She may require endotracheal intubation and sedation prior to the procedure. Patient is vehemently opposed to this. She also carries a high risk for contrast-induced nephropathy and other complications. In view of her multiple comorbidities, her overall prognosis is very poor. The patient and the family understood this well. At this point, the family does not want to subject her through any aggressive measures. They would like to take her home with comfort measures. I have discussed these issues with Dr. Odell. is going to make the arrangements for her disposition. 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 transplanted heart: nondalton heart Right lower lobe pneumonia J18.9 Pneumonia type: due to unspecified organism Acute respiratory failure with hypoxia and hypercarbia J96.01; J96.02 Ischemic cardiomyopathy I25.5 Non-ST elevation GA (NSTEMI) I21.4 Time Spent (min) 45
[2020-02-14 16:43] LABS: Glucose Point of Care 89 mg/dL (70-110)
[2020-02-14 20:30] LABS: Glucose Point of Care 161 mg/dL (70-110)
[2020-02-15] VITALS (20 sets, daily range): BP systolic 95–151; BP diastolic 62–73; PULSE 77–89; RESP 16–33; TEMP 36.2–36.4; O2SAT 93–99
[2020-02-15] MEDS: LORazepam 0.5 mg Tablet 0.25 MG PO ×2 (02:00→12:05)
[2020-02-15] MEDS: vancomycin 1,000 MG in sodium chloride 0.9% 250 ML 250 MG IV ×2 (02:01→21:28)
[2020-02-15] MEDS: ipratropium-albuterol 3 mL Neb INHALATION ×4 (03:14→20:56)
[2020-02-15] MEDS: morphine 4 mg/mL SDV 1 mL 2 MG IVP (04:04)
--- NOTE | 2020-02-15 04:08 | PC.NURSE ---
Dr. Leos notified of patient having air hunger, breathing 30 RR, and very anxious. Morphine 2 mg x1 IV ordered for air hunger. Patient is having difficulty breathing without her Bipap, every for very short periods of time. Patient attempted to have her Bipap off to wash her face with a rag and quickly asked to have it back on due to shortness of breath.
--- NOTE | 2020-02-15 05:19 | PC.NURSE ---
Patient appears to be resting comfortably with eyes closed. Will continue to monitor.
[2020-02-15 06:49] LABS: Glucose Point of Care 164 mg/dL (70-110)
--- NOTE | 2020-02-15 08:41 | PM.PN ---
Subjective Subjective: Interval history: Patient continues to have the shortness of breath. She is finding it extremely difficult to lie down without the BiPAP. Most the times, she seems to be sitting up or propped up in the bed. She still has some chest discomfort, which is difficult evaluate. Her EKG today showed sinus rhythm with a diffuse nonspecific ST-T changes. Compared to the previous EKGs, there may not be a significant change. Medications: Reviewed: Yes Medication Review Details: Current Medications Acetaminophen (Tylenol) 650 mg PO Q8H PRN PRN Reason: temp > 101 Last Admin: 02/13/20 16:02 Dose: 650 mg Documented by: Albuterol/Ipratropium (Duoneb) 3 ml INHALATION Q6H.RESPIRATORY DIANE Last Admin: 02/14/20 08:18 Dose: 3 ml Documented by: Aspirin (Aspirin Ec) 81 mg PO DAILY DIANE Last Admin: 02/14/20 08:52 Dose: 81 mg Documented by: Clopidogrel Bisulfate (Plavix) 75 mg PO DAILY DIANE Last Admin: 02/14/20 08:52 Dose: 75 mg Documented by: Enoxaparin Sodium (Lovenox) 40 mg SUBCUT Q24H DIANE Last Admin: 02/11/20 09:43 Dose: 40 mg Documented by: Hydroxyzine Pamoate (Vistaril) 25 mg PO TID DIANE Last Admin: 02/14/20 08:52 Dose: 25 mg Documented by: Levofloxacin/Dextrose (Levaquin-D5w) 750 mg in 150 mls @ 150 mls/hr IV Q48H DIANE; Protocol Last Admin: 02/14/20 07:20 Dose: 150 mls/hr Documented by: Vancomycin HCl 1,000 mg/ (Sodium Chloride) 250 mls @ 250 mls/hr IV Q18H DIANE; Protocol Insulin Aspart (Novolog) 0 unit SUBCUT BEDTIME DIANE; Protocol Last Admin: 02/13/20 21:44 Dose: Not Given Documented by: Insulin Aspart (Novolog) 0 unit SUBCUT TIDWM DIANE; Protocol Last Admin: 02/14/20 12:12 Dose: Not Given Documented by: Isosorbide Dinitrate (Isordil) 5 mg PO BID DIANE Last Admin: 02/14/20 08:52 Dose: 5 mg Documented by: Lanolin (Lanolin Oint) 1 applic TOPICAL PRN PRN PRN Reason: DRYNESS Last Admin: 02/06/20 11:41 Dose: 1 each Documented by: Lorazepam (Ativan) 0.25 mg PO TID PRN PRN Reason: anxiety Last Admin: 02/14/20 01:20 Dose: 0.25 mg Documented by: Metoprolol Tartrate (Lopressor) 12.5 mg PO BID [facility] Last Admin: 02/14/20 08:52 Dose: 12.5 mg Documented by: Ondansetron HCl (Zofran) 4 mg IVP Q12H PRN PRN Reason: vomiting, or N/V if npo Last Admin: 02/10/20 03:08 Dose: 4 mg Documented by: Pantoprazole Sodium (Protonix) 40 mg IVP DAILY [facility] Last Admin: 02/14/20 08:53 Dose: 40 mg Documented by: Potassium Chloride (Klor-Con 10) 20 meq PO DAILY [facility] Last Admin: 02/14/20 08:52 Dose: 20 meq Documented by: Vitals/I&O/Wt Last Vital Signs Temp 97.6 F 02/15/20 08:00 Pulse 89 02/15/20 08:05 Resp 22 H 02/15/20 08:02 BP 151/73 02/15/20 08:00 Pulse Ox 96 02/15/20 08:05 02/14/20 02/15/20 02/15/20 22:59 06:59 14:59 Intake Total 120 / 270 533.333 / 803.333 Balance 120 / 270 533.333 / 803.333 Weight last 48 hrs Weight 162 lb 12.8 oz Weight 162 lb 4.8 oz Physical Exam Narrative: EXAM NARRATIVE: GENERAL: The patient is alert and oriented times three. She has moderate shortness of breath and is very anxious. HEENT: Minimal pallor. No icterus or lymphadenopathy.Oral cavity: There are no mucous membrane lesions. NECK: Trachea appears to be central. No masses noted. No JVD or thyromegaly appreciated. RESPIRATORY: Chest is symmetrical. No intercostals muscle retraction or any accessory muscle activation. There is no chest wall tenderness. Breath sounds are heard bilaterally with scattered expiratory wheezing and some coarse crackles. Diminished intensity of breath sounds in the bases. BREASTS: Deferred. HEART: The heart sounds are normal. No S3 but there is an S4. Short systolic murmur in the left sternal border. No diastolic murmurs. No pericardial rub. ABDOMEN: No vessel pulsations or distention. No tenderness. No organomegaly appreciated. Bowel sounds are normally heard. : Deferred. RECTAL: Deferred. LYMPHATIC: No lymphadenopathy noted in the neck . EXTREMITIES: 1+ edema of both lower extremities. She has a peripheral cyanosis in the upper and lower extremities. MUSCULOSKELETAL: No acute joint deformities or swelling SKIN: There are no significant scars or skin rash noted. NEUROPSYCHIATRIC: The patient is alert and oriented x2. No focal motor deficits. Urinary Catheter Management^: Servin: Cath Placed During This Visit: yes, but has since been removed by the nurse Urethral Indwelling: Yes Reason for Continuing Indwelling Catheter: Accurate Measurement of Urinary Output in Critically Ill Patients Urinary Catheter Date of Insertion: 02/01/20 Urinary Catheter Time of Insertion: 18:35 Date Urinary Catheter Removed: 02/12/20 Time Urinary Catheter Discontinued: 09:45 Data : 02/14/20 05:34 02/14/20 05:34 A&P Assessment and plan (1) Atherosclerotic heart disease of [place] coronary artery with unstable angina pectoris: Patient has symptoms suggestive of unstable angina. Hemodynamically she seems to be stable. In view of her ongoing chest pain, she requires a cardiac catheterization. However because of the respiratory status, without supporting the ventilatory status, possibly by way of endotracheal intubation, it will be difficult to do the angiogram and possible intervention. This was once again discussed with the patient. Patient is definitely opposed to endotracheal intubation. I discussed this with the family as well. At this point, the family wants only comfort measures. Dr. Odell is in the process of arranging possible hospice care. Status: Acute Qualifiers: [place] vs. transplanted heart: [place] heart Qualified Code(s): I25.110 - Atherosclerotic heart disease of [place] coronary artery with unstable angina pectoris (2) Right lower lobe pneumonia: This seems to be resolving based on the clinical findings. Her chest x-ray shows persistent right lower lobe infiltrate. Status: Suspected Qualifiers: Pneumonia type: due to unspecified organism Qualified Code(s): J18.9 - Pneumonia, unspecified organism (3) Acute respiratory failure with hypoxia and hypercarbia: She is still on a BiPAP. Patient seems to be dependent on the BiPAP. She has severe respiratory distress, while we tried to take her off the BiPAP for a minute. She may have an element of heart failure at this time. I will give her a dose of Lasix, 40 mg now and see the clinical response. May continue on her current medications as it is. Status: Acute (4) Ischemic cardiomyopathy: Patient has a markedly decreased LV ejection fraction compared to the previous study. Most likely she may have a lot of hibernating myocardium. She has intermittent cardiac decompensation Status: Acute (5) Non-ST elevation MD (NSTEMI): She has not had a repeat troponin test. I may go ahead and do one to follow-up on the trend. In the meanwhile, she may continue on the current medications. Apparently she was taken off the anticoagulation because of the drop in the hematocrit and thrombocytopenia. For this reason, it may be appropriate to continue on the current medications Status: Acute (6) Acute systolic heart failure: We will continue the careful IV diuresis as mentioned above. Status: Acute Additional A&P Information Other problems are High BUN/creatinine, possible related to low output state COPD exacerbation, clinically improving Dyslipidemia-in view of her liver problems, the statin drugs were discontinued. History of TIA with no recent recurrence. Severe peripheral arterial disease, status post peripheral artery intervention. Bilateral carotid artery disease. Chronic anemia. Elevated liver enzymes, currently back to normal. History of nonalcoholic liver cirrhosis History of thrombocytopenia History of GERD Multiple electrolyte abnormalities, seems to be getting stabilized. Anxiety disorder The patient's overall prognosis is poor. Family seems understand this well. We will continue on the conservative measures. Attestations Medical Necessity Statement*: Disposition as per the primary Coding Level of Care Code Acute Pharmacy Billing Adjudicator for Stephanie Mora Diagnoses Atherosclerotic heart disease of [place] coronary artery with unstable angina pectoris I25.110 [place] vs. transplanted heart: [place] heart Right lower lobe pneumonia J18.9 Pneumonia type: due to unspecified organism Acute respiratory failure with hypoxia and hypercarbia J96.01; J96.02 Ischemic cardiomyopathy I25.5 Non-ST elevation MD (NSTEMI) I21.4 Acute systolic heart failure I50.21
--- NOTE | 2020-02-15 08:42 | ECG_ITS ---
Measurements Intervals [place] Rate: 87 P: 66 SC: 144 QRS: 16 QRSD: 89 T: 234 QT: 364 QTc: 440 SINUS RHYTHM ANTERIOR MYOCARDIAL INFARCTION [40+ ms Q WAVE AND/OR ST/T ABNORMALITY IN V3/V4], PROBABLY RECENT Diffuse ST-T changes ACUTE SD Compared to ECG 02/06/2020 12:24:02 Ventricular premature complex(es) no longer present ST (T wave) deviation no longer present Myocardial infarct finding still present Electronically Signed On 02-15-2020 18:12:19 CDT by Alba Ruffin M.D. [email or web address]
--- NOTE | 2020-02-15 09:03 | PC.NURSE ---
Sample Body Builder Talk to [employer] solution architect to help pt comforting her with prayers.
[2020-02-15] MEDS: morphine 4 mg/mL SDV 1 mL 1 MG IVP (09:55)
[2020-02-15] MEDS: pantoprazole 40 mg SDV IVP (09:58)
[2020-02-15] MEDS: isosorbide dinitrate 20 mg Tablet 5 MG PO (10:01)
[2020-02-15] MEDS: metoprolol tartrate 25 mg Tablet 12.5 MG PO ×2 (10:01→17:46)
[2020-02-15] MEDS: hyDROXYzine 25 mg Capsule PO ×3 (10:02→21:25)
[2020-02-15] MEDS: clopidogrel 75 mg Tablet PO (10:02)
[2020-02-15] MEDS: aspirin 81 mg EC Tablet PO (10:03)
[2020-02-15 10:06] LABS: NT Pro B Type Natriuretic Pept 18645 pg/mL (0-125)
--- NOTE | 2020-02-15 10:08 | PC.CHAP ---
Pastoral Care Encounter/Spiritual Assessment Type of Contact [] Declined artillery maintenance supervisor visit [] Patient/Family/Request visit [] Outpatient visit [] Follow-up visit [x] Physician referral [] Code/Alert [x] Routine visit [] Staff referral [] Actively dying [] Patient sleeping [] Family support [] [] Out of room [] Palliative care [] [] Receiving care in room [] Pre-surgical visit [] Trauma [] Long length of stay [] ICU visit [] Other: Relational/Emotional Strength [] Patient feels connected with others/family/visitors/staff [] Distress [] Loneliness/isolation [] Abandonment Spirituality of Patient [] Person of Carmelina [] Attends Jainism of their Carmelina [] Believes in Prayer [] Reads Bible or Islam materials [] There are Spiritual issues to be addressed Manager Facility Interventions [x] Prayer [] Active listening [] Non-anxious presence [] Spiritual/emotional support [] Crisis/trauma care [] Spiritual counseling [] Bereavement support [] Provided bereavement packet [] Provided Bible/devotional materials [] Provided toy/stuffed animal, coloring book to patient or family member [] Provided Communion [] Anointing/[place] [] Salvation [x] Completed spiritual assessment [] Other: Impact on Illness or Injury [] Angry [] Fearful [] Anxious [] Often cries [] Exhaustion [] Unable to work [] Unable to attend voodoo [] Unable to walk/stand [] Unable to read [] Unable to drive [] Unable to eat/drink [] Unable to sleep [] Unable to be with family [] Patient intubated [] Other: Summary Patient on breathing machine. Per Doctor tested negative for virus, and requested a Annette visit. Time spent with patient 15min
[2020-02-15 10:16] LABS: Troponin T (5th) Once 435 ng/mL (0-10)
--- NOTE | 2020-02-15 11:05 | PC.NURSE ---
Pt very anxious during physician rounding She is on a bipap. When we tried to take it off with RT at bedside and Dr. Ruffin, she started to panic and complain of chest discomfort. She is requesting for Morphine. Received verbal order for for 1 mg Morphine one time IVP from Dr. Ruffin. I explained to pt regarding dignity with her end of life and she nods where she agreed. She is asking that we will talk to all her kids not just D or Tiarra. Notified case mgt.
[2020-02-15] MEDS: FUROsemide 10 mg/mL SDV 4mL 40 MG IVP (11:19)
[2020-02-15 11:30] LABS: Glucose Point of Care 75 mg/dL (70-110)
--- NOTE | 2020-02-15 13:01 | PM.DCS ---
Discharge Providers Date of Admission: 02/01/20 20:28 Date of Discharge: February 15, 2020 Attending Provider at Admission: Pari Nicholson MD Attending Provider at Discharge: Miguel Ángel Odell MD Primary Care Provider: Mykel Welch MD Diagnoses at Discharge Discharge Diagnosis (1) Atherosclerotic heart disease of [place] coronary artery with unstable angina pectoris: Status: Acute Qualifiers: [place] vs. transplanted heart: [place] heart Qualified Code(s): I25.110 - Atherosclerotic heart disease of [place] coronary artery with unstable angina pectoris (2) Right lower lobe pneumonia: Status: Suspected Qualifiers: Pneumonia type: due to unspecified organism Qualified Code(s): J18.9 - Pneumonia, unspecified organism (3) Acute respiratory failure with hypoxia and hypercarbia: Status: Acute (4) Ischemic cardiomyopathy: Status: Acute (5) Non-ST elevation AR (NSTEMI): Status: Acute (6) Acute systolic heart failure: Status: Acute Reason for Visit Reason for Visit: Reason For Visit: RESP DISTRESS Hospital Course Discharge Summary: Patient with underlying COPD and coronary artery disease presents with acute dyspnea. She was diagnosed with acute heart failure and non-ST elevation AR. Her EF was 28% and unfortunately patient did not get better with treatment and required frequent BiPAP support. Patient could not tolerate coronary angiogram and did not want to be intubated and therefore unfortunately cardiology service could not complete the procedure and the recommendation was to proceed with comfort measures. This was discussed with patient this morning and she agreed to proceed with treatment. Discussed with patient's daughter Tiarra today and she reports that all 3 daughters are in agreement and they understand patient's overall poor prognosis. They chose [facility] and currently we are being in the process of arrangement. I will continue diuretic with potassium. Some medications were readjusted per cardiology request. Patient had prolonged antibiotic course and her right basilar infiltrate did not improve. Underlying malignancy cannot be ruled out. She remained afebrile and her white blood cell count in normal range therefore no further antibiotic will be continued. Patient's blood sugar is currently low therefore I will discontinue all her home diabetic medications. This will need to be monitored as patient may require reinitiation of Victoza if her oral intake improves. Today she reports some difficulty swallowing solid food and found to have oropharyngeal thrush. Nystatin will be ordered. Patient's purple extremities are likely due to severe underlying peripheral vascular disease and low output state given her ischemic cardiomyopathy. Physical Exam Const: COMMON NORMALS: oriented x3 OTHER: She is doing okay for several minutes after taken off BiPAP but gets somewhat anxious and asks to go back on BiPAP again. Resp: OTHER: She has overall decreased air movement but otherwise clear. Cardio: COMMON NORMALS: regular rate, regular rhythm and S2 normal heart sound RATE: regular rate RHYTHM: regular rhythm HEART SOUNDS: S2 normal OTHER: No lower extremity edema with bilateral purple and cold extremities which were chronic. GI: COMMON NORMALS: normal to inspection, nondistended, normoactive bowel sounds, soft to palpation and non-tender PALPATION: Yes soft Neuro: COMMON NORMALS: oriented x3 and no focal motor deficits Urinary Catheter Management^: Servin: Cath Placed During This Visit: yes, but has since been removed by the nurse Urethral Indwelling: Yes Reason for Continuing Indwelling Catheter: Accurate Measurement of Urinary Output in Critically Ill Patients Urinary Catheter Date of Insertion: 02/01/20 Urinary Catheter Time of Insertion: 18:35 Date Urinary Catheter Removed: 02/12/20 Time Urinary Catheter Discontinued: 09:45 Discharge Data Data Completed and Pending: Completed Studies During Hospitalization Category Date Time Status CT angio chest PE protcl 79532 Urge nt Cat Scan 02/01/20 21:03 Completed CXRP [XR chest 1V portable 35535] S tat Exams 02/03/20 23:58 Completed XR chest 1V regino ble [id number] Routine Exams 02/02/20 06:00 Completed XR chest 1V regino ble 78912 Routine Exams 02/03/20 06:00 Completed XR chest 1V regino ble 72344 Routine Exams 02/05/20 11:03 Completed XR chest 1V regino ble 32403 Routine Exams 02/06/20 06:00 Completed XR chest 1V regino ble 79110 Routine Exams 02/08/20 06:00 Completed XR chest 1V regino ble 38192 Routine Exams 02/11/20 10:13 Completed XR chest 1V regino ble 04993 Routine Exams 02/14/20 07:00 Completed XR chest 1V regino ble 92176 Urgent Exams 02/01/20 18:14 Completed XR chest 1V regino ble 95243 Urgent Exams 02/01/20 23:18 Completed CV echo complete* 11570 Routine Ultrasound 02/02/20 06:00 Completed Pending at discharge Category Date Time Status Sputum Culture an d Gram Stain Routi ne Lab 02/13/20 20:50 Results Labs from last 24 hours 02/15/20 02/15/20 02/15/20 11:18 09:25 09:25 POC Glucose 75 Troponin T Gen 5 n g/L 435 H* NT-Pro-B Natriuret Pep 73343 H 02/15/20 02/14/20 02/14/20 06:30 20:16 16:37 POC Glucose 164 161 89 Troponin T Gen 5 n g/L NT-Pro-B Natriuret Pep Vitals: Last Vital Signs Temp 97.6 F 02/15/20 11:19 Pulse 79 02/15/20 12:22 Resp 22 H 02/15/20 11:19 BP 108/63 02/15/20 11:19 Pulse Ox 95 02/15/20 12:22 Discharge Plan Discharge Patient Disposition: Hospice - Home Condition: Stable Prescriptions: New morphine concentrate 100 mg/5 mL (20 mg/mL) Solution 5 mg sublingual Q2H PRN (Reason: Air Hunger) Qty: 10 RF: 0 Alprazolam Intensol 1 mg/mL concentrate 0.25 mg PO TID PRN (Reason: anxiety) Qty: 30 RF: 0 metoprolol tartrate 25 mg Tablet 12.5 mg PO BID Qty: 60 RF: 0 aspirin 81 mg Tablet,Delayed Release (Dr/Ec) 81 mg PO DAILY Qty: 30 RF: 0 hydroxyzine pamoate 25 mg Capsule 25 mg PO TID Qty: 90 RF: 0 acetaminophen 325 mg Tablet 650 mg PO Q8H PRN (Reason: temp > 101) Qty: 30 RF: 0 ipratropium-albuterol 0.5 mg-3 mg(2.5 mg base)/3 mL Solution For Nebulization 3 ml inhalation Q6H.RESPIRATORY PRN (Reason: wheezing) Qty: 100 RF: 0 potassium chloride 10 mEq Tablet Extended Release 20 meq PO DAILY 30 Days Qty: 30 RF: 0 isosorbide dinitrate 20 mg Tablet 5 mg PO BID Qty: 60 RF: 0 nystatin 100,000 unit/mL Suspension 500,000 unit PO QID Qty: 100 RF: 0 furosemide [Lasix] 80 mg tablet 80 mg PO QAM Qty: 30 RF: 0 atorvastatin 10 mg tablet 10 mg PO QPM Qty: 30 RF: 0 Continued clopidogrel 75 mg tablet 75 mg PO DAILY RF: 0 pantoprazole 40 mg tablet,delayed release (DR/EC) 40 mg PO DAILY RF: 0 nitroglycerin [Nitrostat] 0.4 mg tablet, sublingual 0.4 mg SUBLINGUAL Q5M PRN (Reason: Chest Pain) RF: 0 Discontinued metoprolol tartrate 25 mg tablet 25 mg PO BID RF: 0 ranitidine HCl 300 mg capsule 300 mg PO BEDTIME RF: 0 aspirin 325 mg tablet 325 mg PO DAILY PRN (Reason: headache) RF: 0 isosorbide mononitrate 60 mg tablet extended release 24 hr 60 mg PO BID RF: 0 Lantus U-100 Insulin 100 unit/mL Solution 44 unit SUBCUT DAILY RF: 0 Victoza 2-Jayesh 0.6 mg/0.1 mL (18 mg/3 mL) Pen Injector See Rx Instructions .ROUTE .COMPLEX RF: 0 Discharge Orders: Discharge Order (Routine); Ordered 02/15/20 Ordered By: Miguel Ángel Odell Referrals: [facility] ([facility]) [Outside] Discharge Diet: Advance as tolerated Discharge Activity: Increase activity as tolerated Activity Restrictions/Additional Instructions: Please call your doctor or contact hospice nurse if you have any questions. Please use BiPAP as needed. Patient to be continued on home oxygen at 4 L continuously, titrated for oxygen saturation 90 to 92% Please make sure you take Lasix with potassium. Discharge Attestations Time Spent in Discharge Care*: greater than 30 min Quality Metrics Clinical Quality Measures During this hospital stay, did patient experience: AMI Clinical Trial Participant: No Contraindication to aspirin (AMI): Aspirin given Contraindication to statin: Statin prescribed Contraindication to PCI: Patient requests alternative treatment Coding Level of Care Code Acute Naphthalene Still Operator for Stephanie Fwd Diagnoses Atherosclerotic heart disease of [place] coronary artery with unstable angina pectoris I25.110 [place] vs. transplanted heart: [place] heart Right lower lobe pneumonia J18.9 Pneumonia type: due to unspecified organism Acute respiratory failure with hypoxia and hypercarbia J96.01; J96.02 Ischemic cardiomyopathy I25.5 Non-ST elevation AR (NSTEMI) I21.4 Acute systolic heart failure I50.21
[2020-02-15] MEDS: nystatin 100,000 unit/mL UDC 5 mL 500000 UNIT PO ×3 (13:59→21:27)
--- NOTE | 2020-02-15 17:24 | PC.PT ---
PT note; patient now discharged from physical therapy, going to hospice/comfort care
[2020-02-15 18:27] LABS: Glucose Point of Care 123 mg/dL (70-110)
--- NOTE | 2020-02-15 20:00 | PC.NURSE ---
Patient sitting up on side of bed. Feet completely cyanotic when sitting up. I just need to sit up a while. Will monitor.
[2020-02-15 21:02] LABS: Glucose Point of Care 204 mg/dL (70-110)
[2020-02-16] VITALS (10 sets, daily range): BP systolic 100–106; BP diastolic 60–68; PULSE 75–85; RESP 15–24; TEMP 35.8–36.2; O2SAT 87–100
--- NOTE | 2020-02-16 00:20 | PC.NURSE ---
Patient has had a couple rounds of air hunger/anxiety. Morphine 5mg PO given SL. Tolerated well. Will monitor.
--- NOTE | 2020-02-16 00:41 | PC.NURSE ---
Patient resting with eyes closed at this time. Respirations even and unlabored. Bipap in place. Will not disturb for VS at this time. Will monitor.
[2020-02-16] MEDS: ipratropium-albuterol 3 mL Neb INHALATION ×2 (02:42→08:03)
--- NOTE | 2020-02-16 04:57 | PC.NURSE ---
Patient very anxious.....Morphine given.....sitting on side of bed....holding bipap mask to face....refuses to apply at this time. RT notified. Nailbeds cyanotic. Patient given back rub. RT at bedside. Bipap adjusted. Patient lying down. Thanked staff. Respirations calmer. Nailbeds pinker. Will monitor.
--- NOTE | 2020-02-16 06:28 | PC.NURSE ---
Patient becoming very anxious once again. I really think I need something. Unable to give Morphine secondary to time. Dr. Leos notified. Awaiting response. Patient's daughter called earlier for update on patient. Daughter wondering why Ativan was discontinued. This nurse explained to her that I would relay her wishes onto the next shift. Voices understanding. Will monitor.
[2020-02-16 06:44] LABS: Glucose Point of Care 164 mg/dL (70-110)
--- NOTE | 2020-02-16 06:46 | PC.NURSE ---
Zyprexa ordered IM. Patient not wanting a shot. Morphine 5mg SL given. Patient requesting Ativan. This nurse explained to patient that I would relay her and her family's wished to oncoming shift. Will monitor.
[2020-02-16] MEDS: nystatin 100,000 unit/mL UDC 5 mL 500000 UNIT PO (08:18)
[2020-02-16] MEDS: hyDROXYzine 25 mg Capsule PO (08:19)
[2020-02-16] MEDS: isosorbide dinitrate 20 mg Tablet 5 MG PO (08:19)
[2020-02-16] MEDS: aspirin 81 mg EC Tablet PO (08:19)
[2020-02-16] MEDS: levoFLOXacin 750 mg Tablet PO (08:19)
[2020-02-16] MEDS: clopidogrel 75 mg Tablet PO (08:19)
[2020-02-16] MEDS: pantoprazole DR 40 mg Tablet PO (08:19)
[2020-02-16] MEDS: metoprolol tartrate 25 mg Tablet 12.5 MG PO (08:19)
--- NOTE | 2020-02-16 09:19 | PC.SOCIAL ---
IMM Updated Updated pt on Pg 2 IMM. No questions voiced. Signed, dated, & timed copy in chart.
--- NOTE | 2020-02-16 09:26 | PM.PN ---
Subjective Subjective: Interval history: Patient's breathing is little better. However she is still not able to lie flat. She has been using the BiPAP intermittently. Has some chest pains this morning but is better now. No fever or chills. She has a persistent troponin T elevation. The BNP was found to be coming down since hospital admission. Kidney function seems to be remaining stable at this time. Platelet count also is remaining stable. Medications: Reviewed: Yes Medication Review Details: Current Medications Acetaminophen (Tylenol) 650 mg PO Q8H PRN PRN Reason: temp > 101 Last Admin: 02/13/20 16:02 Dose: 650 mg Documented by: Albuterol/Ipratropium (Duoneb) 3 ml INHALATION Q6H.RESPIRATORY DIANE Last Admin: 02/16/20 08:03 Dose: 3 ml Documented by: Aspirin (Aspirin Ec) 81 mg PO DAILY [facility] Last Admin: 02/16/20 08:19 Dose: 81 mg Documented by: Clopidogrel Bisulfate (Plavix) 75 mg PO DAILY [facility] Last Admin: 02/16/20 08:19 Dose: 75 mg Documented by: Enoxaparin Sodium (Lovenox) 40 mg SUBCUT Q24H DIANE Last Admin: 02/11/20 09:43 Dose: 40 mg Documented by: Hydroxyzine Pamoate (Vistaril) 25 mg PO TID [facility] Last Admin: 02/16/20 08:19 Dose: 25 mg Documented by: Vancomycin HCl 1,000 mg/ (Sodium Chloride) 250 mls @ 250 mls/hr IV Q18H DIANE; Protocol Last Infusion: 02/15/20 22:30 Dose: Infused Documented by: Insulin Aspart (Novolog) 0 unit SUBCUT BEDTIME [facility]; Protocol Last Admin: 02/15/20 21:30 Dose: 2 unit Documented by: Insulin Aspart (Novolog) 0 unit SUBCUT TIDWM [facility]; Protocol Last Admin: 02/16/20 08:18 Dose: 2 unit Documented by: Isosorbide Dinitrate (Isordil) 5 mg PO BID [facility] Last Admin: 02/16/20 08:19 Dose: 5 mg Documented by: Lanolin (Lanolin Oint) 1 applic TOPICAL PRN PRN PRN Reason: DRYNESS Last Admin: 02/06/20 11:41 Dose: 1 each Documented by: Levofloxacin (Levaquin) 750 mg PO EVERY OTHER DAY DIANE; Protocol Stop: 02/18/20 09:01 Last Admin: 02/16/20 08:19 Dose: 750 mg Documented by: Metoprolol Tartrate (Lopressor) 12.5 mg PO BID [facility] Last Admin: 02/16/20 08:19 Dose: 12.5 mg Documented by: Morphine Sulfate (Morphine Oral Liq Ud) 5 mg SUBLINGUAL Q2H PRN PRN Reason: [employer]GER Last Admin: 02/16/20 06:39 Dose: 5 mg Documented by: Nystatin (Nystatin) 500,000 unit PO QID [facility] Last Admin: 02/16/20 08:18 Dose: 500,000 unit Documented by: Ondansetron HCl (Zofran) 4 mg IVP Q12H PRN PRN Reason: vomiting, or N/V if npo Last Admin: 02/10/20 03:08 Dose: 4 mg Documented by: Pantoprazole Sodium (Protonix) 40 mg PO DAILY [facility] Last Admin: 02/16/20 08:19 Dose: 40 mg Documented by: Potassium Chloride (Klor-Con 10) 20 meq PO DAILY [facility] Last Admin: 02/16/20 08:19 Dose: 20 meq Documented by: Vitals/I&O/Wt Last Vital Signs Temp 96.4 F L 02/16/20 07:59 Pulse 79 02/16/20 08:14 Resp 22 H 02/16/20 08:03 BP 100/60 02/16/20 07:59 Pulse Ox 87 L 02/16/20 09:02 02/15/20 02/16/20 02/16/20 22:59 06:59 14:59 Intake Total 250 / 250 Balance 250 / 50 Weight last 48 hrs Weight 15 lb Weight 162 lb 12.8 oz Physical Exam Narrative: EXAM NARRATIVE: GENERAL: The patient is alert and oriented times three. She has moderate shortness of breath, but less anxious HEENT: Minimal pallor. No icterus or lymphadenopathy.Oral cavity: There are no mucous membrane lesions. NECK: Trachea appears to be central. No masses noted. No JVD or thyromegaly appreciated. RESPIRATORY: Chest is symmetrical. No intercostals muscle retraction or any accessory muscle activation. There is no chest wall tenderness. Breath sounds are heard bilaterally with scattered expiratory wheezing . Few coarse crackles BREASTS: Deferred. HEART: The heart sounds are normal. No S3 but there is an S4. Short systolic murmur in the left sternal border. No diastolic murmurs. No pericardial rub. ABDOMEN: No vessel pulsations or distention. No tenderness. No organomegaly appreciated. Bowel sounds are normally heard. : Deferred. RECTAL: Deferred. LYMPHATIC: No lymphadenopathy noted in the neck . EXTREMITIES: 1+ edema of both lower extremities. She has a peripheral cyanosis in the upper and lower extremities. Dorsalis pedis and posterior pulse are weak bilaterally MUSCULOSKELETAL: No acute joint deformities or swelling SKIN: There are no significant scars or skin rash noted. NEUROPSYCHIATRIC: The patient is alert and oriented x2. No focal motor deficits. Urinary Catheter Management^: Servin: Cath Placed During This Visit: yes, but has since been removed by the nurse Urethral Indwelling: Yes Reason for Continuing Indwelling Catheter: Accurate Measurement of Urinary Output in Critically Ill Patients Urinary Catheter Date of Insertion: 02/01/20 Urinary Catheter Time of Insertion: 18:35 Date Urinary Catheter Removed: 02/12/20 Time Urinary Catheter Discontinued: 09:45 Data : 02/14/20 05:34 02/14/20 05:34 Micro: Microbiology 02/13/20 20:50 Gram Stain - Final Sputum - Expectorated Sputum Sputum Culture - Final A&P Assessment and plan (1) Atherosclerotic heart disease of [place] coronary artery with unstable angina pectoris: Patient has symptoms suggestive of unstable angina. Hemodynamically she seems to be stable. In view of her ongoing chest pain, she requires a cardiac catheterization. However because of the respiratory status, without supporting the ventilatory status, possibly by way of endotracheal intubation, it will be difficult to do the angiogram and possible intervention. This was once again discussed with the patient. Patient is definitely opposed to endotracheal intubation. I discussed this with the family as well. At this point, patient is wanting to go home. She would consider angiogram, if her breathing gets better. She seems to understand the implications. Status: Acute Qualifiers: [place] vs. transplanted heart: [place] heart Qualified Code(s): I25.110 - Atherosclerotic heart disease of [place] coronary artery with unstable angina pectoris (2) Right lower lobe pneumonia: This seems to be resolving based on the clinical findings. Her chest x-ray shows persistent right lower lobe infiltrate. Status: Suspected Qualifiers: Pneumonia type: due to unspecified organism Qualified Code(s): J18.9 - Pneumonia, unspecified organism (3) Acute respiratory failure with hypoxia and hypercarbia: Her breathing has some improvement. Continue the bronchodilator treatment. She also need to be discharged on Lasix Status: Acute (4) Ischemic cardiomyopathy: Patient has a markedly decreased LV ejection fraction compared to the previous study. Most likely she may have a lot of hibernating myocardium. She has intermittent cardiac decompensation Status: Acute (5) Non-ST elevation DC (NSTEMI): She has not had a repeat troponin test. I may go ahead and do one to follow-up on the trend. In the meanwhile, she may continue on the current medications. Apparently she was taken off the anticoagulation because of the drop in the hematocrit and thrombocytopenia. For this reason, it may be appropriate to continue on the current medications Status: Acute (6) Acute systolic heart failure: We will continue the careful IV diuresis as mentioned above. Status: Acute Additional A&P Information Other problems are High BUN/creatinine, possible related to low output state COPD exacerbation, clinically improving Dyslipidemia-in view of her liver problems, the statin drugs were discontinued. History of TIA with no recent recurrence. Severe peripheral arterial disease, status post peripheral artery intervention. Bilateral carotid artery disease. Chronic anemia. Elevated liver enzymes, currently back to normal. History of nonalcoholic liver cirrhosis History of thrombocytopenia History of GERD Multiple electrolyte abnormalities, seems to be getting stabilized. Anxiety disorder The patient's overall prognosis is poor. Family seems understand this well. We will continue on the conservative measures. Coding Level of Care Code Acute Mining Technician for Stephanie Mora Diagnoses Atherosclerotic heart disease of [place] coronary artery with unstable angina pectoris I25.110 [place] vs. transplanted heart: [place] heart Right lower lobe pneumonia J18.9 Pneumonia type: due to unspecified organism Acute respiratory failure with hypoxia and hypercarbia J96.01; J96.02 Ischemic cardiomyopathy I25.5 Non-ST elevation DC (NSTEMI) I21.4 Acute systolic heart failure I50.21
--- NOTE | 2020-02-16 09:51 | P.PN_ITS ---
Subjective Subjective: Interval history: Patient reports again off-and-on chest pain this morning with associated shortness of breath requiring BiPAP throughout the night. This morning she denies any chest pain. I had discussion with Dr. Ruffin and patient at bedside. Patient reports that she does not want to be intubated or resuscitated and wants to allow natural . She understands her poor prognosis. She cannot lay flat to undergo procedure. She denies cough this morning. She was dismissed yesterday but discharge was postponed because BiPAP was not arranged. She wants to be dismissed with hospice and go home. Discussed with Dr. Welch this morning and updated him. Vitals/I&O/Wt Last Vital Signs Temp 96.4 F L 02/16/20 07:59 Pulse 79 02/16/20 08:14 Resp 22 H 02/16/20 08:03 BP 100/60 02/16/20 07:59 Pulse Ox 87 L 02/16/20 09:02 02/15/20 02/16/20 02/16/20 22:59 06:59 14:59 Intake Total 250 / 250 Balance 250 / 50 Weight last 48 hrs Weight 6.804 kg Weight 73.845 kg Physical Exam Const: COMMON NORMALS: no apparent distress and oriented x3 OTHER: She is doing okay for several minutes after taken off BiPAP but gets somewhat anxious and asks to go back on BiPAP again. Resp: COMMON NORMALS: normal respiratory effort EFFORT & INSPECTION: No respiratory distress OTHER: Overall decreased air movement but otherwise clear. I did not appreciate wheezing or rails. Frequently gets anxious and short of breath requiring BiPAP treatment. Denies cough. Cardio: COMMON NORMALS: regular rate, regular rhythm and S2 normal heart sound RATE: regular rate RHYTHM: regular rhythm HEART SOUNDS: S2 normal OTHER: No lower extremity edema. Both feet are purple and cold to touch. No peripheral edema. GI: COMMON NORMALS: normal to inspection, nondistended, normoactive bowel sounds, soft to palpation and non-tender PALPATION: Yes soft Neuro: COMMON NORMALS: oriented x3 and no focal motor deficits Urinary Catheter Management^: Servin: Cath Placed During This Visit: yes, but has since been removed by the nurse Urethral Indwelling: Yes Reason for Continuing Indwelling Catheter: Accurate Measurement of Urinary Output in Critically Ill Patients Urinary Catheter Date of Insertion: 02/01/20 Urinary Catheter Time of Insertion: 18:35 Date Urinary Catheter Removed: 02/12/20 Time Urinary Catheter Discontinued: 09:45 Data : 02/14/20 05:34 02/14/20 05:34 Micro: Microbiology 02/13/20 20:50 Gram Stain - Final Sputum - Expectorated Sputum Sputum Culture - Final A&P Assessment and plan (1) Atherosclerotic heart disease of [place] coronary artery with unstable angina pectoris: Status: Acute Qualifiers: [place] vs. transplanted heart: [place] heart Qualified Code(s): I25.110 - Atherosclerotic heart disease of [place] coronary artery with unstable angina pectoris (2) Right lower lobe pneumonia: -reported episode of vomiting following intake of nitroglycerin as well as hemoptysis we will cannot exclude element of aspiration -Noted leukocytosis with neutrophilic predominance, now resolved -off vent support -On broad-spectrum IV antibiotics (Zosyn/Levaquin/Vanc); will d/c as no leukocytosis, afebrile x > 48 hrs -negative for influenza; screening for COVID-19 negative -blood cx: negative -sputum cx-prelim mixed cheng, gram stain negative Status: Suspected Qualifiers: Pneumonia type: due to unspecified organism Qualified Code(s): J18.9 - Pneumonia, unspecified organism (3) Acute respiratory failure with hypoxia and hypercarbia: -Patient arrived in significant respiratory distress and was intubated in the ER; extubated on 02/02 -on BiPAP vs. NC; noted increased oxygen requirement today -Continue to monitor respiratory status closely; noted tachypnea -repeat imaging shows evidence of fluid overload, improved today -AM ABG noted, appropriate -Continued monitoring of hemodynamic status -Negative for PE on CTA -dose of 20 mg oral Lasix today Status: Acute (4) Ischemic cardiomyopathy: Status: Acute (5) Non-ST elevation NM (NSTEMI): -found to have recurrent troponin elevation with delta of 900 -Has known history of CAD with prior stenting; last cardiac work-up done in 2019 with echo showing EF of 79%, cath done in 2018 -Continue therapeutic Lovenox, aspirin, Plavix, metoprolol; no statins due to history of hepatocellular carcinoma -Cardiology consult by Dr. Alaniz appreciated; plan for cath tomorrow -repeat Echo: EF=28%, global LV hypokinesis, G1DD, moderate pulmonary HTN (44), mild MR, moderate , mild AR, moderate TR, mild AK Status: Acute (6) Acute systolic heart failure: Status: Acute Additional A&P Information -Acute kidney injury. This appears to be prerenal secondary to heart failure. -Acute systolic CHF exacerbation. -PVD, s/p RLE stenting -Chronic smoker -NIDDM type II; accucheks, ISS, hypoglycemia precautions -bilateral carotid artery stenosis -known infrarenal AAA; stable per imaging (last done in 01/2020), follows up with Dr. Pratt -Chronic thrombocytopenia, likely secondary to liver pathology, continue to monitor platelet count; baseline is around 80-100 -GERD, on PPI and H2 chase -Liver cirrhosis, secondary to non-alcoholic steatosis; spleen is upper level of normal size, mesenteric adenopathy (stable per last imaging) -Normocytic anemia; appears to be intermittent as baseline Hg wnl; continue to monitor H/H, has been gradually trending down Bibasilar pneumonia. Most likely present on admission. -GI ppx with PPI -DVT ppx not needed as on therapeutic lovenox -PT/OT/ST evaluations -decrease pain med doses as likely contributing to lethargy particularly in combination with anxiolytics PLAN: Please refer to discharge summary performed yesterday. No change in medications or plan. Poor prognosis. -Dispo: Home with hospice. -Code status: Allow natural . Attestations Medical Necessity Statement*: Patient is being dismissed home with hospice. Coding Level of Care Code Acute Director Of Capital Giving for Stephanie Mora Diagnoses Atherosclerotic heart disease of [place] coronary artery with unstable angina pectoris I25.110 [place] vs. transplanted heart: [place] heart Right lower lobe pneumonia J18.9 Pneumonia type: due to unspecified organism Acute respiratory failure with hypoxia and hypercarbia J96.01; J96.02 Ischemic cardiomyopathy I25.5 Non-ST elevation NM (NSTEMI) I21.4 Acute systolic heart failure I50.21
--- NOTE | 2020-02-16 10:24 | PC.NURSE ---
AR PALACIOS, DAUGHTER, NOTIFIED ABOUT PATIENT'S DISCHARGE.
== END 2020-02-16 10:25 | disposition hospice, home (50) | DRG 208 ==
LOC: ER 19:35 → ICU 21:36 → CSU 02-05 13:18 → MEDSURG 02-09 20:03 → CSU 02-10 19:20 → MEDSURG 02-12 11:47
PROVIDERS: Family Medicine; Internal Medicine Cardiovascular Disease; Admitting Provider Hospitalist; Emergency Provider Emergency Medicine; Family Provider Family Medicine; PCP Family Medicine; Visit Provider Internal Medicine
DX: J96.01 Acute respiratory failure with hypoxia (principal); J18.9 Pneumonia, unspecified organism; I21.4 Non-ST elevation (NSTEMI) myocardial infarction; I50.21 Acute systolic (congestive) heart failure; C22.0 Liver cell carcinoma; I25.110 Atherosclerotic heart disease of native coronary artery with unstable angina pectoris; N17.9 Acute kidney failure, unspecified; Z51.5 Encounter for palliative care; Z66 Do not resuscitate; E11.65 Type 2 diabetes mellitus with hyperglycemia; K21.9 Gastro-esophageal reflux disease without esophagitis; K74.60 Unspecified cirrhosis of liver; F17.218 Nicotine dependence, cigarettes, with other nicotine-induced disorders; I25.5 Ischemic cardiomyopathy; J96.02 Acute respiratory failure with hypercapnia; Z79.02 Long term (current) use of antithrombotics/antiplatelets; Z79.82 Long term (current) use of aspirin; I65.23 Occlusion and stenosis of bilateral carotid arteries; D69.6 Thrombocytopenia, unspecified; D64.9 Anemia, unspecified; Z86.73 Personal history of transient ischemic attack (TIA), and cerebral infarction without residual deficits; E78.2 Mixed hyperlipidemia; E11.51 Type 2 diabetes mellitus with diabetic peripheral angiopathy without gangrene; F41.9 Anxiety disorder, unspecified
CPT/HCPCS: 12345; 36415; 36416; 36600; 51702; 71045; 71275; 80048; 80051; 80053; 80061; 80202; 81001; 82803; 82810; 82962; 83605; 83615; 83735; 83880; 83986; 84100; 84145; 84484; 85025; 85610; 85730; 87040; 87070; 87205; 87493; 87635; 87804; 92526; 92610; 93005; 93306; 94002; 94003; 94640; 94660; 94762; 94799; 96372; 96375; 97110; 97161; 97165; 97530; 97535; 99284; C9113; J0282; J0330; J1160; J1200; J1644; J1650; J1815; J1940; J1956; J2001; J2060; J2250; J2270; J2405; J2543; J2704; J3010; J3370; J3475; J3480; J3490; J7030; J7040; J7050; J7060; Q0163; Q9967